=== PATIENT | female | born 1935 | race Caucasian/White ===

== ENCOUNTER 2023-05-17 14:49 | Emergency (ER) | payer MEDICARE, MEDICAID, SELFPAY ==
[2023-05-17] VITALS (28 sets, daily range): BP systolic 142–201; BP diastolic 68–109; PULSE 47–89; RESP 13–33; TEMP 36.4; O2SAT 84–99; BMI 21.1
--- NOTE | 2023-05-17 14:58 | CT_ITS ---
The [address] [address] Patient Name: YAMINI TURPIN MRN: [id number] date: 1935 Sex: F Assigned Patient Location: ED.MAIN Current Patient Location: ER Accession/Order Number: [id number] Exam Date: 05/17/2023 15:04 Report Date: 05/17/2023 15:24 At the request of: SUMAN KENDRICK Procedure: CT stroke head/brain wo con EXAMINATION: CT stroke head/brain wo con HISTORY: hematoma, CHI, blood thinner COMPARISON: None. TECHNIQUE: CT scan of the head was performed without IV contrast. CT dose reduction technique was used, including Automated Exposure Control. FINDINGS: There are no extra-axial fluid collections. There is no mass effect or midline shift. Cortical thinning with compensatory dilatation of the sulci and ventricles, representing cerebral atrophy. The brain demonstrates normal attenuation. Basal cisterns are patent. There is extensive bilateral subcortical and deep periventricular white matter chronic microvascular ischemia. Bilateral orbits, paranasal sinuses and mastoid air cells are patent. No skull base fracture. CT/CT stroke head/brain wo con IMPRESSION: No acute intracranial hemorrhage. extensive bilateral subcortical and deep periventricular white matter chronic microvascular ischemia. Superimposed infarction cannot be excluded. Brain CT angiogram or MRI is recommended for better evaluation. Electronically authenticated by: AKASH CAZARES Date: 05/17/2023 15:24
--- NOTE | 2023-05-17 15:08 | ECG_ITS ---
The [facility] Test Date: 2023-05-17 Pat Name: YAMINI TURPIN Department: Room: - Gender: Female Rn Support Services: : 1935 Requested By: Order Number: [id number] Reading MD: SHIELA LOWERY Measurements Intervals [place] Rate: 49 P: -52149 MN: -25536 QRS: 99 QRSD: 112 T: 270 QT: 370 QTc: 341 Interpretive Statements 1430 Undetermined rhythm (Possible supraventricular bradycardia) 2234 Possible 3rd degree AV block 2540 Incomplete left bundle branch block [address] depression, possible subendocardial injury 4664 Twave abnormality, possible inferolateral ischemia 7102 Moderate right axis deviation 8305 Short QTc interval 9150 abnormal ECG No previous ECG available for comparison Electronically Signed On 05-19-2023 18:20:58 EDT by SHIELA LOWERY
--- NOTE | 2023-05-17 15:08 | XR_ITS ---
The [address] [address] Patient Name: YAMINI TURPIN MRN: [id number] date: 1935 Sex: F Assigned Patient Location: ER Current Patient Location: ER Accession/Order Number: [id number] Exam Date: 05/17/2023 16:15 Report Date: 05/17/2023 16:47 At the request of: SUMAN KENDRICK Procedure: XR chest 1V EXAM: XR chest 1V HISTORY: cp COMPARISON: None. TECHNIQUE: Chest X-ray AP, 1 view FINDINGS: Support devices: None. Lungs/pleura: There is bilateral emphysema. Left basilar linear atelectasis. No consolidation, effusion, or pneumothorax. Heart and mediastinum: Cardiomegaly Bones: No acute abnormality identified. Bilateral shoulder osteoarthritis. XR/XR chest 1V Impression: Cardiomegaly. Left basilar linear atelectasis. Electronically authenticated by: AKASH CAZARES Date: 05/17/2023 16:47
--- NOTE | 2023-05-17 15:09 | XR_ITS ---
The [address] [address] Patient Name: YAMINI TURPIN MRN: [id number] date: 1935 Sex: F Assigned Patient Location: ER Current Patient Location: ER Accession/Order Number: [id number] Exam Date: 05/17/2023 16:15 Report Date: 05/17/2023 16:51 At the request of: SUMAN KENDRICK Procedure: XR sacrum coccyx min 2V EXAM: XR sacrum coccyx min 2V HISTORY: pain COMPARISON: None. TECHNIQUE: 3 views of the sacrum FINDINGS: Diffuse osteopenia, limited evaluation of the bone fractures. However, no definite fracture is noted. 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 There is no dislocation. XR/XR sacrum coccyx min 2V IMPRESSION: No acute process. Electronically authenticated by: AKASH CAZARES Date: 05/17/2023 16:51
--- NOTE | 2023-05-17 15:10 | ED.GENADUL1 ---
HPI - General Adult General Chief complaint: Syncope Stated complaint: FALL/HEAD INJURY Time Seen by Provider: 05/17/23 16:01 Mode of arrival: ambulance History of Present Illness HPI narrative: Patient is a 87-year-old female who is presenting to the Emergency Room with chief complaint Of closed head injury on anticoagulant. Patient states that she was bending over to pickle pumper something, she is seeing black stars, and patient ended up falling over and hitting her head. Patient complains of no headache or neck pain. Patient arrived in no cervical collar. Patient is alert and oriented ?3, GCS of 15. Patient has tailbone pain, otherwise no other acute complaints. Patient has no vision or hearing changes. It was reported the patient had a witnessed fall by staff. Patient believes that she passed out, she does remember bending over does not remember hitting her head. No abdominal pain, nausea vomiting. No acute complaints. . All systems are negative except as noted/marked. All systems reviewed and otherwise negative. . Nurses note and vital signs reviewed and patient is not hypoxic. General: The patient appears well and in no apparent distress. Patient is resting comfortably on cart. Patient is not toxic, lethargic, or listless Skin: Warm, dry, no pallor noted. There is no rash noted. No petechiae, purpura. Head: Normocephalic, atraumatic; Minimal scalp hematoma to the top of her head, minimal tenderness to palpation. No ecchymosis, abrasion, laceration or bruising. Patient has no midline or paracervical tenderness to palpation. Full range of motion of cervical spinal no difficulty. Eye: Normal conjunctiva, no drainage, EOMI. PERRL Ears, Nose, Mouth, and Throat: oral mucosa is Dry. Nares patent. Mouth without vesicles. Cardiovascular: Regular Rate and Rhythm, no murmur, gallop, rub Respiratory: Patient is in no distress, no accessory muscle use, lungs are clear to auscultation, no wheezing, rales or rhonchi, Slight decreased breath sounds bilateral, no crackles heard bilateral. Back: non-tender, no CVA tenderness bilaterally to percussion. No CT LS midline pain GI: soft, no tenderness to palpation, no masses appreciated. No rebound, guarding, or rigidity noted. No flank pain bilateral, No distention Musculoskeletal: Patient has full range of motion of all of the extremities, no motor, sensory, or focal neurological deficits Neurological: A&O x3, normal speech Psychiatric: Cooperative Related Data Allergies Allergy/AdvReac Type Severity Reaction Status Date / Time Latex, Natural Rubber AdvReac Intermediate Verified 05/17/23 14:58 tetanus toxoid, adsorbed AdvReac Intermediate Verified 05/17/23 14:58 pcn AdvReac Intermediate Uncoded 05/17/23 14:58 valium AdvReac Intermediate Uncoded 05/17/23 14:58 PFSH PFSH Social History Smoking status: Current every day smoker Exam Constitutional Vital Signs, click to edit/add: Last Vital Signs Temp 97.6 F 05/17/23 14:58 Pulse 56 L 05/17/23 18:17 Resp 33 H 05/17/23 18:17 BP 166/93 H 05/17/23 18:17 Pulse Ox 96 05/17/23 18:17 O2 Del Method Room Air 05/17/23 14:58 Course Vital Signs Vital signs: Vital Signs Pulse Rate 50 L 05/17/23 14:53 Respiratory Rate 21 05/17/23 14:53 Pulse Oximetry 97 05/17/23 14:53 Temperature 97.6 F 05/17/23 14:58 Pulse Rate 56 L 05/17/23 18:17 Respiratory Rate 33 H 05/17/23 18:17 Blood Pressure 166/93 H 05/17/23 18:17 Pulse Oximetry 96 05/17/23 18:17 Oxygen Delivery Method Room Air 05/17/23 14:58 Medical Decision Making [facility] Narrative Medical decision making narrative: Patient's head CT showed no acute abnormality secondary to closed head injury on anticoagulation. Patient is given IV fluids and feels better. Patient was ambulated and feels well at discharge. Patient will be discharged back to the [facility]. Education on closed head injury was discussed at bedside and on discharge paperwork. Patient has no headache or pain at discharge. Patient has been laughing, joking about her Emergency Room stay, very pleasant to take care of. Lab Data Lab results reviewed: Yes I reviewed the patient's lab results Labs: Lab Results 05/17/23 Range/Units 15:20 WBC 7.4 (4.0-11.0) 10^3/uL RBC 3.57 L (4.20-5.40) 10^6/uL Hgb 11.6 L (12.0-16.0) g/dL Hct 36.5 (36.0-48.0) % MCV 102.2 H (81.0-99.0) fL MCH 32.5 (26.7-34.0) pg MCHC 31.8 (29.9-35.2) g/dL RDW 14.3 (11.0-15.0) % Plt Count 171 (150-450) 10^3/uL MPV 11.8 (9.5-13.5) fL Neut % (Auto) 75.0 (43.0-75.0) % Lymph % (Auto) 15.9 L (20.5-60.0) % [place] % (Auto) 7.5 (1.7-12.0) % Eos % (Auto) 0.5 L (0.9-7.0) % Baso % (Auto) 0.8 (0.2-2.0) % Neut # (Auto) 5.5 (1.4-6.5) 10^3/uL Lymph # (Auto) 1.2 (1.2-3.8) 10^3/uL [place] # (Auto) 0.6 (0.3-0.8) 10^3/uL Eos # (Auto) 0.0 (0.0-0.7) 10^3/uL Baso # (Auto) 0.1 (0.0-0.1) 10^3/uL Abs Immat Gran (auto) 0.02 (0.00-0.03) 10^3/uL Imm/Tot Granulo (auto) 0.3 (0.0-0.5) % Sodium 145 (136-145) mmol/L Potassium 3.9 (3.5-5.1) mmol/L Chloride 109 H (98-107) mmol/L Carbon Dioxide 25.6 (21.0-32.0) mmol/L Anion Gap 14.3 BUN 24.0 H (7.0-18.0) mg/dL Creatinine 1.54 H (0.55-1.02) mg/dL Est GFR ( Amer) 39 L (>=60) Est GFR (Non-Af Amer) 32 L (>=60) BUN/Creatinine Ratio 15.6 Glucose 107 H (74-106) mg/dL Calcium 9.3 (8.5-10.1) mg/dL Total Bilirubin 0.7 (0.2-1.0) mg/dL AST 23 (15-37) U/L ALT 26 (14-59) U/L Alkaline Phosphatase 77 (46-116) U/L Troponin I High Sens 31.0 (4.0-51.3) pg/mL NT-Pro-B Natriuret Pep >84112.0 H* (<=1800.0) pg/mL Total Protein 6.6 (6.4-8.2) g/dL Albumin 3.4 (3.4-5.0) g/dL Globulin 3.2 g/dL Albumin/Globulin Ratio 1.1 ECG Data Attestation: I personally reviewed and interpreted this ECG as follows: Interpretation: EKG interpretation. Sinus bradycardia of 49 beats a minute. Normal axis deviation. Diffuse ST depression QTC of 341. Nonspecific ST changes. Were attempted to find an old EKG to compare this to. Discharge Plan Discharge Chief Complaint: Syncope Clinical Impression: Vasovagal syncope, CHI (closed head injury), Syncope and collapse, Hematoma of scalp Patient Disposition: Home, Self-Care Condition: Good Instructions: Syncope (ED), Head Injury (ED), Scalp Contusion in Adults (ED) Additional Instructions: Ice 20 minutes on, 20 minutes off. Tylenol as needed for headache. Education on closed head injury was Done at bedside and on discharge paperwork. Stand Alone Forms: Portal Instructions Referrals: NOHELIA GRACIA DO [Primary Care Provider] - 1 week
--- NOTE | 2023-05-17 15:24 | PC.NURSE ---
pt sent over from the [employer]. pt states that she uses a walker and has a pickup stick and was trying to collect papers of the ground. pt states that all she remembers is bending over and her vision going black and falling foward and hitting her head. pt denies anyone being around when she fell. pt unsure why she passed out. hematoma to top of head. c/o tailbone pain and pain to her right hand. pt states pain is minimal. pt states that she wears 2 liters nasal cannula as needed and this morning when they checked her pulse ox her o2 sat was only 82% on room air and she was placed on oxygen and she isn't sure if that has anything to do with it.
[2023-05-17] MEDS: 0.9 % SODIUM CHLORIDE 1,000 ML 1000 ML IV (15:30)
[2023-05-17 15:40] LABS: Basophils Absolute Auto 0.1 10^3/uL (0.0-0.1); Basophils Percent Auto 0.8 % (0.2-2.0); Eosinophils Percent Auto 0.5 % (0.9-7.0); Hematocrit 36.5 % (36.0-48.0); Hemoglobin 11.6 g/dL (12.0-16.0); Immature Granulocytes Abs Auto 0.02 10^3/uL (0.00-0.03); Immature Granulocytes Pct Auto 0.3 % (0.0-0.5); Lymphocytes Absolute Auto 1.2 10^3/uL (1.2-3.8); Lymphocytes Percent Auto 15.9 % (20.5-60.0); Mean Corpuscular HGB Conc 31.8 g/dL (29.9-35.2); Mean Corpuscular Hemoglobin 32.5 pg (26.7-34.0); Mean Corpuscular Volume 102.2 fL (81.0-99.0); Mean Platelet Volume 11.8 fL (9.5-13.5); Monocytes Absolute Auto 0.6 10^3/uL (0.3-0.8); Monocytes Percent Auto 7.5 % (1.7-12.0); Neutrophils Absolute Auto 5.5 10^3/uL (1.4-6.5); Platelet Count 171 10^3/uL (150-450); Red Blood Count 3.57 10^6/uL (4.20-5.40); Red Cell Distribution Width 14.3 % (11.0-15.0); White Blood Count 7.4 10^3/uL (4.0-11.0)
[2023-05-17 16:04] LABS: Alanine Aminotransferase 26 U/L (14-59); Albumin Globulin Ratio 1.1; Albumin Level 3.4 g/dL (3.4-5.0); Alkaline Phosphatase 77 U/L (46-116); Anion Gap 14.3; Aspartate Amino Transferase 23 U/L (15-37); BUN Creatinine Ratio 15.6; Bilirubin Total 0.7 mg/dL (0.2-1.0); Calcium 9.3 mg/dL (8.5-10.1); Carbon Dioxide 25.6 mmol/L (21.0-32.0); Chloride 109 mmol/L (98-107); Estimated GFR (African America 39 (>=60); Estimated GFR (Non-African Ame 32 (>=60); Globulin 3.2 g/dL; Glucose 107 mg/dL (74-106); Potassium 3.9 mmol/L (3.5-5.1); Sodium 145 mmol/L (136-145); Total Protein 6.6 g/dL (6.4-8.2)
[2023-05-17 16:06] LABS: NT Pro B Type Natriuretic Pept >35000.0 pg/mL (<=1800.0)
== END 2023-05-17 21:07 | disposition home or self-care (01) ==
PROVIDERS: Emergency Provider Emergency Medicine; PCP Family Medicine
DX: S09.8XXA Other specified injuries of head, initial encounter (principal); R55 Syncope and collapse; S00.03XA Contusion of scalp, initial encounter; F17.210 Nicotine dependence, cigarettes, uncomplicated; Z79.01 Long term (current) use of anticoagulants; W18.30XA Fall on same level, unspecified, initial encounter
CPT/HCPCS: 36415; 70450; 71045; 72220; 80053; 83880; 84484; 85025; 93005; 96360; 99285

== ENCOUNTER 2023-05-30 13:30 | Inpatient (IN) | payer MEDICARE, MEDICAID, SELFPAY ==
[2023-05-30] VITALS (18 sets, daily range): BP systolic 146–167; BP diastolic 66–79; PULSE 56–71; RESP 18–28; TEMP 36.7–36.9; O2SAT 86–97; BMI 24.2; BMI 24.9
--- NOTE | 2023-05-30 13:37 | XR_ITS ---
The [address] [address] Patient Name: YAMINI TURPIN MRN: [id number] date: 1935 Sex: F Assigned Patient Location: ER Current Patient Location: ER Accession/Order Number: [id number] Exam Date: 05/30/2023 13:59 Report Date: 05/30/2023 14:45 At the request of: NICOLASA HANEY Procedure: XR chest 1V EXAMINATION: XR chest 1V HISTORY: Dyspnea , chest tightness during inspiration COMPARISON: XR chest 05/17/2023 FINDINGS: LUNGS: Dense opacities within the mid and lower lung regions bilaterally. Loss of diaphragm margins. VASCULATURE: No increased pulmonary vasculature. PLEURA: Right pleural effusion. No pneumothorax. CARDIAC: Grossly stable cardiomegaly. MEDIASTINUM: No visible mass or adenopathy. BONES: No fracture or visible bone lesion. OTHER: Negative. XR/XR chest 1V IMPRESSION: 1. New marked basilar infiltrates, right greater than left suggestive of pneumonia. 2. New [id number] right pleural effusion. Electronically authenticated by: HUMBLE SOTELO Date: 05/30/2023 14:45
--- NOTE | 2023-05-30 13:37 | ECG_ITS ---
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
--- NOTE | 2023-05-30 13:39 | ED.SOB1 ---
HPI - SOB/Dyspnea General Chief Complaint: Shortness of Breath/Dyspnea Time Seen by Provider: 05/30/23 13:37 Source: patient Mode of arrival: ambulance Limitations: no limitations History of Present Illness HPI Narrative: Patient is an 87-year-old female who presents to the emergency department by ambulance from the [facility] where she is a resident for the evaluation of shortness of breath increasing over the last two days. jail reports the patient had a chest x-ray yesterday that showed improving pulmonary edema. She has a history of congestive heart failure. She was not started on any additional medications today but did receive a breathing treatment prior to arrival for increasing shortness of breath and hypoxia. She does not typically wear oxygen but was placed on oxygen by nasal cannula with improvement of oxygen saturations. At this time, patient is alert and oriented, she denies chest pain. She has had no fevers, vomiting. She denies any peripheral edema. She has had sputum production with coughing in the last several days. Related Data Allergies Allergy/AdvReac Type Severity Reaction Status Date / Time Latex, Natural Rubber AdvReac Intermediate Verified 05/17/23 14:58 tetanus toxoid, adsorbed AdvReac Intermediate Verified 05/17/23 14:58 pcn AdvReac Intermediate Uncoded 05/17/23 14:58 valium AdvReac Intermediate Uncoded 05/17/23 14:58 Review of Systems ROS Constitutional Denies: fever or chills Cardiovascular Denies: chest pain Respiratory Reports: shortness of breath and cough Gastrointestinal Denies: nausea or vomiting Musculoskeletal Denies: back pain or neck pain Integumentary/Breast Denies: rash Neurological Denies: headache Hematologic/Lymphatic Denies: easy bruising PFSH PFS Social History Smoking status: Current every day smoker Exam Narrative Exam Narrative: Gen.: Awake, alert, in no distress Head: Normocephalic, atraumatic ENT: Moist mucous membranes Respiratory: No respiratory distress, tachypnea noted, diminished lung sounds globally Cardio: Regular rate and rhythm Gastrointestinal: Abdomen is soft, nondistended and nontender to palpation Extremities: Moves extremities equally, no pedal edema Psych: Normal mood and affect Neuro: No focal neuro deficit Skin: Warm, dry, intact Constitutional Vital Signs, click to edit/add: Last Vital Signs Temp 98.4 F 05/30/23 13:34 Pulse 63 05/30/23 14:30 Resp 24 05/30/23 13:34 BP 158/79 H 05/30/23 15:11 Pulse Ox 93 L 05/30/23 14:30 O2 Del Method Nasal Cannula 05/30/23 13:50 O2 Flow Rate 4 05/30/23 14:30 Course Vital Signs Vital signs: Vital Signs Temperature 98.4 F 05/30/23 13:34 Pulse Rate 66 05/30/23 13:34 Respiratory Rate 24 05/30/23 13:34 Blood Pressure 158/79 H 05/30/23 13:34 Pulse Oximetry 86 L 05/30/23 13:34 Oxygen Delivery Method Nasal Cannula 05/30/23 13:34 Oxygen Delivery Flow Rate 2 05/30/23 13:34 Temperature 98.4 F 05/30/23 13:34 Pulse Rate 63 05/30/23 14:30 Respiratory Rate 24 05/30/23 13:34 Blood Pressure 158/79 H 05/30/23 15:11 Pulse Oximetry 93 L 05/30/23 14:30 Oxygen Delivery Method Nasal Cannula 05/30/23 13:50 Oxygen Delivery Flow Rate 4 05/30/23 14:30 MDM - SOB/Dyspnea MDM Narrative Medical decision making narrative: Patient was noted to be in rate controlled atrial fibrillation, she does have a history of atrial fibrillation per her intermediate records. She has no complaints of chest pain in the Emergency Room. She maintained her oxygen saturations while on oxygen by nasal cannula. She was kept at 4 L by nasal cannula in the Emergency Room. Labs studies show mild anemia but significantly elevated BNP, greater than thirty-five thousand. Patient was treated with 80 mg of IV Lasix, Schulz catheter was placed. She was also given a DuoNeb with Solu-Medrol on arrival. Chest x-ray reviewed by the radiologist is concerning for bilateral pneumonia with pleural effusion and the patient was also treated with Levaquin and vancomycin for antibiotic coverage as she is from a longterm facility, she was given coverage for hospital-acquired pneumonia. She is resting comfortably at time of admission, discussed with Dr. Wray (1500) for admission. Medical Records Attestation: I reviewed the patient's medical records. Lab Data Attestation: I reviewed the patient's lab results. Labs: Lab Results 05/30/23 05/30/23 Range/Units 13:46 14:05 WBC 8.2 (4.0-11.0) 10^3/uL RBC 3.33 L (4.20-5.40) 10^6/uL Hgb 10.9 L (12.0-16.0) g/dL Hct 34.8 L (36.0-48.0) % MCV 104.5 H (81.0-99.0) fL MCH 32.7 (26.7-34.0) pg MCHC 31.3 (29.9-35.2) g/dL RDW 14.0 (11.0-15.0) % Plt Count 183 (150-450) 10^3/uL MPV 12.0 (9.5-13.5) fL Neut % (Auto) 85.1 H (43.0-75.0) % Lymph % (Auto) 10.2 L (20.5-60.0) % [place] % (Auto) 4.0 (1.7-12.0) % Eos % (Auto) 0.1 L (0.9-7.0) % Baso % (Auto) 0.2 (0.2-2.0) % Neut # (Auto) 7.0 H (1.4-6.5) 10^3/uL Lymph # (Auto) 0.8 L (1.2-3.8) 10^3/uL [place] # (Auto) 0.3 (0.3-0.8) 10^3/uL Eos # (Auto) 0.0 (0.0-0.7) 10^3/uL Baso # (Auto) 0.0 (0.0-0.1) 10^3/uL Abs Immat Gran (auto) 0.03 (0.00-0.03) 10^3/uL Imm/Tot Granulo (auto) 0.4 (0.0-0.5) % PT 11.2 (9.0-11.6) sec INR 1.06 APTT 24.9 (22.3-36.2) sec VBG pH 7.390 (7.330-7.430) VBG pCO2 51.5 (40.0-52.0) mmHg Sodium 148 H (136-145) mmol/L Potassium 4.0 (3.5-5.1) mmol/L Chloride 110 H (98-107) mmol/L Carbon Dioxide 32.7 H (21.0-32.0) mmol/L Anion Gap 9.3 BUN 23.0 H (7.0-18.0) mg/dL Creatinine 1.39 H (0.55-1.02) mg/dL Est GFR ( Amer) 44 L (>=60) Est GFR (Non-Af Amer) 36 L (>=60) BUN/Creatinine Ratio 16.5 Glucose 126 H (74-106) mg/dL Calcium 9.6 (8.5-10.1) mg/dL Total Bilirubin 0.7 (0.2-1.0) mg/dL AST 23 (15-37) U/L ALT 31 (14-59) U/L Alkaline Phosphatase 79 (46-116) U/L Troponin I High Sens 40.3 (4.0-51.3) pg/mL NT-Pro-B Natriuret Pep >58385.0 H* (<=1800.0) pg/mL Total Protein 6.4 (6.4-8.2) g/dL Albumin 3.5 (3.4-5.0) g/dL Globulin 2.9 g/dL Albumin/Globulin Ratio 1.2 Imaging Data Chest x-ray: Attestation: I have reviewed the pertinent imaging results. Radiologist's impression: Procedure: XR chest 1V EXAMINATION: XR chest 1V HISTORY: Dyspnea , chest tightness during inspiration COMPARISON: XR chest 05/17/2023 FINDINGS: LUNGS: Dense opacities within the mid and lower lung regions bilaterally. Loss of diaphragm margins. VASCULATURE: No increased pulmonary vasculature. PLEURA: Right pleural effusion. No pneumothorax. CARDIAC: Grossly stable cardiomegaly. MEDIASTINUM: No visible mass or adenopathy. BONES: No fracture or visible bone lesion. OTHER: Negative. IMPRESSION: 1. New marked basilar infiltrates, right greater than left suggestive of pneumonia. 2. New [id number] right pleural effusion. Electronically authenticated by: HUMBLE SOTELO Date: 05/30/2023 14:45 ECG Data Attestation: I personally reviewed and interpreted this ECG as follows: (Atrial fibrillation at a rate of fifty-six, and complete right bundle-branch block with no acute ST elevation. EKG reviewed by attending physician) Discharge Plan Discharge Chief Complaint: Shortness of Breath/Dyspnea Clinical Impression: Shortness of breath, Congestive heart failure, Hospital-acquired pneumonia, Hypoxia Patient Disposition: Admitted As Inpatient Time of Disposition Decision: 15:03 Condition: Good
[2023-05-30 14:00] LABS: Basophils Percent Auto 0.2 % (0.2-2.0); Eosinophils Percent Auto 0.1 % (0.9-7.0); Hematocrit 34.8 % (36.0-48.0); Hemoglobin 10.9 g/dL (12.0-16.0); Immature Granulocytes Abs Auto 0.03 10^3/uL (0.00-0.03); Immature Granulocytes Pct Auto 0.4 % (0.0-0.5); Lymphocytes Absolute Auto 0.8 10^3/uL (1.2-3.8); Lymphocytes Percent Auto 10.2 % (20.5-60.0); Mean Corpuscular HGB Conc 31.3 g/dL (29.9-35.2); Mean Corpuscular Hemoglobin 32.7 pg (26.7-34.0); Mean Corpuscular Volume 104.5 fL (81.0-99.0); Monocytes Absolute Auto 0.3 10^3/uL (0.3-0.8); Neutrophils Percent Auto 85.1 % (43.0-75.0); Platelet Count 183 10^3/uL (150-450); Red Blood Count 3.33 10^6/uL (4.20-5.40); White Blood Count 8.2 10^3/uL (4.0-11.0)
[2023-05-30 14:11] LABS: PCO2 VBG 51.5 mmHg (40.0-52.0)
[2023-05-30 14:11] LABS: INR 1.06; Partial Thromboplastin Time 24.9 sec (22.3-36.2); Prothrombin Time 11.2 sec (9.0-11.6)
[2023-05-30 14:19] LABS: Alanine Aminotransferase 31 U/L (14-59); Albumin Globulin Ratio 1.2; Albumin Level 3.5 g/dL (3.4-5.0); Alkaline Phosphatase 79 U/L (46-116); Anion Gap 9.3; Aspartate Amino Transferase 23 U/L (15-37); BUN Creatinine Ratio 16.5; Bilirubin Total 0.7 mg/dL (0.2-1.0); Calcium 9.6 mg/dL (8.5-10.1); Carbon Dioxide 32.7 mmol/L (21.0-32.0); Chloride 110 mmol/L (98-107); Estimated GFR (African America 44 (>=60); Estimated GFR (Non-African Ame 36 (>=60); Globulin 2.9 g/dL; Glucose 126 mg/dL (74-106); Sodium 148 mmol/L (136-145); Total Protein 6.4 g/dL (6.4-8.2); Troponin I High Sensitivity 40.3 pg/mL (4.0-51.3)
[2023-05-30 14:21] LABS: NT Pro B Type Natriuretic Pept >35000.0 pg/mL (<=1800.0)
[2023-05-30] MEDS: IPRATROPIUM/ALBUTEROL SULFATE 3 ML AMPUL.NEB IH ×2 (14:29→23:30)
[2023-05-30] MEDS: FUROSEMIDE 40 MG/4 ML VIAL 80 MG IVP (15:11)
[2023-05-30] MEDS: METHYLPREDNISOLONE SOD SUCC PF 125 MG/2 ML VIAL IVP (15:11)
[2023-05-30] MEDS: LEVOFLOXACIN IN DEXTROSE 5 % 750 MG/150 ML IV.SOLN 100 MG IV (16:22)
[2023-05-30] MEDS: VANCOMYCIN HCL 1,000 MG in 0.9 % SODIUM CHLORIDE 250 ML 250 MG IV (20:14)
--- NOTE | 2023-05-30 22:51 | P.PN_ITS ---
Progress Note: Subjective Subjective Interval history: The patient is an 87-year-old female, long-term resident at the [facility], who has been having trouble with shortness of breath and dyspnea on exertion over the past 3 days. She also states that she had some trouble swallowing. She desaturated to 71% yesterday with ambulation. She was brought into the hospital today and chest x-ray showed possible pneumonia. BNP was greater than 35,000. In the ED, she was given vancomycin, Levaquin and 80 mg of IV Lasix. She is being admitted for further evaluation. Exam Narrative Exam Narrative: General : Alert and oriented x3 HEENT : Extraocular movements intact, pupils equal round and reactive to light and accommodation Neck: Supple, no JVD Chest: Clear to auscultation bilaterally, no wheezes Heart: Regular rate and rhythm, S1 and S2 heard Abdomen: Soft nontender nondistended. Extremities: No clubbing cyanosis or edema Neurologically: Moving all 4 extremities Skin: No rashes Constitutional Vital Signs, click to edit/add: Last Vital Signs Temp 98.1 F 05/30/23 22:00 Pulse 67 05/30/23 22:17 Resp 18 05/30/23 22:00 BP 146/70 H 05/30/23 22:00 Pulse Ox 93 L 05/30/23 22:00 O2 Del Method Nasal Cannula 05/30/23 22:00 O2 Flow Rate 4 05/30/23 22:00 Progress Note: Objective Labs Labs: Short CBC 05/30/23 Range/Units 13:46 WBC 8.2 (4.0-11.0) 10^3/uL Hgb 10.9 L (12.0-16.0) g/dL Hct 34.8 L (36.0-48.0) % Plt Count 183 (150-450) 10^3/uL BMP 05/30/23 13:46 Sodium 148 H Potassium 4.0 Chloride 110 H Carbon Dioxide 32.7 H BUN 23.0 H Creatinine 1.39 H Glucose 126 H Calcium 9.6 Liver Function 05/30/23 Range/Units 13:46 Total Bilirubin 0.7 (0.2-1.0) mg/dL AST 23 (15-37) U/L ALT 31 (14-59) U/L Alkaline Phosphatase 79 (46-116) U/L Albumin 3.5 (3.4-5.0) g/dL Progress Note: A&P Assessment and Plan (1) Hospital-acquired pneumonia: (2) Congestive heart failure: (3) Hypoxia: Plan The patient is an 87-year-old female with above medical problems, presenting with pneumonia and decompensated heart failure. Decompensated heart failure -Provide supportive care -IV Lasix 40 mg daily -Monitor renal function and respiratory status Healthcare associated pneumonia -Continue vancomycin and Levaquin -Nebulizers as needed Hypernatremia -Likely dilutional -Monitor labs Atrial fibrillation -Continue amiodarone and metoprolol -Continue apixaban for cardioembolic prophylaxis DVT Prophylaxis -Lovenox, SCDs Medication review -Medication reconciliation form completed Goals of care -DNR [employer] -Discussed with the emergency room physician -Discussed with the bedside nurse -Patient updated of plan of care, all questions answered to their satisfaction Disposition -Custodial when medically stable Telemedicine clause -As the provider of this telehealth evaluation, requested by the patient's evaluating physician, I attest that I introduced myself to the patient, provided my credentials and determined that telemedicine via a real-time, two-way interactive audio and video platform is an appropriate and effective means of providing this service. -I reviewed the patient's chart and had a discussion with the member of the patient's treatment team. -The patient and I mutually agreed with continuation of this evaluation via telemedicine. The patient consented for the telemedicine evaluation. -This virtual encounter was taken place from [place], [place]. The encounter was approximately 35 minutes. The nurse was present during the entire time of the encounter and was able to remove the stethoscope and appropriate directions. The patient was evaluated at [facility] Telemedicine Attestation Telemedicine Attestation I conducted this encounter from [] via secure live, [id number] video conference with the patient, located at [facility] with []. Prior to the interview, the risks and benefits of telemedicine were discussed with the patient and verbal consent was obtained.
[2023-05-30] MEDS: BUDESONIDE 0.5 MG/2 ML AMPULE NEB IH (23:35)
[2023-05-30] MEDS: FUROSEMIDE 40 MG/4 ML VIAL IVP (23:44)
[2023-05-30] MEDS: AMIODARONE HCL 200 MG TABLET PO (23:44)
[2023-05-30] MEDS: DOCUSATE SODIUM 100 MG CAPSULE PO ×2 (23:44→23:48)
[2023-05-30] MEDS: GABAPENTIN 100 MG CAPSULE PO (23:50)
[2023-05-31] VITALS (20 sets, daily range): BP systolic 144–162; BP diastolic 68–78; PULSE 53–75; RESP 18–20; TEMP 36.9–37; O2SAT 91–96; BMI 24.9
[2023-05-31 04:57] LABS: Hematocrit 33.5 % (36.0-48.0); Hemoglobin 10.4 g/dL (12.0-16.0); Immature Granulocytes Abs Auto 0.02 10^3/uL (0.00-0.03); Immature Granulocytes Pct Auto 0.4 % (0.0-0.5); Lymphocytes Absolute Auto 0.2 10^3/uL (1.2-3.8); Mean Corpuscular Volume 103.1 fL (81.0-99.0); Mean Platelet Volume 12.5 fL (9.5-13.5); Monocytes Absolute Auto 0.1 10^3/uL (0.3-0.8); Monocytes Percent Auto 1.3 % (1.7-12.0); Neutrophils Absolute Auto 5.2 10^3/uL (1.4-6.5); Neutrophils Percent Auto 95.3 % (43.0-75.0); Platelet Count 172 10^3/uL (150-450); Red Blood Count 3.25 10^6/uL (4.20-5.40); Red Cell Distribution Width 13.9 % (11.0-15.0); White Blood Count 5.4 10^3/uL (4.0-11.0)
[2023-05-31 05:06] LABS: Anion Gap 8.8; Calcium 9.8 mg/dL (8.5-10.1); Carbon Dioxide 32.8 mmol/L (21.0-32.0); Chloride 108 mmol/L (98-107); Estimated GFR (African America 43 (>=60); Estimated GFR (Non-African Ame 35 (>=60); Glucose 148 mg/dL (74-106); Potassium 3.6 mmol/L (3.5-5.1); Sodium 146 mmol/L (136-145)
[2023-05-31] MEDS: LEVOTHYROXINE SODIUM 75 MCG TABLET 150 MCG PO (06:24)
[2023-05-31] MEDS: GABAPENTIN 100 MG CAPSULE PO ×3 (06:24→22:00)
--- NOTE | 2023-05-31 07:43 | CT_ITS ---
[address] [address] Patient Name: YAMINI TURPIN MRN: [id number] date: 1935 Sex: F Assigned Patient Location: MS Current Patient Location: MS Accession/Order Number: [id number] Exam Date: 05/31/2023 08:00 Report Date: 05/31/2023 10:20 At the request of: SHAIKH JOSÉ LUIS Procedure: CT chest wo con EXAMINATION: CT chest wo con HISTORY: SOB/PNA COMPARISON: No relevant comparison available. TECHNIQUE: Multi-planar CT images were created with IV contrast. Axial, Coronal, and Sagittal images. Dose reduction techniques were achieved by using automated exposure control and/or adjustment of mA and/or kV according to patient size and/or use of iterative reconstruction technique. FINDINGS: LUNGS: Partial consolidation of both lower lobes with presence of air bronchograms. PLEURA: 3.9 cm right and 2.9 cm left pleural effusions. No pneumothorax VASCULATURE: No abnormality. JUDE: No mass or adenopathy. MEDIASTINUM: No mass or adenopathy. CARDIAC: Mild cardiomegaly. Moderate coronary atherosclerosis. AORTA: No aneurysm or dissection. CHEST WALL: No mass or axillary adenopathy. BONES: No bone lesion or fracture.90% wedge compression T9 vertebral body LIMITED ABDOMEN: Numerous bilateral renal lesions consistent with polycystic kidney disease. Right renal cortical atrophy. OTHER: Negative. CT/CT chest wo con IMPRESSION: Moderate bilateral pleural effusions with partial bibasilar consolidation atelectasis versus pneumonia Electronically authenticated by: SANTOS CASEY Date: 05/31/2023 10:20
--- NOTE | 2023-05-31 08:57 | DIETREC ---
Nutrition Recommendations: 1. Recommend speech evaluation. If thin liquids are deemed safe for patient, recommend adding Ensure HP once daily.
[2023-05-31] MEDS: LEVOFLOXACIN IN DEXTROSE 5 % 500 MG/100 ML PIGGYBACK 100 MG IV (09:13)
[2023-05-31] MEDS: OMEPRAZOLE 20 MG CAPSULE.DR PO (09:13)
[2023-05-31] MEDS: APIXABAN 5 MG TABLET 2.5 MG PO ×2 (09:13→21:50)
[2023-05-31] MEDS: ATORVASTATIN CALCIUM 40 MG TABLET PO (09:13)
[2023-05-31] MEDS: FERROUS SULFATE 325 MG TABLET PO (09:14)
[2023-05-31] MEDS: MULTIVITAMIN TABLET 1 TAB PO (09:14)
[2023-05-31] MEDS: PAROXETINE HCL 20 MG TABLET 10 MG PO (09:14)
[2023-05-31] MEDS: BUSPIRONE HCL 15 MG TABLET PO ×2 (09:14→21:50)
[2023-05-31] MEDS: MAGNESIUM OXIDE 400 MG TABLET PO (09:14)
--- NOTE | 2023-05-31 09:27 | SWNOTE1 ---
Pt is from [facility].
[2023-05-31] MEDS: BUDESONIDE 0.5 MG/2 ML AMPULE NEB IH (10:59)
--- NOTE | 2023-05-31 11:08 | SWNOTE1 ---
SW met with pt to discuss dc needs. Pt is from [facility], she has been there for 3 years. Pt voiced that she loves it there. They cook bathe, do her laundry, etc. Pt just started wearing 02 earlier this week because her pulse ox dipped. Pt's plan is to return to [facility] at discharge. SW to follow as needed.
[2023-05-31 12:21] LABS: NT Pro B Type Natriuretic Pept >35000.0 pg/mL (<=1800.0)
[2023-05-31] MEDS: SODIUM CHLORIDE 0.45 % 1,000 ML 100 ML IV ×2 (13:06→21:56)
--- NOTE | 2023-05-31 13:19 | P.HP_ITS ---
H&P: HPI History of Present Illness Chief complaint: SOB and hypoxia Narrative: 87 y o female was sent in from nursing for worsening SOB along with cough for 2- 3 days. She was hypoxic with pulse ox in 70s there last night and was brought over for further eval. Patient does not wear O2 at baseline and needed 4 L O via NC for hypoxia. She denies nausea,vomiting, abdominal pain or urinary complaints. She is doing better than last night but appeared SOB while talking. Her w/u was consistent with b/l Pneumonia and pleural effusion. Patient was give IV lasix for volume overload and also treated for pneumonia. She received vancomycin and Levaquin for for health care associated PNA because she is a senior care resident. When inquired - it does not seem like she has had any recent abx use and also have not been in the hospital other than ED visit for a fall recently. Review of Systems ROS Status of ROS 10 or more systems reviewed and unremarkable except as noted in history and below [facility] Medical History (Updated 05/31/23 @ 13:34 by Shaikh Kamala MD) Surgical History (Updated 05/30/23 @ 18:32 by Diamond Chakraborty, HOMER) Family History (Updated 05/30/23 @ 18:35 by Diamond Chakraborty, RN) Father Family history of diabetes mellitus Brother Family history of hypertension Social History (Updated 05/30/23 @ 18:38 by Diamond Chakraborty, HOMER) Within the past year, how often did you have a drink containing alcohol: monthly or less Smoking status: Former smoker Non-prescribed substance use: denies use Highest level of school completed/degree received: high school graduate Meds Home Medications and Allergies Home Medications Medication Instructions Recorded Confirmed Type amiodarone 200 mg tablet 200 mg PO Q24H 05/30/23 05/30/23 History apixaban 5 mg tablet (Eliquis) 2.5 mg PO BID 05/30/23 05/30/23 History atorvastatin 40 mg tablet 40 mg PO DAILY 05/30/23 05/30/23 History budesonide 0.5 mg/2 mL suspension 0.5 mg inhalation Q12H 05/30/23 05/30/23 History for nebulization buspirone 15 mg tablet 15 mg PO BID 05/30/23 05/30/23 History ferrous sulfate 325 mg (65 mg 325 mg PO DAILY 05/30/23 05/30/23 History iron) tablet (FeroSul) gabapentin 100 mg capsule 100 mg PO Q8H 05/30/23 05/30/23 History ipratropium 0.5 mg-albuterol 3 mg 3 ml inhalation BID PRN shortness 05/30/23 05/30/23 History (2.5 mg base)/3 mL nebulization of breath or wheezing soln levothyroxine 150 mcg tablet 150 mcg PO DAILY 05/30/23 05/30/23 History loperamide 2 mg capsule 2 mg PO QID PRN loose stool 05/30/23 05/30/23 History magnesium oxide 400 mg (241.3 mg 400 mg PO DAILY 05/30/23 05/30/23 History magnesium) tablet melatonin 3 mg tablet 3 mg PO DAILY 05/30/23 05/30/23 History tpceguokbmel-kxcvzoih-cxbe 1 tab PO DAILY 05/30/23 05/30/23 History fumarate 7.5 mg-folic acid 400 mcg tablet omeprazole 20 mg capsule,delayed 20 mg PO DAILY 05/30/23 05/30/23 History release paroxetine HCl 10 mg tablet 10 mg PO DAILY 05/30/23 05/30/23 History Allergies Allergy/AdvReac Type Severity Reaction Status Date / Time Latex, Natural Rubber AdvReac Intermediate Verified 05/17/23 14:58 tetanus toxoid, adsorbed AdvReac Intermediate Verified 05/17/23 14:58 pcn AdvReac Intermediate Uncoded 05/17/23 14:58 valium AdvReac Intermediate Uncoded 05/17/23 14:58 Exam Constitutional Vital Signs, click to edit/add: Last Vital Signs Temp 98.6 F 05/31/23 06:00 Pulse 68 05/31/23 11:54 Resp 18 05/31/23 06:00 BP 158/75 H 05/31/23 06:00 Pulse Ox 96 05/31/23 11:16 O2 Del Method Nasal Cannula 05/31/23 11:16 O2 Flow Rate 4 05/31/23 11:16 Documenting provider has reviewed patient's vital signs: yes Common normals: oriented x3 General appearance: cooperative [facility] Common normals: normocephalic and head/scalp atraumatic Head and scalp: normocephalic and atraumatic Eye Common normals: conjunctivae normal and no scleral icterus Conjunctiva: conjunctiva(e) normal Respiratory Effort & inspection: tachypneic and prolonged expiratory phase Auscultation: rhonchi Other: short of breath, speaking in short sentences Cardio Common normals: regular rate, S1 normal heart sound and S2 normal heart sound Rate: regular rate Heart sounds: S1 normal and S2 normal GI Common normals: Normal to inspection, nondistended, normoactive bowel sounds present, soft to palpation, non-tender and no hepatosplenomegaly Palpation: soft and no hepatosplenomegaly Extremity Common normals: no clubbing, cyanosis or edema Neuro Common normals: oriented x3, moves all extremities and no focal motor deficits Psych Common normals: mental status grossly normal, denies hallucinations, denies homicidal ideation and denies suicidal ideation Results Labs Labs: CBC 05/30/23 05/31/23 Range/Units 13:46 04:13 WBC 8.2 5.4 (4.0-11.0) 10^3/uL Hgb 10.9 L 10.4 L (12.0-16.0) g/dL Hct 34.8 L 33.5 L (36.0-48.0) % Plt Count 183 172 (150-450) 10^3/uL BMP 05/30/23 05/31/23 13:46 04:13 Sodium 148 H 146 H Potassium 4.0 3.6 Chloride 110 H 108 H Carbon Dioxide 32.7 H 32.8 H BUN 23.0 H 24.0 H Creatinine 1.39 H 1.41 H Glucose 126 H 148 H Calcium 9.6 9.8 Liver Function 05/30/23 Range/Units 13:46 Total Bilirubin 0.7 (0.2-1.0) mg/dL AST 23 (15-37) U/L ALT 31 (14-59) U/L Alkaline Phosphatase 79 (46-116) U/L Albumin 3.5 (3.4-5.0) g/dL ABG ABG results: 05/30/23 14:05 VBG pH 7.390 VBG pCO2 51.5 Assessment and Plan Assessment and Plan (1) Acute respiratory failure with hypoxia: Assessment and Plan: Acute resp failure with hypoxia sec to PNA. On 4 L O2 Wean off as tolerated. Short of breath at rest, speaking in short sentences. (2) Basal pneumonia of both lungs: Assessment and Plan: b/l PNA. No reason to treat as hospital acquired PNA On IV Levaquin F/u blood and sputum cx. Duonebs as needed (3) Pleural effusion due to bacterial infection: Assessment and Plan: B/l pleural effusion likely sec to PNA. She appears dehydrated on exam and does not appear to be in volume overload. Will start on low dose 1/2 NS. 2D ECHO ordered to assess cardiac structure. (4) A-fib: Assessment and Plan: In Afib. On amiodarone and Eliquis. Rate controlled. c.w same (5) Chronic kidney disease: Assessment and Plan: CKD 3. Stable. Monitor. Qualifiers: Chronic kidney disease stage: stage 3 (moderate) (6) Hyperlipemia: Assessment and Plan: C/w lipitor (7) Hypothyroidism: Assessment and Plan: c/w synthyroid Plan Inpatient as b/l PNA with hypoxia requiring 4 L O2. Anticipate staying in the hospital for 2-3 days due to multifocal PNA, present of pleural effusion and hypoxia
--- NOTE | 2023-05-31 13:29 | CA_ITS ---
Patient: YAMINI TURPIN Exam Date: 05/31/2023 : 1935 Gender:F Ordering : VARNER BillBryan FERNIERJSiria . Admission #: [id number] Family : Order #: [id number] CLICK HERE TO VIEW EXAM ECHOCARDIOGRAM REPORT PROCEDURE: CA ECHO DOPPLER COMPLETE INDICATIONS: Elevated BNP (>16772), atrial fibrillation, sepsis, congestive heart failure, chronic kidney disease COMPARISON: None. DESCRIPTION: COMPLETE ECHOCARDIOGRAM Real-time transthoracic echocardiography with 2D, M-mode, spectral and color flow Doppler performed. QUALITY: Technical quality was good. LEFT VENTRICLE: Normal chamber size. Mild concentric left ventricular hypertrophy. LV EF: Global left ventricular systolic function is mild to moderately reduced; visually estimated ejection fraction is 35 to 40%. Global hypokinesis is seen. Abnormal septal motion may be related to underlying bundle branch block. DIASTOLIC: Grade II diastolic dysfunction. ATRIAL SEPTUM: Visually appears intact. LEFT ATRIUM: Severe dilatation. RIGHT ATRIUM: Moderate dilatation. RIGHT VENTRICLE: Normal chamber size. Normal right ventricular systolic function. TRICUSPID VALVE: Normal mobility and thickness. No stenosis with mild regurgitation. Doppler studies reveal moderately (45-60) elevated right sided pressures. RVSP 52 mmHg MITRAL VALVE: Mildly thickened with normal mobility. No evidence of mitral valve stenosis. There is no mitral annular calcification. Mild to moderate mitral regurgitation. AORTIC VALVE: Normal trileaflet appearance. No visible sclerosis. Normal leaflet mobility. No evidence of aortic valve stenosis. Mild aortic regurgitation. AORTIC ROOT: Normal diameter and appearance. PULMONIC VALVE: Normal thickness and mobility. No stenosis. No regurgitation. PERICARDIUM: No evidence of pericardial effusion. IVC: IVC is normal in size with no collapse. CONCLUSION: 1. Global left ventricular systolic function is mild to moderately reduced; visually estimated ejection fraction 35 to 40%. Abnormal septal motion. 2. Mild left ventricular hypertrophy. 3. Grade 2, moderate diastolic dysfunction. 4. Biatrial enlargement. 5. Right ventricle is normal in size and systolic function. 6. Mild tricuspid regurgitation; moderately elevated right ventricular systolic pressure. 7. Mild to moderate mitral regurgitation. 8. Mild aortic valve regurgitation. Adult Echocardiography Procedure Report Left Ventricle LVEDD (3.7 - 5.6 cm): 5.06 cm LVESD (2.2 - 4.0 cm): 4.16 cm LVIVS thickness (0.6 - 1.2 cm): 1.19 cm LVPW thickness (0.5 - 1.0 cm): 1.20 cm e': 0.05 m/s E - e': 14.91 LVOT Max Gradient: 3.98 mm[Hg] LVOT Area (cm2): 1.00 m/s Peak Velocity (LVOT): 1.00 m/s Mean Velocity (LVOT): 0.64 m/s LVOT Diameter 2.10 cm Left Atrium LA Volume Index (2D A2C): 54.72 ml/m2 Left Atrium Systolic Dimension: 4.56 cm Mitral Valve MV E to A Ratio: 0.76, 0.93 Mitral Valve A-Wave Peak Velocity: 0.81 m/s Mitral Valve E-Wave Peak Velocity: 0.69 m/s Right Ventricle Aorta AO Root Diam: 3.34 cm Aortic Valve AoV Area (Peak Jackson): 2.31 cm2, 2.31 cm2 AoV Area (VTI): 2.42 cm2, 2.42 cm2 Peak Velocity(Antegrade Flow): 1.50 m/s Peak Gradient(Antegrade Flow): 8.94 mm[Hg] Mean Velocity(Antegrade Flow): 1.01 m/s Mean Gradient(Antegrade Flow): 4.69 mm[Hg] Velocity Time Integral: 31.09 cm Tricuspid Valve Peak Velocity (Regurgitant Flow): 3.03 m/s, 3.38 m/s Pulmonic Valve Peak Velocity: 0.85 m/s Peak Gradient: 2.88 mm[Hg], 2.88 mm[Hg] Right Atrium Right Atrium Systolic Pressure: 59.43 ml, 59.43 ml Dictated by: Bart King M.D. on 05/31/2023 at 15:13 Approved by: Bart King M.D. on 05/31/2023 at 15:22
--- NOTE | 2023-05-31 13:50 | SWNOTE1 ---
Updates sent to [facility].
--- NOTE | 2023-05-31 14:44 | CM.NOTE ---
Saw pt on rounds w Dr. Wray. No discharge today. From [facility]. [facility]. Not on O2 @ [facility]. Probable 2 more days inpatient.
--- NOTE | 2023-05-31 16:23 | SWNOTE1 ---
SW did talk to [facility], they are submitting for precert but if pt is discharged over the weekend that is fine as well. SW to let nursing know that we do not have to wait for precert if pt is ready for discharge. SW to have packet ready for weekend.
[2023-05-31] MEDS: AMIODARONE HCL 200 MG TABLET PO (22:00)
[2023-06-01] VITALS (21 sets, daily range): BP systolic 126–148; BP diastolic 68–83; PULSE 57–75; RESP 16–20; TEMP 36.4–36.6; O2SAT 90–97
[2023-06-01 05:03] LABS: Basophils Percent Auto 0.3 % (0.2-2.0); Eosinophils Percent Auto 0.4 % (0.9-7.0); Hematocrit 32.8 % (36.0-48.0); Hemoglobin 10.4 g/dL (12.0-16.0); Immature Granulocytes Abs Auto 0.05 10^3/uL (0.00-0.03); Immature Granulocytes Pct Auto 0.5 % (0.0-0.5); Lymphocytes Absolute Auto 1.1 10^3/uL (1.2-3.8); Lymphocytes Percent Auto 9.6 % (20.5-60.0); Mean Corpuscular HGB Conc 31.7 g/dL (29.9-35.2); Mean Corpuscular Hemoglobin 32.3 pg (26.7-34.0); Mean Corpuscular Volume 101.9 fL (81.0-99.0); Mean Platelet Volume 12.3 fL (9.5-13.5); Monocytes Absolute Auto 0.6 10^3/uL (0.3-0.8); Monocytes Percent Auto 5.7 % (1.7-12.0); Neutrophils Absolute Auto 9.2 10^3/uL (1.4-6.5); Neutrophils Percent Auto 83.5 % (43.0-75.0); Platelet Count 160 10^3/uL (150-450); Red Blood Count 3.22 10^6/uL (4.20-5.40); Red Cell Distribution Width 14.1 % (11.0-15.0)
[2023-06-01 05:18] LABS: Anion Gap 7.4; BUN Creatinine Ratio 20.3; Calcium 9.4 mg/dL (8.5-10.1); Carbon Dioxide 33.1 mmol/L (21.0-32.0); Chloride 105 mmol/L (98-107); Estimated GFR (African America 50 (>=60); Estimated GFR (Non-African Ame 41 (>=60); Glucose 88 mg/dL (74-106); Potassium 3.5 mmol/L (3.5-5.1); Sodium 142 mmol/L (136-145)
[2023-06-01] MEDS: LEVOTHYROXINE SODIUM 75 MCG TABLET 150 MCG PO (05:47)
--- NOTE | 2023-06-01 05:56 | PC.NURSE ---
urine is bloody
[2023-06-01] MEDS: SODIUM CHLORIDE 0.45 % 1,000 ML 100 ML IV (07:45)
[2023-06-01] MEDS: OMEPRAZOLE 20 MG CAPSULE.DR PO (10:32)
[2023-06-01] MEDS: BUSPIRONE HCL 15 MG TABLET PO ×2 (10:32→21:11)
[2023-06-01] MEDS: PAROXETINE HCL 20 MG TABLET 10 MG PO (10:32)
[2023-06-01] MEDS: MAGNESIUM OXIDE 400 MG TABLET PO (10:33)
[2023-06-01] MEDS: FERROUS SULFATE 325 MG TABLET PO (10:33)
[2023-06-01] MEDS: ATORVASTATIN CALCIUM 40 MG TABLET PO (10:33)
[2023-06-01] MEDS: MULTIVITAMIN TABLET 1 TAB PO (10:33)
[2023-06-01] MEDS: GABAPENTIN 100 MG CAPSULE PO ×3 (10:36→23:04)
[2023-06-01] MEDS: LEVOFLOXACIN IN DEXTROSE 5 % 250 MG/50 ML PIGGYBACK 50 MG IV (10:36)
--- NOTE | 2023-06-01 10:37 | PT.DAILY ---
Physical Therapy Daily Note PT Daily Note/Assess Start: 06/01/23 10:29 Freq: Status: Active Protocol: Document 06/01/23 10:29 GEMINI (Rec: 06/01/23 10:37 GEMINI [id number]) Physical Therapy Daily Note/Assessment Time In/Time Out Time In 10:00 Time Out 10:18 Pain In Pain N/A Pain Out Pain N/A Subjective Subjective Pt supine upon arrival. Agrees to PT this morning. Denies pain currently. Therapeutic Exercise Time Therapeutic Exercise Minutes (minutes) 5 Therapeutic Exercise Units 0 Therapeutic Exercise Treatment Therapeutic Exercise Treatment Pt sits EOB unsupported to complete bilat LE strengthening ex 10x ea. Therapeutic Activity Time Therapeutic Activity Minutes (minutes) 8 Therapeutic Activity Units 1 Therapeutic Activity Treatment Bed Mobility Ability Moderate Assist Chair Transfer Ability Moderate Assist Therapeutic Activity Comments Pt requires ModA to perform bed mobs supine>sit to advance upper body. Able to sit EOB 5 min unsupported for seated ex . Sit>stand from bed to RW ModA. Pt amb around bed 20' with RW, CGA with assist for IV pole. Placed in BS chair. Pt is concerned her urine is bright red - nursing is notified. Total Physical Therapy Time Total Therapy Minutes 13 Total Physical Therapy Units 1 Summary Daily Note Summary Requires more assistance for transfers this morning. Denies pain with activity.
[2023-06-01] MEDS: IPRATROPIUM/ALBUTEROL SULFATE 3 ML AMPUL.NEB IH (11:40)
[2023-06-01] MEDS: POTASSIUM CHLORIDE 10 MEQ ER TABLET 40 MEQ PO (12:08)
--- NOTE | 2023-06-01 13:27 | PM.IMPN1 ---
Progress Note: A&P Assessment and Plan (1) Acute respiratory failure with hypoxia: Assessment and Plan: Sec to PNA. Improving. On 3 L O2 via NC. (2) Basal pneumonia of both lungs: Assessment and Plan: on Levaquin. Slowly improving. C/w same (3) Gross hematuria: Assessment and Plan: New, started today. Likely trauamtic with catheter insertion Montior H&H. Stop eliquis (4) Pleural effusion due to bacterial infection: Assessment and Plan: Likely due to PNA. C/w current rx. Monitor. (5) HFrEF (heart failure with reduced ejection fraction): Assessment and Plan: On admission, she was given lasix for acute on chronic systolic HF as she p/w b/l Pleural effusion ,elevated BNP but when I evaluated her, my impression was that she was clinically dry for which she was started on gentle hydration. 2D ECHO shows LVEF 35%, grade 2 diastolic dysfunction, normal IVC. IVF stopped today. Appears euvolemic on exam (6) A-fib: Assessment and Plan: Hold eliquis due to hematuria. (7) Chronic kidney disease: Assessment and Plan: At baseline. Monitor Qualifiers: Chronic kidney disease stage: stage 3 (moderate) (8) Hyperlipemia: Assessment and Plan: C/w statin (9) Hypothyroidism: Assessment and Plan: c/w levothyroxine Internal Medicine - PN: Subj Subjective Interval history: Seen and examined. Gross hematuria noted this morning. No events overnight. Improvement in resp status. Does not appear SOB at rest like before. Exam Constitutional Vital Signs, click to edit/add: Last Vital Signs Temp 98 F 06/01/23 05:53 Pulse 59 L 06/01/23 12:03 Resp 16 06/01/23 08:00 BP 128/83 06/01/23 05:53 Pulse Ox 90 L 06/01/23 11:40 O2 Del Method Nasal Cannula 06/01/23 11:40 O2 Flow Rate 3 06/01/23 11:40 Documenting provider has reviewed patient's vital signs: yes Common normals: oriented x3 General appearance: cooperative HEN[facility] Common normals: normocephalic and head/scalp atraumatic Head and scalp: normocephalic and atraumatic Eye Common normals: conjunctivae normal and no scleral icterus Conjunctiva: conjunctiva(e) normal Respiratory Common normals: normal respiratory effort and no use of accessory muscles Effort & inspection: able to speak in complete sentences Auscultation: diminished lung sounds bilateral Cardio Common normals: regular rate, S1 normal heart sound and S2 normal heart sound Rate: regular rate Heart sounds: S1 normal and S2 normal GI Common normals: Normal to inspection, nondistended, normoactive bowel sounds present, soft to palpation, non-tender and no hepatosplenomegaly Palpation: soft and no hepatosplenomegaly Bladder/kidney exam: catheter in place Catheter type (Female): urethral (hematuria noted.) Extremity Common normals: no clubbing, cyanosis or edema Neuro Common normals: oriented x3, moves all extremities and no focal motor deficits Psych Common normals: mental status grossly normal, denies hallucinations, denies homicidal ideation and denies suicidal ideation Internal Medicine - PN: Obj Da Labs Labs: Laboratory Results - last 24 hr 05/31/23 06/01/23 04:13 04:38 WBC 11.0 RBC 3.22 L Hgb 10.4 L Hct 32.8 L MCV 101.9 H MCH 32.3 MCHC 31.7 RDW 14.1 Plt Count 160 MPV 12.3 Neut % (Auto) 83.5 H Lymph % (Auto) 9.6 L [place] % (Auto) 5.7 Eos % (Auto) 0.4 L Baso % (Auto) 0.3 Neut # (Auto) 9.2 H Lymph # (Auto) 1.1 L [place] # (Auto) 0.6 Eos # (Auto) 0.0 Baso # (Auto) 0.0 Abs Immat Gran (auto) 0.05 H Imm/Tot Granulo (auto) 0.5 Sodium 142 Potassium 3.5 Chloride 105 Carbon Dioxide 33.1 H Anion Gap 7.4 BUN 25.0 H Creatinine 1.23 H Est GFR ( Amer) 50 L Est GFR (Non-Af Amer) 41 L BUN/Creatinine Ratio 20.3 Glucose 88 Calcium 9.4 NT-Pro-B Natriuret Pep >55136.0 H* Urinary Catheter Management Urinary Catheter Management Urethral: Cath placed during this visit: yes Urethral indwelling: Yes Reason for continuing: measure accurate output Insertion date: 05/30/23 Insertion time: 14:30
[2023-06-01] MEDS: AMIODARONE HCL 200 MG TABLET PO (23:04)
[2023-06-02] VITALS (95 sets, daily range): BP systolic 150–187; BP diastolic 72–82; PULSE 49–75; RESP 6–39; TEMP 36.6–37.1; O2SAT 74–99
[2023-06-02 05:09] LABS: Basophils Percent Auto 0.3 % (0.2-2.0); Eosinophils Absolute Auto 0.1 10^3/uL (0.0-0.7); Eosinophils Percent Auto 0.8 % (0.9-7.0); Hematocrit 33.7 % (36.0-48.0); Hemoglobin 10.5 g/dL (12.0-16.0); Immature Granulocytes Abs Auto 0.03 10^3/uL (0.00-0.03); Immature Granulocytes Pct Auto 0.3 % (0.0-0.5); Lymphocytes Absolute Auto 1.2 10^3/uL (1.2-3.8); Lymphocytes Percent Auto 12.4 % (20.5-60.0); Mean Corpuscular HGB Conc 31.2 g/dL (29.9-35.2); Mean Corpuscular Volume 102.7 fL (81.0-99.0); Mean Platelet Volume 12.2 fL (9.5-13.5); Monocytes Absolute Auto 0.6 10^3/uL (0.3-0.8); Monocytes Percent Auto 6.6 % (1.7-12.0); Neutrophils Absolute Auto 7.7 10^3/uL (1.4-6.5); Neutrophils Percent Auto 79.6 % (43.0-75.0); Platelet Count 160 10^3/uL (150-450); Red Blood Count 3.28 10^6/uL (4.20-5.40); Red Cell Distribution Width 14.2 % (11.0-15.0); White Blood Count 9.7 10^3/uL (4.0-11.0)
[2023-06-02 05:31] LABS: Anion Gap 9.8; BUN Creatinine Ratio 17.7; Calcium 9.1 mg/dL (8.5-10.1); Carbon Dioxide 30.3 mmol/L (21.0-32.0); Chloride 107 mmol/L (98-107); Estimated GFR (African America 41 (>=60); Estimated GFR (Non-African Ame 34 (>=60); Glucose 95 mg/dL (74-106); Potassium 4.1 mmol/L (3.5-5.1); Sodium 143 mmol/L (136-145)
[2023-06-02] MEDS: LEVOTHYROXINE SODIUM 75 MCG TABLET 150 MCG PO (05:34)
--- NOTE | 2023-06-02 08:09 | XR_ITS ---
The [address] [address] Patient Name: YAMINI TURPIN MRN: [id number] date: 1935 Sex: F Assigned Patient Location: MS Current Patient Location: Accession/Order Number: [id number] Exam Date: 06/02/2023 08:30 Report Date: 06/02/2023 09:58 At the request of: SHAIKH JOSÉ LUIS Procedure: XR chest 1V HISTORY: Shortness of breath. XR chest 1V: 06/02/2023 8:30 AM EDT COMPARISON: Chest CT 05/31/2023 and portable AP chest 05/30/2023. FINDINGS: The heart remains enlarged. The right humeral head is high riding and there are severe degenerative changes of the right glenohumeral joint. There are also degenerative changes of the left glenohumeral joint. No pneumothorax is seen. There appears to have been slight interval improvement of hazy opacification involving the lung bases bilaterally. There is persistent blunting of the costophrenic angles. No congestive heart failure is seen. XR/XR chest 1V IMPRESSION: 1. There appears to have been slight interval improvement of hazy opacification lung bases bilaterally and this is probably secondary to slight interval decrease of moderate-sized bilateral pleural effusions and adjacent bibasilar atelectasis or pneumonia as better seen on the recent chest CT of 05/31/2023. 2. Persistent cardiomegaly. 3. 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 Electronically authenticated by: JAZMINE OLSEN Date: 06/02/2023 09:58
[2023-06-02] MEDS: FERROUS SULFATE 325 MG TABLET PO (10:22)
[2023-06-02] MEDS: ATORVASTATIN CALCIUM 40 MG TABLET PO (10:22)
[2023-06-02] MEDS: MAGNESIUM OXIDE 400 MG TABLET PO (10:22)
[2023-06-02] MEDS: BUSPIRONE HCL 15 MG TABLET PO ×2 (10:22→22:06)
[2023-06-02] MEDS: MULTIVITAMIN TABLET 1 TAB PO (10:23)
[2023-06-02] MEDS: PAROXETINE HCL 20 MG TABLET 10 MG PO (10:23)
[2023-06-02] MEDS: OMEPRAZOLE 20 MG CAPSULE.DR PO (10:23)
[2023-06-02] MEDS: LEVOFLOXACIN IN DEXTROSE 5 % 250 MG/50 ML PIGGYBACK 50 MG IV (10:26)
[2023-06-02] MEDS: GABAPENTIN 100 MG CAPSULE PO ×3 (10:27→22:04)
--- NOTE | 2023-06-02 10:33 | P.IMPN_ITS ---
Progress Note: A&P Assessment and Plan (1) Acute respiratory failure with hypoxia: Assessment and Plan: Sec to PNA. Improving. On 3 L O2 via NC. Gets extremely SOB on exertion CXR from this morning shows improvement. (2) Basal pneumonia of both lungs: Assessment and Plan: on Levaquin. Slowly improving. C/w same CXR improved from before (3) Gross hematuria: Assessment and Plan: Resolved. Hold resume eliquis on D/c (4) Pleural effusion due to bacterial infection: Assessment and Plan: Likely due to PNA. C/w current rx. Monitor. Improving. (5) HFrEF (heart failure with reduced ejection fraction): Assessment and Plan: On admission, she was given lasix for acute on chronic systolic HF as she p/w b/l Pleural effusion ,elevated BNP but when I evaluated her, my impression was that she was clinically dry for which she was started on gentle hydration. 2D ECHO shows LVEF 35%, grade 2 diastolic dysfunction, normal IVC. Appears euvolemic on exam Will order 20 mg PO lasix (6) A-fib: Assessment and Plan: Hold eliquis due to hematuria. Resume on d/c (7) Chronic kidney disease: Assessment and Plan: At baseline. Monitor Qualifiers: Chronic kidney disease stage: stage 3 (moderate) (8) Hyperlipemia: Assessment and Plan: C/w statin (9) Hypothyroidism: Assessment and Plan: c/w levothyroxine Internal Medicine - PN: Subj Subjective Interval history: Seen and examined. Doing well. No events overnight. Hematuria resolved. On 3 L O2 via NC. Patient reports dyspnea on exertion but she is comfortable at rest. Exam Constitutional Vital Signs, click to edit/add: Last Vital Signs Temp 98 F 06/02/23 05:13 Pulse 54 L 06/02/23 10:07 Resp 16 06/02/23 08:00 BP 158/72 H 06/02/23 05:13 Pulse Ox 93 L 06/02/23 07:03 O2 Del Method Nasal Cannula 06/02/23 07:03 O2 Flow Rate 3 06/02/23 07:03 Documenting provider has reviewed patient's vital signs: yes Common normals: oriented x3 General appearance: cooperative HENSD Common normals: normocephalic and head/scalp atraumatic Head and scalp: normocephalic and atraumatic Eye Common normals: conjunctivae normal and no scleral icterus Conjunctiva: conjunctiva(e) normal Respiratory Common normals: normal respiratory effort and no use of accessory muscles Effort & inspection: able to speak in complete sentences Auscultation: diminished lung sounds bilateral Cardio Common normals: regular rate, S1 normal heart sound and S2 normal heart sound Rate: regular rate Heart sounds: S1 normal and S2 normal GI Common normals: Normal to inspection, nondistended, normoactive bowel sounds present, soft to palpation, non-tender and no hepatosplenomegaly Palpation: soft and no hepatosplenomegaly Bladder/kidney exam: catheter in place Catheter type (Female): urethral (hematuria resolved.) Extremity Common normals: no clubbing, cyanosis or edema Neuro Common normals: oriented x3, moves all extremities and no focal motor deficits Psych Common normals: mental status grossly normal, denies hallucinations, denies homicidal ideation and denies suicidal ideation Internal Medicine - PN: Obj Da Labs Labs: Laboratory Results - last 24 hr 05/31/23 06/02/23 04:13 04:30 WBC 9.7 RBC 3.28 L Hgb 10.5 L Hct 33.7 L MCV 102.7 H MCH 32.0 MCHC 31.2 RDW 14.2 Plt Count 160 MPV 12.2 Neut % (Auto) 79.6 H Lymph % (Auto) 12.4 L [place] % (Auto) 6.6 Eos % (Auto) 0.8 L Baso % (Auto) 0.3 Neut # (Auto) 7.7 H Lymph # (Auto) 1.2 [place] # (Auto) 0.6 Eos # (Auto) 0.1 Baso # (Auto) 0.0 Abs Immat Gran (auto) 0.03 Imm/Tot Granulo (auto) 0.3 Sodium 143 Potassium 4.1 Chloride 107 Carbon Dioxide 30.3 Anion Gap 9.8 BUN 26.0 H Creatinine 1.47 H Est GFR ( Amer) 41 L Est GFR (Non-Af Amer) 34 L BUN/Creatinine Ratio 17.7 Glucose 95 Calcium 9.1 NT-Pro-B Natriuret Pep >68466.0 H* Urinary Catheter Management Urinary Catheter Management Urethral: Cath placed during this visit: yes Urethral indwelling: Yes Reason for continuing: measure accurate output Insertion date: 05/30/23 Insertion time: 14:30
[2023-06-02] MEDS: FUROSEMIDE 20 MG TABLET PO (11:37)
[2023-06-02] MEDS: IPRATROPIUM/ALBUTEROL SULFATE 3 ML AMPUL.NEB IH (18:08)
[2023-06-02] MEDS: FUROSEMIDE 40 MG/4 ML VIAL IVP (18:10)
--- NOTE | 2023-06-02 18:10 | RESP.RT ---
Plaed on 15L HFNC then titrated to 13L
[2023-06-02 18:25] LABS: ABG PCO2 49.7 mmHg (35.0-45.0); HCO3 ABG 31.5 mmol/L (22.0-26.0)
[2023-06-02 18:26] LABS: Allen Test POSITIVE (POSITIVE); Base Excess ABG 6.9 mmol/L (-2.0-2.0); O2 Mode NASAL CANNULA
[2023-06-02 18:27] LABS: Liters per Minute 13; Puncture Site L RADIAL
--- NOTE | 2023-06-02 18:35 | RESP.RT ---
titrated down to 7L
[2023-06-02] MEDS: LORAZEPAM 2 MG/ML 1 ML VIAL 0.5 MG IV (19:18)
--- NOTE | 2023-06-02 20:03 | XR_ITS ---
The [address] [address] Patient Name: YAMINI TURPIN MRN: [id number] date: 1935 Sex: F Assigned Patient Location: ICU Current Patient Location: ICU Accession/Order Number: [id number] Exam Date: 06/02/2023 20:30 Report Date: 06/02/2023 21:38 At the request of: SHAIKH JOSÉ LUIS Procedure: XR chest 1V CHEST X-RAY HISTORY: Shortness of breath. COMPARISON: 06/02/2023 chest x-ray TECHNIQUE: 1 views of the chest submitted for review. FINDINGS: Lines/Tubes: None. Costophrenic angles: Blunting of the BILATERAL costophrenic angle is present. Lungs: The lungs are adequately expanded. Heart: Enlarged. Pulmonary Vascularity: Increased. Bones: Osseous structures are within normal limits for age. XR/XR chest 1V IMPRESSION: Cardiomegaly small bilateral sided pleural effusion. Please correlate for fluid overload. Electronically authenticated by: GINO MATTA Date: 06/02/2023 21:38
[2023-06-02] MEDS: ALPRAZOLAM 0.5 MG TABLET PO (22:04)
[2023-06-02] MEDS: AMIODARONE HCL 200 MG TABLET PO (22:04)
[2023-06-03] VITALS (66 sets, daily range): BP systolic 116–151; BP diastolic 66–76; PULSE 54–77; RESP 14–35; TEMP 36.4–36.8; O2SAT 79–98
[2023-06-03 04:28] LABS: Basophils Percent Auto 0.4 % (0.2-2.0); Eosinophils Absolute Auto 0.1 10^3/uL (0.0-0.7); Eosinophils Percent Auto 0.6 % (0.9-7.0); Hemoglobin 12.3 g/dL (12.0-16.0); Immature Granulocytes Abs Auto 0.04 10^3/uL (0.00-0.03); Immature Granulocytes Pct Auto 0.4 % (0.0-0.5); Lymphocytes Absolute Auto 0.9 10^3/uL (1.2-3.8); Lymphocytes Percent Auto 7.7 % (20.5-60.0); Mean Corpuscular HGB Conc 30.8 g/dL (29.9-35.2); Mean Corpuscular Hemoglobin 32.6 pg (26.7-34.0); Mean Corpuscular Volume 106.1 fL (81.0-99.0); Mean Platelet Volume 12.2 fL (9.5-13.5); Monocytes Absolute Auto 0.3 10^3/uL (0.3-0.8); Neutrophils Absolute Auto 9.9 10^3/uL (1.4-6.5); Neutrophils Percent Auto 87.9 % (43.0-75.0); Platelet Count 152 10^3/uL (150-450); Red Blood Count 3.77 10^6/uL (4.20-5.40); Red Cell Distribution Width 14.1 % (11.0-15.0); White Blood Count 11.2 10^3/uL (4.0-11.0)
--- NOTE | 2023-06-03 04:29 | PC.NURSE ---
attempted to take pt off bipap mask and place on 3L NC. she is audibly gurgling and has a moist non productive cough that she is unable to clear. increased O2 to 6L. only reached sat of 82%. placed on high flow cannula to 6L and only satted to 84%. placed back on bipap and increased to 60% after giving pt fluids to drink.
[2023-06-03 04:42] LABS: Anion Gap 8.5; BUN Creatinine Ratio 17.6; Calcium 9.6 mg/dL (8.5-10.1); Carbon Dioxide 33.5 mmol/L (21.0-32.0); Chloride 104 mmol/L (98-107); Estimated GFR (African America 42 (>=60); Estimated GFR (Non-African Ame 35 (>=60); Glucose 114 mg/dL (74-106); Sodium 142 mmol/L (136-145)
--- NOTE | 2023-06-03 07:45 | P.IMPN_ITS ---
Progress Note: A&P Assessment and Plan (1) Acute respiratory failure with hypoxia: Assessment and Plan: Was improving but last evening, acutely worsened last evening. Likely from acute volume overload, and was given IV lasix. Patient was started on BIPAP, and was transferred to ICU. Now on 6 L O2 via NC. Appears SOB, with secretions. Added duonebs TID, with CPT. Nasotracheal suction as needed by RN (2) Basal pneumonia of both lungs: Assessment and Plan: on Levaquin. Was clinically improving from that pov but became acutely worse likely from volume overload. CXR shows vascular congestion. (3) Acute on chronic systolic (congestive) heart failure: Assessment and Plan: On admission, she was given lasix for acute on chronic systolic HF as she p/w b/ l Pleural effusion ,elevated BNP but when I evaluated her, my impression was that she was clinically dry for which she was started on gentle hydration. 2D ECHO shows LVEF 35%, grade 2 diastolic dysfunction, normal IVC. However, she became acutely hypoxic last evening, and was transferred to ICU, started on BIPAP and was given IV lasix 40 x 1 with improvement in her resp status. CXR from 06/02 in evening shows increased vascular congestion c/w acute on chronic systolic HF and volume overload. 40 IV lasix given this am too. Good UO. Monitor I/Os, daily weight. Now on 6 L O2 via NC (4) Gross hematuria: Assessment and Plan: Resolved. Resume Eliquis. (5) Pleural effusion due to bacterial infection: Assessment and Plan: Likely due to PNA. C/w current rx. Monitor. (6) A-fib: Assessment and Plan: Hold eliquis due to hematuria. Resume on d/c (7) Chronic kidney disease: Assessment and Plan: At baseline. Monitor Qualifiers: Chronic kidney disease stage: stage 3 (moderate) (8) Hyperlipemia: Assessment and Plan: C/w statin (9) Hypothyroidism: Assessment and Plan: c/w levothyroxine Internal Medicine - PN: Subj Subjective Interval history: Seen and examined. Last evening, acutely became hypoxic with increased work of breathing. Pulse Ox down to 74%. Patient was transferred to ICU and started on BIPAP therapy. Acute worsening likely sec to acute on chronic systolic HF and was given IV lasix. Evaluated today - appears drowsy/tired and currently on 6 L O2. Patient also appears SOB, difficulty with clearing up secretions and audible sound can be heard for retained secretions in upper airways Exam Constitutional Vital Signs, click to edit/add: Last Vital Signs Temp 98.6 F 06/02/23 21:10 Pulse 71 06/03/23 07:35 Resp 26 H 06/03/23 04:30 BP 151/69 H 06/03/23 02:49 Pulse Ox 95 06/03/23 07:35 O2 Del Method BIPAP 06/02/23 23:12 O2 Flow Rate 6 06/02/23 19:16 FiO2 60 06/03/23 07:35 Documenting provider has reviewed patient's vital signs: yes Common normals: oriented x3 General appearance: cooperative and lethargic HENMT Common normals: normocephalic and head/scalp atraumatic Head and scalp: normocephalic and atraumatic Eye Common normals: conjunctivae normal and no scleral icterus Conjunctiva: conjunctiva(e) normal Respiratory Effort & inspection: tachypneic Auscultation: rales diffuse Other: audible secretions, unable to clear secretions, no wheezing. Cardio Common normals: regular rate, S1 normal heart sound and S2 normal heart sound Rate: regular rate Heart sounds: S1 normal and S2 normal GI Common normals: Normal to inspection, nondistended, normoactive bowel sounds present, soft to palpation, non-tender and no hepatosplenomegaly Palpation: soft and no hepatosplenomegaly Bladder/kidney exam: catheter in place Catheter type (Female): urethral (hematuria resolved.) Extremity Common normals: no clubbing, cyanosis or edema Neuro Common normals: oriented x3, moves all extremities and no focal motor deficits Sensorium/orientation: lethargic Psych Common normals: mental status grossly normal, denies hallucinations, denies homicidal ideation and denies suicidal ideation Internal Medicine - PN: Obj Da Labs Labs: Laboratory Results - last 24 hr 06/02/23 06/03/23 18:08 04:09 WBC 11.2 H RBC 3.77 L Hgb 12.3 Hct 40.0 MCV 106.1 H MCH 32.6 MCHC 30.8 RDW 14.1 Plt Count 152 MPV 12.2 Neut % (Auto) 87.9 H Lymph % (Auto) 7.7 L [place] % (Auto) 3.0 Eos % (Auto) 0.6 L Baso % (Auto) 0.4 Neut # (Auto) 9.9 H Lymph # (Auto) 0.9 L [place] # (Auto) 0.3 Eos # (Auto) 0.1 Baso # (Auto) 0.0 Abs Immat Gran (auto) 0.04 H Imm/Tot Granulo (auto) 0.4 Puncture Site L radial ABG pH 7.410 ABG pCO2 49.7 H ABG pO2 140.0 H ABG HCO3 31.5 H ABG O2 Saturation 100.0 ABG Base Excess 6.9 H Ruperto Test Positive O2 Liters/Min 13 Sodium 142 Potassium 4.0 Chloride 104 Carbon Dioxide 33.5 H Anion Gap 8.5 BUN 25.0 H Creatinine 1.42 H Est GFR ( Amer) 42 L Est GFR (Non-Af Amer) 35 L BUN/Creatinine Ratio 17.6 Glucose 114 H Calcium 9.6 Urinary Catheter Management Urinary Catheter Management Urethral: Cath placed during this visit: yes Urethral indwelling: Yes Reason for continuing: measure accurate output Insertion date: 05/30/23 Insertion time: 14:30
[2023-06-03] MEDS: LEVOFLOXACIN IN DEXTROSE 5 % 250 MG/50 ML PIGGYBACK 50 MG IV (08:49)
[2023-06-03] MEDS: FUROSEMIDE 40 MG/4 ML VIAL IVP (08:49)
[2023-06-03] MEDS: ATORVASTATIN CALCIUM 40 MG TABLET PO (08:49)
[2023-06-03] MEDS: MAGNESIUM OXIDE 400 MG TABLET PO (08:50)
[2023-06-03] MEDS: MULTIVITAMIN TABLET 1 TAB PO (08:50)
[2023-06-03] MEDS: PAROXETINE HCL 20 MG TABLET 10 MG PO (08:50)
[2023-06-03] MEDS: BUSPIRONE HCL 15 MG TABLET PO ×2 (08:50→22:01)
[2023-06-03] MEDS: OMEPRAZOLE 20 MG CAPSULE.DR PO (08:50)
[2023-06-03] MEDS: FERROUS SULFATE 325 MG TABLET PO (08:50)
--- NOTE | 2023-06-03 09:25 | SWNOTE1 ---
Updates sent to [facility].
--- NOTE | 2023-06-03 09:54 | CM.NOTE ---
Rounds made with Dr. Wray, no discharge today. Changing breathing treatments. Pt will go skilled at discharge to [facility].
--- NOTE | 2023-06-03 11:38 | SWNOTE1 ---
Pt did get approved to go skilled to [facility], thru 06/05/23. Pt is not ready for discharge at this time.
[2023-06-03] MEDS: AMIODARONE HCL 200 MG TABLET PO (14:10)
--- NOTE | 2023-06-03 14:55 | CM.NOTE ---
Important Message From Medicare discussed with pt, pt verbalizes understanding and signs paper. Original given to pt and copy placed on pt's chart.
[2023-06-03] MEDS: IPRATROPIUM/ALBUTEROL SULFATE 3 ML AMPUL.NEB IH ×2 (15:38→20:26)
--- NOTE | 2023-06-03 15:41 | RESP.RT ---
Vest not given after discussing with Dr. Wray. Pt has weak cough and NT suction PRN is more effective in clearing secretions
[2023-06-03] MEDS: GABAPENTIN 100 MG CAPSULE PO ×2 (15:58→22:01)
[2023-06-04] VITALS (27 sets, daily range): BP systolic 122–157; BP diastolic 53–104; PULSE 59–84; RESP 18–26; TEMP 36.8–36.9; O2SAT 91–98
--- NOTE | 2023-06-04 03:57 | RESP.RT ---
decreased 02 down to 3L
[2023-06-04 05:06] LABS: Basophils Percent Auto 0.3 % (0.2-2.0); Eosinophils Percent Auto 0.4 % (0.9-7.0); Hematocrit 35.1 % (36.0-48.0); Hemoglobin 10.9 g/dL (12.0-16.0); Immature Granulocytes Abs Auto 0.04 10^3/uL (0.00-0.03); Immature Granulocytes Pct Auto 0.4 % (0.0-0.5); Lymphocytes Absolute Auto 0.9 10^3/uL (1.2-3.8); Lymphocytes Percent Auto 8.5 % (20.5-60.0); Mean Corpuscular HGB Conc 31.1 g/dL (29.9-35.2); Mean Corpuscular Volume 102.9 fL (81.0-99.0); Mean Platelet Volume 12.6 fL (9.5-13.5); Monocytes Absolute Auto 0.4 10^3/uL (0.3-0.8); Neutrophils Absolute Auto 8.8 10^3/uL (1.4-6.5); Neutrophils Percent Auto 86.4 % (43.0-75.0); Platelet Count 148 10^3/uL (150-450); Red Blood Count 3.41 10^6/uL (4.20-5.40); Red Cell Distribution Width 13.9 % (11.0-15.0); White Blood Count 10.1 10^3/uL (4.0-11.0)
[2023-06-04 05:17] LABS: Anion Gap 5.2; BUN Creatinine Ratio 17.3; Calcium 9.2 mg/dL (8.5-10.1); Chloride 106 mmol/L (98-107); Estimated GFR (African America 35 (>=60); Estimated GFR (Non-African Ame 29 (>=60); Glucose 99 mg/dL (74-106); Potassium 3.2 mmol/L (3.5-5.1); Sodium 145 mmol/L (136-145)
--- NOTE | 2023-06-04 06:29 | PC.NURSE ---
pt did not wear bipap - was on 3-4lts NC overnight and did well. SOP2 >93%
[2023-06-04] MEDS: OMEPRAZOLE 20 MG CAPSULE.DR PO (09:39)
[2023-06-04] MEDS: PAROXETINE HCL 20 MG TABLET 10 MG PO (09:39)
[2023-06-04] MEDS: MAGNESIUM OXIDE 400 MG TABLET PO (09:39)
[2023-06-04] MEDS: GABAPENTIN 100 MG CAPSULE PO ×3 (09:39→22:09)
[2023-06-04] MEDS: AMIODARONE HCL 200 MG TABLET PO (09:39)
[2023-06-04] MEDS: FERROUS SULFATE 325 MG TABLET PO (09:39)
[2023-06-04] MEDS: BUSPIRONE HCL 15 MG TABLET PO ×2 (09:39→22:09)
[2023-06-04] MEDS: ATORVASTATIN CALCIUM 40 MG TABLET PO (09:40)
[2023-06-04] MEDS: MULTIVITAMIN TABLET 1 TAB PO (09:40)
[2023-06-04] MEDS: LEVOFLOXACIN IN DEXTROSE 5 % 250 MG/50 ML PIGGYBACK 50 MG IV (09:40)
[2023-06-04] MEDS: POTASSIUM CHLORIDE 10 MEQ ER TABLET 40 MEQ PO (09:40)
[2023-06-04] MEDS: IPRATROPIUM/ALBUTEROL SULFATE 3 ML AMPUL.NEB IH ×3 (09:42→20:28)
--- NOTE | 2023-06-04 09:58 | XR_ITS ---
The [address] [address] Patient Name: YAMINI TURPIN MRN: [id number] date: 1935 Sex: F Assigned Patient Location: ICU Current Patient Location: ICU Accession/Order Number: [id number] Exam Date: 06/04/2023 09:50 Report Date: 06/04/2023 10:07 At the request of: SHAIKH JOSÉ LUIS Procedure: XR chest 1V EXAMINATION: XR chest 1V HISTORY: SOB COMPARISON: XR chest 06/02/2023 FINDINGS: LUNGS: Mild opacities and stranding within the lung bases, right greater than left. VASCULATURE: No increased pulmonary vasculature. PLEURA: Small right pleural effusion. CARDIAC: Suspect mild cardiomegaly. MEDIASTINUM: No visible mass or adenopathy. BONES: Chronic degenerative changes of the glenohumeral joints. OTHER: Negative. XR/XR chest 1V IMPRESSION: 1. Moderate bibasilar infiltrates, right greater than left, and likely small right pleural effusion; findings have increased since prior study. Electronically authenticated by: HUMBLE SOTELO Date: 06/04/2023 10:07
--- NOTE | 2023-06-04 12:40 | PM.IMPN1 ---
Progress Note: A&P Assessment and Plan (1) Acute respiratory failure with hypoxia: Assessment and Plan: Improved and doing better. C/w suction. C/w IV levaquin for PNA Wean off O2 as tolerated. (2) Basal pneumonia of both lungs: Assessment and Plan: C/w Levaquin. Slowly improving. (3) Acute on chronic systolic (congestive) heart failure: Assessment and Plan: Developed acute systolic HF. Now more or less euvolemic. Will start on PO lasix to maintain volume control. (4) Gross hematuria: Assessment and Plan: Resolved. Resumed Eliquis. (5) Pleural effusion due to bacterial infection: Assessment and Plan: Likely due to PNA. C/w current rx. Monitor. (6) A-fib: Assessment and Plan: Hold eliquis due to hematuria. Resume on d/c (7) Chronic kidney disease: Assessment and Plan: At baseline. Monitor Qualifiers: Chronic kidney disease stage: stage 3 (moderate) (8) Hyperlipemia: Assessment and Plan: C/w statin (9) Hypothyroidism: Assessment and Plan: c/w levothyroxine Internal Medicine - PN: Subj Subjective Interval history: Seen and examined. No events. Improving slowly. Now on 2 L O2 via NC. Has wet sounding cough and CXR appears worse from before. However, pt clinically improving so I will not make any changes. Exam Constitutional Vital Signs, click to edit/add: Last Vital Signs Temp 98.4 F 06/04/23 09:33 Pulse 65 06/04/23 11:58 Resp 18 06/04/23 09:33 BP 149/104 H 06/04/23 09:33 Pulse Ox 97 06/04/23 11:58 O2 Del Method Nasal Cannula 06/04/23 09:45 O2 Flow Rate 2.5 06/04/23 09:45 FiO2 60 06/03/23 07:35 Documenting provider has reviewed patient's vital signs: yes Common normals: oriented x3 General appearance: cooperative HENAK Common normals: normocephalic and head/scalp atraumatic Head and scalp: normocephalic and atraumatic Eye Common normals: conjunctivae normal and no scleral icterus Conjunctiva: conjunctiva(e) normal Respiratory Common normals: normal respiratory effort and no use of accessory muscles Effort & inspection: able to speak in complete sentences Auscultation: rales bilateral Other: Wet sounding cough. Cardio Common normals: regular rate, S1 normal heart sound and S2 normal heart sound Rate: regular rate Heart sounds: S1 normal and S2 normal GI Common normals: Normal to inspection, nondistended, normoactive bowel sounds present, soft to palpation, non-tender and no hepatosplenomegaly Palpation: soft and no hepatosplenomegaly Bladder/kidney exam: catheter in place Catheter type (Female): urethral (hematuria resolved.) Extremity Common normals: no clubbing, cyanosis or edema Neuro Common normals: oriented x3, moves all extremities and no focal motor deficits Sensorium/orientation: lethargic Psych Common normals: mental status grossly normal, denies hallucinations, denies homicidal ideation and denies suicidal ideation Internal Medicine - PN: Obj Da Labs Labs: Laboratory Results - last 24 hr 06/04/23 04:24 WBC 10.1 RBC 3.41 L Hgb 10.9 L Hct 35.1 L MCV 102.9 H MCH 32.0 MCHC 31.1 RDW 13.9 Plt Count 148 L MPV 12.6 Neut % (Auto) 86.4 H Lymph % (Auto) 8.5 L [place] % (Auto) 4.0 Eos % (Auto) 0.4 L Baso % (Auto) 0.3 Neut # (Auto) 8.8 H Lymph # (Auto) 0.9 L [place] # (Auto) 0.4 Eos # (Auto) 0.0 Baso # (Auto) 0.0 Abs Immat Gran (auto) 0.04 H Imm/Tot Granulo (auto) 0.4 Sodium 145 Potassium 3.2 L Chloride 106 Carbon Dioxide 37.0 H Anion Gap 5.2 BUN 29.0 H Creatinine 1.68 H Est GFR ( Amer) 35 L Est GFR (Non-Af Amer) 29 L BUN/Creatinine Ratio 17.3 Glucose 99 Calcium 9.2 Urinary Catheter Management Urinary Catheter Management Urethral: Cath placed during this visit: yes Urethral indwelling: Yes Reason for continuing: measure accurate output Insertion date: 05/30/23 Insertion time: 14:30
--- NOTE | 2023-06-04 13:34 | SWNOTE1 ---
Updates sent to [facility].
--- NOTE | 2023-06-04 13:34 | SWNOTE1 ---
SW did not document yesterday, pt did get approved to go skilled to [facility], approval is good for 06/03-06/05. SW to let pt know and make sure she does want to return skilled.
--- NOTE | 2023-06-04 15:36 | RESP.RT ---
titrated down to 1.5L
[2023-06-04] MEDS: FUROSEMIDE 40 MG TABLET PO (15:50)
[2023-06-05] VITALS (53 sets, daily range): BP systolic 140–156; BP diastolic 53–62; PULSE 58–80; RESP 16–34; TEMP 36.9; O2SAT 90–95
[2023-06-05 04:34] LABS: Basophils Percent Auto 0.3 % (0.2-2.0); Eosinophils Absolute Auto 0.1 10^3/uL (0.0-0.7); Eosinophils Percent Auto 1.5 % (0.9-7.0); Hematocrit 33.1 % (36.0-48.0); Hemoglobin 10.4 g/dL (12.0-16.0); Immature Granulocytes Abs Auto 0.02 10^3/uL (0.00-0.03); Immature Granulocytes Pct Auto 0.3 % (0.0-0.5); Lymphocytes Absolute Auto 0.7 10^3/uL (1.2-3.8); Lymphocytes Percent Auto 8.9 % (20.5-60.0); Mean Corpuscular HGB Conc 31.4 g/dL (29.9-35.2); Mean Corpuscular Hemoglobin 32.3 pg (26.7-34.0); Mean Corpuscular Volume 102.8 fL (81.0-99.0); Mean Platelet Volume 12.3 fL (9.5-13.5); Monocytes Absolute Auto 0.5 10^3/uL (0.3-0.8); Monocytes Percent Auto 6.3 % (1.7-12.0); Neutrophils Absolute Auto 6.6 10^3/uL (1.4-6.5); Neutrophils Percent Auto 82.7 % (43.0-75.0); Platelet Count 141 10^3/uL (150-450); Red Blood Count 3.22 10^6/uL (4.20-5.40); Red Cell Distribution Width 14.1 % (11.0-15.0); White Blood Count 7.9 10^3/uL (4.0-11.0)
[2023-06-05 04:50] LABS: Anion Gap 5.7; BUN Creatinine Ratio 18.9; Calcium 9.1 mg/dL (8.5-10.1); Carbon Dioxide 33.8 mmol/L (21.0-32.0); Chloride 103 mmol/L (98-107); Estimated GFR (African America 32 (>=60); Estimated GFR (Non-African Ame 27 (>=60); Glucose 150 mg/dL (74-106); Potassium 3.5 mmol/L (3.5-5.1); Sodium 139 mmol/L (136-145)
[2023-06-05] MEDS: LEVOTHYROXINE SODIUM 75 MCG TABLET 150 MCG PO (06:25)
[2023-06-05] MEDS: GABAPENTIN 100 MG CAPSULE PO (06:27)
[2023-06-05] MEDS: PAROXETINE HCL 20 MG TABLET 10 MG PO (08:40)
[2023-06-05] MEDS: LEVOFLOXACIN IN DEXTROSE 5 % 250 MG/50 ML PIGGYBACK 50 MG IV (08:40)
[2023-06-05] MEDS: FUROSEMIDE 40 MG TABLET PO (08:41)
[2023-06-05] MEDS: BUSPIRONE HCL 15 MG TABLET PO (08:41)
[2023-06-05] MEDS: MULTIVITAMIN TABLET 1 TAB PO (08:41)
[2023-06-05] MEDS: AMIODARONE HCL 200 MG TABLET PO (08:41)
[2023-06-05] MEDS: MAGNESIUM OXIDE 400 MG TABLET PO (08:41)
[2023-06-05] MEDS: OMEPRAZOLE 20 MG CAPSULE.DR PO (08:41)
[2023-06-05] MEDS: FERROUS SULFATE 325 MG TABLET PO (08:41)
[2023-06-05] MEDS: ATORVASTATIN CALCIUM 40 MG TABLET PO (08:41)
[2023-06-05] MEDS: IPRATROPIUM/ALBUTEROL SULFATE 3 ML AMPUL.NEB IH (08:53)
--- NOTE | 2023-06-05 09:31 | SWNOTE1 ---
Pt is ready for discharge back to [facility]. GEORGINA was able to speak with pt's son and pt in the room. GEORGINA let them know her insurance did approve her to go back skilled and get some therapy/rehab. They are both in agreement with this. SW to set up trnasport once discharge orders are in.
--- NOTE | 2023-06-05 10:18 | PM.DS1 ---
DS: Providers Provider Date of admission: 05/30/23 17:43 Primary care physician: NOHELIA GRACIA DO Consults: 05/30/23 22:42 Physical Therapy Eval and Treat Routine Reason for consultation: weakness 06/03/23 Occupational Therapy Eval and Treat Routine Reason for consultation: weakness DS: Diagnosis Discharge Diagnosis (1) Basal pneumonia of both lungs: (2) Acute on chronic systolic (congestive) heart failure: (3) Acute respiratory failure with hypoxia: (4) Pleural effusion due to bacterial infection: (5) Chronic atrial fibrillation: (6) Stage 3b chronic kidney disease (CKD): DS: Summary Hospital Course Hospital Course: Reason for admission: See ER note and H&P for details. 87 y/o female sent to ER from [facility] with SOB. C/o increased SOB for several days. Chest x-ray showed pulmonary edema. Noted hypoxia with SpO2 in 70s on room air and sent to ER. WBC normal. BNP elevated. Chest x-ray with pleural effusions and infiltrate and admitted. Hospital course: Started levaquin for pneumonia and IV lasix for CHF. Resumed home medication. Echo performed and showed EF 35%. Slowly improved in hospital. Started PT/OT for weakness. Able to wean down oxygen but not able to get to room air. SOB improved and mild cough. Afebrile and normal WBC. Edema improved and changed to PO lasix. PT recommended SNF for strengthening. Transferred to SNF in stable condition. Will continue 2 LPM and wean as tolerated. Take levaquin for 3 additional days. Take home medication as directed with addition of PO lasix. Time Spent with Patient Time attestation: Total time spent providing and/or coordinating discharge services: Exam Constitutional Vital Signs, click to edit/add: Last Vital Signs Temp 98.5 F 06/05/23 08:06 Pulse 58 L 06/05/23 08:00 Resp 20 06/05/23 08:00 BP 156/62 H 06/05/23 07:44 Pulse Ox 95 06/05/23 08:00 O2 Del Method Nasal Cannula 06/04/23 20:39 O2 Flow Rate 1.5 06/04/23 20:39 FiO2 60 06/03/23 07:35 Documenting provider has reviewed patient's vital signs: yes Common normals: no apparent distress, oriented x3 and alert HENMT Common normals: normocephalic Eye Common normals: PERRL and EOMs intact bilaterally Respiratory Common normals: normal respiratory effort and clear to auscultation bilaterally Cardio Common normals: no gallops, no murmurs and no rub Rhythm: abnormal rhythm irregularly irregular GI Common normals: Normal to inspection, nondistended, normoactive bowel sounds present and non-tender Extremity Common normals: no pedal edema DS: Data Data Completed and Pending Labs on day of discharge: Labs from last 24 hours 06/05/23 04:03 WBC 7.9 RBC 3.22 L Hgb 10.4 L Hct 33.1 L MCV 102.8 H MCH 32.3 MCHC 31.4 RDW 14.1 Plt Count 141 L MPV 12.3 Neut % (Auto) 82.7 H Lymph % (Auto) 8.9 L [place] % (Auto) 6.3 Eos % (Auto) 1.5 Baso % (Auto) 0.3 Neut # (Auto) 6.6 H Lymph # (Auto) 0.7 L [place] # (Auto) 0.5 Eos # (Auto) 0.1 Baso # (Auto) 0.0 Abs Immat Gran (auto) 0.02 Imm/Tot Granulo (auto) 0.3 Sodium 139 Potassium 3.5 Chloride 103 Carbon Dioxide 33.8 H Anion Gap 5.7 BUN 34.0 H Creatinine 1.80 H Est GFR ( Amer) 32 L Est GFR (Non-Af Amer) 27 L BUN/Creatinine Ratio 18.9 Glucose 150 H Calcium 9.1 Preliminary micro results at discharge 05/30/23 16:05 - Preliminary Blood NO GROWTH AT 36-48 HOURS. FINAL TO FOLLOW. Discharge Plan Discharge Disposition: Xfer SNF Condition: Good Discharge Medications: New furosemide 40 mg Tablet 40 mg PO QD Qty: 30 0RF levofloxacin 250 mg tablet 250 mg PO Q24H 3 Days Qty: 3 0RF Continued amiodarone 200 mg tablet 200 mg PO DAILY atorvastatin 40 mg tablet 40 mg PO DAILY budesonide 0.5 mg/2 mL suspension for nebulization 0.5 mg inhalation BID buspirone 15 mg tablet 15 mg PO BID Eliquis 5 mg tablet 2.5 mg PO BID ferrous sulfate [FeroSul] 325 mg (65 mg iron) tablet 325 mg PO DAILY gabapentin 100 mg capsule 100 mg PO Q8H loperamide 2 mg capsule 2 mg PO QID PRN (Reason: loose stool) levothyroxine 150 mcg tablet 150 mcg PO DAILY magnesium oxide 400 mg (241.3 mg magnesium) tablet 400 mg PO DAILY melatonin 3 mg tablet 3 mg PO DAILY fcjyyuty-pgd-fnve fum-folic ac 7.5 mg iron-400 mcg tablet 1 tab PO DAILY omeprazole 20 mg capsule,delayed release(DR/EC) 20 mg PO DAILY paroxetine HCl 10 mg tablet 10 mg PO DAILY ipratropium-albuterol 0.5 mg-3 mg(2.5 mg base)/3 mL solution for nebulization 3 ml INHALATION BID PRN (Reason: shortness of breath or wheezing) Forms: Portal Instructions
--- NOTE | 2023-06-05 10:50 | CM.NOTE ---
Rounds made with Dr. Garcia ok to discharge to [place] today.
--- NOTE | 2023-06-05 11:01 | PT.DAILY ---
Physical Therapy Daily Note PT Daily Note/Assess Start: 06/01/23 10:29 Freq: Status: Active Protocol: Document 06/05/23 10:55 GEMINI (Rec: 06/05/23 11:01 GEMINI [id number]) Physical Therapy Daily Note/Assessment Time In/Time Out Time In 09:30 Time Out 09:45 Pain In Pain N/A Pain Out Pain N/A Subjective Subjective Pt supine upon arrival. On 3L O2 NC SpO2 93% prior to session. Agrees to PT. Therapeutic Exercise Time Therapeutic Exercise Minutes (minutes) 5 Therapeutic Exercise Units 0 Therapeutic Exercise Treatment Therapeutic Exercise Treatment Bilat LE strengthening ex complete while sitting unsupported at EOB 10x ea. Therapeutic Activity Time Therapeutic Activity Minutes (minutes) 8 Therapeutic Activity Units 1 Therapeutic Activity Treatment Bed Mobility Ability Moderate Assist Chair Transfer Ability Minimum Assist Therapeutic Activity Comments Performs bed mobs with ModA to advance upper body to sit EOB . Pt sits EOB unsupported to wash her face and [place] new gown - set up needed. While sitting EOB she completes bilat LE strengthening ex. Sit >stand to RW Wagner today. Pt amb 7' to BS chair with RW, CGA. Remains in BS chair with all light in reach and needs met. Spo2 91% with activity. Total Physical Therapy Time Total Therapy Minutes 13 Total Physical Therapy Units 1 Summary Daily Note Summary Improved transfer ability today. O2 remains above 90% with activity.
--- NOTE | 2023-06-05 11:36 | SWNOTE1 ---
Pt is ready for discharge today to [facility]. GEORGINA set up trips for 11:30. SW notified nursing, [facility], and pt's daughter in law. GEORGINA sent over dc med rec and updated packet. Pt is going to [facility] skilled.
== END 2023-06-05 11:47 | DRG 193 ==
LOC: ER 16:51 → MS 17:47 → ICU 06-02 18:16
PROVIDERS: Internal Medicine; Physician Assistant; Admitting Provider Family Medicine; Emergency Provider Emergency Medicine; PCP Family Medicine; Visit Provider Family Medicine
DX: J18.9 Pneumonia, unspecified organism (principal); I50.23 Acute on chronic systolic (congestive) heart failure; J96.01 Acute respiratory failure with hypoxia; E87.0 Hyperosmolality and hypernatremia; J91.8 Pleural effusion in other conditions classified elsewhere; I48.20 Chronic atrial fibrillation, unspecified; T83.83XA Hemorrhage due to genitourinary prosthetic devices, implants and grafts, initial encounter; R31.0 Gross hematuria; Y95 Nosocomial condition; N18.32 Chronic kidney disease, stage 3b; E03.9 Hypothyroidism, unspecified; E78.5 Hyperlipidemia, unspecified; Z66 Do not resuscitate; Z51.5 Encounter for palliative care; Z83.3 Family history of diabetes mellitus; Z82.49 Family history of ischemic heart disease and other diseases of the circulatory system; Z87.891 Personal history of nicotine dependence; Z79.01 Long term (current) use of anticoagulants; Z79.890 Hormone replacement therapy; Z79.899 Other long term (current) drug therapy; Z88.0 Allergy status to penicillin; Z88.7 Allergy status to serum and vaccine; Z88.8 Allergy status to other drugs, medicaments and biological substances; Z91.040 Latex allergy status
CPT/HCPCS: 31720; 36415; 36600; 51702; 71045; 71250; 80048; 80053; 80202; 82800; 82805; 83880; 84484; 85025; 85610; 85730; 87040; 93005; 93306; 94640; 94660; 94667; 94668; 94761; 96365; 96366; 96367; 96375; 96376; 97161; 97165; 97530; 99285; J2930; J3370; Q3014

== ENCOUNTER 2023-09-18 18:08 | Inpatient (IN) | payer MEDICARE, MEDICAID, SELFPAY ==
[2023-09-18] VITALS (44 sets, daily range): BP systolic 108–224; BP diastolic 65–183; PULSE 88–105; RESP 16–47; TEMP 37.3; O2SAT 86–96; BMI 20.5; BMI 22.8
--- NOTE | 2023-09-18 18:08 | XR_ITS ---
The [address] [address] Patient Name: YAMINI TURPIN MRN: [id number] date: 1935 Sex: F Assigned Patient Location: ER Current Patient Location: ED.MAIN Accession/Order Number: [id number] Exam Date: 09/18/2023 16:53 Report Date: 09/18/2023 19:55 At the request of: NICOLASA HANEY Procedure: XR chest 1V EXAM: XR chest 1V HISTORY: Shortness of breath COMPARISON: Chest x-ray dated 06/04/2023. TECHNIQUE: Single AP portable upright view of the chest FINDINGS: Enlarged cardiomediastinal silhouette is again seen. Small left pleural effusion is suspected. Bilateral airspace opacities and patchy hazy opacities are seen, suspicious for infectious process and/or pulmonary edema. No obvious pneumothorax is seen. XR/XR chest 1V IMPRESSION: Small left pleural effusion is suspected. Bilateral airspace opacities and patchy hazy opacities are seen, suspicious for infectious process and/or pulmonary edema. Electronically authenticated by: LEATHA ODOM Date: 09/18/2023 19:55
--- NOTE | 2023-09-18 18:08 | ECG_ITS ---
The [facility] Test Date: 2023-09-18 Pat Name: YAMINI TURPIN Department: Room: - Gender: Female [employer]: : 1935 Requested By: [id number] Order Number: [id number] Reading MD: SHIELA LOWERY Measurements Intervals [place] Rate: 91 P: -[id number] [place]: -[id number] QRS: -16 QRSD: 134 T: 124 QT: 402 QTc: 451 Interpretive Statements 1250 Atrial fibrillation 2330 Nonspecific intraventricular conduction block 5234 Left ventricular hypertrophy with repolarization abnormality 0102 ARTIFACT PRESENT 9150 abnormal ECG t Electronically Signed On 09-19-2023 7:17:17 EST by SHIELA LOWERY
[2023-09-18] MEDS: ALBUTEROL SULFATE 2.5 MG/3 ML VIAL NEB IH (18:22)
[2023-09-18] MEDS: METHYLPREDNISOLONE SOD SUCC PF 125 MG/2 ML VIAL IVP (18:22)
[2023-09-18 18:27] LABS: PCO2 VBG 49.7 mmHg (40.0-52.0); pH VBG 7.461 (7.330-7.430)
--- NOTE | 2023-09-18 18:28 | ED_ITS ---
HPI - SOB/Dyspnea General Chief Complaint: Shortness of Breath/Dyspnea Stated Complaint: sob Time Seen by Provider: 09/18/23 18:08 Source: patient Mode of arrival: ambulance Limitations: no limitations Related Data Home Medications Medication Instructions Recorded Confirmed amiodarone 200 mg tablet 200 mg PO DAILY 05/30/23 06/03/23 apixaban 5 mg tablet (Eliquis) 2.5 mg PO BID 05/30/23 05/30/23 atorvastatin 40 mg tablet 40 mg PO DAILY 05/30/23 05/30/23 budesonide 0.5 mg/2 mL suspension 0.5 mg inhalation BID 05/30/23 06/03/23 for nebulization buspirone 15 mg tablet 15 mg PO BID 05/30/23 05/30/23 ferrous sulfate 325 mg (65 mg 325 mg PO DAILY 05/30/23 05/30/23 iron) tablet (FeroSul) gabapentin 100 mg capsule 100 mg PO Q8H 05/30/23 05/30/23 ipratropium 0.5 mg-albuterol 3 mg 3 ml inhalation BID PRN shortness 05/30/23 05/30/23 (2.5 mg base)/3 mL nebulization of breath or wheezing soln levothyroxine 150 mcg tablet 150 mcg PO DAILY 05/30/23 05/30/23 loperamide 2 mg capsule 2 mg PO QID PRN loose stool 05/30/23 05/30/23 magnesium oxide 400 mg (241.3 mg 400 mg PO DAILY 05/30/23 05/30/23 magnesium) tablet melatonin 3 mg tablet 3 mg PO DAILY 05/30/23 05/30/23 wviuootzetyb-kjeuoihc-ohke 1 tab PO DAILY 05/30/23 05/30/23 fumarate 7.5 mg-folic acid 400 mcg tablet omeprazole 20 mg capsule,delayed 20 mg PO DAILY 05/30/23 05/30/23 release paroxetine HCl 10 mg tablet 10 mg PO DAILY 05/30/23 05/30/23 Previous Rx's Medication Instructions Recorded furosemide 40 mg tablet 40 mg PO QD #30 tabs 06/05/23 levofloxacin 250 mg tablet 250 mg PO Q24H 3 days #3 tabs 06/05/23 Allergies Allergy/AdvReac Type Severity Reaction Status Date / Time Latex, Natural Rubber AdvReac Intermediate Verified 05/17/23 14:58 tetanus toxoid, adsorbed AdvReac Intermediate Verified 05/17/23 14:58 pcn AdvReac Intermediate Uncoded 05/17/23 14:58 valium AdvReac Intermediate Uncoded 05/17/23 14:58 PFSH PFSH Medical History (Updated 09/18/23 @ 21:00 by WOLF Aleman) Stage 3b chronic kidney disease (CKD) ?N18.32 - Chronic kidney disease, stage 3b (ICD-10) Chronic atrial fibrillation ?I48.20 - Chronic atrial fibrillation, unspecified (ICD-10) Acute on chronic systolic (congestive) heart failure ?I50.23 - Acute on chronic systolic (congestive) heart failure (ICD-10) HFrEF (heart failure with reduced ejection fraction) ?I50.20 - Unspecified systolic (congestive) heart failure (ICD-10) Systolic congestive heart failure ?I50.20 - Unspecified systolic (congestive) heart failure (ICD-10) Anemia ?D64.9 - Anemia, unspecified (ICD-10) Anxiety ?F41.9 - Anxiety disorder, unspecified (ICD-10) Hypothyroidism ?E03.9 - Hypothyroidism, unspecified (ICD-10) Hyperlipemia ?E78.5 - Hyperlipidemia, unspecified (ICD-10) Chronic kidney disease ?N18.9 - Chronic kidney disease, unspecified (ICD-10) A-fib ?I48.91 - Unspecified atrial fibrillation (ICD-10) Surgical History (Updated 05/30/23 @ 18:32 by Diamond Chakraborty RN) History of bilateral knee replacement ?Z96.653 - Presence of artificial knee joint, bilateral (ICD-10) H/O: hysterectomy ?Z90.710 - Acquired absence of both cervix and uterus (ICD-10) History of cholecystectomy ?Z90.49 - Acquired absence of other specified parts of digestive tract (ICD- 10) History of arthroplasty of left shoulder ?Z96.612 - Presence of left artificial shoulder joint (ICD-10) Family History (Updated 05/30/23 @ 18:35 by Diamond Chakraborty RN) Father Family history of diabetes mellitus Brother Family history of hypertension Social History (Updated 05/30/23 @ 18:38 by Diamond Chakraborty RN) Within the past year, how often did you have a drink containing alcohol: monthly or less Smoking status: Former smoker Non-prescribed substance use: denies use Highest level of school completed/degree received: high school graduate Exam Constitutional Vital Signs, click to edit/add: Last Vital Signs Pulse 105 H 09/18/23 20:30 Resp 29 H 09/18/23 20:30 BP 132/78 09/18/23 20:39 Pulse Ox 94 L 09/18/23 20:30 O2 Del Method Nonrebreather 09/18/23 18:28 O2 Flow Rate 15 09/18/23 18:03 FiO2 100 09/18/23 19:28 Course Vital Signs Vital signs: Vital Signs Pulse Rate 91 H 09/18/23 18:03 Respiratory Rate 32 H 09/18/23 18:03 Blood Pressure 150/86 H 09/18/23 18:03 Pulse Oximetry 89 L 09/18/23 18:03 Oxygen Delivery Method Nonrebreather 09/18/23 18:03 Oxygen Delivery Flow Rate 15 09/18/23 18:03 Pulse Rate 105 H 09/18/23 20:30 Respiratory Rate 29 H 09/18/23 20:30 Blood Pressure 132/78 09/18/23 20:39 Pulse Oximetry 94 L 09/18/23 20:30 Oxygen Delivery Method Nonrebreather 09/18/23 18:28 Oxygen Delivery Flow Rate 15 09/18/23 18:03 Fraction of Inspired Oxygen 100 09/18/23 19:28 MDM - SOB/Dyspnea MDM Narrative Medical decision making narrative: On arrival to the emergency department, patient was hypoxic on a nonrebreather, she was switched to BiPAP, she did attempt to pull the BiPAP so she was given IV Valium with improvement. Pulse oximetry improved significantly on BiPAP, sepsis labs were ordered including blood cultures and respiratory panel. Patient is found to have leukocytosis with no bandemia, acute kidney injury, elevated lactic acid and elevated troponin. Repeat troponin is stable, BNP is significantly elevated. She was given IV Lasix with Schulz catheter placed. Chest x-ray shows multifocal infiltrates as well as pulmonary edema. Patient was covered for hospital-acquired pneumonia as she lives in a senior living with Levaquin and vancomycin. Her respiratory panel is positive for RSV. Patient will be admitted to ICU for hypoxia, multifocal pneumonia, CHF, sepsis. She is stable, significantly improved at time of admission on BiPAP to ICU. Medical Records Attestation: I reviewed the patient's medical records. Lab Data Attestation: I reviewed the patient's lab results. Labs: Lab Results 09/18/23 09/18/23 Range/Units 18:15 20:18 WBC 14.1 H (4.0-11.0) 10^3/uL RBC 3.99 L (4.20-5.40) 10^6/uL Hgb 12.4 (12.0-16.0) g/dL Hct 39.7 (36.0-48.0) % MCV 99.5 H (81.0-99.0) fL MCH 31.1 (26.7-34.0) pg MCHC 31.2 (29.9-35.2) g/dL RDW 13.9 (11.0-15.0) % Plt Count 167 (150-450) 10^3/uL MPV 11.9 (9.5-13.5) fL Seg Neuts % (Manual) 88.0 Lymphocytes % (Manual) 1.0 L (20.5-60.0) % Atypical Lymphs % (Man) 1.0 % Monocytes % (Manual) 10.0 (1.7-12.0) % Eosinophils % (Manual) 0.0 L (0.9-7.0) % Basophils % (Manual) 0.0 L (0.2-2.0) % Neutrophils # (Manual) 12.40 H (1.4-6.5) 10^3/uL Lymphocytes # (Manual) 0.14 L (1.20-3.80) 10^3/uL Abs Atypical Lymphs Man 0.1 Monocytes # (Manual) 1.41 H (0.30-0.80) 10^3/uL Eosinophils # (Manual) 0.00 (0.00-0.70) 10^3/uL Basophils # (Manual) 0.00 (0.00-0.10) 10^3/uL Toxic Granulation 3+ Toxic Vacuolation 3+ PT 13.9 H (9.0-11.6) sec INR 1.33 APTT 35.2 (22.3-36.2) sec VBG pH 7.461 H (7.330-7.430) VBG pCO2 49.7 (40.0-52.0) mmHg Sodium 145 (136-145) mmol/L Potassium 3.3 L (3.5-5.1) mmol/L Chloride 103 (98-107) mmol/L Carbon Dioxide 35.8 H (21.0-32.0) mmol/L Anion Gap 9.5 BUN 75.0 H (7.0-18.0) mg/dL Creatinine 2.40 H (0.55-1.02) mg/dL Est GFR ( Amer) 23 L (>=60) Est GFR (Non-Af Amer) 19 L (>=60) BUN/Creatinine Ratio 31.3 Glucose 131 H (74-106) mg/dL Lactate 2.4 H* (0.4-2.0) mmol/L Calcium 9.8 (8.5-10.1) mg/dL Total Bilirubin 0.9 (0.2-1.0) mg/dL AST 37 (15-37) U/L ALT 56 (14-59) U/L Alkaline Phosphatase 100 (46-116) U/L Troponin I High Sens 118.2 H* 120.3 H* (4.0-51.3) pg/mL NT-Pro-B Natriuret Pep 14062.0 H* (<=1800.0) pg/mL Total Protein 6.7 (6.4-8.2) g/dL Albumin 2.2 L (3.4-5.0) g/dL Globulin 4.5 g/dL Albumin/Globulin Ratio 0.5 Adenovirus (PCR) Not detected (NOT DETECTE) C. pneumoniae DNA (PCR) Not detected (NOT DETECTE) Coronavirus Type OC43 Not detected (NOT DETECTE) Coronavirus Type HKU1 Not detected (NOT DETECTE) Coronavirus Type 229E Not detected (NOT DETECTE) Coronavirus Type NL63 Not detected (NOT DETECTE) Human Metapneumovir PCR Not detected (NOT DETECTE) M. pneumoniae (PCR) Not detected (NOT DETECTE) Parainfluenza PCR Not detected (NOT DETECTE) Parainfluenza 2 (PCR) Not detected (NOT DETECTE) Parainfluenza 3 (PCR) Not detected (NOT DETECTE) Parainfluenza 4 (PCR) Not detected (NOT DETECTE) RSV (RT-PCR) Detected A* (NOT DETECTE) Entero/Rhino (PCR) Not detected (NOT DETECTE) SARS-CoV-2 (PCR) Not detected (NOT DETECTE) Bordetella pertussis (PCR) Not detected (NOT DETECTE) B parapertussis DNA PCR Not detected (NOT DETECTE) Influenza Type A (PCR) Not detected (NOT DETECTE) Influenza Type B (PCR) Not detected (NOT DETECTE) Imaging Data Chest x-ray: Attestation: I have reviewed the pertinent imaging results. Radiologist's impression: Procedure: XR chest 1V EXAM: XR chest 1V HISTORY: Shortness of breath COMPARISON: Chest x-ray dated 06/04/2023. TECHNIQUE: Single AP portable upright view of the chest FINDINGS: Enlarged cardiomediastinal silhouette is again seen. Small left pleural effusion is suspected. Bilateral airspace opacities and patchy hazy opacities are seen, suspicious for infectious process and/or pulmonary edema. No obvious pneumothorax is seen. IMPRESSION: Small left pleural effusion is suspected. Bilateral airspace opacities and patchy hazy opacities are seen, suspicious for infectious process and/or pulmonary edema. Electronically authenticated by: LEATHA ODOM Date: 09/18/2023 19:55 ECG Data Attestation: I personally reviewed and interpreted this ECG as follows: (Atrial fibrillation at a rate of 91, no acute ST elevation, artifact noted with no ectopy. EKG reviewed by attending physician) ECG interpretation date: 09/18/23 Critical Care Time Critical Care Time Total Critical Care Time: 35 Discharge Plan Discharge Chief Complaint: Shortness of Breath/Dyspnea Patient Disposition: Admitted As Inpatient Time of Disposition Decision: 21:00 Prescriptions / Home Meds: No Action amiodarone 200 mg tablet 200 mg PO DAILY atorvastatin 40 mg tablet 40 mg PO DAILY budesonide 0.5 mg/2 mL suspension for nebulization 0.5 mg inhalation BID buspirone 15 mg tablet 15 mg PO BID Eliquis 5 mg tablet 2.5 mg PO BID ferrous sulfate [FeroSul] 325 mg (65 mg iron) tablet 325 mg PO DAILY gabapentin 100 mg capsule 100 mg PO Q8H loperamide 2 mg capsule 2 mg PO QID PRN (Reason: loose stool) levothyroxine 150 mcg tablet 150 mcg PO DAILY magnesium oxide 400 mg (241.3 mg magnesium) tablet 400 mg PO DAILY melatonin 3 mg tablet 3 mg PO DAILY uheyvrej-yes-qmsw fum-folic ac 7.5 mg iron-400 mcg tablet 1 tab PO DAILY omeprazole 20 mg capsule,delayed release(DR/EC) 20 mg PO DAILY paroxetine HCl 10 mg tablet 10 mg PO DAILY ipratropium-albuterol 0.5 mg-3 mg(2.5 mg base)/3 mL solution for nebulization 3 ml INHALATION BID PRN (Reason: shortness of breath or wheezing) furosemide 40 mg Tablet 40 mg PO QD Qty: 30 0RF levofloxacin 250 mg tablet 250 mg PO Q24H 3 Days Qty: 3 0RF Stand Alone Forms: Portal Instructions Referrals: NOHELIA GRACIA DO [Primary Care Provider] - 1 week
[2023-09-18 18:30] LABS: Hematocrit 39.7 % (36.0-48.0); Hemoglobin 12.4 g/dL (12.0-16.0); Mean Corpuscular HGB Conc 31.2 g/dL (29.9-35.2); Mean Corpuscular Hemoglobin 31.1 pg (26.7-34.0); Mean Corpuscular Volume 99.5 fL (81.0-99.0); Mean Platelet Volume 11.9 fL (9.5-13.5); Platelet Count 167 10^3/uL (150-450); Red Blood Count 3.99 10^6/uL (4.20-5.40); Red Cell Distribution Width 13.9 % (11.0-15.0); White Blood Count 14.1 10^3/uL (4.0-11.0)
[2023-09-18] MEDS: DIAZEPAM 5 MG/ML - 2 ML INJ SYRINGE 2.5 MG IV (18:37)
[2023-09-18 18:43] LABS: INR 1.33; Partial Thromboplastin Time 35.2 sec (22.3-36.2); Prothrombin Time 13.9 sec (9.0-11.6)
[2023-09-18 18:48] LABS: Alanine Aminotransferase 56 U/L (14-59); Albumin Globulin Ratio 0.5; Albumin Level 2.2 g/dL (3.4-5.0); Alkaline Phosphatase 100 U/L (46-116); Anion Gap 9.5; Aspartate Amino Transferase 37 U/L (15-37); BUN Creatinine Ratio 31.3; Bilirubin Total 0.9 mg/dL (0.2-1.0); Calcium 9.8 mg/dL (8.5-10.1); Carbon Dioxide 35.8 mmol/L (21.0-32.0); Chloride 103 mmol/L (98-107); Estimated GFR (African America 23 (>=60); Estimated GFR (Non-African Ame 19 (>=60); Globulin 4.5 g/dL; Glucose 131 mg/dL (74-106); Potassium 3.3 mmol/L (3.5-5.1); Sodium 145 mmol/L (136-145); Total Protein 6.7 g/dL (6.4-8.2)
[2023-09-18 18:54] LABS: Atypical Lymphocytes Abs Man 0.1; Lymphocytes Absolute Manual 0.14 10^3/uL (1.20-3.80); Monocytes Absolute Manual 1.41 10^3/uL (0.30-0.80); Toxic Granulation 3+; Toxic Vacuolation 3+
[2023-09-18 18:56] LABS: Troponin I High Sensitivity 118.2 pg/mL (4.0-51.3)
[2023-09-18 19:12] LABS: Adenovirus NOT DETECTED (NOT DETECTE); Bordetella parapertussis NOT DETECTED (NOT DETECTE); Coronavirus 229E NOT DETECTED (NOT DETECTE); Coronavirus HKU1 NOT DETECTED (NOT DETECTE); Coronavirus NL63 NOT DETECTED (NOT DETECTE); Coronavirus OC43 NOT DETECTED (NOT DETECTE); Human Metapneumovirus NOT DETECTED (NOT DETECTE); Human Rhinovirus/Enterovirus NOT DETECTED (NOT DETECTE); Influenza A NOT DETECTED (NOT DETECTE); Influenza B NOT DETECTED (NOT DETECTE); Mycoplasma pneumoniae NOT DETECTED (NOT DETECTE); Parainfluenza Virus 1 NOT DETECTED (NOT DETECTE); Parainfluenza Virus 2 NOT DETECTED (NOT DETECTE); Parainfluenza Virus 3 NOT DETECTED (NOT DETECTE); Parainfluenza Virus 4 NOT DETECTED (NOT DETECTE); SARS-CoV-2 NOT DETECTED (NOT DETECTE)
[2023-09-18 19:34] LABS: Lactate/Lactic Acid 2.4 mmol/L (0.4-2.0)
[2023-09-18 20:06] LABS: Respiratory Syncytial Virus DETECTED (NOT DETECTE)
[2023-09-18] MEDS: FUROSEMIDE 40 MG/4 ML VIAL IVP (20:39)
[2023-09-18] MEDS: LEVOFLOXACIN IN DEXTROSE 5 % 750 MG/150 ML IV.SOLN 100 MG IV (20:41)
[2023-09-18 20:45] LABS: Troponin I High Sensitivity 120.3 pg/mL (4.0-51.3)
[2023-09-18 21:56] LABS: Lactate/Lactic Acid 1.8 mmol/L (0.4-2.0)
[2023-09-18 22:19] LABS: PROCALCITONIN 2.81 ng/mL (0.00-0.50)
[2023-09-18] MEDS: VANCOMYCIN HCL 1,000 MG in 0.9 % SODIUM CHLORIDE 250 ML 250 MG IV (22:56)
[2023-09-19] VITALS (151 sets, daily range): BP systolic 73–136; BP diastolic 47–101; PULSE 90–137; RESP 16–42; TEMP 36.8–38.2; O2SAT 85–96
--- NOTE | 2023-09-19 | CA_ITS ---
Patient Name: YAMINI TURPIN MR#: [id number] : 1935 Exam Date: 09/19/2023 Ordering Doctor: DR NOHELIA GRACIA D.O. ECHOCARDIOGRAM REPORT PROCEDURE: CA ECHO LIMITED INDICATIONS: CHF COMPARISON: None. DESCRIPTION: Limited ECHOCARDIOGRAM Real-time transthoracic echocardiography with 2D and M-mode performed. QUALITY: Technical quality was adequate. LEFT VENTRICLE: Normal chamber size. Moderate concentric left ventricular hypertrophy. Abnormal septal motion likely due to bundle branch block. There is global hypokinesis. Global left ventricular systolic function is difficult to assess due to rhythm and tachycardia but appears moderately reduced. LV EF: Estimated left ventricular ejection fraction is 30 to 35%. DIASTOLIC: ATRIAL SEPTUM: LEFT ATRIUM: Normal chamber size. RIGHT ATRIUM: Normal chamber size. RIGHT VENTRICLE: Normal chamber size. Normal right ventricular systolic function. TRICUSPID VALVE: Normal mobility and thickness. MITRAL VALVE: Normal mobility and thickness. AORTIC VALVE: Normal trileaflet appearance. Normal leaflet mobility. AORTIC ROOT: Normal diameter and appearance. PULMONIC VALVE: Not well visualized. PERICARDIUM: No evidence of pericardial effusion. IVC: Collapses with inspirations. Normal size. PLEURA: CONCLUSION: 1. Moderate concentric left ventricular hypertrophy with moderately reduced systolic function. Systolic function is difficult to assess due to rhythm. LVEF is estimated at 30 to 35%. 2. Normal right ventricular size and systolic function. 3. No pericardial effusion. 4. The patient appears to be possibly in atrial fibrillation with rapid ventricular response during the exam. 5. Limited study performed with no Doppler interrogation as requested. Adult Echocardiography Procedure Report Left Ventricle LVEDD (3.7 - 5.6 cm): 4.73 cm LVESD (2.2 - 4.0 cm): 3.79 cm LVIVS thickness (0.6 - 1.2 cm): 1.32 cm LVPW thickness (0.5 - 1.0 cm): 1.38 cm LVOT Diameter 2.21 cm Left Ventricular Ejection Fraction: 30-35% Left Atrium LA Volume Index (2D A2C): 30.09 ml/m2 Left Atrium Systolic Dimension: 3.79 cm Mitral Valve Right Ventricle RV Internal Diastolic Dimension: 3.07 cm Aorta AO Root Diam: 3.09 cm Aortic Valve Tricuspid Valve Pulmonic Valve Right Atrium Right Atrium Systolic Pressure: 32.96 ml, 32.96 ml Dictated by: Shane Mendez M.D. on 09/19/2023 at 17:40 Approved by: Shane Mendez M.D. on 09/19/2023 at 17:47
--- NOTE | 2023-09-19 00:12 | W.PM.TELEPN ---
Progress Note: Subjective Subjective Interval history: CC: SOB HPI: 88 yo WF from nursing facility sent over for worsening SOB. Unable to provide reliable hx. Information obtained from the chart. Founf to be very SOB in ED. Hypoxia. Markedly elevated BNP (chronic). Findings of multifocal infiltrates on CXR. Tested + for RSV. Elevated but flat troponin. CAFib. Anticoagulated with Eliquis. Exam Narrative Exam Narrative: Physical Exam: Not in distress, confused, cooperative, Head - atraumatic, eyes - pupils equal, round, reactive to light, extra ocular movement intact, MMM Neck - supple, thyroid not enlarged, LN not palpated Lungs - B/L wheezing CVS - heart sounds S1, S2, no additional murmurs gallop, regular rate and rhythm Gastrointestinal?abdomen is soft, non-tender, non-distended, no organomegaly, positive bowel sounds Extremities no clubbing, cyanosis or edema Neurological?cranial nerve II?XII grossly intact, no meningeal signs, no cerebellar signs, no sensory deficit Musculoskeletal - DJD related changes in multiple joints, no effusions, ROM preserved Dermatological - the skin dry, warm, no rashes Psychiatric?patient is confused Constitutional Vital Signs, click to edit/add: Last Vital Signs Temp 99.2 F 09/18/23 21:35 Pulse 94 H 09/18/23 22:51 Resp 30 H 09/18/23 21:35 BP 130/72 09/18/23 21:35 Pulse Ox 94 L 09/18/23 22:51 O2 Del Method BIPAP 09/18/23 21:35 O2 Flow Rate 15 09/18/23 18:03 FiO2 100 09/18/23 22:10 Progress Note: Objective Labs Labs: Short CBC 09/18/23 Range/Units 18:15 WBC 14.1 H (4.0-11.0) 10^3/uL Hgb 12.4 (12.0-16.0) g/dL Hct 39.7 (36.0-48.0) % Plt Count 167 (150-450) 10^3/uL BMP 09/18/23 18:15 Sodium 145 Potassium 3.3 L Chloride 103 Carbon Dioxide 35.8 H BUN 75.0 H Creatinine 2.40 H Glucose 131 H Calcium 9.8 Liver Function 09/18/23 Range/Units 18:15 Total Bilirubin 0.9 (0.2-1.0) mg/dL AST 37 (15-37) U/L ALT 56 (14-59) U/L Alkaline Phosphatase 100 (46-116) U/L Albumin 2.2 L (3.4-5.0) g/dL Progress Note: A&P Assessment and Plan (1) Multifocal pneumonia: Assessment and Plan: started on empirice ABxs F/U CXs BIPAP as needed O2 supplementation Bronchodilators and inhaled steroids ordered (2) Sepsis: Assessment and Plan: as above F/U Cxs, adjust ABxs as needed (3) CHF exacerbation: Assessment and Plan: strict I&Os, daily weight ECHo ordered IV Lasix (4) Chronic atrial fibrillation: Assessment and Plan: dose of AMiodaron in creased to 200 mg PO BID continue eliquis (5) Hypothyroidism: Assessment and Plan: on synthroid Plan As the provider for the telehealth service, I attest that I introduced myself to the patient, provided my credentials, disclosed by location and determined that based on a review of the patient's chart and discussion with members of the patient's treatment team, telemedicine via real-time, 2 way, and interactive audio and video platform is an appropriate and effective means of providing the service. ?The patient and I mutually agree this visit is appropriate for telemedicine. ?[place] ?The encounter took approximately 35 minutes. ?The nurse was present during the entire time and I was able to move the stethoscope in appropriate directions. ?The patient was evaluated at the Hospital ? Portions of this note may be dictated using [employer] voice recognition software. Variances in spelling and vocabulary are possible and unintentional. Not all errors may be caught and/or corrected. Please notify the author if any discrepancies are noted and/or if the meaning of any statement is unclear.? ? Patient verbally consented for treatment via video visit with patient currently located at the [facility] [place] and provider located in [place]. Telemedicine Attestation Telemedicine Attestation I conducted this encounter from [place]] via secure live, [id number] video conference with the patient, located at [facility] with [sepsis]. Prior to the interview, the risks and benefits of telemedicine were discussed with the patient and verbal consent was obtained.
[2023-09-19] MEDS: FUROSEMIDE 40 MG/4 ML VIAL IVP (01:02)
[2023-09-19] MEDS: QUETIAPINE FUMARATE 25 MG TABLET 12.5 MG PO (01:03)
[2023-09-19] MEDS: GABAPENTIN 100 MG CAPSULE PO ×3 (01:03→16:11)
[2023-09-19] MEDS: IPRATROPIUM/ALBUTEROL SULFATE 3 ML AMPUL.NEB IH ×5 (04:17→23:42)
[2023-09-19 04:27] LABS: Basophils Percent Auto 0.1 % (0.2-2.0); Eosinophils Percent Auto 0.3 % (0.9-7.0); Hematocrit 38.2 % (36.0-48.0); Hemoglobin 11.9 g/dL (12.0-16.0); Immature Granulocytes Abs Auto 0.06 10^3/uL (0.00-0.03); Immature Granulocytes Pct Auto 0.4 % (0.0-0.5); Lymphocytes Absolute Auto 0.2 10^3/uL (1.2-3.8); Lymphocytes Percent Auto 1.3 % (20.5-60.0); Mean Corpuscular HGB Conc 31.2 g/dL (29.9-35.2); Mean Corpuscular Hemoglobin 31.3 pg (26.7-34.0); Mean Corpuscular Volume 100.5 fL (81.0-99.0); Mean Platelet Volume 12.3 fL (9.5-13.5); Monocytes Absolute Auto 0.2 10^3/uL (0.3-0.8); Monocytes Percent Auto 1.4 % (1.7-12.0); Neutrophils Absolute Auto 14.2 10^3/uL (1.4-6.5); Neutrophils Percent Auto 96.5 % (43.0-75.0); Platelet Count 133 10^3/uL (150-450); Red Cell Distribution Width 13.8 % (11.0-15.0); White Blood Count 14.7 10^3/uL (4.0-11.0)
[2023-09-19 04:45] LABS: Anion Gap 15.8; BUN Creatinine Ratio 32.1; Calcium 9.6 mg/dL (8.5-10.1); Carbon Dioxide 30.5 mmol/L (21.0-32.0); Chloride 102 mmol/L (98-107); Estimated GFR (African America 23 (>=60); Estimated GFR (Non-African Ame 19 (>=60); Glucose 107 mg/dL (74-106); Potassium 3.3 mmol/L (3.5-5.1); Sodium 145 mmol/L (136-145)
--- NOTE | 2023-09-19 07:12 | CT_ITS ---
[address] [address] Patient Name: YAMINI TURPIN MRN: [facility]:[id number] date: 1935 Sex: F Assigned Patient Location: ICU Current Patient Location: ICU Accession/Order Number: [id number] Exam Date: 09/19/2023 08:50 Report Date: 09/19/2023 09:50 At the request of: SHAIKH JOSÉ LUIS Procedure: CT chest wo con EXAMINATION: CT chest wo con, CT abdomen pelvis wo con HISTORY: pneumonia COMPARISON: Plain x-ray 09/18/2023, CT chest 05/31/2023 TECHNIQUE: Axial, Coronal, and Sagittal CT images were obtained without IV contrast material. Dose reduction techniques were achieved by using automated exposure control and/or adjustment of mA and/or kV according to patient size and/or use of iterative reconstruction technique. FINDINGS: LUNGS: Moderate patchy and nodular consolidation scattered throughout both lungs with a dependent predominance. Bronchiectasis most significant in the right lower lobe. PLEURA: 1 cm left pleural effusion. Elevated left hemidiaphragm VASCULATURE: No abnormal prominence. JUDE: No mass or adenopathy. MEDIASTINUM: No mass or adenopathy. CARDIAC: No cardiomegaly. No pericardial effusion. Coronary atherosclerosis. CHEST WALL: No mass or axillary adenopathy. LIVER: No enlargement, atrophy, abnormal density, or significant focal lesion. BILIARY: The gallbladder is absent PANCREAS: Diffuse pancreatic atrophy SPLEEN: No enlargement or focal lesion. ADRENALS: No mass or enlargement. KIDNEYS: Bilateral hypodensities likely represent cysts. Moderate right cortical atrophy. No hydronephrosis or obstructing nephrolithiasis BOWEL/MESENTERY: No visible mass, obstruction, or bowel wall thickening. AORTA/VASCULAR: Moderate diffuse atherosclerosis RETROPERITONEUM: No mass or adenopathy. LYMPH NODES: No adenopathy. URINARY BLADDER: Urinary catheter PELVIC ORGANS: Remote hysterectomy ABDOMINAL WALL: No mass or hernia. BONES: No acute fracture. Stable thoracic kyphosis with anterior wedge compression fracture of T7 and near complete compression fracture of T8. Degenerative changes of the spine. Severe bilateral glenohumeral osteoarthritis. OTHER: Negative. CT/CT chest wo con IMPRESSION: Moderate bilateral multifocal infiltrates. Consider a multifocal pneumonia Electronically authenticated by: SANTOS CASEY Date: 09/19/2023 09:50
--- NOTE | 2023-09-19 07:23 | PC.NURSE ---
Was unable to ask all admission questions d/t Patient was becoming SOB and her oxygen sats were dropping.Patient has been A&Ox3 and tolerating the bipap fair.
--- NOTE | 2023-09-19 08:41 | CT_ITS ---
[address] [address] Patient Name: YAMINI TURPIN MRN: [facility]:[id number] date: 1935 Sex: F Assigned Patient Location: ICU Current Patient Location: ICU Accession/Order Number: [id number] Exam Date: 09/19/2023 08:50 Report Date: 09/19/2023 09:50 At the request of: SHAIKH JOSÉ LUIS Procedure: CT abdomen pelvis wo con EXAMINATION: CT chest wo con, CT abdomen pelvis wo con HISTORY: pneumonia COMPARISON: Plain x-ray 09/18/2023, CT chest 05/31/2023 TECHNIQUE: Axial, Coronal, and Sagittal CT images were obtained without IV contrast material. Dose reduction techniques were achieved by using automated exposure control and/or adjustment of mA and/or kV according to patient size and/or use of iterative reconstruction technique. FINDINGS: LUNGS: Moderate patchy and nodular consolidation scattered throughout both lungs with a dependent predominance. Bronchiectasis most significant in the right lower lobe. PLEURA: 1 cm left pleural effusion. Elevated left hemidiaphragm VASCULATURE: No abnormal prominence. JUDE: No mass or adenopathy. MEDIASTINUM: No mass or adenopathy. CARDIAC: No cardiomegaly. No pericardial effusion. Coronary atherosclerosis. CHEST WALL: No mass or axillary adenopathy. LIVER: No enlargement, atrophy, abnormal density, or significant focal lesion. BILIARY: The gallbladder is absent PANCREAS: Diffuse pancreatic atrophy SPLEEN: No enlargement or focal lesion. ADRENALS: No mass or enlargement. KIDNEYS: Bilateral hypodensities likely represent cysts. Moderate right cortical atrophy. No hydronephrosis or obstructing nephrolithiasis BOWEL/MESENTERY: No visible mass, obstruction, or bowel wall thickening. AORTA/VASCULAR: Moderate diffuse atherosclerosis RETROPERITONEUM: No mass or adenopathy. LYMPH NODES: No adenopathy. URINARY BLADDER: Urinary catheter PELVIC ORGANS: Remote hysterectomy ABDOMINAL WALL: No mass or hernia. BONES: No acute fracture. Stable thoracic kyphosis with anterior wedge compression fracture of T7 and near complete compression fracture of T8. Degenerative changes of the spine. Severe bilateral glenohumeral osteoarthritis. OTHER: Negative. CT/CT abdomen pelvis wo con IMPRESSION: Moderate bilateral multifocal infiltrates. Consider a multifocal pneumonia Electronically authenticated by: SANTOS CASEY Date: 09/19/2023 09:50
[2023-09-19] MEDS: PAROXETINE HCL 20 MG TABLET 10 MG PO (09:09)
[2023-09-19] MEDS: BUSPIRONE HCL 15 MG TABLET PO ×2 (09:09→21:21)
[2023-09-19] MEDS: LEVOTHYROXINE SODIUM 75 MCG TABLET 150 MCG PO (09:09)
[2023-09-19] MEDS: MAGNESIUM OXIDE 400 MG TABLET PO (09:09)
[2023-09-19] MEDS: APIXABAN 5 MG TABLET 2.5 MG PO ×2 (09:10→21:21)
[2023-09-19] MEDS: OMEPRAZOLE 20 MG CAPSULE.DR PO (09:10)
[2023-09-19] MEDS: ACETAMINOPHEN 325 MG TABLET 650 MG PO (09:10)
[2023-09-19] MEDS: AZTREONAM 1,000 MG in 0.9 % SODIUM CHLORIDE 50 ML 100 MG IV ×2 (09:13→21:20)
--- NOTE | 2023-09-19 11:02 | P.HP_ITS ---
H&P: HPI History of Present Illness Chief complaint: sob, Multifocal Pneumonia, CHF, Sepsis, Hypoxia Narrative: 88 y o female on chronic 3 L O2, custodial resident brought over to ED last night for worsening SOB, cough, hypoxia. Unable to obtain much information from patient as she is on BIPAP, hard of hearing and appears tired/lethargic. Her w/u in ED was sepsis sec to multifocal PNA and was admitted to ICU for resp failure Patient currently on BIPAP, using accessory muscles of resp, appears tired and lethargic. Her HR is in 130 and she is afib with RVR. She appears dry on clinical exam. Patient opens eyes and responds with a nod when asked questions. She had recent hospital admission for PNA in 06/05 Review of Systems ROS Status of ROS unobtainable due to medical condition [facility] Medical History Stage 3b chronic kidney disease (CKD) ?N18.32 - Chronic kidney disease, stage 3b (ICD-10) Chronic atrial fibrillation ?I48.20 - Chronic atrial fibrillation, unspecified (ICD-10) Acute on chronic systolic (congestive) heart failure ?I50.23 - Acute on chronic systolic (congestive) heart failure (ICD-10) HFrEF (heart failure with reduced ejection fraction) ?I50.20 - Unspecified systolic (congestive) heart failure (ICD-10) Systolic congestive heart failure ?I50.20 - Unspecified systolic (congestive) heart failure (ICD-10) Anemia ?D64.9 - Anemia, unspecified (ICD-10) Anxiety ?F41.9 - Anxiety disorder, unspecified (ICD-10) Hypothyroidism ?E03.9 - Hypothyroidism, unspecified (ICD-10) Hyperlipemia ?E78.5 - Hyperlipidemia, unspecified (ICD-10) Chronic kidney disease ?N18.9 - Chronic kidney disease, unspecified (ICD-10) A-fib ?I48.91 - Unspecified atrial fibrillation (ICD-10) Surgical History History of bilateral knee replacement ?Z96.653 - Presence of artificial knee joint, bilateral (ICD-10) H/O: hysterectomy ?Z90.710 - Acquired absence of both cervix and uterus (ICD-10) History of cholecystectomy ?Z90.49 - Acquired absence of other specified parts of digestive tract (ICD- 10) History of arthroplasty of left shoulder ?Z96.612 - Presence of left artificial shoulder joint (ICD-10) Family History Father Family history of diabetes mellitus Brother Family history of hypertension Social History Within the past year, how often did you have a drink containing alcohol: monthly or less Smoking status: Former smoker Non-prescribed substance use: denies use Highest level of school completed/degree received: high school graduate Meds Home Medications and Allergies Home Medications Medication Instructions Recorded Confirmed Type amiodarone 200 mg tablet 200 mg PO DAILY 05/30/23 09/19/23 History atorvastatin 40 mg tablet 40 mg PO DAILY 05/30/23 09/19/23 History budesonide 0.5 mg/2 mL suspension 0.5 mg inhalation BID 05/30/23 09/19/23 History for nebulization buspirone 15 mg tablet 15 mg PO BID 05/30/23 09/19/23 History ferrous sulfate 325 mg (65 mg 325 mg PO DAILY 05/30/23 09/19/23 History iron) tablet (FeroSul) gabapentin 100 mg capsule 100 mg PO Q8H 05/30/23 09/19/23 History ipratropium 0.5 mg-albuterol 3 mg 3 ml inhalation BID PRN shortness 05/30/23 09/19/23 History (2.5 mg base)/3 mL nebulization of breath or wheezing soln levothyroxine 150 mcg tablet 150 mcg PO DAILY 05/30/23 09/19/23 History magnesium oxide 400 mg (241.3 mg 400 mg PO BID 05/30/23 09/19/23 History magnesium) tablet melatonin 3 mg tablet 3 mg PO DAILY 05/30/23 09/19/23 History czzvexhphelr-hdrkvuvq-thus 1 tab PO DAILY 05/30/23 09/19/23 History fumarate 7.5 mg-folic acid 400 mcg tablet omeprazole 20 mg capsule,delayed 20 mg PO BID 05/30/23 09/19/23 History release paroxetine HCl 10 mg tablet 10 mg PO DAILY 05/30/23 09/19/23 History furosemide 40 mg tablet 40 mg PO QD #30 tabs 06/05/23 09/19/23 Rx apixaban 2.5 mg tablet 2.5 mg PO BID 09/19/23 09/19/23 History potassium chloride 20 mEq 20 meq PO DAILY 09/19/23 09/19/23 History tablet,extended release (K-Tab) Allergies Allergy/AdvReac Type Severity Reaction Status Date / Time Latex, Natural Rubber AdvReac Intermediate Verified 05/17/23 14:58 tetanus toxoid, adsorbed AdvReac Intermediate Verified 05/17/23 14:58 pcn AdvReac Intermediate Uncoded 05/17/23 14:58 valium AdvReac Intermediate Uncoded 05/17/23 14:58 Exam Constitutional Vital Signs, click to edit/add: Last Vital Signs Temp 99.6 F 09/19/23 10:00 Pulse 124 H 09/19/23 10:00 Resp 22 09/19/23 10:00 BP 136/47 L 09/19/23 10:00 Pulse Ox 93 L 09/19/23 09:28 O2 Del Method BIPAP 09/19/23 10:00 O2 Flow Rate 100 09/19/23 03:00 FiO2 100 09/19/23 07:59 Documenting provider has reviewed patient's vital signs: yes General appearance: in distress, lethargic, ill appearing and frail appearing Orientation/consciousness: Yes lethargic Respiratory Effort & inspection: tachypneic, respiratory distress, uses accessory muscles and prolonged expiratory phase Auscultation: rhonchi Other: On BIPAP Cardio Common normals: S1 normal heart sound and S2 normal heart sound Rate: tachycardic Rhythm: abnormal rhythm Heart sounds: S1 normal and S2 normal GI Common normals: Normal to inspection, nondistended, normoactive bowel sounds present, soft to palpation, non-tender and no hepatosplenomegaly Palpation: soft and no hepatosplenomegaly Neuro Common normals: moves all extremities and no focal motor deficits Sensorium/orientation: lethargic Psych Common normals: mental status grossly normal, denies hallucinations, denies homicidal ideation and denies suicidal ideation Results Labs Labs: Short CBC 09/18/23 09/19/23 Range/Units 18:15 04:10 WBC 14.1 H 14.7 H (4.0-11.0) 10^3/uL Hgb 12.4 11.9 L (12.0-16.0) g/dL Hct 39.7 38.2 (36.0-48.0) % Plt Count 167 133 L (150-450) 10^3/uL BMP 09/18/23 09/19/23 18:15 04:10 Sodium 145 145 Potassium 3.3 L 3.3 L Chloride 103 102 Carbon Dioxide 35.8 H 30.5 BUN 75.0 H 78.0 H* Creatinine 2.40 H 2.43 H Glucose 131 H 107 H Calcium 9.8 9.6 Liver Function 09/18/23 Range/Units 18:15 Total Bilirubin 0.9 (0.2-1.0) mg/dL AST 37 (15-37) U/L ALT 56 (14-59) U/L Alkaline Phosphatase 100 (46-116) U/L Albumin 2.2 L (3.4-5.0) g/dL ABG ABG results: 09/18/23 18:15 VBG pH 7.461 H VBG pCO2 49.7 Assessment and Plan Assessment and Plan (1) Multifocal pneumonia: Assessment and Plan: Multifocal PNA, presumably post viral bacterial PNA. Will treat as hospital acquired PNA due to recent hospital admission/abx use On IV vancomycin/aztreonam. F/u blood and sputum cx. Pulm consulted. (2) RSV (respiratory syncytial virus pneumonia): Assessment and Plan: Multifocal PNA, tested positive for RSV. (3) Sepsis: Assessment and Plan: SIRS (rr> 20, wbc> 13k, HR> 90) with acute resp failure - on BIPAP requiring mechanical ventilation but even on BIPAP, has increased work of breathing. Pulm consulted. Qualifiers: Sepsis type: sepsis due to unspecified organism Sepsis acute organ dysfunction status: with acute organ dysfunction Severe sepsis acute organ dysfunction type: acute respiratory failure Acute respiratory failure type: with hypoxia Severe sepsis shock status: without septic shock Qualified Code(s): A41.9 - Sepsis, unspecified organism; R65.20 - Severe sepsis without septic shock; J96.01 - Acute respiratory failure with hypoxia (4) JOSE (acute kidney injury): Assessment and Plan: Baseline Cr is 1.7, presented with Cr of 2.4 Started on IVF. Monitor UO (5) Chronic atrial fibrillation: Assessment and Plan: Afib with RVR, HR in 120s due to sepsis, acute illness. Monitor. On ELIQUIS for AC. (6) Hypothyroidism: Assessment and Plan: C/w synthyroid. Qualifiers: Hypothyroidism type: unspecified Qualified Code(s): E03.9 - Hypothyroidism, unspecified (7) Lactic acid acidosis: Assessment and Plan: Resolved. (8) Systolic congestive heart failure: Assessment and Plan: Initially started on Lasix by ED, Hospitalist. I feel she is dry and needs IVF. Hold lasix. Started on IVF. Qualifiers: Heart failure chronicity: chronic Qualified Code(s): I50.22 - Chronic systolic (congestive) heart failure (9) Hyperlipemia: Assessment and Plan: c/w statin Qualifiers: Hyperlipidemia type: unspecified Qualified Code(s): E78.5 - Hyperlipidemia, unspecified (10) Stage 3b chronic kidney disease (CKD): Assessment and Plan: P/w JOSE Plan Critically sick, at high risk of worsening clinical status and risk of mortality/morbidity. Guarded prognosis.
[2023-09-19] MEDS: BUDESONIDE 0.5 MG/2 ML AMPULE NEB IH ×2 (11:22→23:42)
[2023-09-19 11:28] LABS: ABG PCO2 45.6 mmHg (35.0-45.0); pH ABG 7.448 (7.350-7.450)
[2023-09-19 11:29] LABS: Allen Test POSITIVE (POSITIVE); BIPAP Pressure 14/7; Base Excess ABG 7.5 mmol/L (-2.0-2.0); Fractionated Inspired Oxygen 100 %; HCO3 ABG 31.5 mmol/L (22.0-26.0); O2 Mode BIPAP; Oxygen Saturation ABG 94.3 %; PO2 ABG 75.4 mmHg (80.0-100.0); Puncture Site RR; Rate 14
[2023-09-19 11:40] LABS: Glucometer 92 mg/dL (74-106)
--- NOTE | 2023-09-19 11:40 | P.PLCN_ITS ---
History of Present Illness History of Present Illness Consult date: 09/19/23 Chief complaint: sob, Multifocal Pneumonia, CHF, Sepsis, Hypoxia Narrative: 88yo female from [facility] presents after a 2 week duration of worsening breathing. The patient is currently on a BiPAP and is very difficult to extract information from - data is obtained from past records as well as nursing. The patient was at the [facility] with respiratory issues. Appears her baseline O2 is 3L/min. Given worsening oxygenation there, she was placed on high flow oxygen but she continued to deteriorate and was brought to [facility] ER. She had increased work of breathing with hypoxia beyond baseline - she was placed on a BiPAP, requiring an FiO2 or 100% currently. Chest CT noted bilateral infiltrates and right lower lobe bronchiectasis. Rapid respiratory panel returned positive for RSV. Tmax this AM was 100.7'F rectally. She has veddh-ms-gkecknm renal failure, afib with RVR, and evidence of NSTEMI. She is a DNR-CCA, but power of trademark attorney stated to nursing that the patient can be intubated. The patient was able to let me know that she is having a difficult time breathing and the mask is not comfortable. Review of Systems ROS Status of ROS unobtainable due to medical condition (Difficult for patient to speak on BiPAP) [facility] Medical History Stage 3b chronic kidney disease (CKD) ?N18.32 - Chronic kidney disease, stage 3b (ICD-10) Chronic atrial fibrillation ?I48.20 - Chronic atrial fibrillation, unspecified (ICD-10) Acute on chronic systolic (congestive) heart failure ?I50.23 - Acute on chronic systolic (congestive) heart failure (ICD-10) HFrEF (heart failure with reduced ejection fraction) ?I50.20 - Unspecified systolic (congestive) heart failure (ICD-10) Systolic congestive heart failure ?I50.20 - Unspecified systolic (congestive) heart failure (ICD-10) Anemia ?D64.9 - Anemia, unspecified (ICD-10) Anxiety ?F41.9 - Anxiety disorder, unspecified (ICD-10) Hypothyroidism ?E03.9 - Hypothyroidism, unspecified (ICD-10) Hyperlipemia ?E78.5 - Hyperlipidemia, unspecified (ICD-10) Chronic kidney disease ?N18.9 - Chronic kidney disease, unspecified (ICD-10) A-fib ?I48.91 - Unspecified atrial fibrillation (ICD-10) Surgical History History of bilateral knee replacement ?Z96.653 - Presence of artificial knee joint, bilateral (ICD-10) H/O: hysterectomy ?Z90.710 - Acquired absence of both cervix and uterus (ICD-10) History of cholecystectomy ?Z90.49 - Acquired absence of other specified parts of digestive tract (ICD- 10) History of arthroplasty of left shoulder ?Z96.612 - Presence of left artificial shoulder joint (ICD-10) Family History Father Family history of diabetes mellitus Brother Family history of hypertension Social History Within the past year, how often did you have a drink containing alcohol: monthly or less Smoking status: Former smoker Non-prescribed substance use: denies use Highest level of school completed/degree received: high school graduate Meds Home Medications and Allergies Home Medications Medication Instructions Recorded Confirmed Type amiodarone 200 mg tablet 200 mg PO DAILY 05/30/23 09/19/23 History atorvastatin 40 mg tablet 40 mg PO DAILY 05/30/23 09/19/23 History budesonide 0.5 mg/2 mL suspension 0.5 mg inhalation BID 05/30/23 09/19/23 History for nebulization buspirone 15 mg tablet 15 mg PO BID 05/30/23 09/19/23 History ferrous sulfate 325 mg (65 mg 325 mg PO DAILY 05/30/23 09/19/23 History iron) tablet (FeroSul) gabapentin 100 mg capsule 100 mg PO Q8H 05/30/23 09/19/23 History ipratropium 0.5 mg-albuterol 3 mg 3 ml inhalation BID PRN shortness 05/30/23 09/19/23 History (2.5 mg base)/3 mL nebulization of breath or wheezing soln levothyroxine 150 mcg tablet 150 mcg PO DAILY 05/30/23 09/19/23 History magnesium oxide 400 mg (241.3 mg 400 mg PO BID 05/30/23 09/19/23 History magnesium) tablet melatonin 3 mg tablet 3 mg PO DAILY 05/30/23 09/19/23 History ybvvdobpigvp-bvzufehd-tysk 1 tab PO DAILY 05/30/23 09/19/23 History fumarate 7.5 mg-folic acid 400 mcg tablet omeprazole 20 mg capsule,delayed 20 mg PO BID 05/30/23 09/19/23 History release paroxetine HCl 10 mg tablet 10 mg PO DAILY 05/30/23 09/19/23 History furosemide 40 mg tablet 40 mg PO QD #30 tabs 06/05/23 09/19/23 Rx apixaban 2.5 mg tablet 2.5 mg PO BID 09/19/23 09/19/23 History potassium chloride 20 mEq 20 meq PO DAILY 09/19/23 09/19/23 History tablet,extended release (K-Tab) Allergies Allergy/AdvReac Type Severity Reaction Status Date / Time diazepam [From Valium] AdvReac Intermediate Unknown Verified 09/19/23 11:26 Latex, Natural Rubber AdvReac Intermediate Verified 05/17/23 14:58 Penicillins AdvReac Intermediate Unknown Verified 09/19/23 11:25 tetanus toxoid, adsorbed AdvReac Intermediate Verified 05/17/23 14:58 pcn AdvReac Intermediate Uncoded 05/17/23 14:58 valium AdvReac Intermediate Uncoded 05/17/23 14:58 Exam Constitutional Vital Signs, click to edit/add: Last Vital Signs Temp 100.3 F 09/19/23 10:59 Pulse 120 H 09/19/23 11:31 Resp 28 H 09/19/23 11:31 BP 113/72 09/19/23 11:31 Pulse Ox 96 09/19/23 11:31 O2 Del Method BIPAP 09/19/23 10:59 O2 Flow Rate 100 09/19/23 03:00 FiO2 100 09/19/23 07:59 General appearance: in distress respiratory and ill appearing acutely Orientation/consciousness: Yes lethargic HENMT Other: Wearing BiPAP mask. Chest Common normals: inspection of chest normal Chest: symmetrical chest wall rise Respiratory Other: Tachypneic, labored. Diminished breath sounds, fine crackles. No rhonchi. Cardio Rate: tachycardic Rhythm: abnormal rhythm irregularly irregular GI Inspection: normal to inspection Extremity Other: Wearing SCDs. Diffuse arthritic changes noted on fingers and toes. No significant edema. Neuro Other: Will answer questions, but then drift back asleep. Psych Other: Anxious Results Laboratory Findings ABG, PT/INR, D-dimer: ABG ABG pH 7.448 (7.350-7.450) 09/19/23 11:20 ABG pCO2 45.6 mmHg (35.0-45.0) H 09/19/23 11:20 ABG pO2 75.4 mmHg (80.0-100.0) L 09/19/23 11:20 ABG O2 Saturation 94.3 % 09/19/23 11:20 PT/INR, D-dimer PT 13.9 sec (9.0-11.6) H 09/18/23 18:15 INR 1.33 09/18/23 18:15 Abnormal lab findings: Abnormal Labs 09/18/23 09/18/23 09/18/23 18:15 20:18 21:28 WBC 14.1 H RBC 3.99 L Hgb MCV 99.5 H Plt Count Neut % (Auto) Lymph % (Auto) [place] % (Auto) Eos % (Auto) Baso % (Auto) Neut # (Auto) Lymph # (Auto) [place] # (Auto) Abs Immat Gran (auto) Lymphocytes % (Manual) 1.0 L Eosinophils % (Manual) 0.0 L Basophils % (Manual) 0.0 L Neutrophils # (Manual) 12.40 H Lymphocytes # (Manual) 0.14 L Monocytes # (Manual) 1.41 H PT 13.9 H ABG pCO2 ABG pO2 ABG HCO3 ABG Base Excess VBG pH 7.461 H Potassium 3.3 L Carbon Dioxide 35.8 H BUN 75.0 H Creatinine 2.40 H Est GFR ( Amer) 23 L Est GFR (Non-Af Amer) 19 L Glucose 131 H Lactate 2.4 H* Troponin I High Sens 118.2 H* 120.3 H* NT-Pro-B Natriuret Pep 16444.0 H* Albumin 2.2 L Procalcitonin 2.81 H RSV (RT-PCR) Detected A* 09/19/23 09/19/23 04:10 11:20 WBC 14.7 H RBC 3.80 L Hgb 11.9 L MCV 100.5 H Plt Count 133 L Neut % (Auto) 96.5 H Lymph % (Auto) 1.3 L [place] % (Auto) 1.4 L Eos % (Auto) 0.3 L Baso % (Auto) 0.1 L Neut # (Auto) 14.2 H Lymph # (Auto) 0.2 L [place] # (Auto) 0.2 L Abs Immat Gran (auto) 0.06 H Lymphocytes % (Manual) Eosinophils % (Manual) Basophils % (Manual) Neutrophils # (Manual) Lymphocytes # (Manual) Monocytes # (Manual) PT ABG pCO2 45.6 H ABG pO2 75.4 L ABG HCO3 31.5 H ABG Base Excess 7.5 H VBG pH Potassium 3.3 L Carbon Dioxide BUN 78.0 H* Creatinine 2.43 H Est GFR ( Amer) 23 L Est GFR (Non-Af Amer) 19 L Glucose 107 H Lactate Troponin I High Sens NT-Pro-B Natriuret Pep Albumin Procalcitonin RSV (RT-PCR) Diagnostic Findings Additional studies: Reviewed labs, respiratory panel, imaging reports, and ABGs. Assessment and Plan Assessment and Plan (1) Pneumonia: Assessment and Plan: 1. Pneumonia - combined primary RSV pneumonia with secondary superimposed healthcare-acquired pneumonia. Rapid respiratory screen positive for RSV. However, procalcitonin is elevated, indicating a secondary bacterial infection. Currently on Vancomycin + Aztreonam which is good Gram + and Gram - coverage, but does lack atypical coverage. Careful use of fluoroquinolones with renal failure and potential for QT prolongation. Alternative is Zithromax which can have QT prolongation too but not as renally metabolized. 2. Severe sepsis secondary to the above. Patient was febrile this AM with rectal temp 100.7'F and WBC 14.1. Calcitonin elevated. Presentation suggests concomitant viral and bacterial illnesses. RSV is supportive care. Continue antibiotics, tailor according to C&S. No evidence of septic shock at this time, but given patient's age and multiple medical conditions, she requires close monitoring. 3. Pylet-bc-ywzbcuw hypoxic respiratory failure. Baseline O2 is 3L/min per my understanding, now requiring FiO2 100% on BiPAP. pCO2 is mildly elevated @ 47, and pH mildly elevated @ ~7.44 - this suggests more of a primary metabolic alkalosis with secondary CO2 retention. This is similar to prior ABG in May 2023. Need to monitor patient closely given labile respiratory status. 4. NSTEMI type 2. Secondary to supply/demand mismatch from hypoxia and severe sepsis. Troponin is renally excreted and can be elevated in acute renal failure, the patient has been on fluids and began treatment for sepsis, yet troponin increased slightly. This suggests actual cardiac source, not just retention from poor renal function. The exacerbated afib w/RVR could also be contributing, but as the patient is very ill, It is difficult to tease out exactly the main cause. Will continue to attempt to treat the underlying symptoms. 5. Eyvuh-py-hakfffj renal failure. Acute secondary to severe sepsis/acute illness, chronic is CKD stage 3b (unclear exact underlying cause). Continue with careful fluid administration given history of systolic & diastolic CHF. 6. 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 Echocardiogram 05/31/2023 noted EF 35-40% with diastolic dysfunction grade 2. BNP chronically elevated secondary to CKD. Plan Patient is critically ill requiring intensive care unit monitoring. She is on BiPAP 100% and only holding saturations ~92%. Urgent/emergent intubation is not unexpected given her multiple acute issues (pulmonary, cardiac, renal). 45 minutes critical care time.
[2023-09-19] MEDS: METHYLPREDNISOLONE SOD SUCC PF 40 MG/ML VIAL IVP ×2 (11:45→19:50)
[2023-09-19] MEDS: AMIODARONE HCL 200 MG TABLET PO (11:45)
[2023-09-19] MEDS: LACTATED RINGER'S SOLUTION 1,000 ML 125 ML IV ×2 (11:45→19:49)
--- NOTE | 2023-09-19 11:57 | CM.NOTE ---
Called [facility] for pt's baseline status, pt walks short distance with walker otherwise wheelchair bound. Pt on 3L NC also continuos. Pt prison at [facility].
[2023-09-19 12:22] LABS: A. calcoaceticus-baumannii Cpx NOT DETECTED (NOT DETECTE); Bacteroides fragilis NOT DETECTED (NOT DETECTE); Candida albicans NOT DETECTED (NOT DETECTE); Candida auris NOT DETECTED (NOT DETECTE); Candida glabrata NOT DETECTED (NOT DETECTE); Candida krusei NOT DETECTED (NOT DETECTE); Candida parapsilosis NOT DETECTED (NOT DETECTE); Candida tropicalis NOT DETECTED (NOT DETECTE); Cryptococcus neoformans/gattii NOT DETECTED (NOT DETECTE); Enterobacter cloacae complex NOT DETECTED (NOT DETECTE); Enterobacterales NOT DETECTED (NOT DETECTE); Enterococcus faecalis NOT DETECTED (NOT DETECTE); Enterococcus faecium NOT DETECTED (NOT DETECTE); Haemophilus influenzae NOT DETECTED (NOT DETECTE); Klebsiella aerogenes NOT DETECTED (NOT DETECTE); Klebsiella pneumoniae group NOT DETECTED (NOT DETECTE); Listeria monocytogenes NOT DETECTED (NOT DETECTE); Neisseria meningitidis NOT DETECTED (NOT DETECTE); Proteus spp. NOT DETECTED (NOT DETECTE); Salmonella spp. NOT DETECTED (NOT DETECTE); Serratia marcescens NOT DETECTED (NOT DETECTE); Staphylococcus epidermidis NOT DETECTED (NOT DETECTE); Staphylococcus lugdunensis NOT DETECTED (NOT DETECTE); Staphylococcus spp. NOT DETECTED (NOT DETECTE); Stenotrophomonas maltophilia NOT DETECTED (NOT DETECTE); Streptococcus agalactiae NOT DETECTED (NOT DETECTE); Streptococcus pneumoniae NOT DETECTED (NOT DETECTE); Streptococcus pyogenes NOT DETECTED (NOT DETECTE); Streptococcus spp. NOT DETECTED (NOT DETECTE)
[2023-09-19 13:43] LABS: CTX-M NOT DETECTED (NOT DETECTE); IMP NOT DETECTED (NOT DETECTE); KPC NOT DETECTED (NOT DETECTE); NDM NOT DETECTED (NOT DETECTE); VIM NOT DETECTED (NOT DETECTE)
[2023-09-19 13:45] LABS: Pseudomonas aeruginosa DETECTED (NOT DETECTE)
[2023-09-19 14:03] LABS: Source BLOOD
[2023-09-19 16:24] LABS: Glucometer 89 mg/dL (74-106)
[2023-09-19] MEDS: ATORVASTATIN CALCIUM 40 MG TABLET PO (21:21)
[2023-09-19 21:36] LABS: Glucometer 147 mg/dL (74-106)
[2023-09-20] VITALS (133 sets, daily range): BP systolic 83–135; BP diastolic 58–97; PULSE 81–129; RESP 16–37; TEMP 36.5–36.8; O2SAT 82–98
--- NOTE | 2023-09-20 00:05 | RESP.RT ---
Titrated to 85%
[2023-09-20] MEDS: GABAPENTIN 100 MG CAPSULE PO ×3 (00:16→16:43)
[2023-09-20] MEDS: LACTATED RINGER'S SOLUTION 1,000 ML 125 ML IV ×3 (03:30→20:11)
[2023-09-20] MEDS: METHYLPREDNISOLONE SOD SUCC PF 40 MG/ML VIAL IVP ×3 (03:33→20:11)
[2023-09-20] MEDS: IPRATROPIUM/ALBUTEROL SULFATE 3 ML AMPUL.NEB IH ×5 (03:58→23:32)
--- NOTE | 2023-09-20 05:10 | ECG_ITS ---
[facility] Test Date: 2023-09-20 Pat Name: YAMINI TURPIN Department: Room: [facility] Gender: Female Hall Clerk: : [id number] Requested By: [id number] Order Number: [id number] Reading MD: SHIELA LOWERY Measurements Intervals [place] Rate: 96 P: -14 CT: 196 QRS: -5 QRSD: 124 T: 103 QT: 370 QTc: 424 Interpretive Statements 1100 Sinus rhythm 2540 Incomplete left bundle branch block [address] depression [address] & [place] abnormality 9150 abnormal ECG Electronically Signed On 09-22-2023 17:39:54 EST by SHIELA LOWERY
--- NOTE | 2023-09-20 05:22 | RESP.RT ---
Duoderm added to bridge of nose
[2023-09-20] MEDS: LEVOTHYROXINE SODIUM 75 MCG TABLET 150 MCG PO (05:31)
[2023-09-20 06:02] LABS: Basophils Absolute Auto 0.2 10^3/uL (0.0-0.1); Basophils Percent Auto 0.9 % (0.2-2.0); Hematocrit 34.5 % (36.0-48.0); Hemoglobin 10.9 g/dL (12.0-16.0); Immature Granulocytes Abs Auto 0.09 10^3/uL (0.00-0.03); Immature Granulocytes Pct Auto 0.4 % (0.0-0.5); Lymphocytes Absolute Auto 0.2 10^3/uL (1.2-3.8); Lymphocytes Percent Auto 0.9 % (20.5-60.0); Mean Corpuscular HGB Conc 31.6 g/dL (29.9-35.2); Mean Corpuscular Hemoglobin 31.1 pg (26.7-34.0); Mean Corpuscular Volume 98.3 fL (81.0-99.0); Mean Platelet Volume 12.6 fL (9.5-13.5); Monocytes Absolute Auto 0.2 10^3/uL (0.3-0.8); Monocytes Percent Auto 0.8 % (1.7-12.0); Neutrophils Absolute Auto 21.4 10^3/uL (1.4-6.5); Platelet Count 131 10^3/uL (150-450); Red Blood Count 3.51 10^6/uL (4.20-5.40); Red Cell Distribution Width 13.9 % (11.0-15.0)
[2023-09-20 06:51] LABS: Alanine Aminotransferase 39 U/L (14-59); Albumin Globulin Ratio 0.4; Albumin Level 1.6 g/dL (3.4-5.0); Alkaline Phosphatase 87 U/L (46-116); Aspartate Amino Transferase 30 U/L (15-37); BUN Creatinine Ratio 31.7; Bilirubin Total 0.6 mg/dL (0.2-1.0); Calcium 10.1 mg/dL (8.5-10.1); Carbon Dioxide 31.1 mmol/L (21.0-32.0); Chloride 105 mmol/L (98-107); Estimated GFR (African America 19 (>=60); Estimated GFR (Non-African Ame 15 (>=60); Globulin 4.1 g/dL; Glucose 131 mg/dL (74-106); Potassium 3.1 mmol/L (3.5-5.1); Sodium 145 mmol/L (136-145); Total Protein 5.7 g/dL (6.4-8.2)
[2023-09-20 09:35] LABS: Glucometer 131 mg/dL (74-106)
[2023-09-20] MEDS: OMEPRAZOLE 20 MG CAPSULE.DR PO (10:51)
[2023-09-20] MEDS: MAGNESIUM OXIDE 400 MG TABLET PO (10:51)
[2023-09-20] MEDS: PAROXETINE HCL 20 MG TABLET 10 MG PO (10:51)
[2023-09-20] MEDS: AMIODARONE HCL 200 MG TABLET PO (10:52)
[2023-09-20] MEDS: APIXABAN 5 MG TABLET 2.5 MG PO ×2 (10:52→21:09)
[2023-09-20] MEDS: BUSPIRONE HCL 15 MG TABLET PO ×2 (10:52→21:08)
[2023-09-20] MEDS: AZTREONAM 1,000 MG in 0.9 % SODIUM CHLORIDE 50 ML 100 MG IV ×2 (10:53→20:08)
--- NOTE | 2023-09-20 10:55 | CM.NOTE ---
Rounding with Dr. Wray. Pt. currently on non-rebreather mask. Patient is from [place] [employer] and current plan is to return to this setting when medically stable. No anticipated discharge today.
[2023-09-20 11:05] LABS: Glucometer 122 mg/dL (74-106)
[2023-09-20] MEDS: BUDESONIDE 0.5 MG/2 ML AMPULE NEB IH ×2 (11:11→23:32)
--- NOTE | 2023-09-20 11:33 | PM.IMPN1 ---
Progress Note: A&P Assessment and Plan (1) Multifocal pneumonia: Assessment and Plan: Post viral Pneumonia - sec to Pseudomonas. Will d/c Vancomycin. C/w aztroenam. Avoiding Levaquin due to its recent use, JOSE, old age. Improving. C/w systemic steroids, wean off O2 as tolerated. Closely monitor (2) Sepsis: Assessment and Plan: Resolved. Stable hemodynamics now. On IV Aztreonam Still quite sick and at high risk of worsening and needs close monitoring Qualifiers: Acute respiratory failure type: with hypoxia Sepsis acute organ dysfunction status: with acute organ dysfunction Sepsis type: Pseudomonas Severe sepsis acute organ dysfunction type: acute respiratory failure Severe sepsis shock status: without septic shock Qualified Code(s): A41.52 - Sepsis due to Pseudomonas; R65.20 - Severe sepsis without septic shock; J96.01 - Acute respiratory failure with hypoxia (3) Gram-negative bacteremia: Assessment and Plan: Blood cultures positive for Pseudomonas. On aztroenam D/c vancomycin (4) JOSE (acute kidney injury): Assessment and Plan: UO is improving this am. Fluid challenge - bolus 500 ml NS C/w LR at 125 Needs close monitoring as high risk of volume overload. Monitor closely. (5) RSV (respiratory syncytial virus pneumonia): Assessment and Plan: Likely incited her current illness. Supportive care. (6) Lactic acid acidosis: Assessment and Plan: resolved (7) Stage 3b chronic kidney disease (CKD): Assessment and Plan: Monitor renal function closely. (8) Chronic atrial fibrillation: Assessment and Plan: Reverted to NSR. On Eliquis for AC. cw same (9) HFrEF (heart failure with reduced ejection fraction): Assessment and Plan: Clinically dry and on IVF. Closely monitor volume status (10) Hypothyroidism: Assessment and Plan: C/w levothyroxine Qualifiers: Hypothyroidism type: unspecified Qualified Code(s): E03.9 - Hypothyroidism, unspecified (11) Hyperlipemia: Assessment and Plan: c/w statin Qualifiers: Hyperlipidemia type: unspecified Qualified Code(s): E78.5 - Hyperlipidemia, unspecified Internal Medicine - PN: Subj Subjective Interval history: Seen and examined. On Non rebreather now. Reports feeling better but still quite SOB, weak. No events overnight. Exam Constitutional Vital Signs, click to edit/add: Last Vital Signs Temp 97.7 F 09/20/23 03:49 Pulse 96 H 09/20/23 10:00 Resp 37 H 09/20/23 09:32 BP 128/76 09/20/23 09:32 Pulse Ox 92 L 09/20/23 11:20 O2 Del Method Nonrebreather 09/20/23 11:20 O2 Flow Rate 100 09/19/23 21:00 FiO2 85 09/20/23 04:40 Documenting provider has reviewed patient's vital signs: yes General appearance: lethargic, ill appearing and frail appearing Orientation/consciousness: Yes lethargic Respiratory Effort & inspection: tachypneic, uses accessory muscles and prolonged expiratory phase Auscultation: rhonchi Cardio Common normals: S1 normal heart sound and S2 normal heart sound Rhythm: abnormal rhythm Heart sounds: S1 normal and S2 normal Neuro Common normals: oriented x3, moves all extremities and no focal motor deficits Psych Common normals: mental status grossly normal, denies hallucinations, denies homicidal ideation and denies suicidal ideation Internal Medicine - PN: Obj Da Labs Labs: Laboratory Results - last 24 hr 09/18/23 09/19/23 09/19/23 18:15 11:39 16:13 WBC RBC Hgb Hct MCV MCH MCHC RDW Plt Count MPV Neut % (Auto) Lymph % (Auto) Ellis % (Auto) Eos % (Auto) Baso % (Auto) Neut # (Auto) Lymph # (Auto) Ellis # (Auto) Eos # (Auto) Baso # (Auto) Abs Immat Gran (auto) Imm/Tot Granulo (auto) Sodium Potassium Chloride Carbon Dioxide Anion Gap BUN Creatinine Est GFR ( Amer) Est GFR (Non-Af Amer) BUN/Creatinine Ratio Glucose Calcium Total Bilirubin AST ALT Alkaline Phosphatase Total Protein Albumin Globulin Albumin/Globulin Ratio Erick H. influenza (PCR) Not detected Vancomycin Trough A.calcoaceticus-baumannii cmplx PCR Not detected Bacteroides fragilis Not detected Lona albicans (PCR) Not detected Lona auris (PCR) Not detected C. glabrata (PCR) Not detected C. krusei (PCR) Not detected C. parapsilosis (PCR) Not detected C. tropicalis (PCR) Not detected C. neoform/gattii (PCR) Not detected Enterobacterales (PCR) Not detected E. cloacae complex PCR Not detected Enterococc faecalis PCR Not detected Enterococc faecium PCR Not detected E. coli (PCR) Not detected Klebsiella aerogenes (PCR) Not detected Klebsiella oxytoca PCR Not detected K. pneumoniae group (PCR) Not detected List. monocytogenes PCR Not detected N. meningitidis (PCR) Not detected Proteus spp. (copies/mL) Not detected Salmonella spp. (PCR) Not detected Serratia marcescens PCR Not detected Staphylococcus sp PCR Not detected Staph aureus (PCR) Not detected mecA/C & MREJ Resist Gene Not applicable mecA/C-Methicil Resis Gene Not applicable mcr-1 Colistin Res Gene PCR Not applicable Staph epidermidis (PCR) Not detected Staph lugdunensis (TEM-PCR) Not detected S. maltophilia (PCR) Not detected Streptococcus sp PCR Not detected Strep agalactiae (PCR) Not detected Strep pneumoniae (PCR) Not detected S. pyogenes (PCR) Not detected P. aeruginosa (PCR) Detected A* Jasmin/B-Vanco Res Genes Not applicable blaIMP Car res Gene PCR Not detected KPC (blaKPC) Detect PCR Not detected NDM (blaNDM) Detect PCR Not detected OXA-48 Carbapenem Resis Gene (PCR) Not applicable blaVIM Car Res Gene PCR Not detected CTX-M ESBL (PCR) Not detected POC Glucose 92 89 09/19/23 09/20/23 09/20/23 21:25 05:35 09:31 WBC 22.0 H RBC 3.51 L Hgb 10.9 L Hct 34.5 L MCV 98.3 MCH 31.1 MCHC 31.6 RDW 13.9 Plt Count 131 L MPV 12.6 Neut % (Auto) 97.0 H Lymph % (Auto) 0.9 L Ellis % (Auto) 0.8 L Eos % (Auto) 0.0 L Baso % (Auto) 0.9 Neut # (Auto) 21.4 H Lymph # (Auto) 0.2 L Ellis # (Auto) 0.2 L Eos # (Auto) 0.0 Baso # (Auto) 0.2 H Abs Immat Gran (auto) 0.09 H Imm/Tot Granulo (auto) 0.4 Sodium 145 Potassium 3.1 L Chloride 105 Carbon Dioxide 31.1 Anion Gap 12.0 BUN 92.0 H* Creatinine 2.90 H Est GFR ( Amer) 19 L Est GFR (Non-Af Amer) 15 L BUN/Creatinine Ratio 31.7 Glucose 131 H Calcium 10.1 Total Bilirubin 0.6 AST 30 ALT 39 Alkaline Phosphatase 87 Total Protein 5.7 L Albumin 1.6 L Globulin 4.1 Albumin/Globulin Ratio 0.4 Erick H. influenza (PCR) Vancomycin Trough 9.0 A.calcoaceticus-baumannii cmplx PCR Bacteroides fragilis Lona albicans (PCR) Lona auris (PCR) C. glabrata (PCR) C. krusei (PCR) C. parapsilosis (PCR) C. tropicalis (PCR) C. neoform/gattii (PCR) Enterobacterales (PCR) E. cloacae complex PCR Enterococc faecalis PCR Enterococc faecium PCR E. coli (PCR) Klebsiella aerogenes (PCR) Klebsiella oxytoca PCR K. pneumoniae group (PCR) List. monocytogenes PCR N. meningitidis (PCR) Proteus spp. (copies/mL) Salmonella spp. (PCR) Serratia marcescens PCR Staphylococcus sp PCR Staph aureus (PCR) mecA/C & MREJ Resist Gene mecA/C-Methicil Resis Gene mcr-1 Colistin Res Gene PCR Staph epidermidis (PCR) Staph lugdunensis (TEM-PCR) S. maltophilia (PCR) Streptococcus sp PCR Strep agalactiae (PCR) Strep pneumoniae (PCR) S. pyogenes (PCR) P. aeruginosa (PCR) Jamsin/B-Vanco Res Genes blaIMP Car res Gene PCR KPC (blaKPC) Detect PCR NDM (blaNDM) Detect PCR OXA-48 Carbapenem Resis Gene (PCR) blaVIM Car Res Gene PCR CTX-M ESBL (PCR) POC Glucose 147 H 131 H 09/20/23 11:01 WBC RBC Hgb Hct MCV MCH MCHC RDW Plt Count MPV Neut % (Auto) Lymph % (Auto) Ellis % (Auto) Eos % (Auto) Baso % (Auto) Neut # (Auto) Lymph # (Auto) Ellis # (Auto) Eos # (Auto) Baso # (Auto) Abs Immat Gran (auto) Imm/Tot Granulo (auto) Sodium Potassium Chloride Carbon Dioxide Anion Gap BUN Creatinine Est GFR ( Amer) Est GFR (Non-Af Amer) BUN/Creatinine Ratio Glucose Calcium Total Bilirubin AST ALT Alkaline Phosphatase Total Protein Albumin Globulin Albumin/Globulin Ratio Erick H. influenza (PCR) Vancomycin Trough A.calcoaceticus-baumannii cmplx PCR Bacteroides fragilis Lona albicans (PCR) Lona auris (PCR) C. glabrata (PCR) C. krusei (PCR) C. parapsilosis (PCR) C. tropicalis (PCR) C. neoform/gattii (PCR) Enterobacterales (PCR) E. cloacae complex PCR Enterococc faecalis PCR Enterococc faecium PCR E. coli (PCR) Klebsiella aerogenes (PCR) Klebsiella oxytoca PCR K. pneumoniae group (PCR) List. monocytogenes PCR N. meningitidis (PCR) Proteus spp. (copies/mL) Salmonella spp. (PCR) Serratia marcescens PCR Staphylococcus sp PCR Staph aureus (PCR) mecA/C & MREJ Resist Gene mecA/C-Methicil Resis Gene mcr-1 Colistin Res Gene PCR Staph epidermidis (PCR) Staph lugdunensis (TEM-PCR) S. maltophilia (PCR) Streptococcus sp PCR Strep agalactiae (PCR) Strep pneumoniae (PCR) S. pyogenes (PCR) P. aeruginosa (PCR) Jasmin/B-Vanco Res Genes blaIMP Car res Gene PCR KPC (blaKPC) Detect PCR NDM (blaNDM) Detect PCR OXA-48 Carbapenem Resis Gene (PCR) blaVIM Car Res Gene PCR CTX-M ESBL (PCR) POC Glucose 122 H Urinary Catheter Management Urinary Catheter Management Urethral: Cath placed during this visit: yes Urethral indwelling: Yes Reason for continuing: measure accurate output Insertion date: 09/18/23 Insertion time: 20:29
[2023-09-20] MEDS: 0.9 % SODIUM CHLORIDE 500 ML IV (11:44)
--- NOTE | 2023-09-20 12:17 | P.PLPN_ITS ---
Progress Note: A&P Assessment and Plan (1) Multifocal pneumonia: Assessment and Plan: 1. Pneumonia.? Combined RSV and Pseudomonas (cultures returned). Tailor antibiotics accordingly.? Monitor for improvement. 2. Severe sepsis secondary to the above. Slight signs of clinical improvement.? Afebrile x 24 hours.? 3. Vgdoa-al-gqhrfgg hypoxic respiratory failure. Goal SpO2 90% or greater. Developing facial edema, especially with scleral edema.? Transition to BiPAP @ HS & PRN dyspnea, use NRB or NC as tolerated. 4. NSTEMI type 2. Secondary to supply/demand mismatch from hypoxia and severe sepsis. ?Continue treating underlying disorders. 5. Kvmun-it-shsmmad renal failure. Acute secondary to severe sepsis/acute illness, chronic is CKD stage 3b (unclear exact underlying cause). Worsening renal function currently.? Appears to be on the ?Dry side? ? no evidence of overt fluid overload.? Would give fluid trials and see how she responds. 6. 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 No evidence of acute exacerbation. Subjective Subjective Interval history: Discussed with RN & RT. Patient remained on BiPAP overnight - face is edematous and she was transitioned to NRB. Oxygenation tenuous but holding her own currently. She is more awake today, able to answer questions. She asked Am I dying? She said she did not want anything done like CPR or intubation - I expl ained that her family said to intubate her if she worsens, so she needs to have a discussion with them so they know exactly what she wants. Exam Constitutional Vital Signs, click to edit/add: Last Vital Signs Temp 97.7 F 09/20/23 03:49 Pulse 99 H 09/20/23 12:00 Resp 35 H 09/20/23 12:00 BP 117/64 09/20/23 11:03 Pulse Ox 93 L 09/20/23 12:00 O2 Del Method Nonrebreather 09/20/23 11:20 O2 Flow Rate 100 09/19/23 21:00 FiO2 85 09/20/23 04:40 Documenting provider has reviewed patient's vital signs: yes General appearance: ill appearing HENMT Other: Wearing NRB Eye Sclera: sclera abnormal Laterality of scleral abnormality: bilateral other (edema) Chest Common normals: inspection of chest normal Chest: symmetrical chest wall rise Respiratory Effort & inspection: tachypneic Auscultation: crackles Laterality: bilateral throughout Cardio Rate: regular rate Rhythm: regular rhythm GI Inspection: normal to inspection Extremity Common normals: no clubbing, cyanosis or edema Other: wearing SCDs Neuro Sensorium/orientation: awake and alert Speech: speech normal Psych Attention/concentration: attention grossly intact Memory/cognition: memory grossly intact
--- NOTE | 2023-09-20 15:45 | CM.NOTE ---
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
[2023-09-20 16:52] LABS: Glucometer 119 mg/dL (74-106)
[2023-09-20 20:09] LABS: Glucometer 125 mg/dL (74-106)
[2023-09-20] MEDS: ATORVASTATIN CALCIUM 40 MG TABLET PO (21:08)
[2023-09-21] VITALS (93 sets, daily range): BP systolic 119–140; BP diastolic 58–78; PULSE 75–91; RESP 16–32; TEMP 36.4–36.7; O2SAT 89–96
[2023-09-21] MEDS: METHYLPREDNISOLONE SOD SUCC PF 40 MG/ML VIAL IVP ×3 (03:21→19:19)
[2023-09-21] MEDS: LACTATED RINGER'S SOLUTION 1,000 ML 125 ML IV (03:21)
[2023-09-21] MEDS: IPRATROPIUM/ALBUTEROL SULFATE 3 ML AMPUL.NEB IH ×6 (03:34→23:58)
[2023-09-21 05:16] LABS: Basophils Absolute Auto 0.1 10^3/uL (0.0-0.1); Basophils Percent Auto 0.4 % (0.2-2.0); Hematocrit 31.5 % (36.0-48.0); Hemoglobin 9.8 g/dL (12.0-16.0); Immature Granulocytes Abs Auto 0.14 10^3/uL (0.00-0.03); Immature Granulocytes Pct Auto 0.5 % (0.0-0.5); Lymphocytes Absolute Auto 0.3 10^3/uL (1.2-3.8); Lymphocytes Percent Auto 1.2 % (20.5-60.0); Mean Corpuscular HGB Conc 31.1 g/dL (29.9-35.2); Mean Corpuscular Hemoglobin 30.6 pg (26.7-34.0); Mean Corpuscular Volume 98.4 fL (81.0-99.0); Mean Platelet Volume 13.1 fL (9.5-13.5); Monocytes Absolute Auto 0.1 10^3/uL (0.3-0.8); Monocytes Percent Auto 0.5 % (1.7-12.0); Neutrophils Percent Auto 97.4 % (43.0-75.0); Platelet Count 123 10^3/uL (150-450); Red Cell Distribution Width 14.1 % (11.0-15.0); White Blood Count 25.7 10^3/uL (4.0-11.0)
[2023-09-21 05:31] LABS: Alanine Aminotransferase 37 U/L (14-59); Albumin Globulin Ratio 0.4; Albumin Level 1.5 g/dL (3.4-5.0); Alkaline Phosphatase 94 U/L (46-116); Anion Gap 9.7; Aspartate Amino Transferase 32 U/L (15-37); BUN Creatinine Ratio 36.6; Bilirubin Total 0.5 mg/dL (0.2-1.0); Calcium 9.6 mg/dL (8.5-10.1); Carbon Dioxide 32.3 mmol/L (21.0-32.0); Chloride 107 mmol/L (98-107); Estimated GFR (African America 22 (>=60); Estimated GFR (Non-African Ame 18 (>=60); Globulin 3.8 g/dL; Glucose 137 mg/dL (74-106); Sodium 146 mmol/L (136-145); Total Protein 5.3 g/dL (6.4-8.2)
[2023-09-21 07:33] LABS: Glucometer 130 mg/dL (74-106)
--- NOTE | 2023-09-21 07:42 | PM.PN ---
Progress Note: Subjective Subjective Interval history: Patient remained on BiPAP overnight but this morning transitioned to NC, sitting up in bed. She is able to answer questions. Says her breathing has improved. Still short of breath but better. No fevers or chills, no chest pain. Exam Narrative Exam Narrative: General: Patient is alert, and oriented to person, place and time, but ill appearing Skin: no visible rashes, or ulcers Head: atraumatic, acephalic Eyes: PERRLA, no nystagmus present, conjunctiva clear, no scleral icterus Heart: Normal rate and rhythm, no murmurs/rubs/gallops Lungs: crackles bilaterally and diminished breath sounds all lung bradshaw Abdomen: Normal audible bowel sounds, no distension, No palpable masses, no organomegaly, no rebound/guarding/ or rigidity Musculoskeletal: muscle atrophy noted, ROM is limited due to being in hospital bed, no swelling bilateral lower extremities Neuro: CN II-X grossly intact Constitutional Vital Signs, click to edit/add: Last Vital Signs Temp 97.9 F 09/21/23 04:00 Pulse 81 09/21/23 06:00 Resp 24 09/21/23 04:00 BP 119/69 09/21/23 04:00 Pulse Ox 94 L 09/21/23 06:00 O2 Del Method BIPAP 09/21/23 04:00 O2 Flow Rate 100 09/19/23 21:00 FiO2 50 09/21/23 04:00 Progress Note: Objective Labs Labs: Short CBC 09/21/23 Range/Units 04:08 WBC 25.7 H (4.0-11.0) 10^3/uL Hgb 9.8 L (12.0-16.0) g/dL Hct 31.5 L (36.0-48.0) % Plt Count 123 L (150-450) 10^3/uL BMP 09/21/23 04:08 Sodium 146 H Potassium 3.0 L Chloride 107 Carbon Dioxide 32.3 H BUN 93.0 H* Creatinine 2.54 H Glucose 137 H Calcium 9.6 Liver Function 09/21/23 Range/Units 04:08 Total Bilirubin 0.5 (0.2-1.0) mg/dL AST 32 (15-37) U/L ALT 37 (14-59) U/L Alkaline Phosphatase 94 (46-116) U/L Albumin 1.5 L (3.4-5.0) g/dL Progress Note: A&P Assessment and Plan (1) Pseudomonal pneumonia: Assessment and Plan: continue atreonam, WBC's improving, clinically improving. continue solumedrol, bipap and NC/nonrebreather, breathing treatments Qualifiers: Laterality: bilateral Lung location: lower lobe of lung Qualified Code(s): J15.1 - Pneumonia due to Pseudomonas (2) RSV (respiratory syncytial virus pneumonia): Assessment and Plan: also contributing, symptom treatment (3) Multifocal pneumonia: Assessment and Plan: due to #1 &2 (4) Sepsis: Assessment and Plan: Slight signs of clinical improvement.? Afebrile x 24 hours. Qualifiers: Acute respiratory failure type: with hypoxia Sepsis acute organ dysfunction status: with acute organ dysfunction Sepsis type: Pseudomonas Severe sepsis acute organ dysfunction type: acute respiratory failure Severe sepsis shock status: without septic shock Qualified Code(s): A41.52 - Sepsis due to Pseudomonas; R65.20 - Severe sepsis without septic shock; J96.01 - Acute respiratory failure with hypoxia (5) JOSE (acute kidney injury): Assessment and Plan: improving in IVF, stopped today Baseline Cr is 1.7 (6) NSTEMI (non-ST elevated myocardial infarction): Assessment and Plan: type 2, due to mismatch due to sepsis and acute respiratory failure (7) Chronic atrial fibrillation: Assessment and Plan: Afib with RVR, HR controlled, acute illness. Monitor. On ELIQUIS . (8) Acute on chronic systolic (congestive) heart failure: Assessment and Plan: improved proBNP today, continue home meds (9) Chronic kidney disease: Assessment and Plan: cr 2.54 today, monitor Qualifiers: Chronic kidney disease stage: stage 3 (moderate) Chronic kidney disease stage 3 subtype: unspecified whether 3a or 3b Qualified Code(s): N18.30 - Chronic kidney disease, stage 3 unspecified Plan patient is a DNRCCA eliquis for DVT prophylaxis inpatient status and still critical
[2023-09-21] MEDS: MAGNESIUM OXIDE 400 MG TABLET PO (08:38)
[2023-09-21] MEDS: PAROXETINE HCL 20 MG TABLET 10 MG PO (08:38)
[2023-09-21] MEDS: APIXABAN 5 MG TABLET 2.5 MG PO ×2 (08:38→21:28)
[2023-09-21] MEDS: AMIODARONE HCL 200 MG TABLET PO (08:39)
[2023-09-21] MEDS: OMEPRAZOLE 20 MG CAPSULE.DR PO (08:39)
[2023-09-21] MEDS: BUSPIRONE HCL 15 MG TABLET PO ×2 (08:39→21:28)
[2023-09-21] MEDS: AZTREONAM 1,000 MG in 0.9 % SODIUM CHLORIDE 50 ML 100 MG IV ×2 (08:40→21:27)
[2023-09-21] MEDS: LEVOTHYROXINE SODIUM 75 MCG TABLET 150 MCG PO (08:41)
[2023-09-21] MEDS: GABAPENTIN 100 MG CAPSULE PO ×3 (08:41→23:55)
[2023-09-21 08:54] LABS: Troponin I High Sensitivity 154.7 pg/mL (4.0-51.3)
--- NOTE | 2023-09-21 10:44 | PT.DAILY ---
Physical Therapy Daily Note PT Daily Note/Assess Start: 09/20/23 13:42 Freq: Status: Active Protocol: Document 09/21/23 09:19 ANDREW (Rec: 09/21/23 10:44 ANDREW [id number]) Physical Therapy Daily Note/Assessment Time In/Time Out Time In 09:19 Time Out 09:40 Subjective Subjective Patient is more talkative this morning, agrees to attempt to get to chair. Only complaint is with standing attempt is R hip pain. Nursing would like to get patient in chair. Therapeutic Activity Time Therapeutic Activity Minutes (minutes) 21 Therapeutic Activity Units 1 Therapeutic Activity Treatment Bed Mobility Ability Minimum Assist,Maximum Assist Chair Transfer Ability Maximum Assist Therapeutic Activity Comments Patient now on NC vs Bipap. SPO2 92 percent at rest. Sit to supine min assist. Patient able to hold unsupported bedside sitting greater than 5 min with SBA. SPO2 will range from 85 to 89 percent. When lowers patient will zone out but with verbal cuing will begin talking again and SPO2 will rise. Attempted sit to stand at RW x2 with max assist x2 but unable to maintain more than 5 seconds. Was going to attempt major steady to get to chair, but at that point SPO2 84 percent and patient verbalizes wanting to lye back down. Max assist x2 to get patient back to bed. One positioned back in bed SPO2 increased to 89 percent. Patient demonstrates moderate to severe fatigue with activity. Total Physical Therapy Time Total Therapy Minutes 21 Total Physical Therapy Units 1 Summary Daily Note Summary Demonstrates improved tolerance to bed mobility, unsupported sitting today. Significant weakness and SOB that limited transfer to chair this morning. Nursing reports that she was just switched to NC, and will monitor throughout the day.
[2023-09-21 11:20] LABS: Glucometer 143 mg/dL (74-106)
[2023-09-21] MEDS: BUDESONIDE 0.5 MG/2 ML AMPULE NEB IH ×2 (11:55→23:58)
[2023-09-21 15:11] LABS: Glucometer 200 mg/dL (74-106)
[2023-09-21] MEDS: POTASSIUM CHLORIDE 10 MEQ ER TABLET 20 MEQ PO (17:19)
[2023-09-21] MEDS: ATORVASTATIN CALCIUM 40 MG TABLET PO (21:28)
[2023-09-21] MEDS: INSULIN ASPART 300 UNIT/3 ML PEN SUBQ (22:11)
[2023-09-21 22:18] LABS: Glucometer 151 mg/dL (74-106)
[2023-09-22] VITALS (161 sets, daily range): BP systolic 131–157; BP diastolic 50–78; PULSE 63–127; RESP 16–32; TEMP 36.5–37; O2SAT 83–99
[2023-09-22] MEDS: IPRATROPIUM/ALBUTEROL SULFATE 3 ML AMPUL.NEB IH ×6 (03:44→23:46)
[2023-09-22] MEDS: METHYLPREDNISOLONE SOD SUCC PF 40 MG/ML VIAL IVP ×3 (04:21→20:04)
[2023-09-22 04:50] LABS: Basophils Percent Auto 0.2 % (0.2-2.0); Hematocrit 32.4 % (36.0-48.0); Hemoglobin 10.2 g/dL (12.0-16.0); Immature Granulocytes Abs Auto 0.24 10^3/uL (0.00-0.03); Immature Granulocytes Pct Auto 1.1 % (0.0-0.5); Lymphocytes Absolute Auto 0.4 10^3/uL (1.2-3.8); Lymphocytes Percent Auto 1.6 % (20.5-60.0); Mean Corpuscular HGB Conc 31.5 g/dL (29.9-35.2); Mean Corpuscular Hemoglobin 30.7 pg (26.7-34.0); Mean Corpuscular Volume 97.6 fL (81.0-99.0); Mean Platelet Volume 12.7 fL (9.5-13.5); Monocytes Absolute Auto 0.1 10^3/uL (0.3-0.8); Monocytes Percent Auto 0.6 % (1.7-12.0); Neutrophils Absolute Auto 21.3 10^3/uL (1.4-6.5); Neutrophils Percent Auto 96.5 % (43.0-75.0); Platelet Count 119 10^3/uL (150-450); Red Blood Count 3.32 10^6/uL (4.20-5.40); Red Cell Distribution Width 13.9 % (11.0-15.0); White Blood Count 22.1 10^3/uL (4.0-11.0)
[2023-09-22 05:36] LABS: Alanine Aminotransferase 39 U/L (14-59); Albumin Globulin Ratio 0.4; Albumin Level 1.7 g/dL (3.4-5.0); Alkaline Phosphatase 102 U/L (46-116); Anion Gap 9.4; Aspartate Amino Transferase 31 U/L (15-37); BUN Creatinine Ratio 41.6; Bilirubin Total 0.4 mg/dL (0.2-1.0); Calcium 10.1 mg/dL (8.5-10.1); Carbon Dioxide 32.7 mmol/L (21.0-32.0); Chloride 106 mmol/L (98-107); Estimated GFR (African America 24 (>=60); Estimated GFR (Non-African Ame 20 (>=60); Globulin 4.1 g/dL; Glucose 138 mg/dL (74-106); Potassium 3.1 mmol/L (3.5-5.1); Sodium 145 mmol/L (136-145); Total Protein 5.8 g/dL (6.4-8.2)
[2023-09-22] MEDS: LEVOTHYROXINE SODIUM 75 MCG TABLET 150 MCG PO (06:16)
--- NOTE | 2023-09-22 07:39 | PM.PN ---
Progress Note: Subjective Subjective Interval history: yesterday transitioned to CA, sitting up in bed this morning alert and smiling. She is able to answer questions. Says her breathing has improved. Still short of breath but better. No fevers or chills, no chest pain. Exam Narrative Exam Narrative: General: Patient is alert, and oriented to person, place and time still tachypneic Skin: Bruising to the left upper extremities from venipuncture Head: atraumatic, acephalic Eyes: PERRLA, no nystagmus present, conjunctiva clear, no scleral icterus Heart: Normal rate and rhythm, no murmurs/rubs/gallops Lungs: crackles bilaterally and diminished breath sounds all lung bradshaw Abdomen: Normal audible bowel sounds, no distension, No palpable masses, no organomegaly, no rebound/guarding/ or rigidity Musculoskeletal: muscle atrophy noted, ROM is limited due to being in hospital bed, no swelling bilateral lower extremities Neuro: CN II-X grossly intact Constitutional Vital Signs, click to edit/add: Last Vital Signs Temp 97.6 F 09/21/23 23:55 Pulse 127 H 09/22/23 06:13 Resp 20 09/22/23 04:10 BP 124/58 09/21/23 23:55 Pulse Ox 93 L 09/22/23 07:05 O2 Del Method Nasal Cannula 09/22/23 07:05 O2 Flow Rate 5 09/22/23 07:05 FiO2 50 09/21/23 07:59 Progress Note: Objective Labs Labs: Short CBC 09/22/23 Range/Units 04:07 WBC 22.1 H (4.0-11.0) 10^3/uL Hgb 10.2 L (12.0-16.0) g/dL Hct 32.4 L (36.0-48.0) % Plt Count 119 L (150-450) 10^3/uL BMP 09/22/23 04:07 Sodium 145 Potassium 3.1 L Chloride 106 Carbon Dioxide 32.7 H BUN 97.0 H* Creatinine 2.33 H Glucose 138 H Calcium 10.1 Liver Function 09/22/23 Range/Units 04:07 Total Bilirubin 0.4 (0.2-1.0) mg/dL AST 31 (15-37) U/L ALT 39 (14-59) U/L Alkaline Phosphatase 102 (46-116) U/L Albumin 1.7 L (3.4-5.0) g/dL Progress Note: A&P Assessment and Plan (1) Pseudomonal pneumonia: Assessment and Plan: cultures and sensitivities to Levaquin, stop aztreonam today and start Levaquin. WBC's improving, clinically improving. continue solumedrol, bipap and NC/nonrebreather, breathing treatments Qualifiers: Laterality: bilateral Lung location: lower lobe of lung Qualified Code(s): J15.1 - Pneumonia due to Pseudomonas (2) RSV (respiratory syncytial virus pneumonia): Assessment and Plan: also contributing, symptom treatment (3) Multifocal pneumonia: Assessment and Plan: due to #1 &2 (4) Sepsis: Assessment and Plan: clinical improvement.? Qualifiers: Acute respiratory failure type: with hypoxia Sepsis acute organ dysfunction status: with acute organ dysfunction Sepsis type: Pseudomonas Severe sepsis acute organ dysfunction type: acute respiratory failure Severe sepsis shock status: without septic shock Qualified Code(s): A41.52 - Sepsis due to Pseudomonas; R65.20 - Severe sepsis without septic shock; J96.01 - Acute respiratory failure with hypoxia (5) JOSE (acute kidney injury): Assessment and Plan: improving, continue to monitor (6) NSTEMI (non-ST elevated myocardial infarction): Assessment and Plan: type 2, due to mismatch due to sepsis and acute respiratory failure (7) Chronic atrial fibrillation: Assessment and Plan: Afib with RVR, HR controlled, acute illness. Monitor. On ELIQUIS (8) Acute on chronic systolic (congestive) heart failure: Assessment and Plan: improved proBNP today, continue home meds, off fluids (9) Chronic kidney disease: Assessment and Plan: cr 2.33 today, monitor Qualifiers: Chronic kidney disease stage: stage 3 (moderate) Chronic kidney disease stage 3 subtype: unspecified whether 3a or 3b Qualified Code(s): N18.30 - Chronic kidney disease, stage 3 unspecified Plan patient is a DNRCCA eliquis for DVT prophylaxis inpatient status
[2023-09-22] MEDS: LEVOFLOXACIN IN DEXTROSE 5 % 500 MG/100 ML PIGGYBACK 100 MG IV (07:54)
[2023-09-22] MEDS: BUSPIRONE HCL 15 MG TABLET PO ×2 (08:00→20:05)
[2023-09-22] MEDS: AMIODARONE HCL 200 MG TABLET PO (08:00)
[2023-09-22] MEDS: APIXABAN 5 MG TABLET 2.5 MG PO ×2 (08:00→20:05)
[2023-09-22] MEDS: MAGNESIUM OXIDE 400 MG TABLET PO (08:00)
[2023-09-22] MEDS: OMEPRAZOLE 20 MG CAPSULE.DR PO (08:00)
[2023-09-22] MEDS: PAROXETINE HCL 20 MG TABLET 10 MG PO (08:00)
[2023-09-22] MEDS: GABAPENTIN 100 MG CAPSULE PO ×2 (08:02→16:43)
[2023-09-22] MEDS: POTASSIUM CHLORIDE 10 MEQ ER TABLET 40 MEQ PO ×2 (08:12→16:43)
[2023-09-22 08:19] LABS: Glucometer 150 mg/dL (74-106)
[2023-09-22 11:22] LABS: Glucometer 148 mg/dL (74-106)
[2023-09-22] MEDS: BUDESONIDE 0.5 MG/2 ML AMPULE NEB IH ×2 (11:35→23:46)
[2023-09-22 16:49] LABS: Glucometer 133 mg/dL (74-106)
[2023-09-22 21:48] LABS: Glucometer 142 mg/dL (74-106)
[2023-09-22] MEDS: ATORVASTATIN CALCIUM 40 MG TABLET PO (21:54)
[2023-09-22] MEDS: INSULIN ASPART 300 UNIT/3 ML PEN SUBQ (21:55)
--- NOTE | 2023-09-22 22:53 | PC.NURSE ---
decreased oxygen to 4lts from 6lts
[2023-09-23] VITALS (144 sets, daily range): BP systolic 112–150; BP diastolic 65–85; PULSE 57–109; RESP 14–33; TEMP 36.6–36.8; O2SAT 81–98
--- NOTE | 2023-09-23 01:36 | PC.NURSE ---
increased oxygen to 5lts
--- NOTE | 2023-09-23 01:47 | PC.NURSE ---
increased oxygen to 6 lts and had patient cough several times
--- NOTE | 2023-09-23 02:06 | PC.NURSE ---
6 lts NC - Spo2 92%
[2023-09-23] MEDS: METHYLPREDNISOLONE SOD SUCC PF 40 MG/ML VIAL IVP ×3 (03:48→19:20)
[2023-09-23 04:57] LABS: Basophils Percent Auto 0.2 % (0.2-2.0); Hematocrit 33.2 % (36.0-48.0); Hemoglobin 10.4 g/dL (12.0-16.0); Immature Granulocytes Abs Auto 0.31 10^3/uL (0.00-0.03); Immature Granulocytes Pct Auto 1.8 % (0.0-0.5); Lymphocytes Absolute Auto 0.3 10^3/uL (1.2-3.8); Lymphocytes Percent Auto 1.6 % (20.5-60.0); Mean Corpuscular HGB Conc 31.3 g/dL (29.9-35.2); Mean Corpuscular Hemoglobin 30.6 pg (26.7-34.0); Mean Corpuscular Volume 97.6 fL (81.0-99.0); Mean Platelet Volume 12.8 fL (9.5-13.5); Monocytes Absolute Auto 0.2 10^3/uL (0.3-0.8); Monocytes Percent Auto 0.9 % (1.7-12.0); Neutrophils Absolute Auto 16.7 10^3/uL (1.4-6.5); Neutrophils Percent Auto 95.5 % (43.0-75.0); Platelet Count 108 10^3/uL (150-450); Red Cell Distribution Width 14.2 % (11.0-15.0); White Blood Count 17.5 10^3/uL (4.0-11.0)
[2023-09-23 05:32] LABS: Alanine Aminotransferase 42 U/L (14-59); Albumin Globulin Ratio 0.5; Albumin Level 1.8 g/dL (3.4-5.0); Alkaline Phosphatase 110 U/L (46-116); Anion Gap 8.8; Aspartate Amino Transferase 38 U/L (15-37); BUN Creatinine Ratio 44.1; Bilirubin Total 0.5 mg/dL (0.2-1.0); Carbon Dioxide 32.8 mmol/L (21.0-32.0); Chloride 107 mmol/L (98-107); Estimated GFR (African America 26 (>=60); Estimated GFR (Non-African Ame 21 (>=60); Globulin 3.7 g/dL; Glucose 137 mg/dL (74-106); Potassium 4.6 mmol/L (3.5-5.1); Sodium 144 mmol/L (136-145); Total Protein 5.5 g/dL (6.4-8.2)
[2023-09-23] MEDS: LEVOTHYROXINE SODIUM 75 MCG TABLET 150 MCG PO (05:39)
[2023-09-23] MEDS: IPRATROPIUM/ALBUTEROL SULFATE 3 ML AMPUL.NEB IH ×5 (06:55→22:58)
[2023-09-23] MEDS: MAGNESIUM OXIDE 400 MG TABLET PO (08:06)
[2023-09-23] MEDS: PAROXETINE HCL 20 MG TABLET 10 MG PO (08:06)
[2023-09-23] MEDS: POTASSIUM CHLORIDE 10 MEQ ER TABLET 40 MEQ PO ×2 (08:06→17:00)
[2023-09-23] MEDS: APIXABAN 5 MG TABLET 2.5 MG PO ×2 (08:06→20:46)
[2023-09-23] MEDS: AMIODARONE HCL 200 MG TABLET PO (08:07)
[2023-09-23] MEDS: LEVOFLOXACIN IN DEXTROSE 5 % 250 MG/50 ML PIGGYBACK 50 MG IV (08:07)
[2023-09-23] MEDS: BUSPIRONE HCL 15 MG TABLET PO ×2 (08:07→20:46)
[2023-09-23] MEDS: GABAPENTIN 100 MG CAPSULE PO ×3 (08:07→23:04)
[2023-09-23] MEDS: OMEPRAZOLE 20 MG CAPSULE.DR PO (08:07)
[2023-09-23 08:22] LABS: Glucometer 146 mg/dL (74-106)
--- NOTE | 2023-09-23 08:37 | P.PN_ITS ---
Progress Note: Subjective Subjective Interval history: patient doing well today. She says she has no complaints. She has improved appetite to chocolate milk and says she would drink Ensure. No fevers, chills, n/v/d. Did convert to Afib last night, has been rate controlled. Exam Narrative Exam Narrative: General: Patient is alert, and oriented to person, place and time still tachypneic Skin: Bruising to the left upper extremity from venipuncture, no swelling Head: atraumatic, acephalic Eyes: PERRLA, no nystagmus present, conjunctiva clear, no scleral icterus Heart: Normal rate and irregular rhythm, no murmurs/rubs/gallops Lungs: crackles bilaterally and diminished breath sounds all lung bradshaw Abdomen: Normal audible bowel sounds, no distension, No palpable masses, no organomegaly, no rebound/guarding/ or rigidity Musculoskeletal: muscle atrophy noted, ROM is limited due to being in hospital bed, no swelling bilateral lower extremities Neuro: CN II-X grossly intact Constitutional Vital Signs, click to edit/add: Last Vital Signs Temp 97.9 F 09/23/23 07:00 Pulse 95 H 09/23/23 08:07 Resp 18 09/23/23 05:56 BP 141/65 09/23/23 08:07 Pulse Ox 90 L 09/23/23 07:59 O2 Del Method Nasal Cannula 09/23/23 07:00 O2 Flow Rate 4 09/23/23 07:00 FiO2 50 09/21/23 07:59 Progress Note: Objective Labs Labs: Short CBC 09/23/23 Range/Units 04:41 WBC 17.5 H (4.0-11.0) 10^3/uL Hgb 10.4 L (12.0-16.0) g/dL Hct 33.2 L (36.0-48.0) % Plt Count 108 L (150-450) 10^3/uL BMP 09/23/23 04:41 Sodium 144 Potassium 4.6 Chloride 107 Carbon Dioxide 32.8 H BUN 97.0 H* Creatinine 2.20 H Glucose 137 H Calcium 10.0 Liver Function 09/23/23 Range/Units 04:41 Total Bilirubin 0.5 (0.2-1.0) mg/dL AST 38 H (15-37) U/L ALT 42 (14-59) U/L Alkaline Phosphatase 110 (46-116) U/L Albumin 1.8 L (3.4-5.0) g/dL Progress Note: A&P Assessment and Plan (1) Pseudomonal pneumonia: Assessment and Plan: contiue Levaquin. WBC's improving, clinically improving. continue solumedrol, NC/nonrebreather, breathing treatments Qualifiers: Laterality: bilateral Lung location: lower lobe of lung Qualified Code(s): J15.1 - Pneumonia due to Pseudomonas (2) RSV (respiratory syncytial virus pneumonia): Assessment and Plan: also contributing to pneumonia, symptom treatment (3) Multifocal pneumonia: Assessment and Plan: due to #1 &2 (4) Sepsis: Assessment and Plan: clinical improvement/resolution Qualifiers: Acute respiratory failure type: with hypoxia Sepsis acute organ dys function status: with acute organ dysfunction Sepsis type: Pseudomonas Severe sepsis acute organ dysfunction type: acute respiratory failure Severe sepsis shock status: without septic shock Qualified Code(s): A41.52 - Sepsis due to Pseudomonas; R65.20 - Severe sepsis without septic shock; J96.01 - Acute respiratory failure with hypoxia (5) JOSE (acute kidney injury): Assessment and Plan: improving, continue to monitor (6) NSTEMI (non-ST elevated myocardial infarction): Assessment and Plan: type 2, due to mismatch due to sepsis and acute respiratory failure (7) Chronic atrial fibrillation: Assessment and Plan: Afib with RVR, HR controlled, acute illness. Monitor. On ELIQUIS (8) Acute on chronic systolic (congestive) heart failure: Assessment and Plan: improved proBNP today, off fluids (9) Chronic kidney disease: Assessment and Plan: cr 2.33 today, monitor Qualifiers: Chronic kidney disease stage: stage 3 (moderate) Chronic kidney disease stage 3 subtype: unspecified whether 3a or 3b Qualified Code(s): N18.30 - Chronic kidney disease, stage 3 unspecified Plan patient is a DNRCCA eliquis for DVT prophylaxis inpatient status, hopeful discharge back to [facility] tomorrow
--- NOTE | 2023-09-23 09:30 | CM.NOTE ---
Rounding with Dr. Acosta. No anticipated discharge today. Plan is to return to the [facility] upon discharge and pt. voices agreement with this plan.
--- NOTE | 2023-09-23 09:43 | CM.NOTE ---
Important Message From Medicare discussed with pt, pt verbalizes understanding and signs paper. Original given to pt and copy placed on pt's chart. Update called to Faiza watkins [place].
[2023-09-23] MEDS: BUDESONIDE 0.5 MG/2 ML AMPULE NEB IH ×2 (10:47→22:58)
[2023-09-23] MEDS: INSULIN ASPART 300 UNIT/3 ML PEN SUBQ (11:37)
[2023-09-23 11:44] LABS: Glucometer 195 mg/dL (74-106)
--- NOTE | 2023-09-23 11:45 | PT.DAILY ---
Physical Therapy Daily Note PT Daily Note/Assess Start: 09/20/23 13:42 Freq: Status: Active Protocol: Document 09/23/23 11:42 GEMINI (Rec: 09/23/23 11:45 [email or web address] [id number]) Physical Therapy Daily Note/Assessment Time In/Time Out Time In 11:10 Time Out 11:25 Pain In Pain N/A Pain Out Pain N/A Subjective Subjective Pt supine upon arrival. Agrees to PT. Therapeutic Activity Time Therapeutic Activity Minutes (minutes) 8 Therapeutic Activity Units 1 Therapeutic Activity Treatment Bed Mobility Ability Moderate Assist Chair Transfer Ability Maximum Assist,2 Person Assist Therapeutic Activity Comments Pt performs supine>sit ModA to advance upper body to sit EOB . Able to sit EOB without LOB and occ need for Wagner support. Attempted sit>stand 2x at RW with MaxA+2 but unable to stand fully erect. Pt is then transferred by OT MaxA stand pivot to BS chair. Remains in BS chair with call light in reach and needs met. Fatigued from limited activity. Gets coughing spell. Total Physical Therapy Time Total Therapy Minutes 8 Total Physical Therapy Units 1 Summary Daily Note Summary poor transfer ability would recommend snf at [facility]
--- NOTE | 2023-09-23 13:31 | CM.NOTE ---
Updates sent to [place], no discharge today.
[2023-09-23 13:38] LABS: Glucometer 174 mg/dL (74-106)
[2023-09-23 16:49] LABS: Glucometer 140 mg/dL (74-106)
[2023-09-23] MEDS: OXYCODONE HCL 5 MG TABLET PO (20:47)
[2023-09-23 20:53] LABS: Glucometer 136 mg/dL (74-106)
[2023-09-23] MEDS: ATORVASTATIN CALCIUM 40 MG TABLET PO (22:30)
[2023-09-24] VITALS (17 sets, daily range): BP systolic 128–150; BP diastolic 60–71; PULSE 66–72; RESP 14–20; TEMP 36.4–36.6; O2SAT 89–96
[2023-09-24] MEDS: METHYLPREDNISOLONE SOD SUCC PF 40 MG/ML VIAL IVP ×2 (03:18→11:21)
[2023-09-24] MEDS: IPRATROPIUM/ALBUTEROL SULFATE 3 ML AMPUL.NEB IH ×4 (03:47→15:48)
[2023-09-24 05:23] LABS: Basophils Percent Auto 0.2 % (0.2-2.0); Hematocrit 35.8 % (36.0-48.0); Hemoglobin 11.1 g/dL (12.0-16.0); Immature Granulocytes Abs Auto 0.24 10^3/uL (0.00-0.03); Immature Granulocytes Pct Auto 1.4 % (0.0-0.5); Lymphocytes Absolute Auto 0.3 10^3/uL (1.2-3.8); Lymphocytes Percent Auto 1.7 % (20.5-60.0); Mean Corpuscular Hemoglobin 30.5 pg (26.7-34.0); Mean Corpuscular Volume 98.4 fL (81.0-99.0); Mean Platelet Volume 12.9 fL (9.5-13.5); Monocytes Absolute Auto 0.1 10^3/uL (0.3-0.8); Monocytes Percent Auto 0.8 % (1.7-12.0); Neutrophils Absolute Auto 16.8 10^3/uL (1.4-6.5); Neutrophils Percent Auto 95.9 % (43.0-75.0); Platelet Count 126 10^3/uL (150-450); Red Blood Count 3.64 10^6/uL (4.20-5.40); Red Cell Distribution Width 14.3 % (11.0-15.0); White Blood Count 17.5 10^3/uL (4.0-11.0)
[2023-09-24 05:44] LABS: Alanine Aminotransferase 57 U/L (14-59); Albumin Globulin Ratio 0.5; Alkaline Phosphatase 137 U/L (46-116); Anion Gap 12.3; Aspartate Amino Transferase 62 U/L (15-37); BUN Creatinine Ratio 42.9; Bilirubin Total 0.5 mg/dL (0.2-1.0); Calcium 10.6 mg/dL (8.5-10.1); Chloride 108 mmol/L (98-107); Estimated GFR (African America 26 (>=60); Estimated GFR (Non-African Ame 21 (>=60); Glucose 125 mg/dL (74-106); Sodium 142 mmol/L (136-145)
[2023-09-24 05:52] LABS: Potassium 6.3 mmol/L (3.5-5.1)
[2023-09-24] MEDS: LEVOTHYROXINE SODIUM 75 MCG TABLET 150 MCG PO (06:00)
[2023-09-24] MEDS: SODIUM POLYSTYRENE SULFON 15 GM/60 ML ORAL.SUSP KAYEXALATE PO (06:50)
--- NOTE | 2023-09-24 07:05 | RESP.RT ---
titrated down to 2L
[2023-09-24] MEDS: APIXABAN 5 MG TABLET 2.5 MG PO (08:49)
[2023-09-24] MEDS: AMIODARONE HCL 200 MG TABLET PO (08:49)
[2023-09-24] MEDS: 0.9 % SODIUM CHLORIDE 250 ML 10 ML IV (08:49)
[2023-09-24] MEDS: GABAPENTIN 100 MG CAPSULE PO (08:49)
[2023-09-24] MEDS: LEVOFLOXACIN IN DEXTROSE 5 % 250 MG/50 ML PIGGYBACK 50 MG IV (08:49)
[2023-09-24] MEDS: OMEPRAZOLE 20 MG CAPSULE.DR PO (08:49)
[2023-09-24] MEDS: ENSURE HP 237 ML LIQUID PO (08:49)
[2023-09-24] MEDS: MAGNESIUM OXIDE 400 MG TABLET PO (08:50)
[2023-09-24] MEDS: BUSPIRONE HCL 15 MG TABLET PO (08:50)
[2023-09-24] MEDS: PAROXETINE HCL 20 MG TABLET 10 MG PO (08:50)
--- NOTE | 2023-09-24 09:05 | P.DS_ITS ---
DS: Providers Provider Date of admission: 09/18/23 21:29 Primary care physician: NOHELIA GRACIA DO Admitting clinician: Shaikh Kamala Consults: 09/19/23 10:19 Consult to Pulmonology Routine Consulting Provider: Miguel Moscoso Reason for consultation: resp failure multifocal pneumonia 09/19/23 10:59 Occupational Therapy Eval and Treat Routine Reason for consultation: Ambulatory dysfunction/weakness Physical Therapy Eval and Treat Routine Reason for consultation: Ambulatory dysfunction/weakness Discharging clinician: Shima Acosta DS: Diagnosis Discharge Diagnosis (1) Pseudomonal pneumonia: Qualifiers: Laterality: bilateral Lung location: lower lobe of lung Qualified Code(s): J15.1 - Pneumonia due to Pseudomonas (2) RSV (respiratory syncytial virus pneumonia): (3) Multifocal pneumonia: (4) Sepsis: Qualifiers: Acute respiratory failure type: with hypoxia Sepsis acute organ dysfunction status: with acute organ dysfunction Sepsis type: Pseudomonas Severe sepsis acute organ dysfunction type: acute respiratory failure Severe sepsis shock status: without septic shock Qualified Code(s): A41.52 - Sepsis due to Pseudomonas; R65.20 - Severe sepsis without septic shock; J96.01 - Acute respiratory failure with hypoxia (5) JOSE (acute kidney injury): (6) NSTEMI (non-ST elevated myocardial infarction): (7) Chronic atrial fibrillation: (8) Acute on chronic systolic (congestive) heart failure: (9) Chronic kidney disease: Qualifiers: Chronic kidney disease stage: stage 3 (moderate) Chronic kidney disease stage 3 subtype: unspecified whether 3a or 3b Qualified Code(s): N18.30 - Chronic kidney disease, stage 3 unspecified DS: Summary Hospital Course Hospital Course: 88 y o female on chronic 3 L O2, longterm resident brought over for worsening SOB, cough, hypoxia. Was on BIPAP. Found to have sepsis sec to multifocal PNA and was admitted to ICU for resp failure. Later found to have pseudomonas and RSV pneumonia. She was on Vancomycin, then Aztreonam, once cultures resulted off Vanc and Aztreonam then Levaquin. She has completed 4 days of levaquin. She will be discharged home on 3 more days for a total of 7. She was also on IV solumedrol, will be given 20mg Prednisone x 7 days. She continued to wean off oxygen and at the time of discharge was on her home 3L NC. She is in good spirits this morning. She wants to go home (jail). She is still in Afib, rate controlled and continuing eliquis. Will hold her Lasix due to renal function, which has been improving but appears euvolemic at discharge. This can be further evaluated by facility physician. She was hyperkalemic today, 6.4, she was still getting potassium supplement because she had been low. This was stopped, given Kayaxolate and had BM, recheck was 5.4 this afternoon. Recheck bmp in 1-2 is recommended. All other medication is the same. continue with nebulizer treatments. Return with worsening signs or symptoms. Status at Discharge Functional status at discharge: wheelchair bound Overall status at discharge: patient is progressing back to baseline Time Spent with Patient Time attestation: Total time spent providing and/or coordinating discharge services: Time spent: greater than 30 minutes Exam Narrative Exam Narrative: General: Patient is alert, and oriented to person, place and time still tachypneic Skin: Bruising to the left upper extremity from venipuncture, no swelling Head: atraumatic, acephalic Eyes: PERRLA, no nystagmus present, conjunctiva clear, no scleral icterus Heart: Normal rate and irregular rhythm, no murmurs/rubs/gallops Lungs: crackles bilaterally and diminished breath sounds all lung bradshaw Abdomen: Normal audible bowel sounds, no distension, No palpable masses, no organomegaly, no rebound/guarding/ or rigidity Musculoskeletal: muscle atrophy noted, ROM is limited due to being in hospital bed, no swelling bilateral lower extremities Neuro: CN II-X grossly intact Constitutional Vital Signs, click to edit/add: Last Vital Signs Temp 97.8 F 09/23/23 19:21 Pulse 72 09/24/23 05:14 Resp 18 09/24/23 04:02 BP 129/60 09/24/23 00:00 Pulse Ox 93 L 09/24/23 08:00 O2 Del Method Nasal Cannula 09/24/23 07:00 O2 Flow Rate 3 09/24/23 07:00 FiO2 50 09/21/23 07:59 DS: Data Data Completed and Pending Labs on day of discharge: Labs from last 24 hours 09/24/23 09/23/23 09/23/23 05:05 20:51 16:45 WBC 17.5 H RBC 3.64 L Hgb 11.1 L Hct 35.8 L MCV 98.4 MCH 30.5 MCHC 31.0 RDW 14.3 Plt Count 126 L MPV 12.9 Neut % (Auto) 95.9 H Lymph % (Auto) 1.7 L [place] % (Auto) 0.8 L Eos % (Auto) 0.0 L Baso % (Auto) 0.2 Neut # (Auto) 16.8 H Lymph # (Auto) 0.3 L [place] # (Auto) 0.1 L Eos # (Auto) 0.0 Baso # (Auto) 0.0 Abs Immat Gran (auto) 0.24 H Imm/Tot Granulo (auto) 1.4 H Sodium 142 Potassium 6.3 H* Chloride 108 H Carbon Dioxide 28.0 Anion Gap 12.3 BUN 93.0 H* Creatinine 2.17 H Est GFR ( Amer) 26 L Est GFR (Non-Af Amer) 21 L BUN/Creatinine Ratio 42.9 Glucose 125 H Calcium 10.6 H Total Bilirubin 0.5 AST 62 H ALT 57 Alkaline Phosphatase 137 H Total Protein 6.0 L Albumin 2.0 L Globulin 4.0 Albumin/Globulin Ratio 0.5 POC Glucose 136 H 140 H 09/23/23 09/23/23 13:35 11:32 WBC RBC Hgb Hct MCV MCH MCHC RDW Plt Count MPV Neut % (Auto) Lymph % (Auto) [place] % (Auto) Eos % (Auto) Baso % (Auto) Neut # (Auto) Lymph # (Auto) [place] # (Auto) Eos # (Auto) Baso # (Auto) Abs Immat Gran (auto) Imm/Tot Granulo (auto) Sodium Potassium Chloride Carbon Dioxide Anion Gap BUN Creatinine Est GFR ( Amer) Est GFR (Non-Af Amer) BUN/Creatinine Ratio Glucose Calcium Total Bilirubin AST ALT Alkaline Phosphatase Total Protein Albumin Globulin Albumin/Globulin Ratio POC Glucose 174 H 195 H Preliminary micro results at discharge 09/18/23 19:27 - Preliminary Blood Pseudomonas aeruginosa 09/18/23 18:15 Blood Culture Result 1 - Preliminary Blood Pseudomonas aeruginosa Discharge Plan Discharge Disposition: Xfer LTC Condition: Fair Discharge Medications: New levofloxacin 250 mg tablet 250 mg PO DAILY 3 Days Qty: 3 0RF prednisone 20 mg tablet 20 mg PO DAILY 7 Days Qty: 7 0RF Continued amiodarone 200 mg tablet 200 mg PO DAILY atorvastatin 40 mg tablet 40 mg PO DAILY budesonide 0.5 mg/2 mL suspension for nebulization 0.5 mg inhalation BID buspirone 15 mg tablet 15 mg PO BID ferrous sulfate [FeroSul] 325 mg (65 mg iron) tablet 325 mg PO DAILY gabapentin 100 mg capsule 100 mg PO Q8H levothyroxine 150 mcg tablet 150 mcg PO DAILY magnesium oxide 400 mg (241.3 mg magnesium) tablet 400 mg PO BID melatonin 3 mg tablet 3 mg PO DAILY [id number]-[id number] fum-folic ac 7.5 mg iron-400 mcg tablet 1 tab PO DAILY omeprazole 20 mg capsule,delayed release(DR/EC) 20 mg PO BID paroxetine HCl 10 mg tablet 10 mg PO DAILY ipratropium-albuterol 0.5 mg-3 mg(2.5 mg base)/3 mL solution for nebulization 3 ml INHALATION BID PRN (Reason: shortness of breath or wheezing) apixaban 2.5 mg tablet 2.5 mg PO BID Held furosemide 40 mg Tablet 40 mg PO QD Qty: 30 0RF Hold Instructions: Resume on 09/27/23. please hold until evaluated in 1 week by detention physician for fluid status, and BMP Discontinued potassium chloride [K-Tab] 20 mEq tablet extended release 20 meq PO DAILY Forms: Portal Instructions Follow Up Appointments: Patient to have recheck bmp within 1-2 days for potassium status per facility. Discharge location: [facility]
[2023-09-24] MEDS: BUDESONIDE 0.5 MG/2 ML AMPULE NEB IH (10:47)
--- NOTE | 2023-09-24 10:50 | PT.DAILY ---
Physical Therapy Daily Note PT Daily Note/Assess Start: 09/20/23 13:42 Freq: Status: Active Protocol: Document 09/24/23 10:44 GMEINI (Rec: 09/24/23 10:49 GEMINI [id number]) Physical Therapy Daily Note/Assessment Time In/Time Out Time In 10:15 Time Out 10:30 Pain In Pain N/A Pain Out Pain N/A Subjective Subjective Pt supine upon arrival. Reports she has gone to the bathroom in her bed and needs cleaned up. Agrees to allow PANEL LAY UP WORKER to assist with this. Therapeutic Activity Time Therapeutic Activity Minutes (minutes) 8 Therapeutic Activity Units 1 Therapeutic Activity Treatment Bed Mobility Ability Moderate Assist Therapeutic Activity Comments pt rolls side to side multiple times as PANEL LAY UP WORKER assists her to get cleaned and change down/ bedding. Pt requires up to a ModA to maintain sidelying at times and assist with rolling - but this is occasional support. MaxA to scoot pt up towards head of bed. Pt is fatigued for this and declines further ex or to get into chair. Pt has a hard time keeping eyes open once back into supine. Pt denies pain just reports fatigue. Total Physical Therapy Time Total Therapy Minutes 8 Total Physical Therapy Units 1 Summary Daily Note Summary Occ ModA to roll side-side in bed. Easily fatigued with this activity.
[2023-09-24 11:27] LABS: Glucometer 141 mg/dL (74-106)
--- NOTE | 2023-09-24 11:43 | CM.NOTE ---
Rounds made with Dr. Acosta, possible discharge this afternoon if repeat K+ level within normal limits.
--- NOTE | 2023-09-24 12:46 | CM.NOTE ---
Called [facility] for update on pt and possible discharge back this afternoon.
[2023-09-24 13:34] LABS: Potassium 5.6 mmol/L (3.5-5.1)
--- NOTE | 2023-09-24 14:48 | CM.NOTE ---
Faxed dsicharge summary and med list to [facility] for pt's discharge. Set up [facility] for transportation 16:30 and notified Faiza at [facility] discharge time. RN and pt also updated.
--- OUTSIDE RECORDS SUMMARY | 2023-10-02 02:18 | XMS_ITS | CCD ---
Author Name Unknown Address [address] [place] [address] Organization [facility] Care Team Providers Care Hop Worker Name Role Phone Unavailable Unavailable Ever Matos Unavailable Giovany Rico Consulting Unavailable MD Prasanth Miner Attending Unavailable Ami PETTY Admitting Unavailable Rico, Giovany T Consulting Unavailable Rico, Giovany T Consulting Unavailable Rico, Giovany T Consulting Unavailable Rico, Giovany T Consulting Unavailable Rico, Giovany T Consulting Unavailable Irco, Giovany T Consulting Unavailable Rico, Giovany T Consulting Unavailable Rico, Giovany T Consulting Unavailable Rioc, Giovany T Consulting Unavailable Rico, Giovany T Consulting Unavailable Rico, Giovany T Consulting Unavailable Duncan Cook Attending Unavailable DO Artur Melgoza Primary Care Provider [phone] MD Ever Matos Attending Provider Ever Matos Attending Unavailable Ever Matos Admitting Unavailable Artur Melgoza Primary Care Unavailable ARTUR MELGOZA Attending Unavailable ARTUR MELGOZA Referring Unavailable BONNIE HARRELL Referring Unavailable Allergies Allergy Classification Reported Allergen(s) Allergy Type Date of Onset Reaction(s) Facility (2 sources) diazePAM; Translations: [Valium] Drug Allergy [facility] Repository (3 sources) natural latex rubber; Translations: [Latex] Allergy to substance (finding) 12-11-19 Rash [facility] Repository (1 source) Volumex SOSY; Translations: [Volumex SOSY] Allergy to drug (finding) Hives [facility] DO Work Phone: (4 sources) Latex Propensity to adverse reactions [facility] [employer] Other (4 sources) Penicillins (Antibiotic) Propensity to adverse reactions [employer] [facility] [employer] Other (4 sources) Sulfonamides (Antibiotic) Propensity to adverse reactions [facility] [employer] Other (4 sources) tetanus toxoid vaccine, inactivated Drug Allergy dizziness [facility] [employer] Other (3 sources) Penicillins; Translations: [penicillins] Propensity to adverse reactions (disorder) 12-11-19 face swelling, rash [facility] Repository (1 source) Tetanus-Diphther ia Toxoids, Adult (Td); Translations: [Tetanus-Diphthe gopi Toxoids, Adult (Td)] Propensity to adverse reactions (disorder) [facility] Repository (2 sources) diazePAM; Translations: [diazepam] Drug Allergy 12-11-19 face swelling, rash [facility] (2 sources) bee venom protein (honey bee); Translations: [bee venom protein (honey bee)] Allergy to substance 12-11-19 Anaphylaxis [facility] (2 sources) tetanus and diphtheria toxoids; Translations: [tetanus and diphtheria toxoids] Allergy to substance 12-11-19 Unknown Reaction [facility] (1 source) Latex Drug allergy (disorder) 12-11-19 [facility] Repository Medications Current Medications Medication Drug Class(es) Dates Sig (Normalized) Sig (Original) acetaminophen 325 mg oral tablet (5 sources) Start: 09-21-2021 take 650 mg by mouth every six hours Acetaminophen Active 650 MG PO Q6H September 21, 2021 12:00am Acetaminophen Ac tive albuterol 0.83 mg/ml inhalation solution (5 sources) beta2-Adrenergic Agonist Start: 09-21-2021 take 2.5 mg by inhalation every two hours Albuterol Sulfate Active 2.5 MG INHALATION Q2H September 21, 2021 12:00am Albuterol Sulfat e Active albuterol 0.833 mg/ml / ipratropium bromide 0.167 mg/ml inhalation solution (5 sources) Anticholinergic, beta2-Adrenergic Agonist Start: 09-21-2021 take 1 mL by inhalation four times daily Ipratropium-Albuterol Active 3 ML INHALATION Four times daily September 21, 2021 12:00am Ipratropium-Albu terol Active amiodarone hydrochloride 200 mg oral tablet (6 sources) Antiarrhythmic Start: 12-14-2019 take 200 mg by mouth once daily Amiodarone Active 200 MG PO Daily December 14, 2019 12:00am Amiodarone Activ e atorvastatin 40 mg oral tablet (7 sources) HMG-CoA Reductase Inhibitor Start: 12-11-2022 take 40 mg by mouth once daily Atorvastatin Active 40 MG PO Daily December 11, 2022 12:00am Start: 09-25-2021 End: 12-11-2022 take 40 mg by mouth once daily Atorvastatin Discontinu ed 40 MG PO Daily September 25, 2021 2:43pm December 11, 2022 11:50am Start: 09-21-2021 End: 09-25-2021 take 10 mg by mouth once daily Atorvastatin Discontinu ed 10 MG PO Daily September 21, 2021 12:00am September 25, 2021 2:43pm Lipitor Active budesonide 0.25 mg/ml inhalation suspension (5 sources) Corticosteroid Start: 09-21-2021 take 0.5 mg by inhalation twice daily Budesonide Active 0.5 MG INHALATION Twice daily September 21, 2021 12:00am Budesonide Activ e busPIRone hydrochloride 15 mg oral tablet (1 source) Start: 12-14-2019 take 15 mg by mouth twice daily Buspirone Active 15 MG PO Twice daily December 14, 2019 12:00am ferrous sulfate 325 mg oral tablet (5 sources) Start: 12-11-2022 take 325 mg by mouth once daily Ferrous Sulfate Active 325 MG PO Daily December 11, 2022 12:00am Ferrous Sulfate Active gabapentin 100 mg oral capsule (5 sources) Anti-epileptic Agent Start: 12-14-2019 take 100 mg by mouth three times daily Gabapentin Active 100 MG PO Three times daily December 14, 2019 12:00am Gabapentin Activ e levothyroxine sodium 0.15 mg oral tablet (5 sources) l-Thyroxine Start: 12-14-2019 take 150 ug by mouth once daily Levothyroxine Active 150 MCG PO Daily December 14, 2019 12:00am take 1 tablet by once daily in the morning Levothyroxine Sodium 150 MCG 1 tablet in the morning on an empty stomach Orally Once a day Active Levothyroxine So dium Active loperamide hydrochloride 2 mg oral capsule (1 source) Opioid Agonist Start: 12-11-2022 take 2 mg by mouth four times daily Loperamide Active 2 MG PO Four times daily December 11, 2022 12:00am Magnesium (4 sources) Magnesium Active magnesium oxide 400 mg oral tablet (1 source) Start: 12-14-2019 take 400 mg by mouth once daily Magnesium Oxide Active 400 MG PO Daily December 14, 2019 12:00am melatonin 3 mg oral tablet (5 sources) Start: 09-21-2021 take 3 mg by mouth at bedtime Melatonin Active 3 MG PO Bedtime September 21, 2021 12:00am Melatonin Active Mehumiuu-Fmx-Idub-Fa-Lutein (Centrum Silver Women) 8 mg iron-400 mcg-300 mcg Tablet (1 source) Start: 09-21-2021 take 1 tablet by mouth once daily Ahyfgjzo-Fqz-Vxpb-Fa-Lutein (Centrum Silver Women) 8 mg iron-400 mcg-300 mcg Tablet Active 1 TAB PO Daily September 21, 2021 12:00am Multivitamin preparation (4 sources) Multivitamin Act reba omeprazole 20 mg delayed release oral capsule (6 sources) Proton Pump Inhibitor Start: 12-11-2022 take 20 mg by mouth once daily Omeprazole Active 20 MG PO Daily December 11, 2022 12:00am Start: 12-14-2019 End: 12-11-2022 take 40 mg by mouth once daily Omeprazole Discontinued 40 MG PO Daily December 14, 2019 12:00am December 11, 2022 11:57am probiotic (3 sources) probiotic Active Valsartan-hydroCHLOROthiazid e (4 sources) Valsartan-hydroC HLOROthiazide Active Completed/Discontinued Medications Medication Drug Class(es) Dates Sig (Normalized) Sig (Original) acetaminophen 325 mg / oxyCODONE hydrochloride 5 mg oral tablet (1 source) Opioid Agonist Start: 09-21-2021 End: 09-25-2021 take 1 tablet by mouth every six hours Oxycodone-Acetamin ophen Discontinued 1 TAB PO Q6H September 21, 2021 12:00am September 25, 2021 4:22pm allopurinol 100 mg oral tablet (1 source) Xanthine Oxidase Inhibitor Start: 12-14-2019 End: 12-11-2022 take 100 mg by mouth once daily Allopurinol Discontinued 100 MG PO Daily December 14, 2019 12:00am December 11, 2022 11:57am apixaban 5 mg oral tablet (5 sources) Factor Xa Inhibitor Start: 09-25-2021 End: 12-11-2022 take 1 tablet by mouth twice daily Apixaban (Eliquis) 5 mg tablet Discontinued 5 MG PO Twice daily September 25, 2021 12:00am December 11, 2022 11:57am Eliquis Active benzonatate 100 mg oral capsule (1 source) Non-narcotic Antitussive Start: 09-21-2021 End: 12-11-2022 take 100 mg by mouth three times daily Benzonatate Discontinued 100 MG PO Three times daily September 21, 2021 12:00am December 11, 2022 11:57am carvedilol 12.5 mg oral tablet (1 source) alpha-Adrenergic Grace, beta-Adrenergic Grace Start: 12-14-2019 End: 09-21-2021 take 12.5 mg by mouth twice daily Carvedilol Discontinued 12.5 MG PO Twice daily December 14, 2019 12:00am September 21, 2021 2:06pm fenofibrate 134 mg oral capsule (1 source) Peroxisome Proliferator Receptor alpha Agonist Start: 12-14-2019 End: 09-25-2021 take 150 mg by mouth once daily Fenofibrate Micronized Discontinued 150 MG PO Daily December 14, 2019 12:00am September 25, 2021 2:41pm hydroCHLOROthiazide 25 mg / valsartan 320 mg oral tablet (1 source) Thiazide Diuretic, Angiotensin 2 Receptor Grace Start: 09-25-2021 End: 12-11-2022 take 1 tablet by mouth once daily Valsartan-Hydroc hlorothiazide Discontinued 1 TAB PO Daily September 25, 2021 12:00am December 11, 2022 11:58am lisinopril 5 mg oral tablet (1 source) Angiotensin Converting Enzyme Inhibitor Start: 12-14-2019 End: 09-25-2021 take 5 mg by mouth once daily Lisinopril Discontinued 5 MG PO Daily December 14, 2019 12:00am September 25, 2021 2:39pm 24 hr nicotine 0.875 mg/hr transdermal system (5 sources) Cholinergic Nicotinic Agonist Start: 09-21-2021 End: 12-11-2022 apply 1 dose transdermal route once daily, then apply 1 dose transdermal route every twenty-four hours Nicotine (Nicoderm Cq) 21 mg/24 hr Patch 24 Hour Discontinued 1 PATCH TRANSDERML Daily September 21, 2021 12:00am December 11, 2022 11:57am Nicotine Active ondansetron 4 mg oral tablet (8 sources) Serotonin-3 Receptor Antagonist Start: 09-21-2021 End: 12-11-2022 take 1 tablet by mouth every six hours Ondansetron Hcl (Zofran) 4 mg Tablet Discontinued 4 MG PO Q6H September 21, 2021 12:00am December 11, 2022 11:56am take 1 tablet by john th every twenty-four hours Ondansetron HCl 4 MG 1 tablet Orally Onc e a day Active Zofran Active 24 hr oxybutynin chloride 10 mg extended release oral tablet (1 source) Cholinergic Muscarinic Antagonist Start: 12-14-2019 End: 09-21-2021 take 10 mg by mouth once daily Oxybutynin Chloride Discontinued 10 MG PO Daily December 14, 2019 12:00am September 21, 2021 2:06pm PARoxetine hydrochloride 20 mg oral tablet (5 sources) Serotonin Reuptake Inhibitor Start: 12-14-2019 End: 12-11-2022 take 20 mg by mouth twice daily Paroxetine Hcl Discontinued 20 MG PO Twice daily December 14, 2019 12:00am December 11, 2022 11:57am take 1 tablet by john th every twenty-four hours PARoxetine HCl 20 MG 1 tablet in the morning Orally Once a day Active PARoxetine HCl A ctive simvastatin 40 mg oral tablet (1 source) HMG-CoA Reductase Inhibitor Start: 12-14-2019 End: 09-21-2021 take 40 mg by mouth once daily at bedtime Simvastatin Discontinued 40 MG PO Daily at bedtime December 14, 2019 12:00am September 21, 2021 2:06pm spironolactone 25 mg oral tablet (5 sources) Aldosterone Antagonist Start: 09-25-2021 End: 12-11-2022 take 25 mg by mouth once daily Spironolactone Discontinued 25 MG PO Daily September 25, 2021 12:00am December 11, 2022 11:58am Spironolactone A ctive traMADol hydrochloride 50 mg oral tablet (1 source) Opioid Agonist Start: 12-14-2019 End: 09-21-2021 take 50 mg by mouth three times daily Tramadol Discontinued 50 MG PO Three times daily December 14, 2019 12:00am September 21, 2021 2:06pm warfarin sodium 3 mg oral tablet (2 sources) Vitamin K Antagonist Start: 09-21-2021 End: 09-25-2021 Warfarin Discontinued 1.5 MG PO As Directed September 21, 2021 12:00am September 25, 2021 2:42pm saturday Start: 12-14-2019 End: 09-25-2021 Warfarin Discontinued 1 TAB PO As Directed December 14, 2019 12:00am September 25, 2021 2:42pm saturday Problems Active Problems Problem Classification Problem Date Documented Da te Episodic/Chronic Cardiac dysrhythmias (2 sources) Paroxysmal atrial fibrillation; Translations: [Atrial fibrillation] 09-21-2021 Chronic Disorders of lipid metabolism (1 source) Hyperlipidemia; Translations: [Other and unspecified hyperlipidemia] Chronic Esophageal disorders (5 sources) Esophageal mass; Translations: [Mass of esophagus] 09-21-2021 Episodic Essential hypertension (2 sources) Essential hypertension; Translations: [Unspecified essential hypertension] 09-21-2021 Chronic Other aftercare (1 source) Drug therapy finding; Translations: [Long-term (current) use of other medications] Episodic Other gastrointestinal disorders (5 sources) Dysphagia; Translations: [Dysphagia, unspecified] 09-21-2021 Episodic Other nutritional; endocrine; and metabolic disorders (1 source) Overweight; Translations: [Overweight] Episodic Other nutritional; endocrine; and metabolic disorders (1 source) Body mass index 25-29 - overweight; Translations: [Body Mass Index 27.0-27.9, adult] Episodic Other screening for suspected conditions (not mental disorders or infectious disease) (1 source) Cardiovascular stress test abnormal; Translations: [Other nonspecific abnormal results of function study of cardiovascular system] Episodic Anali-; endo-; and myocarditis; cardiomyopathy (except that caused by tuberculosis or sexually transmitted disease) (1 source) Cardiomyopathy; Translations: [Other primary cardiomyopathies] Chronic Unclassified (1 source) Achalasia of cardia; Translations: [Achalasia of cardia] Onset: 12-11-2022 Past or Other Problems Problem Classification Problem Date Documented Da te Episodic/Chronic Other gastrointestinal disorders (1 source) Dysphagia, unspecified Onset: 01-16-2022 Resolved: 01-16-2022 Episodic Pathological fracture (1 source) Pathological fracture, pelvis, initial encounter for fracture; Translations: [M84.454A] Onset: 09-12-2021 Episodic Results Test Name Value Interpretation Reference Range Facil ity XR CHEST 2 VIEWSon 3 XR CHEST 2 VIEWS CLINICAL HISTORY: co ugh, shortness of breath, chest congestion, pleural effusion COMPARISON: FINDINGS: The cardiomediastinal silhouette is unremarkable. There are diffusely increased reticular markings of both lungs with areas of alveolar opacity and increased interstitial markings which may be acute or chronic. There are no pleural effusions. There is thoracolumbar scoliosis. IMPRESSION: There are severe chronic appearing interstitial pulmonary markings worrisome for early pulmonary fibrosis. Patchy groundglass opacities may be acute or chronic and may present superimposed pneumonia. ELECTRONICALLY SIGNED BY: Shan Rincon MD Normal Not Available Comment on above: Order Comment: STAT CXR with read called to Dr. Melgoza EMS Documentationon 10-28-19 EMS Documentation [id number]:127 Normal [facility] Coding Summary.on 09-19-2021 Coding Summary. [id number] [file] b2xs (more content not included)... Normal [facility] Discharge Instructionson Discharge Instructions [id number]:127 Normal [facility] Hct & Hgbon 09-15-2021 Hematocrit (Bld) [Volume fraction] 27.9 % Low 3 4.0-46.0 [facility] Comment on above: Performed By: #### [id number] ####[facility] [address] [place] [address] Hemoglobin (Bld) [Mass/Vol] 9.3 g/dL Low 12.0-16. 0 [facility] Comment on above: Performed By: #### [id number] ####[facility] [address] [place] [address] Inpatient Clinical Summaryon 09-15-2021 Inpatient Clinical Summary [address] [address] Clinical Summary Person Information: Name: LISA ASTORGA Age: 86 Years : 1935 Sex: Female PCP: ARTUR MELGOZA DO Marital Status: Phone: [phone] Race: White Ethnicity: Non- or Language: Nicaraguan Visit Id: Visit Reason: Hip pain-swelling; Weakness or fatigue; ARM CONTUSION, COALOPATHY, SACRAL FX PUBIC, MULTI FRA Speciality: Acuity: Enc Type: Inpatient Med Service: Medical Arrival: 09/11/2021 16:39:29 Discharge: Dispo Type: Admitted as IP to this Hosp Address: [address] [place] [id number] Provider Notes: Diagnosis: 1:Fracture of multiple pubic rami; 2:Sacral fracture; 3:Arm contusion; 4:Coagulopathy; 5:UTI (urinary tract infection); 6:Reactive airway disease; 7:Smoker; 8:Anemia; 9:Atrial fibrillation; 10:Hypertension; 11:Hypercholesterolemia; 12:CKD (chronic kidney disease), stage III; 13:Hypothyroid; 14:Gout; 15:Depression; 16:DVT prophylaxis Problems Active CKD (chronic kidney disease), stage III Atrial fibrillation Gout Hypertension Acid reflux CKD (chronic kidney disease) Depression Anxiety Hypercholesterolemia Hypothyroid Smoker Smoking Status: Current Every Day Smoker Functional Status: Sensory Deficits: Hearing deficit, left ear, Hearing deficit, right ear History of Falls: Within last three months Mobility Assistance Prior to Admission: Partial assistance ADLs: Moderate assistance Current Level of Assistance for Self-Care/Mobility: Cognitive Status: Oriented x 3 Allergies penicillins (Hives) Valium Tetanus-Diphtheria Toxoids, Adult (Td) Latex Measurements: Height: 162.56 cm Weight: 78.4 kg Blood Pressure: 112 mmHg / 64 mmHg BMI: 26.83 kg/m2 Procedures No Procedures Documented Immunizations No Immunizations Documented This Visit Final Med List: acetaminophen (acetaminophen 325 mg Tab) 2 Tablets By Mouth every 6 hours as needed Pain. not to exceed 4000 mg/day. acetaminophen-oxycodone (Percocet 325 mg-5 mg Tab) 1 Tablets By Mouth every 6 hours as needed Pain for 3 Days. Refills: 0. albuterol (albuterol 0.083% Inh Elizabeth 3 mL UD) 3 Milliliter Nebulized inhalation (aerosol) every 2 hours as needed Shortness of breath or wheezing. albuterol-ipratropium (DuoNeb 2.5 mg-0.5 mg/3 mL Soln-Inh) 3 Milliliter Inhalation 4 times a day. allopurinol (allopurinol 100 mg Tab) 1 Tablets By Mouth every day. amiodarone (amiodarone 200 mg Tab) 1 Tablets By Mouth every day. ascorbic acid (Vitamin C) 500 Milligram By Mouth every day. aspirin (aspirin 81 mg Chew Tab) 1 Tablets Chewed every day. May resume this med once ecchymosis has improved and if hgb remains stable. atorvastatin 10 Milligram By Mouth every day. benzonatate (Tessalon 100 mg Cap) 1 Capsules By Mouth 3 times a day as needed Cough. budesonide (budesonide 0.5 mg/2 mL Inh Susp) 2 Milliliter Nebulized inhalation (aerosol) 2 times a day. busPIRone (busPIRone 15 mg Tab) 1 Tablets By Mouth 2 times a day. fenofibrate (fenofibrate 134 mg oral capsule) 1 Capsules By Mouth once a day (in the evening). gabapentin (gabapentin 100 mg Cap) 1 Capsules By Mouth 3 times a day. levothyroxine (levothyroxine 150 mcg (0.15 mg) Tab) 1 Tablets By Mouth every day. lisinopril 5 Milligram By Mouth every day. magnesium oxide (magnesium oxide 400 mg Tab) 1 Tablets By Mouth every day. melatonin (melatonin 3 mg Tab) 3 Tablets By Mouth at bedtime as needed Insomnia. Misc Prescription (Walker) 0. Instructions on use, dispense one unit. Refills: 0. multivitamin with minerals (Centrum Silver Women's) 1 Tablets By Mouth every day. omeprazole (omeprazole 40 mg Cap-EC) 1 Capsules By Mouth every day. paroxetine (paroxetine 20 mg Tab) 1 Tablets By Mouth 2 times a day. warfarin (Coumadin 3 mg Tab) 0.5 Tablets By Mouth Saturday & . Refills: 1. warfarin (warfarin 3 mg Tab) 1 Tablets By Mouth Saturday,Saturday,Saturday & Saturday. Refills: 0. Care Team Members: Attending Physician: Ami PETTY DO Consulting Physician: Giovany Rico DO Referring Physician: Follow up: With: Address: When: Recommend outpatient DEXA scan With: Address: When: Recommend outpatient PFTs once stable from this event. With: Address: When: Giovany Rico [address] [place] [address] Business (1) Within 2 weeks With: Address: When: ARTUR MELGOZA [address] [phone] Comments: Call for followup appointment when d/c from SNF Type Location Start Finish State Anticoagulation Follow Up 15 (FT) Secured Location 09/19/2021 3:00 PM 09/19/2021 3:15 PM Confirmed Secured Appointment Type Secured Location 10/05/2021 9:00 AM 10/05/2021 10:00 AM Confirmed Secured Appointment Type Secured Location 10/05/2021 10:00 AM 10/05/2021 10:15 AM Confirm (more content not included)... Normal [facility] Inpatient Patient Summaryon 09-15-2021 Inpatient Patient Summary [facility] [address] [place], [place] [address] Patient Discharge Instructions PERSON INFORMATION Name: LISA ASTORGA Date of : 1935 Current Date: 09/15/2021 13:05:25 PHYSICIANS Admitting Physician: Ami PETTY DO Primary Care Physician: ARTUR MELGOZA DO PCP Phone Number: Comment: Discharge Diagnosis: 1:Fracture of multiple pubic rami; 2:Sacral fracture; 3:Arm contusion; 4:Coagulopathy; 5:UTI (urinary tract infection); 6:Reactive airway disease; 7:Smoker; 8:Anemia; 9:Atrial fibrillation; 10:Hypertension; 11:Hypercholesterolemia; 12:CKD (chronic kidney disease), stage III; 13:Hypothyroid; 14:Gout; 15:Depression; 16:DVT prophylaxis Condition at Discharge: Stable LISA ASTORAG has been given the following list of follow-up instructions, prescriptions, and patient education materials: PATIENT FOLLOW-UP INFORMATION Diet: Regular, Fat Modified- Low cholesterol, Low Sodium- 2000 mg Discharge Activity: Ambulate as tolerated, Expect mild pain, Activity as tolerated Discharge Restrictions: No driving Wound Care Instructions: Remove Your Dressing In Days Call Your Doctor For: IF UNABLE TO CONTACT YOUR PHYSICIAN AND YOU FEEL IT IS AN EMERGENCY, GO TO THE NEAREST EMERGENCY ROOM OR CALL 911 Home Treatment: Devices/Equipment: Cane, Commode, Walker Special Services: Additional Instructions: Recommend repeat PT/INR in 3 days and call [facility] coumadin clinic for further orders as they manage coumadin for the patient Follow up with orthopedic in 2 wks or sooner if pt. is not progressing well Fall precautions Keep RUE elevated, ice prn Primary Care Physician to provide the following pending test results: Blood culture Follow up: With: Address: When: Recommend outpatient DEXA scan With: Address: When: Recommend outpatient PFTs once stable from this event. With: Address: When: Giovany iRco [address] [place], [place] [id number] [facility] () Within 2 weeks With: Address: When: ARTUR MELGOZA [address] [phone] Comments: Call for followup appointment when d/c from SNF In the event that this physician does not participate in your insurance network, please consult with your insurance company to find a nearby participating provider. Type Location Start Finish State Anticoagulation Follow Up 15 (FT) Secured Location 09/19/2021 3:00 PM 09/19/2021 3:15 PM Confirmed Secured Appointment Type Secured Location 10/05/2021 9:00 AM 10/05/2021 10:00 AM Confirmed Secured Appointment Type Secured Location 10/05/2021 10:00 AM 10/05/2021 10:15 AM Confirmed Comment: DYANA Perez SONDRA S, have received the attached patient education materials/instructions and have verbalized understanding: Patient Signature Date Clinican/Nurse Signature Date HERE ARE THE MEDICATION CHANGES THAT OCCURRED DURING YOUR HOSPITAL STAY New Medications Printed Prescriptions acetaminophen-oxycodone (Percocet 325 mg-5 mg Tab) 1 Tablets By Mouth every 6 hours as needed Pain for 3 Days. Refills: 0. Last Dose: Next Dose: Other Medications albuterol (albuterol 0.083% Inh Elizabeth 3 mL UD) 3 Milliliter Nebulized inhalation (aerosol) every 2 hours as needed Shortness of breath or wheezing. Last Dose: Next Dose: albuterol-ipratropium (DuoNeb 2.5 mg-0.5 mg/3 mL Soln-Inh) 3 Milliliter Inhalation 4 times a day. Last Dose: Next Dose: benzonatate (Tessalon 100 mg Cap) 1 Capsules By Mouth 3 times a day as needed Cough. Last Dose: Next Dose: budesonide (budesonide 0.5 mg/2 mL Inh Susp) 2 Milliliter Nebulized inhalation (aerosol) 2 times a day. Last Dose: Next Dose: melatonin (melatonin 3 mg Tab) 3 Tablets By Mouth at bedtime as needed Insomnia. Last Dose: Next Dose: Medications to Continue Taking That Have Changed Other Medications START: acetaminophen (acetaminophen 325 mg Tab) 2 Tablets By Mouth every 6 hours as needed Pain. not to exceed 4000 mg/day. Last Dose: Next Dose: STOP: acetaminophen (Tylenol 8 HR Arthritis Pain) 650 Milligram By Mouth every 8 hours. STOP: acetaminophen (Tylenol) 650 Milligram By Mouth at bedtime. START: aspirin (aspirin 81 mg Chew Tab) 1 Tablets Chewed every day. May resume this med once ecchymosis has improved and if hgb remains stable. Last Dose: Next Dose: STOP: aspirin (aspirin 81 mg Chew Tab) 1 Tablets Chewed every day. START: magnesium oxide (magnesium oxide 400 mg Tab) 1 Tablets By Mouth every day. Last Dose: Ne (more content not included)... [facility] Interdisciplinary Note - Stevan e Manageron 09-15-2021 Interdisciplinary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 (Access High Sensitivity Troponin I Instructions For Use, Marii Cecilio, May 2018) Performed By: #### 1 [id number] ####[facility] [address] [address] Coding Summary.on 08-08-2021 Coding Summary. [id number] [file] b2xs (more content not included)... Normal [facility] Auto Diffon 07-25-2021 Basophils/100 WBC (Bld) 0.9 % Normal 0.0-2.0 [facility] Comment on above: Order Comment: Order Added by Discern Expert. Performed By: #### 2 800201, 3388060, 9566750, 7554729, 73143823 ####[address] [place] [address] Basophils/Leukocytes Auto (B ld) [Pure # fraction] 0.1 E9/L Normal 0.0-0.2 [facility] Comment on above: Order Comment: Order Added by Discern Expert. Performed By: #### 2 337058, 0415261, 8460676, 6642306, 61728084 ####[address] [address] Eosinophils/100 WBC (Bld) 1.4 % Normal 0.0-8.0 [facility] Comment on above: Order Comment: Order Added by Discern Expert. Performed By: #### 2 910641, 8930811, 6875822, 9334117, 07393190 ####[address] [place] [address] Eosinophils/Leukocytes Auto (Bld) [Pure # fraction] 0.1 E9/L Normal 0.0-0.5 [facility] Comment on above: Order Comment: Order Added by Discern Expert. Performed By: #### 2 110897, 0468969, 5673727, 6481268, 63311786 ####[facility] [address] [place] [address] Lymphocytes/100 WBC (Bld) 19.2 % Normal 14.0-50.0 [facility] Comment on above: Order Comment: Order Added by Discern Expert. Performed By: #### 2 030699, 4375162, 0279950, 7215483, 01669401 ####[facility] [address] [place] [address] Lymphocytes/Leukocytes Auto (Bld) [Pure # fraction] 1.6 E9/L Normal 1.0-4.0 [facility] Comment on above: Order Comment: Order Added by Discern Expert. Performed By: #### 2 497142, 4531634, 4942693, 2532434, 07492470 ####[address] [address] Monocytes/100 WBC (Bld) 5.3 % Normal 4.0-14.0 [facility] Comment on above: Order Comment: Order Added by Discern Expert. Performed By: #### 2 304087, 8415740, 6278737, 9176937, 59492081 ####[address] [place] [address] Monocytes/Leukocytes Auto (B ld) [Pure # fraction] 0.5 E9/L Normal 0.2-1.0 [facility] Comment on above: Order Comment: Order Added by Discern Expert. Performed By: #### 2 246113, 9289266, 1696517, 9284241, 56783231 ####[address] [place] [address] Neutrophils/100 WBC (Bld) 73.2 % Normal 36.0-75.0 [facility] Comment on above: Order Comment: Order Added by Discern Expert. Performed By: #### 2 564998, 5492510, 0082408, 0726628, 55436735 ####[address] [place] [address] Neutrophils/Leukocytes Auto (Bld) [Pure # fraction] 6.3 E9/L Normal 2.0-7.5 [facility] Comment on above: Order Comment: Order Added by Discern Expert. Performed By: #### 2 014537, 8104218, 1879965, 6550311, 52661942 ####[facility] [address] [place] [address] BMPon 07-25-2021 Creatinine [Mass/Vol] 2.1 mg/dL High 0.5-1.3 [facility] Comment on above: Performed By: #### 2 884108, 8147348, 5769267, 6698605, 65209530 ####[facility] [address] [place] [address] Urea nitrogen [Mass/Vol] 19 mg/dL Normal 5-21 [facility] Comment on above: Performed By: #### 2 273972, 0578493, 6749656, 6101613, 87088474 ####[facility] [address] [place] [address] Urea nitrogen/Creatinine [Mass ratio] 9 No Units Low 10-20 [facility] Comment on above: Performed By: #### 2 735628, 9115432, 0206175, 9198781, 27623490 ####[facility] [address] [place] [address] Anion gap [Moles/Vol] 11 mmol/L Normal 6-16 [facility] Comment on above: Performed By: #### 2 727009, 1800463, 1539567, 2951368, 35295412 ####[facility] [address] [place] [address] Calcium [Mass/Vol] 9.6 mg/dL Normal 8.9-11.1 [facility] Comment on above: Performed By: #### 2 754124, 4241598, 5262261, 4826155, 60963584 ####[facility] [address] [place] [address] Chloride [Moles/Vol] 109 mmol/L Normal 101-111 [facility] Comment on above: Performed By: #### 2 565439, 0994999, 6905701, 2615608, 54840654 ####[facility] [address] [place] [address] CO2 [Moles/Vol] 23 mmol/L Normal 21-31 [facility] Comment on above: Performed By: #### 2 142262, 8548094, 6812621, 0424417, 68185306 ####[facility] [address] [place] [address] Glucose [Mass/Vol] 90 mg/dL Normal 55-199 [facility] Comment on above: Result Comment: If t his glucose result represents a fasting glucose, interpretation should refer to the following reference range: 55-99 mg/dL Performed By: #### 2 595162, 2646171, 7575990, 3053068, 56790042 ####[facility] [address] [place] [address] Potassium [Moles/Vol] 3.8 mmol/L Normal 3.5-5.3 [facility] Comment on above: Performed By: #### 2 730054, 4953531, 3667290, 8574338, 86056553 ####[facility] [address] [place] [address] Sodium [Moles/Vol] 139 mmol/L Normal 135-145 [facility] Comment on above: Performed By: #### 2 484697, 5948732, 3694863, 7530804, 41673384 ####[facility] [address] [place] [address] CBC w/ Auto Diffon 1 Erythrocyte distribution wid th (RBC) [Ratio] 15.2 % High 10.9-14.2 [facility] Comment on above: Performed By: #### 2 794712, 3496388, 7334372, 0636314, 80060399 ####[address] [address] Hematocrit (Bld) [Volume fraction] 35.8 % Normal 34.0-46.0 [facility] Comment on above: Performed By: #### 2 388063, 1819119, 8188229, 2648607, 31581300 ####[address] [address] Hemoglobin (Bld) [Mass/Vol] 11.7 g/dL Low 12.0-16. 0 [facility] Comment on above: Performed By: #### 2 327034, 8818373, 5759846, 9263700, 17437038 ####[address] [address] MCH (RBC) [Entitic mass] 33.1 pg Normal 27.0-34.0 [facility] Comment on above: Performed By: #### 2 431076, 9222448, 2585884, 1229961, 08055274 ####[address] [address] MCHC (RBC) [Mass/Vol] 32.6 g/dL Normal 31.4-36.0 [facility] Comment on above: Performed By: #### 2 851277, 4205331, 9238356, 3679029, 96697137 ####[address] [address] MCV (RBC) [Entitic vol] 101.6 fL High 80.0-100.0 [facility] Comment on above: Performed By: #### 2 738334, 3273807, 8671571, 3989098, 51535432 ####[address] [address] Platelet mean volume (Bld) [Entitic vol] 8.9 fL Normal 6.4-10.8 [facility] Comment on above: Performed By: #### 2 931326, 5434756, 1586120, 2430353, 16482251 ####[address] [place] [address] Platelets (Bld) [#/Vol] 278.0 E9/L Normal 150.0-500.0 [facility] Comment on above: Performed By: #### 2 774091, 5183826, 5607242, 9359816, 06399699 ####[facility] [address] [place] [address] RBC (Bld) [#/Vol] 3.5 E12/L Low 4.3-5.9 [facility] Comment on above: Performed By: #### 2 592075, 3810608, 7706570, 5037726, 32480095 ####[address] [place] [address] WBC corrected for nucl RBC A uto (Bld) [#/Vol] 8.6 E9/L Normal 4.0-11.0 [facility] Comment on above: Performed By: #### 2 239398, 5411119, 0800617, 2428511, 08344747 ####[address] [place] [address] CT Head or Brain w/o Contras ton 07-25-2021 CT Head or Brain w/o Contrast Exam Date/Time: 07/25/2021 05:21 EDT Reason for Exam: Head trauma, mod-severe;Other (please specify) Report IMPRESSION: CHRONIC FINDINGS. NO EVIDENCE OF ACUTE INTRACRANIAL HEMORRHAGE. CLINICAL HISTORY: Head trauma, mod-severe. COMPARISON: 04/26/2012. COMMENT: Unenhanced images were obtained. The third and fourth ventricles and basal cisterns appear within normal limits. The lateral ventricles, sylvian fissures, and cortical sulci bilaterally are dilated. There is no mass effect nor midline shift. There are multiple ill-defined areas of mildly decreased attenuation involving cerebral white matter bilaterally and basal ganglia bilaterally, that are nonspecific, but with small vessel ischemic changes suspected. There is no evidence of recent intracranial hemorrhage nor extra-axial hematoma. No mass lesion is evident. No skull fracture is noted. All CT scans at this facility use dose modulation, iterative reconstruction, and/or weight based dosing when appropriate to reduce radiation dose to as low as reasonably achievable. FINAL REPORT Dictated: 07/25/2021 8:05 am Jameson Hernandez M.D. Signed (Electronic Signature): 07/25/2021 8:05 am Signed by: Jameson Hernandez M.D. Transcribed by: KAYLEE Technologist: SHADIA Technical Comments Contrast: None Normal [facility] CT Spine Cervical w/o Contra ston 07-25-2021 CT Spine Cervical w/o Contrast Exam Date/Time: 07/25/2021 05:21 EDT Reason for Exam: Neck trauma;Other (please specify) Report IMPRESSION: MULTILEVEL DEGENERATIVE CHANGES. NO EVIDENCE OF ACUTE/RECENT CERVICAL SPINE FRACTURE. CLINICAL HISTORY: Neck trauma. COMPARISON: 04/26/2012. COMMENT: Unenhanced images were obtained. The bones are osteopenic. There are hypertrophic degenerative arthritic changes at the atlantoodontoid articulation. There is interspace narrowing at C6-C7. There are hypertrophic spurs of cervical and upper thoracic vertebral bodies, with hypertrophic spurring most prominent at the C6-C7 level. There are hypertrophic arthritic changes of cervical facet joints, more prominent at C2-C3 on the left, C3-C4 bilaterally, C4-C5 on the left, C5-C6 on the left, and C7-T1 on the left. There are Schmorl's nodes of endplates on either side of the C6-C7 interspace. The cervical vertebral bodies are maintained in height. No acute/recent fracture is noted. There is mild chronic grade 1 anterolisthesis at C3-C4 and C4-C5. There is no prevertebral retropharyngeal soft tissue swelling. Evaluation of cervical intervertebral discs is limited, but there is an anterior extradural defect at C6-C7, in large part due to posterior hypertrophic spurring of the vertebral bodies. Of incidental note, there are some small areas of hyperlucency in the visualized portions of the upper lobes consistent with emphysematous changes. All CT scans at this facility use dose modulation, iterative reconstruction, and/or weight based dosing when appropriate to reduce radiation dose to as low as reasonably achievable. FINAL REPORT Dictated: 07/25/2021 8:16 am Jameson Hernandez M.D. Signed (Electronic Signature): 07/25/2021 8:16 am Signed by: Jameson Hernandez M.D. Transcribed by: KAYLEE Technologist: SHADIA Normal [facility] Discharge Instructionson Discharge Instructions [id number]:127 Normal [facility] Discharge Instructions [id number]:127 Normal [facility] ED Clinical Summaryon 2020 ED Clinical Summary (Inserted Image. Florecita ble to display) [place] [id number] ED Clinical Summary Person Information Name: LISA ASTORGA Arelis/[facility] Age: 85 Years : 1935 Sex: Female Language: Nicaraguan PCP: ARTUR MELGOZA DO Marital Status: Phone: [phone] MRN: [id number] Visit Id: Visit Reason: Fall; FALL Speciality: Acuity: 3 Enc Type: Emergency Med Service: Emergency Arrival: 07/25/2021 03:18:21 Discharge: 07/25/2021 12:34:09 LOS: 000 09:16 Checkin: 07/25/2021 03:18:21 Checkout: 07/25/2021 12:34:09 Dispo Type: Home (Routine DC) EVENTS: Event Name Event Status Request Date/Time Start Date/Time Complete Date/Time Arrive Complete 07/25/2021 03:18:21 07/25/2021 03:18:21 07/25/2021 03:18:21 Document Home Meds Request 07/25/2021 03:18:21 Triage Complete 07/25/2021 03:18:21 07/25/2021 03:33:37 07/25/2021 03:33:37 Bed Assign Complete 07/25/2021 03:26:26 07/25/2021 03:26:26 07/25/2021 03:26:26 Dr Exam Complete 07/25/2021 03:26:27 07/25/2021 04:25:01 07/25/2021 04:25:01 RN Exam Complete 07/25/2021 03:26:27 07/25/2021 03:36:47 07/25/2021 03:36:47 Registration Complete 07/25/2021 03:34:27 07/25/2021 03:34:27 07/25/2021 03:34:27 Reg Complete Request 07/25/2021 03:34:27 Reg Bed Request Complete 07/25/2021 03:34:27 07/25/2021 03:34:27 07/25/2021 03:34:27 EKG Request 07/25/2021 03:35:01 Trauma II Request 07/25/2021 03:58:25 Registration Complete 07/25/2021 04:25:01 07/25/2021 04:32:12 07/25/2021 04:32:12 Pending Labs Complete 07/25/2021 04:35:32 07/25/2021 05:22:40 Lab Complete 07/25/2021 04:35:32 07/25/2021 05:22:40 CT Complete 07/25/2021 04:35:32 07/25/2021 04:52:52 07/25/2021 05:21:52 X-Ray Complete 07/25/2021 04:35:32 07/25/2021 04:52:53 07/25/2021 05:21:36 Pending Labs Complete 07/25/2021 05:01:27 07/25/2021 05:01:27 07/25/2021 05:22:42 Lab Complete 07/25/2021 05:01:27 07/25/2021 05:01:27 07/25/2021 05:22:42 Pending Labs Complete 07/25/2021 05:06:40 07/25/2021 05:06:40 07/25/2021 05:06:46 Lab Complete 07/25/2021 05:06:40 07/25/2021 05:06:40 07/25/2021 05:06:46 Wet Read Request 07/25/2021 05:21:36 Discharge Complete 07/25/2021 08:23:39 07/25/2021 12:34:13 07/25/2021 12:34:13 Transfer Complete 07/25/2021 12:34:13 07/25/2021 12:34:13 07/25/2021 12:34:13 ADDRESS: [address] [place] [phone] PHYS DOC NOTES: Addendum by Edgar Espana DO on July 25, 2021 08:28:51 EDT MEDICAL INFORMATION: Prescriptions Given: Medications to Continue with No Changes Other Medications acetaminophen (Tylenol) 650 Milligram By Mouth at bedtime. acetaminophen-hydrocodone (Garfield 325 mg-5 mg oral tablet) 1 Tablets By Mouth every 6 hours as needed for pain. Refills: 0. allopurinol (allopurinol 100 mg Tab) 1 Tablets By Mouth every day. aspirin (aspirin 81 mg Chew Tab) 1 Tablets Chewed every day. busPIRone (busPIRone 15 mg Tab) 1 Tablets By Mouth 2 times a day. fenofibrate (fenofibrate 134 mg oral capsule) 1 Capsules By Mouth once a day (in the evening). gabapentin (gabapentin 100 mg Cap) 1 Capsules By Mouth 3 times a day. levothyroxine (levothyroxine 150 mcg (0.15 mg) Tab) 1 Tablets By Mouth every day. metoprolol (metoprolol 25 mg ER Tab) 1.5 tab(s) 37.5mg Oral Daily. Refills: 0. Misc Prescription (INR in 3 days) 0. Fax results to Dr Melgoza.. Refills: 0. Misc Prescription (Walker) 0. Instructions on use, dispense one unit. Refills: 0. multivitamin with minerals (Centrum Silver Women's) 1 Tablets By Mouth every day. omeprazole (omeprazole 40 mg Cap-EC) 1 Capsules By Mouth every day. oxybutynin (oxybutynin 10 mg ER Tab) 1 tab(s) Oral Daily; as needed Urinary discomfort. paroxetine (paroxetine 20 mg Tab) 1 Tablets By Mouth 2 times a day. potassium chloride (potassium chloride 10 mEq ER Tab) 1 Tablets By Mouth every day. simvastatin (simvastatin 40 mg Tab) 1 Tablets By Mouth once a day (at bedtime). tramadol (tramadol 50 mg oral tablet) 1 Tablets By Mouth 3 times a day as needed as needed for pain. triamcinolone topical (triamcinolone Top 0.1% Crm 80 gram) 1 Application Topical every day as needed Other (see comment). warfarin (Coumadin 3 mg Tab) 1 Tablets By Mouth every day. Refills: 1. warfarin (warfarin 3 mg Tab) 1 Tablets By Mouth every day. Refills: 0. PATIENT EDUCATION INFORMATION: Instructions: Metacarpal Fracture Follow up: With: Address: When: Raad Morales [address], [address] [phone] Business (1) In 3 days 07/28/2021 DIAGNOSIS: 1:Contusion of right hand; 2:Facial contusion; 3:Right hand fracture Normal [facility] ED Note-Physicianon 07-25-20 ED Note-Physician Basic Information Time Seen: Duncan Cook MD 07/25/2021 04:25 Chief Complaint Pt. presents via [facility] , Pt. was sitting on her bed when she felt something hit her head which caused her to slip out of bed and fall. Pt. complaining of bilateral knee pain that she rates a 7/10. History of Present Illness patient believes something fell onto her hand at home while she was getting in bed. States she believes it struck here right islam also. No LOC. No headache. States she came to the hospital because she is on Coumadin. She otherwise feels well Review of Systems Constitutional: no fever, no chills, no sweats, no weakness Respiratory: no shortness of breath, no cough, no orthopnea, no wheezing Cardiovascular: no chest pain, no palpitations, no edema Additional ROS info: Except as noted in the above Review of Systems and in the History of Present Illness all other systems have been reviewed and are negative or noncontributory. Physical Exam Vitals & Measurements T: 36.8 ?C (Oral) HR: 58(Peripheral) RR: 18 BP: 172/92 SpO2: 95% HT: 163 cm HT: 163 cm HT: 163.0 cm WT: 79.6 kg WT: 79.6 kg WT: 79.6 kg BMI: 29.96 BMI: 29.96 General: alert, no acute distress Skin: warm, dry Head: no trauma, normocephalic Neck: Trachea midline, no adenopathy, no tenderness Eye: normal conjunctiva, sclera clear ENMT: , oral mucosa moist, no pharyngeal erythema or exudate Cardiovascular: regular rate and rhythm, normal peripheral perfusion Respiratory: Lungs CTA, respirations non labored Chest wall: no deformity. Gastrointestinal: soft, non distended, no tenderness, no guarding. Back: No tenderness, Normal ROM, Normal alignment. Extremities: no deformity, mild ecchymosis dorsum right hand. Nontender Neurological: oriented x 4, LOC appropriate for age, CN intact, motor strength equal & normal bilaterally, sensation equal & normal bilaterally, speech normal Psychiatric: cooperative, affect appropriate for age, normal judgement, normal psychiatric thoughts. Procedure fiber glass splinting material used to fashion volar splint for right hand. Tolerated well and N/V intact Medical Decision Making states she believes a fan or similar fell striking her hand and right forehead. xray with fracture of her 4th MC. CT brain and C-spine ordered. results of CTs pending. right hand splinted and will plan discharge once CTs return without acute findings Assessment/Plan 1. Contusion of right hand (S60.221A: Contusion of right hand, initial encounter) 2. Facial contusion (S00.83XA: Contusion of other part of head, initial encounter) 3. Right hand fracture (S62.91XA: Unspecified fracture of right wrist and hand, initial encounter for closed fracture) Orders: Automated Diff Basic Metabolic Panel CBC w/ Auto Diff CT Head or Brain w/o Contrast CT Spine Cervical w/o Contrast ECG 12 Lead Adult eGFR PT XR Hand 3+ Views Right Disposition Plan Discharge Prescription List Prescriptions No active prescription medications Follow-up No qualifying data available Problem List/Past Medical History Ongoing Acid reflux Anxiety CKD (chronic kidney disease) Depression Hypercholesterolemia Hypothyroid Smoker Historical cyst on foot Procedure/Surgical History left ankle Achilles rupture repair (07/04/2015), Cholecystectomy, Hysterectomy, kidney stones, Knee surgery, shoulder surgery, Tonsillectomy. Medications Inpatient No active inpatient medications Home allopurinol 100 mg Tab, 100 mg= 1 tab(s), Oral, Daily aspirin 81 mg Chew Tab, 81 mg= 1 tab(s), Chewed, Daily busPIRone 15 mg Tab, 15 mg= 1 tab(s), Oral, BID Centrum Silver Women's, 1 tab(s), Oral, Daily Coumadin 3 mg Tab, 3 mg= 1 tab(s), Oral, Daily, 1 refills fenofibrate 134 mg oral capsule, 134 mg= 1 cap(s), Oral, qPM gabapentin 100 mg Cap, 100 mg= 1 cap(s), Oral, TID INR in 3 days, 0 levothyroxine 150 mcg (0.15 mg) Tab, 150 mcg= 1 tab(s), Oral, Daily metoprolol 25 mg ER Tab, See Instructions Garfield 325 mg-5 mg oral tablet, 1 tab(s), Oral, q6hr, PRN omeprazole 40 mg Cap-EC, 40 mg= 1 cap(s), Oral, Daily oxybutynin 10 mg ER Tab, See Instructions, PRN paroxetine 20 mg Tab, 20 mg= 1 tab(s), Oral, BID potassium chloride 10 mEq ER Tab, 10 mEq= 1 tab(s), Oral, Daily simvastatin 40 mg Tab, 40 mg= 1 tab(s), Oral, Once a day (at bedtime) tramadol 50 mg oral tablet, 50 mg= 1 tab(s), Oral, TID, PRN triamcinolone Top 0.1% Crm 80 gram, 1 khushbu, Topical, Daily, PRN, Self Directed Tylenol, 650 mg, Oral, Bedtime Walker, 0 warfarin 3 mg Tab, 3 mg= 1 tab(s), Oral, Daily Allergies Latex Tetanus-Diphtheria Toxoids, Adult (Td) Valium penicillins Social History Alcohol - Low Risk, 06/29/2015 margaita a year one, 06/29/2015 Exercise - Does not exercise, 11/03/2019 Other Caffeine-none, 11/03/2019 Substance Abuse - Denies Substance Abuse, 06/29/2015 Tobacco - High Risk, 06/29/2015 10 or more cigarettes (1/2 pack or more)/day in last 30 days Tobac (more content not included)... [facility] Comment on above: Result Comment: Elec tronically Signed By: Edagr Espana DO.gil\Date and Time Signed: 07/25/21 08:31 EDT ED Patient Education Noteon 07-25-2021 ED Patient Education Note Emergency Medicine Metacarpal Fracture A metacarpal fracture is a break in one of the five bones in your hand. The bones extend from your wrist to your knuckles. The metacarpal bones connect your thumb and fingers to your wrist. A metacarpal fracture may be treated with with a splint, cast, or surgery. What are the causes? This injury may be caused by: ? A fall. ? A hard, direct hit to the hand. ? An injury that squeezes a knuckle, stretches a finger out of place, or crushes the hand. What increases the risk? This injury is more likely to happen in people who: ? Play contact sports. ? Have a condition called osteoporosis. This causes the bones to become thin and brittle. What are the signs or symptoms? Symptoms may include: ? Pain that gets worse when moving the fingers or the hand. ? Swelling. ? Stiffness. ? Bruising. ? Inability to move a finger. ? A finger that looks misshapen. ? An abnormal bend or bump in the hand or finger (deformity). How is this diagnosed? This condition may be diagnosed based on: ? Your symptoms and medical history. ? A physical exam. ? An X-ray. How is this treated? Treatment for this injury depends on the severity of the fracture, and how the pieces of the broken bone line up with each other (alignment). ? If your broken bone is in good alignment, you may need to: ? Wear a splint or cast for several weeks. ? Have the injured finger taped to an uninjured finger next to it (rachael taping). ? If the pieces of the broken bone are out of alignment, your health care provider may: ? Perform a minimally-invasive surgery to align the fracture (closed reduction and internal fixation, CRIF). In this surgery, metal screws, pins, or wires are used to put the bones back in their place. ? Align the fracture and fix the bones into place with metal screws, plates, or wires (open reduction and internal fixation, ORIF). ? Move the bones back into position without surgery (closed reduction). ? After alignment, you will need to wear a splint or cast for several weeks. Treatment may also include: ? Follow-up visits and X-rays to make sure you are healing well. ? Physical therapy after your cast or splint is removed. Follow these instructions at home: If you have a splint: ? Wear it as told by your health care provider. Remove it only as told by your health care provider. ? Loosen the splint if your fingers tingle, become numb, or turn cold and blue. ? Keep the splint clean. ? If you have a splint that is not waterproof: ? Do not let it get wet. ? Cover it with a watertight covering when you take a bath or a shower. If you have a cast: ? Do not stick anything inside the cast to scratch your skin. Doing that increases your risk for infection. ? Check the skin around the cast every day. Tell your health care provider about any concerns. ? You may put lotion on dry skin around the edges of the cast. Do not put lotion on the skin underneath the cast. ? Keep the cast clean. ? If the cast is not waterproof: ? Do not let it get wet. ? Cover it with a watertight covering when you take a bath or a shower. Activity ? Do not lift or hold anything with your injured hand. ? Return to your normal activities as told by your health care provider. Ask your health care provider what activities are safe for you. ? Do physical therapy exercises as directed. Driving ? Do not drive or use heavy machinery while taking pain medicine. ? Do not drive while wearing a cast or splint on a hand that you use for driving. Managing pain, stiffness, and swelling ? If directed, put ice on painful areas: ? If you have a removable splint, remove it as told by your health care provider. ? Put ice in a plastic bag. ? Place a towel between your skin and the bag, or between your cast and the bag. ? Leave the ice on for 20 minutes, 2?3 times a day. ? Move your fingers often to avoid stiffness and to lessen swelling. ? Raise (elevate) your hand above the level of your heart while you are sitting or lying down. General instructions ? Do not put pressure on any part of the cast or splint until it is fully hardened. This may take several hours. ? Take ihye-kil-lpmtzin and prescription medicines only as told by your health care provider. ? Do not use any products that contain nicotine or tobacco, such as cigarettes and e-cigarettes. These can delay bone healing. If you need help quitting, ask your health care provider. ? Do not take baths, swim, or use a hot tub until your health care provider approves. Ask your health care provider if you may take showers. You may only be allowed to take sponge baths. ? Keep all follow-up visits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
== END 2023-09-24 16:35 | DRG 871 ==
LOC: ER 21:01 → ICU 21:34 → MS 09-24 07:40
PROVIDERS: Internal Medicine; Physician Assistant; Admitting Provider Internal Medicine; Emergency Provider Emergency Medicine; PCP Family Medicine; Visit Provider Family Medicine
DX: A41.52 Sepsis due to Pseudomonas (principal); I21.A1 Myocardial infarction type 2; J12.1 Respiratory syncytial virus pneumonia; J96.21 Acute and chronic respiratory failure with hypoxia; I48.20 Chronic atrial fibrillation, unspecified; N17.9 Acute kidney failure, unspecified; E87.20 Acidosis, unspecified; I50.42 Chronic combined systolic (congestive) and diastolic (congestive) heart failure; E03.9 Hypothyroidism, unspecified; E78.5 Hyperlipidemia, unspecified; F41.9 Anxiety disorder, unspecified; Z79.890 Hormone replacement therapy; Z79.899 Other long term (current) drug therapy; Z96.653 Presence of artificial knee joint, bilateral; Z79.01 Long term (current) use of anticoagulants; Z90.710 Acquired absence of both cervix and uterus; Z90.49 Acquired absence of other specified parts of digestive tract; Z96.612 Presence of left artificial shoulder joint; Z87.891 Personal history of nicotine dependence; Z20.822 Contact with and (suspected) exposure to COVID-19; Y95 Nosocomial condition; R65.20 Severe sepsis without septic shock; N18.32 Chronic kidney disease, stage 3b; Z99.81 Dependence on supplemental oxygen; Z66 Do not resuscitate; Z87.01 Personal history of pneumonia (recurrent); M62.50 Muscle wasting and atrophy, not elsewhere classified, unspecified site; E87.6 Hypokalemia; E87.5 Hyperkalemia
CPT/HCPCS: 0202U; 36415; 36600; 51702; 71045; 71250; 74176; 80048; 80053; 80202; 82800; 82805; 82948; 83605; 83880; 84132; 84145; 84484; 85025; 85027; 85610; 85730; 87040; 87150; 87186; 93005; 93308; 94640; 94660; 94761; 96365; 96366; 96367; 96375; 96376; 97110; 97161; 97165; 97530; 97535; 99285; J2920; J2930; J3370; Q3014

== ENCOUNTER 2023-09-26 17:13 | Inpatient (IN) | payer MEDICARE, MEDICAID, SELFPAY ==
[2023-09-26] VITALS (50 sets, daily range): BP systolic 114–153; BP diastolic 58–87; PULSE 76–93; RESP 10–26; TEMP 36.7; O2SAT 81–97; BMI 20.8
--- NOTE | 2023-09-26 17:15 | CT_ITS ---
[address] [address] Patient Name: YAMINI TURPIN MRN: [id number] date: 1935 Sex: F Assigned Patient Location: ER Current Patient Location: ED.MAIN Accession/Order Number: [id number] Exam Date: 09/26/2023 18:30 Report Date: 09/26/2023 19:48 At the request of: NICOLASA HANEY Procedure: CT angio chest EXAM: CT angio chest HISTORY: Hypoxemia. COMPARISON: Unenhanced chest CT 09/19/2023 and 05/31/2023. TECHNIQUE: Enhanced helical acquisition obtained through the pulmonary arteries with 3-D, MIP, and MPR reconstructions. FINDINGS: No evidence of pulmonary arterial embolism. Cardiomegaly. Enlargement of the central pulmonary arterial vasculature. No enlarged lymph nodes within the chest. Volume loss and consolidation within the bilateral lower lobes. Mild pulmonary opacification within the posterior segment of the right upper lobe and dependently within the right middle lobe. Mild patchy peribronchial airspace opacities noted throughout the bilateral upper lobes. Small-moderate sized bilateral pleural effusions. Partially visualized bilateral renal cysts. Chronic severe compression fracture deformity of T9 vertebral body with associated chronic 6 mm retropulsion. Diffuse demineralization. CT/CT angio chest IMPRESSION: 1. No evidence of pulmonary arterial embolism. 2. Volume loss and consolidation bilateral lower lobes, mild consolidation within the posterior segment of the right upper lobe and dependently within the right middle lobe. Additionally, bilateral upper lobe peribronchial airspace opacities are present. Findings are most likely secondary to multilobar pneumonia. 3. Small-moderate sized bilateral layering pleural effusions. 4. Cardiomegaly. 5. Enlargement of central pulmonary arterial vasculature, likely secondary to pulmonary arterial hypertension. 6. Diffuse demineralization. Severe chronic compression fracture of T9 with chronic 6 mm retropulsion, unchanged. Electronically authenticated by: TASHA CRAIG Date: 09/26/2023 19:48
--- NOTE | 2023-09-26 17:15 | ECG_ITS ---
[facility] Test Date: 2023-09-26 Pat Name: YAMINI TURPIN Department: Room: - Gender: Female Family Service Counselor: : 1935 Requested By: NOHELIA GRACIA Order Number: [id number] Reading MD: SHIELA LOWERY Measurements Intervals Rowdy Rate: 84 P: -68 PA: 168 QRS: -42 QRSD: 128 T: 106 QT: 396 QTc: 437 Interpretive Statements Sinus rhythm 3414 Cannot rule out septal myocardial infarction, age undetermined 5234 Left ventricular hypertrophy with repolarization abnormality 7200 Abnormal left axis deviation 9150 abnormal ECG Electronically Signed On 09-27-2023 7:15:17 EST by SHIELA LOWERY
--- NOTE | 2023-09-26 17:24 | ED_ITS ---
Documented by User: WOLF Aleman 09/26/23 20:09 HPI - SOB/Dyspnea General Chief Complaint: Shortness of Breath/Dyspnea Stated Complaint: LOW SPO2 Time Seen by Provider: 09/26/23 17:14 Mode of arrival: ambulance History of Present Illness HPI Narrative: Patient is an 88-year-old female DNR Com[employer] Care arrest who presents to the emergency department by ambulance from the [place] where she is a resident for low pulse oximetry. Patient was seen by myself and admitted to this facility last week for hypoxia and respiratory distress on BiPAP, she was found to have multifocal pneumonia and RSV. On today's evaluation, she appears significantly clinically improved from her previous presentation to this emergency department, retirement staff states that the patient's pulse oximetry was in the low 80s and they placed her on 9 L by nasal cannula and sent her to the ER. She does not complain of chest pain. She states overall she is feeling much better since last week. No other medications given prior to arrival. Related Data Home Medications Medication Instructions Recorded Confirmed amiodarone 200 mg tablet 200 mg PO DAILY 05/30/23 09/26/23 atorvastatin 40 mg tablet 40 mg PO DAILY 05/30/23 09/26/23 budesonide 0.5 mg/2 mL suspension 0.5 mg inhalation BID 05/30/23 09/26/23 for nebulization buspirone 15 mg tablet 15 mg PO BID 05/30/23 09/26/23 ferrous sulfate 325 mg (65 mg 325 mg PO DAILY 05/30/23 09/26/23 iron) tablet (FeroSul) gabapentin 100 mg capsule 100 mg PO Q8H 05/30/23 09/26/23 ipratropium 0.5 mg-albuterol 3 mg 3 ml inhalation BID PRN shortness 05/30/23 09/26/23 (2.5 mg base)/3 mL nebulization of breath or wheezing soln levothyroxine 150 mcg tablet 150 mcg PO DAILY 05/30/23 09/26/23 magnesium oxide 400 mg (241.3 mg 400 mg PO BID 05/30/23 09/26/23 magnesium) tablet melatonin 3 mg tablet 3 mg PO DAILY 05/30/23 09/26/23 owmgkhzkpwrl-[id number]-[id number] 1 tab PO DAILY 05/30/23 09/26/23 fumarate 7.5 mg-folic acid 400 mcg tablet omeprazole 20 mg capsule,delayed 20 mg PO BID 05/30/23 09/26/23 release paroxetine HCl 10 mg tablet 10 mg PO DAILY 05/30/23 09/26/23 apixaban 2.5 mg tablet 2.5 mg PO BID 09/19/23 09/26/23 acetaminophen 325 mg tablet 650 mg PO Q6H PRN pain 09/26/23 09/26/23 loperamide 2 mg capsule (Imodium 2 mg PO QID PRN gi upset 09/26/23 09/26/23 A-D) lorazepam 0.5 mg tablet (Ativan) 0.5 mg PO QID PRN agitation 09/26/23 09/26/23 Previous Rx's Medication Instructions Recorded furosemide 40 mg tablet 40 mg PO QD #30 tabs 06/05/23 levofloxacin 250 mg tablet 250 mg PO DAILY 3 days #3 tabs 09/24/23 prednisone 20 mg tablet 20 mg PO DAILY 7 days #7 tabs 09/24/23 Allergies Allergy/AdvReac Type Severity Reaction Status Date / Time diazepam [From Valium] AdvReac Intermediate Unknown Verified 09/26/23 17:17 Latex, Natural Rubber AdvReac Intermediate Verified 09/26/23 17:17 Penicillins AdvReac Intermediate Unknown Verified 09/26/23 17:17 tetanus toxoid, adsorbed AdvReac Intermediate Verified 09/26/23 17:17 pcn AdvReac Intermediate Uncoded 09/26/23 17:17 valium AdvReac Intermediate Uncoded 09/26/23 17:17 Review of Systems ROS Constitutional Denies: fever or chills Ears, nose, mouth, and throat Denies: throat pain Cardiovascular Denies: chest pain Respiratory Reports: shortness of breath and cough Gastrointestinal Denies: nausea or vomiting Musculoskeletal Denies: back pain Integumentary/Breast Denies: rash Neurological Denies: headache PFSH PFSH Medical History Stage 3b chronic kidney disease (CKD) ?N18.32 - Chronic kidney disease, stage 3b (ICD-10) Chronic atrial fibrillation ?I48.20 - Chronic atrial fibrillation, unspecified (ICD-10) Acute on chronic systolic (congestive) heart failure ?I50.23 - Acute on chronic systolic (congestive) heart failure (ICD-10) HFrEF (heart failure with reduced ejection fraction) ?I50.20 - Unspecified systolic (congestive) heart failure (ICD-10) Systolic congestive heart failure ?I50.20 - Unspecified systolic (congestive) heart failure (ICD-10) Anemia ?D64.9 - Anemia, unspecified (ICD-10) Anxiety ?F41.9 - Anxiety disorder, unspecified (ICD-10) Hypothyroidism ?E03.9 - Hypothyroidism, unspecified (ICD-10) Hyperlipemia ?E78.5 - Hyperlipidemia, unspecified (ICD-10) Chronic kidney disease ?N18.9 - Chronic kidney disease, unspecified (ICD-10) A-fib ?I48.91 - Unspecified atrial fibrillation (ICD-10) Surgical History History of bilateral knee replacement ?Z96.653 - Presence of artificial knee joint, bilateral (ICD-10) H/O: hysterectomy ?Z90.710 - Acquired absence of both cervix and uterus (ICD-10) History of cholecystectomy ?Z90.49 - Acquired absence of other specified parts of digestive tract (ICD- 10) History of arthroplasty of left shoulder ?Z96.612 - Presence of left artificial shoulder joint (ICD-10) Family History Father Family history of diabetes mellitus Brother Family history of hypertension Social History Within the past year, how often did you have a drink containing alcohol: monthly or less Smoking status: Former smoker Non-prescribed substance use: denies use Highest level of school completed/degree received: high school graduate Exam Narrative Exam Narrative: Gen.: Awake, alert, in no distress Head: Normocephalic, atraumatic ENT: Moist mucous membranes Respiratory: No respiratory distress, diminished lung sounds globally Cardio: Regular rate and rhythm Gastrointestinal: Abdomen is soft, nondistended and nontender to palpation Extremities: Moves extremities equally, no pedal edema Psych: Normal mood and affect Neuro: No focal neuro deficit Skin: Warm, dry, intact Constitutional Vital Signs, click to edit/add: Last Vital Signs Temp 98.1 F 09/26/23 17:15 Pulse 81 09/27/23 00:20 Resp 10 L 09/26/23 22:00 BP 127/86 09/27/23 00:00 Pulse Ox 98 09/27/23 00:46 O2 Del Method Vapotherm 09/27/23 00:46 O2 Flow Rate 40 09/27/23 00:46 FiO2 50 09/27/23 00:46 Course Vital Signs Vital signs: Vital Signs Blood Pressure 142/85 H 09/26/23 17:14 Temperature 98.1 F 09/26/23 17:15 Pulse Rate 81 09/27/23 00:20 Respiratory Rate 10 L 09/26/23 22:00 Blood Pressure 127/86 09/27/23 00:00 Pulse Oximetry 98 09/27/23 00:46 Oxygen Delivery Method Vapotherm 09/27/23 00:46 Oxygen Delivery Flow Rate 40 09/27/23 00:46 Fraction of Inspired Oxygen 50 09/27/23 00:46 MDM - SOB/Dyspnea MDM Narrative Medical decision making narrative: 2008: Patient placed on oxygen at 4-1/2 L by nasal cannula and continued to have borderline hypoxia in the ER. She did occasionally dip down into the high 80s for pulse oximetry. Lab studies show stable leukocytosis, improved kidney function but increased BNP. Troponin has improved from hospital stay. Patient with no complaints of chest pain. No acute EKG changes. CT angio of the chest shows continued multi lobar pneumonia and bilateral pleural effusions. There is no evidence of PE. Patient was placed on Vapotherm for comfort due to continued occasional desaturation, her nasal cannula could not be turned up any further. I discussed the case with Dr. Vidales for hospitalist service. Patient was given 80 mg IV Lasix in the ER. He recommended observing the patient after the Lasix for several hours and if her oxygen saturation does not improve she can be admitted to the hospital otherwise she has the appropriate treatment at the retirement already. Patient will be reevaluated in 3 to 4 hours by attending physician to determine if she needs to be admitted. Medical Records Attestation: I reviewed the patient's medical records. Lab Data Attestation: I reviewed the patient's lab results. Labs: Lab Results 09/26/23 09/26/23 Range/Units 17:20 17:25 WBC 15.9 H (4.0-11.0) 10^3/uL RBC 3.47 L (4.20-5.40) 10^6/uL Hgb 10.6 L (12.0-16.0) g/dL Hct 33.8 L (36.0-48.0) % MCV 97.4 (81.0-99.0) fL MCH 30.5 (26.7-34.0) pg MCHC 31.4 (29.9-35.2) g/dL RDW 14.3 (11.0-15.0) % Plt Count 121 L (150-450) 10^3/uL MPV 12.2 (9.5-13.5) fL Neut % (Auto) 97.0 H (43.0-75.0) % Lymph % (Auto) 1.5 L (20.5-60.0) % [place] % (Auto) 0.6 L (1.7-12.0) % Eos % (Auto) 0.0 L (0.9-7.0) % Baso % (Auto) 0.1 L (0.2-2.0) % Neut # (Auto) 15.4 H (1.4-6.5) 10^3/uL Lymph # (Auto) 0.2 L (1.2-3.8) 10^3/uL [place] # (Auto) 0.1 L (0.3-0.8) 10^3/uL Eos # (Auto) 0.0 (0.0-0.7) 10^3/uL Baso # (Auto) 0.0 (0.0-0.1) 10^3/uL Abs Immat Gran (auto) 0.12 H (0.00-0.03) 10^3/uL Imm/Tot Granulo (auto) 0.8 H (0.0-0.5) % PT 13.0 H (9.0-11.6) sec INR 1.24 Sodium 144 (136-145) mmol/L Potassium 3.9 (3.5-5.1) mmol/L Chloride 108 H (98-107) mmol/L Carbon Dioxide 31.7 (21.0-32.0) mmol/L Anion Gap 8.2 BUN 66.0 H (7.0-18.0) mg/dL Creatinine 1.81 H (0.55-1.02) mg/dL Est GFR ( Amer) 32 L (>=60) Est GFR (Non-Af Amer) 26 L (>=60) BUN/Creatinine Ratio 36.5 Glucose 129 H (74-106) mg/dL Lactate 0.9 (0.4-2.0) mmol/L Calcium 9.4 (8.5-10.1) mg/dL Total Bilirubin 0.5 (0.2-1.0) mg/dL AST 83 H (15-37) U/L ALT 76 H (14-59) U/L Alkaline Phosphatase 159 H (46-116) U/L Troponin I High Sens 118.4 H* (4.0-51.3) pg/mL NT-Pro-B Natriuret Pep 86059.0 H* (<=1800.0) pg/mL Total Protein 5.5 L (6.4-8.2) g/dL Albumin 2.0 L (3.4-5.0) g/dL Globulin 3.5 g/dL Albumin/Globulin Ratio 0.6 Adenovirus (PCR) Not detected (NOT DETECTE) C. pneumoniae DNA (PCR) Not detected (NOT DETECTE) Coronavirus Type OC43 Not detected (NOT DETECTE) Coronavirus Type HKU1 Not detected (NOT DETECTE) Coronavirus Type 229E Not detected (NOT DETECTE) Coronavirus Type NL63 Not detected (NOT DETECTE) Human Metapneumovir PCR Not detected (NOT DETECTE) M. pneumoniae (PCR) Not detected (NOT DETECTE) Parainfluenza PCR Not detected (NOT DETECTE) Parainfluenza 2 (PCR) Not detected (NOT DETECTE) Parainfluenza 3 (PCR) Not detected (NOT DETECTE) Parainfluenza 4 (PCR) Not detected (NOT DETECTE) RSV (RT-PCR) Detected A* (NOT DETECTE) Entero/Rhino (PCR) Not detected (NOT DETECTE) SARS-CoV-2 (PCR) Not detected (NOT DETECTE) Bordetella pertussis (PCR) Not detected (NOT DETECTE) B parapertussis DNA PCR Not detected (NOT DETECTE) Influenza Type A (PCR) Not detected (NOT DETECTE) Influenza Type B (PCR) Not detected (NOT DETECTE) Imaging Data CT scan - chest: Attestation: I have reviewed the pertinent imaging results. Radiologist's impression: Procedure: CT angio chest EXAM: CT angio chest HISTORY: Hypoxemia. COMPARISON: Unenhanced chest CT 09/19/2023 and 05/31/2023. TECHNIQUE: Enhanced helical acquisition obtained through the pulmonary arteries with 3-D, MIP, and MPR reconstructions. FINDINGS: No evidence of pulmonary arterial embolism. Cardiomegaly. Enlargement of the central pulmonary arterial vasculature. No enlarged lymph nodes within the chest. Volume loss and consolidation within the bilateral lower lobes. Mild pulmonary opacification within the posterior segment of the right upper lobe and dependently within the right middle lobe. Mild patchy peribronchial airspace opacities noted throughout the bilateral upper lobes. Small-moderate sized bilateral pleural effusions. Partially visualized bilateral renal cysts. Chronic severe compression fracture deformity of T9 vertebral body with associated chronic 6 mm retropulsion. Diffuse demineralization. IMPRESSION: 1. No evidence of pulmonary arterial embolism. 2. Volume loss and consolidation bilateral lower lobes, mild consolidation within the posterior segment of the right upper lobe and dependently within the right middle lobe. Additionally, bilateral upper lobe peribronchial airspace opacities are present. Findings are most likely secondary to multilobar pneumonia. 3. Small-moderate sized bilateral layering pleural effusions. 4. Cardiomegaly. 5. Enlargement of central pulmonary arterial vasculature, likely secondary to pulmonary arterial hypertension. 6. Diffuse demineralization. Severe chronic compression fracture of T9 with chronic 6 mm retropulsion, unchanged. Electronically authenticated by: TASHA CRAIG Date: 09/26/2023 19:48 ECG Data Attestation: I personally reviewed and interpreted this ECG as follows: (Rapid atrial rhythm at a rate of 84, no acute ST elevation or ectopy. EKG reviewed by attending physician) Discharge Plan Discharge Chief Complaint: Shortness of Breath/Dyspnea Clinical Impression: CHF exacerbation, RSV (respiratory syncytial virus pneumonia), Multifocal pneumonia Patient Disposition: Admitted as Observation Time of Disposition Decision: 01:55 Condition: Fair Documented by User: Marilynn Keller MD 09/27/23 01:56 HPI - SOB/Dyspnea General Chief Complaint: Shortness of Breath/Dyspnea Stated Complaint: LOW SPO2 Time Seen by Provider: 09/26/23 17:14 Related Data Home Medications Medication Instructions Recorded Confirmed amiodarone 200 mg tablet 200 mg PO DAILY 05/30/23 09/26/23 atorvastatin 40 mg tablet 40 mg PO DAILY 05/30/23 09/26/23 budesonide 0.5 mg/2 mL suspension 0.5 mg inhalation BID 05/30/23 09/26/23 for nebulization buspirone 15 mg tablet 15 mg PO BID 05/30/23 09/26/23 ferrous sulfate 325 mg (65 mg 325 mg PO DAILY 05/30/23 09/26/23 iron) tablet (FeroSul) gabapentin 100 mg capsule 100 mg PO Q8H 05/30/23 09/26/23 ipratropium 0.5 mg-albuterol 3 mg 3 ml inhalation BID PRN shortness 05/30/23 09/26/23 (2.5 mg base)/3 mL nebulization of breath or wheezing soln levothyroxine 150 mcg tablet 150 mcg PO DAILY 05/30/23 09/26/23 magnesium oxide 400 mg (241.3 mg 400 mg PO BID 05/30/23 09/26/23 magnesium) tablet melatonin 3 mg tablet 3 mg PO DAILY 05/30/23 09/26/23 dyohygkhwwgj-buiavadd-yksc 1 tab PO DAILY 05/30/23 09/26/23 fumarate 7.5 mg-folic acid 400 mcg tablet omeprazole 20 mg capsule,delayed 20 mg PO BID 05/30/23 09/26/23 release paroxetine HCl 10 mg tablet 10 mg PO DAILY 05/30/23 09/26/23 apixaban 2.5 mg tablet 2.5 mg PO BID 09/19/23 09/26/23 acetaminophen 325 mg tablet 650 mg PO Q6H PRN pain 09/26/23 09/26/23 loperamide 2 mg capsule (Imodium 2 mg PO QID PRN gi upset 09/26/23 09/26/23 A-D) lorazepam 0.5 mg tablet (Ativan) 0.5 mg PO QID PRN agitation 09/26/23 09/26/23 Previous Rx's Medication Instructions Recorded furosemide 40 mg tablet 40 mg PO QD #30 tabs 06/05/23 levofloxacin 250 mg tablet 250 mg PO DAILY 3 days #3 tabs 09/24/23 prednisone 20 mg tablet 20 mg PO DAILY 7 days #7 tabs 09/24/23 Allergies Allergy/AdvReac Type Severity Reaction Status Date / Time diazepam [From Valium] AdvReac Intermediate Unknown Verified 09/26/23 17:17 Latex, Natural Rubber AdvReac Intermediate Verified 09/26/23 17:17 Penicillins AdvReac Intermediate Unknown Verified 09/26/23 17:17 tetanus toxoid, adsorbed AdvReac Intermediate Verified 09/26/23 17:17 pcn AdvReac Intermediate Uncoded 09/26/23 17:17 valium AdvReac Intermediate Uncoded 09/26/23 17:17 PFSH [facility] Medical History Stage 3b chronic kidney disease (CKD) ?N18.32 - Chronic kidney disease, stage 3b (ICD-10) Chronic atrial fibrillation ?I48.20 - Chronic atrial fibrillation, unspecified (ICD-10) Acute on chronic systolic (congestive) heart failure ?I50.23 - Acute on chronic systolic (congestive) heart failure (ICD-10) HFrEF (heart failure with reduced ejection fraction) ?I50.20 - Unspecified systolic (congestive) heart failure (ICD-10) Systolic congestive heart failure ?I50.20 - Unspecified systolic (congestive) heart failure (ICD-10) Anemia ?D64.9 - Anemia, unspecified (ICD-10) Anxiety ?F41.9 - Anxiety disorder, unspecified (ICD-10) Hypothyroidism ?E03.9 - Hypothyroidism, unspecified (ICD-10) Hyperlipemia ?E78.5 - Hyperlipidemia, unspecified (ICD-10) Chronic kidney disease ?N18.9 - Chronic kidney disease, unspecified (ICD-10) A-fib ?I48.91 - Unspecified atrial fibrillation (ICD-10) Surgical History History of bilateral knee replacement ?Z96.653 - Presence of artificial knee joint, bilateral (ICD-10) H/O: hysterectomy ?Z90.710 - Acquired absence of both cervix and uterus (ICD-10) History of cholecystectomy ?Z90.49 - Acquired absence of other specified parts of digestive tract (ICD- 10) History of arthroplasty of left shoulder ?Z96.612 - Presence of left artificial shoulder joint (ICD-10) Family History Father Family history of diabetes mellitus Brother Family history of hypertension Social History Within the past year, how often did you have a drink containing alcohol: monthly or less Smoking status: Former smoker Non-prescribed substance use: denies use Highest level of school completed/degree received: high school graduate Exam Constitutional Vital Signs, click to edit/add: Last Vital Signs Temp 98.1 F 09/26/23 17:15 Pulse 81 09/27/23 00:20 Resp 10 L 09/26/23 22:00 BP 127/86 09/27/23 00:00 Pulse Ox 98 09/27/23 00:46 O2 Del Method Vapotherm 09/27/23 00:46 O2 Flow Rate 40 09/27/23 00:46 FiO2 50 09/27/23 00:46 Course Vital Signs Vital signs: Vital Signs Blood Pressure 142/85 H 09/26/23 17:14 Temperature 98.1 F 09/26/23 17:15 Pulse Rate 81 09/27/23 00:20 Respiratory Rate 10 L 09/26/23 22:00 Blood Pressure 127/86 09/27/23 00:00 Pulse Oximetry 98 09/27/23 00:46 Oxygen Delivery Method Vapotherm 09/27/23 00:46 Oxygen Delivery Flow Rate 40 09/27/23 00:46 Fraction of Inspired Oxygen 50 09/27/23 00:46 MDM - SOB/Dyspnea MDM Narrative Medical decision making narrative: 2007: Patient placed on oxygen at 4-1/2 L by nasal cannula and continued to have borderline hypoxia in the ER. She did occasionally dip down into the high 80s for pulse oximetry. Lab studies show stable leukocytosis, improved kidney function but increased BNP. Troponin has improved from hospital stay. Patient with no complaints of chest pain. No acute EKG changes. CT angio of the chest shows continued multi lobar pneumonia and bilateral pleural effusions. There is no evidence of PE. Patient was placed on Vapotherm for comfort due to continued occasional desaturation, her nasal cannula could not be turned up any further. I discussed the case with Dr. Vidales for hospitalist service. Patient was given 80 mg IV Lasix in the ER. He recommended observing the patient after the Lasix for several hours and if her oxygen saturation does not improve she can be admitted to the hospital otherwise she has the appropriate treatment at the [facility] already. Patient will be reevaluated in 3 to 4 hours by attending physician to determine if she needs to be admitted. Patient was continuously monitored the emergency department after being placed on Vapotherm and desaturation as well as being given 80 mg of IV Lasix. She has remained stable but at times when her nasal cannula becomes dislodged she desaturates into the 80s. She has been able to maintain her pulse ox in the 90s for several minutes until she starts to desaturate. She is otherwise alert, stable. The case was rediscussed with the hospitalist and she is accepted for admission to [facility]. She is currently receiving Levaquin for the pneumonia that she had previously and appears to continue to have based on her CT scan. Lab Data Labs: Lab Results 09/26/23 09/26/23 Range/Units 17:20 17:25 WBC 15.9 H (4.0-11.0) 10^3/uL RBC 3.47 L (4.20-5.40) 10^6/uL Hgb 10.6 L (12.0-16.0) g/dL Hct 33.8 L (36.0-48.0) % MCV 97.4 (81.0-99.0) fL MCH 30.5 (26.7-34.0) pg MCHC 31.4 (29.9-35.2) g/dL RDW 14.3 (11.0-15.0) % Plt Count 121 L (150-450) 10^3/uL MPV 12.2 (9.5-13.5) fL Neut % (Auto) 97.0 H (43.0-75.0) % Lymph % (Auto) 1.5 L (20.5-60.0) % [place] % (Auto) 0.6 L (1.7-12.0) % Eos % (Auto) 0.0 L (0.9-7.0) % Baso % (Auto) 0.1 L (0.2-2.0) % Neut # (Auto) 15.4 H (1.4-6.5) 10^3/uL Lymph # (Auto) 0.2 L (1.2-3.8) 10^3/uL [place] # (Auto) 0.1 L (0.3-0.8) 10^3/uL Eos # (Auto) 0.0 (0.0-0.7) 10^3/uL Baso # (Auto) 0.0 (0.0-0.1) 10^3/uL Abs Immat Gran (auto) 0.12 H (0.00-0.03) 10^3/uL Imm/Tot Granulo (auto) 0.8 H (0.0-0.5) % PT 13.0 H (9.0-11.6) sec INR 1.24 Sodium 144 (136-145) mmol/L Potassium 3.9 (3.5-5.1) mmol/L Chloride 108 H (98-107) mmol/L Carbon Dioxide 31.7 (21.0-32.0) mmol/L Anion Gap 8.2 BUN 66.0 H (7.0-18.0) mg/dL Creatinine 1.81 H (0.55-1.02) mg/dL Est GFR ( Amer) 32 L (>=60) Est GFR (Non-Af Amer) 26 L (>=60) BUN/Creatinine Ratio 36.5 Glucose 129 H (74-106) mg/dL Lactate 0.9 (0.4-2.0) mmol/L Calcium 9.4 (8.5-10.1) mg/dL Total Bilirubin 0.5 (0.2-1.0) mg/dL AST 83 H (15-37) U/L ALT 76 H (14-59) U/L Alkaline Phosphatase 159 H (46-116) U/L Troponin I High Sens 118.4 H* (4.0-51.3) pg/mL NT-Pro-B Natriuret Pep 03658.0 H* (<=1800.0) pg/mL Total Protein 5.5 L (6.4-8.2) g/dL Albumin 2.0 L (3.4-5.0) g/dL Globulin 3.5 g/dL Albumin/Globulin Ratio 0.6 Adenovirus (PCR) Not detected (NOT DETECTE) C. pneumoniae DNA (PCR) Not detected (NOT DETECTE) Coronavirus Type OC43 Not detected (NOT DETECTE) Coronavirus Type HKU1 Not detected (NOT DETECTE) Coronavirus Type 229E Not detected (NOT DETECTE) Coronavirus Type NL63 Not detected (NOT DETECTE) Human Metapneumovir PCR Not detected (NOT DETECTE) M. pneumoniae (PCR) Not detected (NOT DETECTE) Parainfluenza PCR Not detected (NOT DETECTE) Parainfluenza 2 (PCR) Not detected (NOT DETECTE) Parainfluenza 3 (PCR) Not detected (NOT DETECTE) Parainfluenza 4 (PCR) Not detected (NOT DETECTE) RSV (RT-PCR) Detected A* (NOT DETECTE) Entero/Rhino (PCR) Not detected (NOT DETECTE) SARS-CoV-2 (PCR) Not detected (NOT DETECTE) Bordetella pertussis (PCR) Not detected (NOT DETECTE) B parapertussis DNA PCR Not detected (NOT DETECTE) Influenza Type A (PCR) Not detected (NOT DETECTE) Influenza Type B (PCR) Not detected (NOT DETECTE) Critical Care Time Critical Care Time Critical Care Time: Yes Total Critical Care Time: 40 Attestation: This patient was seen and evaluated by myself in conjunction with the physician restaurant assistant manager Discharge Plan Discharge Chief Complaint: Shortness of Breath/Dyspnea Clinical Impression: CHF exacerbation, RSV (respiratory syncytial virus pneumonia), Multifocal pneumonia Patient Disposition: Admitted as Observation Time of Disposition Decision: 01:55 Condition: Fair
[2023-09-26 17:36] LABS: Adenovirus NOT DETECTED (NOT DETECTE); Bordetella parapertussis NOT DETECTED (NOT DETECTE); Coronavirus 229E NOT DETECTED (NOT DETECTE); Coronavirus HKU1 NOT DETECTED (NOT DETECTE); Coronavirus NL63 NOT DETECTED (NOT DETECTE); Coronavirus OC43 NOT DETECTED (NOT DETECTE); Human Metapneumovirus NOT DETECTED (NOT DETECTE); Human Rhinovirus/Enterovirus NOT DETECTED (NOT DETECTE); Influenza A NOT DETECTED (NOT DETECTE); Influenza B NOT DETECTED (NOT DETECTE); Mycoplasma pneumoniae NOT DETECTED (NOT DETECTE); Parainfluenza Virus 1 NOT DETECTED (NOT DETECTE); Parainfluenza Virus 2 NOT DETECTED (NOT DETECTE); Parainfluenza Virus 3 NOT DETECTED (NOT DETECTE); Parainfluenza Virus 4 NOT DETECTED (NOT DETECTE); SARS-CoV-2 NOT DETECTED (NOT DETECTE)
[2023-09-26 17:52] LABS: Basophils Percent Auto 0.1 % (0.2-2.0); Hematocrit 33.8 % (36.0-48.0); Hemoglobin 10.6 g/dL (12.0-16.0); Immature Granulocytes Abs Auto 0.12 10^3/uL (0.00-0.03); Immature Granulocytes Pct Auto 0.8 % (0.0-0.5); Lymphocytes Absolute Auto 0.2 10^3/uL (1.2-3.8); Lymphocytes Percent Auto 1.5 % (20.5-60.0); Mean Corpuscular HGB Conc 31.4 g/dL (29.9-35.2); Mean Corpuscular Hemoglobin 30.5 pg (26.7-34.0); Mean Corpuscular Volume 97.4 fL (81.0-99.0); Mean Platelet Volume 12.2 fL (9.5-13.5); Monocytes Absolute Auto 0.1 10^3/uL (0.3-0.8); Monocytes Percent Auto 0.6 % (1.7-12.0); Neutrophils Absolute Auto 15.4 10^3/uL (1.4-6.5); Platelet Count 121 10^3/uL (150-450); Red Blood Count 3.47 10^6/uL (4.20-5.40); Red Cell Distribution Width 14.3 % (11.0-15.0); White Blood Count 15.9 10^3/uL (4.0-11.0)
[2023-09-26] MEDS: ALBUTEROL SULFATE 2.5 MG/3 ML VIAL NEB IH (17:53)
[2023-09-26 17:57] LABS: INR 1.24
[2023-09-26 18:00] LABS: Lactate/Lactic Acid 0.9 mmol/L (0.4-2.0)
[2023-09-26 18:08] LABS: Alanine Aminotransferase 76 U/L (14-59); Albumin Globulin Ratio 0.6; Alkaline Phosphatase 159 U/L (46-116); Anion Gap 8.2; Aspartate Amino Transferase 83 U/L (15-37); BUN Creatinine Ratio 36.5; Bilirubin Total 0.5 mg/dL (0.2-1.0); Calcium 9.4 mg/dL (8.5-10.1); Carbon Dioxide 31.7 mmol/L (21.0-32.0); Chloride 108 mmol/L (98-107); Estimated GFR (African America 32 (>=60); Estimated GFR (Non-African Ame 26 (>=60); Globulin 3.5 g/dL; Glucose 129 mg/dL (74-106); Potassium 3.9 mmol/L (3.5-5.1); Sodium 144 mmol/L (136-145); Total Protein 5.5 g/dL (6.4-8.2)
[2023-09-26 18:09] LABS: Troponin I High Sensitivity 118.4 pg/mL (4.0-51.3)
--- NOTE | 2023-09-26 18:18 | PC.NURSE ---
PT SPO2 ON 3L NC DROPPED DOWN TO 86% WITH A GOOD WAVEFORM. INCREASED O2 TO 4L NC -- SPO2 NOW 90%
[2023-09-26 18:33] LABS: Respiratory Syncytial Virus DETECTED (NOT DETECTE)
--- NOTE | 2023-09-26 19:47 | PC.NURSE ---
patient oxygen saturation dropped to 87. vapotherm ordered. physician recreation assistant aware.patient saturation turned up to 5 liters. patient improved to 89-91%
--- NOTE | 2023-09-26 19:52 | RESP.RT ---
Starting on Vapotherm 40L/50%
[2023-09-26] MEDS: FUROSEMIDE 40 MG/4 ML VIAL 80 MG IVP (20:30)
--- NOTE | 2023-09-26 21:31 | PC.NURSE ---
respiratory at bedside. incresed patients vapotherm from 50% to 60%. patient tolerating well
[2023-09-27] VITALS (24 sets, daily range): BP systolic 114–135; BP diastolic 67–86; PULSE 74–84; RESP 18–20; TEMP 36.4–37; O2SAT 92–98; BMI 23.1
--- NOTE | 2023-09-27 00:47 | PC.NURSE ---
patient fio2 reduced to 50% tolerating well
--- NOTE | 2023-09-27 04:22 | P.PN_ITS ---
Progress Note: Subjective Subjective Interval history: CC: Shortness of breath HPI: This is 88 years old female sent over from rehabilitation facility due to worsening shortness of breath and hypoxia. Patient recently been discharged from this hospital after treatment for pneumonia and COPD exacerbation. Patient still taking oral antibiotics and steroids. No report of fevers or chills. On presentation to emergency room patient found to be hypoxic. Imaging studies including CT angiogram of the chest were negative for pulmonary embolism. It did show signs of vascular congestion. Patient received extra dose of IV Lasix, but your oxygen demand remains the same. She has elevated WBCs which probably r elated to use of steroids as well as a recent infection. Exam Constitutional Vital Signs, click to edit/add: Last Vital Signs Temp 98.0 F 09/27/23 02:31 Pulse 76 09/27/23 02:31 Resp 20 09/27/23 02:31 BP 135/74 09/27/23 02:31 Pulse Ox 93 L 09/27/23 02:31 O2 Del Method Vapotherm 09/27/23 02:31 O2 Flow Rate 60 09/27/23 02:31 FiO2 40 09/27/23 02:31 Progress Note: Objective Labs Labs: Short CBC 09/26/23 Range/Units 17:25 WBC 15.9 H (4.0-11.0) 10^3/uL Hgb 10.6 L (12.0-16.0) g/dL Hct 33.8 L (36.0-48.0) % Plt Count 121 L (150-450) 10^3/uL BMP 09/26/23 17:25 Sodium 144 Potassium 3.9 Chloride 108 H Carbon Dioxide 31.7 BUN 66.0 H Creatinine 1.81 H Glucose 129 H Calcium 9.4 Liver Function 09/26/23 Range/Units 17:25 Total Bilirubin 0.5 (0.2-1.0) mg/dL AST 83 H (15-37) U/L ALT 76 H (14-59) U/L Alkaline Phosphatase 159 H (46-116) U/L Albumin 2.0 L (3.4-5.0) g/dL Progress Note: A&P Assessment and Plan (1) Hypoxia: Assessment and Plan: Monitor patient on telemetry floor Started on IV Lasix twice daily Daily weight Strict I's and O's Resume home regiment Supplemental oxygen (2) CHF exacerbation: Assessment and Plan: As above (3) Pneumonia: Assessment and Plan: Continue oxygen supplementation Continue oral antibiotics Continue bronchodilators Continue steroid taper (4) Hypertension: Assessment and Plan: Verify and resume home medications Plan As the provider for the telehealth service, I attest that I introduced myself to the patient, provided my credentials, disclosed by location and determined that based on a review of the patient's chart and discussion with members of the [facility] treatment team, telemedicine via real-time, 2 way, and interactive audio and video platform is an appropriate and effective means of providing the service. ?The patient and I mutually agree this visit is appropriate for telemedicine. ?The virtual encounter was taken place from? [place], [place]. ?The encounter took approximately 35 minutes. ?The nurse was present during the entire time and I was able to move the stethoscope in appropriate directions. ?The patient was evaluated at the Hospital ? Portions of this note may be dictated using [employer] voice recognition software. Variances in spelling and vocabulary are possible and unintentional. Not all errors may be caught and/or corrected. Please notify the author if any discrepancies are noted and/or if the meaning of any statement is unclear.? ? Patient verbally consented for treatment via video visit with patient currently located at the [facility] and provider located in [place]. Telemedicine Attestation Telemedicine Attestation I conducted this encounter from [[place]] via secure live, [id number] video conference with the patient, located at [facility] with [hypoxia]. Prior to the interview, the risks and benefits of telemedicine were discussed with the patient and verbal consent was obtained.
[2023-09-27 05:08] LABS: PCO2 VBG 48.7 mmHg (40.0-52.0)
[2023-09-27 05:13] LABS: Basophils Percent Auto 0.1 % (0.2-2.0); Hematocrit 33.8 % (36.0-48.0); Hemoglobin 10.6 g/dL (12.0-16.0); Immature Granulocytes Abs Auto 0.14 10^3/uL (0.00-0.03); Immature Granulocytes Pct Auto 0.9 % (0.0-0.5); Lymphocytes Absolute Auto 0.5 10^3/uL (1.2-3.8); Mean Corpuscular HGB Conc 31.4 g/dL (29.9-35.2); Mean Corpuscular Hemoglobin 30.7 pg (26.7-34.0); Mean Platelet Volume 12.1 fL (9.5-13.5); Monocytes Absolute Auto 0.2 10^3/uL (0.3-0.8); Monocytes Percent Auto 1.5 % (1.7-12.0); Neutrophils Absolute Auto 15.3 10^3/uL (1.4-6.5); Neutrophils Percent Auto 94.5 % (43.0-75.0); Platelet Count 117 10^3/uL (150-450); Red Blood Count 3.45 10^6/uL (4.20-5.40); Red Cell Distribution Width 14.4 % (11.0-15.0); White Blood Count 16.1 10^3/uL (4.0-11.0)
[2023-09-27] MEDS: FUROSEMIDE 40 MG/4 ML VIAL IVP ×2 (05:51→18:34)
[2023-09-27] MEDS: LEVOTHYROXINE SODIUM 75 MCG TABLET 150 MCG PO (05:53)
[2023-09-27] MEDS: GABAPENTIN 100 MG CAPSULE PO ×3 (05:53→21:50)
--- NOTE | 2023-09-27 08:47 | P.HP_ITS ---
H&P: HPI History of Present Illness Chief complaint: LOW SPO2 SOB PLEURAL EFFUSION Narrative: Patient is a 88 y o female on chronic 3 L O2, custodial resident brought over to ED last night for worsening SOB, cough, hypoxia. recent discharge on 09/24/23 for pseudomonal pneumonia. Patient was completing her Levaquin and oral steroids, prednisone, and last night developed worsening shortness of breath, so was sent to the Emergency Room via ambulance for further evaluation.patient denies any fevers or chills, imaging studies including CTA of the chest were negative for pulmonary embolism, but did show some consolidation bilateral lower lobes findings consistent secondary to multi lobar pneumonia. Small moderate sized bilateral pleural effusions and cardiomegaly. Patient was admitted for acute congestive heart failure exacerbation [place] [address], and some mild bilateral lower extremity edema. Patient was given Lasix 40 mg IV twice a day. She had an echocardiogram last admission which showed [id number] reduced ejection fraction 35-40 percent, grade 2 diastolic dysfunction, biatrial enlargement. This morning patient is currently on Vapotherm at thirty percent FiO2 and she is smiling and answering questions appropriately. She denies any current issues or complaints. Review of Systems ROS Narrative ROS: a complete review of systems were reviewed with patient and are positive as below or listed in History of Chief Complaint. General: no fever, chills, night sweats Head: no headache, trauma, visual changes, nausea or vomiting Skin: no reported rashes, itching or sores Eyes: no blurriness of vision Ears: no reported hearing loss, vertigo, earache, or tinnitus Throat: no sore throat, hoarseness, swelling of neck, or tongue pain Heart: no chest pain Lungs: shortness of breath and cough GI: no diarrhea or vomiting/nausea Urinary: no urinary urgency, frequency or pain Neuro: no numbness or tingling HEM: no bleeding issues or bruising ENDO: no thyroid problems Psych: no anxiety or depression [facility] Medical History (Updated 09/27/23 @ 13:57 by Shima Acosta DO) COVID-19 ?U07.1 - COVID-19 (ICD-10) Falls ?W19.XXXA - Unspecified fall, initial encounter (ICD-10) Hematuria ?R31.9 - Hematuria, unspecified (ICD-10) Tobacco use ?Z72.0 - Tobacco use (ICD-10) Nausea ?R11.0 - Nausea (ICD-10) Cough ?R05.9 - Cough, unspecified (ICD-10) Coagulation defect, unspecified ?D68.9 - Coagulation defect, unspecified (ICD-10) Dysphagia ?R13.10 - Dysphagia, unspecified (ICD-10) Diverticulosis large intestine w/o perforation or abscess w/bleeding ?K57.31 - Diverticulosis of large intestine without perforation or abscess with bleeding (ICD-10) Duodenal ulcer ?K26.9 - Duodenal ulcer, unspecified as acute or chronic, without hemorrhage or perforation (ICD-10) Insomnia ?G47.00 - Insomnia, unspecified (ICD-10) Chronic GERD ?K21.9 - Gastro-esophageal reflux disease without esophagitis (ICD-10) Asthma ?J45.909 - Unspecified asthma, uncomplicated (ICD-10) Vitamin deficiency ?E56.9 - Vitamin deficiency, unspecified (ICD-10) Depression ?F32.A - Depression, unspecified (ICD-10) Gout ?M10.9 - Gout, unspecified (ICD-10) Esophageal obstruction ?K22.2 - Esophageal obstruction (ICD-10) 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 (ICD-10) Hypertension ?I10 - Essential (primary) hypertension (ICD-10) Pulmonary edema ?J81.1 - Chronic pulmonary edema (ICD-10) Stage 3b chronic kidney disease (CKD) ?N18.32 - Chronic kidney disease, stage 3b (ICD-10) Chronic atrial fibrillation ?I48.20 - Chronic atrial fibrillation, unspecified (ICD-10) Acute on chronic systolic (congestive) heart failure ?I50.23 - Acute on chronic systolic (congestive) heart failure (ICD-10) HFrEF (heart failure with reduced ejection fraction) ?I50.20 - Unspecified systolic (congestive) heart failure (ICD-10) Systolic congestive heart failure ?I50.20 - Unspecified systolic (congestive) heart failure (ICD-10) Anemia ?D64.9 - Anemia, unspecified (ICD-10) Anxiety ?F41.9 - Anxiety disorder, unspecified (ICD-10) Hypothyroidism ?E03.9 - Hypothyroidism, unspecified (ICD-10) Hyperlipemia ?E78.5 - Hyperlipidemia, unspecified (ICD-10) Chronic kidney disease ?N18.9 - Chronic kidney disease, unspecified (ICD-10) A-fib ?I48.91 - Unspecified atrial fibrillation (ICD-10) Surgical History History of bilateral knee replacement ?Z96.653 - Presence of artificial knee joint, bilateral (ICD-10) H/O: hysterectomy ?Z90.710 - Acquired absence of both cervix and uterus (ICD-10) History of cholecystectomy ?Z90.49 - Acquired absence of other specified parts of digestive tract (ICD- 10) History of arthroplasty of left shoulder ?Z96.612 - Presence of left artificial shoulder joint (ICD-10) Family History Father Family history of diabetes mellitus Brother Family history of hypertension Social History Within the past year, how often did you have a drink containing alcohol: monthly or less Smoking status: Former smoker Non-prescribed substance use: denies use Highest level of school completed/degree received: some college, no degree Meds Home Medications and Allergies Home Medications Medication Instructions Recorded Confirmed Type amiodarone 200 mg tablet 200 mg PO DAILY 05/30/23 09/26/23 History atorvastatin 40 mg tablet 40 mg PO DAILY 05/30/23 09/26/23 History budesonide 0.5 mg/2 mL suspension 0.5 mg inhalation BID 05/30/23 09/26/23 History for nebulization buspirone 15 mg tablet 15 mg PO BID 05/30/23 09/26/23 History ferrous sulfate 325 mg (65 mg 325 mg PO DAILY 05/30/23 09/26/23 History iron) tablet (FeroSul) gabapentin 100 mg capsule 100 mg PO Q8H 05/30/23 09/26/23 History ipratropium 0.5 mg-albuterol 3 mg 3 ml inhalation BID PRN shortness 05/30/23 09/26/23 History (2.5 mg base)/3 mL nebulization of breath or wheezing soln levothyroxine 150 mcg tablet 150 mcg PO DAILY 05/30/23 09/26/23 History magnesium oxide 400 mg (241.3 mg 400 mg PO BID 05/30/23 09/26/23 History magnesium) tablet melatonin 3 mg tablet 3 mg PO DAILY 05/30/23 09/26/23 History zhvrxivbqoeo-ygnddkog-qalp 1 tab PO DAILY 05/30/23 09/26/23 History fumarate 7.5 mg-folic acid 400 mcg tablet omeprazole 20 mg capsule,delayed 20 mg PO BID 05/30/23 09/26/23 History release paroxetine HCl 10 mg tablet 10 mg PO DAILY 05/30/23 09/26/23 History furosemide 40 mg tablet 40 mg PO QD #30 tabs 06/05/23 09/26/23 Rx apixaban 2.5 mg tablet 2.5 mg PO BID 09/19/23 09/26/23 History levofloxacin 250 mg tablet 250 mg PO DAILY 3 days #3 tabs 09/24/23 09/26/23 Rx prednisone 20 mg tablet 20 mg PO DAILY 7 days #7 tabs 09/24/23 09/26/23 Rx acetaminophen 325 mg tablet 650 mg PO Q6H PRN pain 09/26/23 09/26/23 History loperamide 2 mg capsule (Imodium 2 mg PO QID PRN gi upset 09/26/23 09/26/23 History A-D) lorazepam 0.5 mg tablet (Ativan) 0.5 mg PO QID PRN agitation 09/26/23 09/26/23 History Allergies Allergy/AdvReac Type Severity Reaction Status Date / Time diazepam [From Valium] AdvReac Intermediate Unknown Verified 09/26/23 17:17 Latex, Natural Rubber AdvReac Intermediate Verified 09/26/23 17:17 Penicillins AdvReac Intermediate Unknown Verified 09/26/23 17:17 tetanus toxoid, adsorbed AdvReac Intermediate Verified 09/26/23 17:17 Exam Narrative Exam Narrative: General: Patient is alert, and oriented to person, place and time still tachypneic Skin: Bruising to the left upper extremity from venipuncture, no swelling Head: atraumatic, acephalic Eyes: PERRLA, no nystagmus present, conjunctiva clear, no scleral icterus Heart: Normal rate and irregular rhythm, no murmurs/rubs/gallops Lungs: crackles bilaterally and diminished breath sounds all lung bradshaw Abdomen: Normal audible bowel sounds, no distension, No palpable masses, no organomegaly, no rebound/guarding/ or rigidity Musculoskeletal: muscle atrophy noted, ROM is limited due to being in hospital bed, +1 swelling bilateral lower extremities Neuro: CN II-X grossly intact Constitutional Vital Signs, click to edit/add: Last Vital Signs Temp 97.6 F 09/27/23 06:00 Pulse 76 09/27/23 06:00 Resp 18 09/27/23 06:00 BP 132/67 09/27/23 06:00 Pulse Ox 92 L 09/27/23 06:00 O2 Del Method Vapotherm 09/27/23 06:00 O2 Flow Rate 60 09/27/23 06:00 FiO2 40 09/27/23 06:00 Results Labs Labs: Short CBC 09/26/23 09/27/23 Range/Units 17:25 04:55 WBC 15.9 H 16.1 H (4.0-11.0) 10^3/uL Hgb 10.6 L 10.6 L (12.0-16.0) g/dL Hct 33.8 L 33.8 L (36.0-48.0) % Plt Count 121 L 117 L (150-450) 10^3/uL BMP 09/26/23 17:25 Sodium 144 Potassium 3.9 Chloride 108 H Carbon Dioxide 31.7 BUN 66.0 H Creatinine 1.81 H Glucose 129 H Calcium 9.4 Liver Function 09/26/23 Range/Units 17:25 Total Bilirubin 0.5 (0.2-1.0) mg/dL AST 83 H (15-37) U/L ALT 76 H (14-59) U/L Alkaline Phosphatase 159 H (46-116) U/L Albumin 2.0 L (3.4-5.0) g/dL ABG ABG results: 09/27/23 04:55 VBG pH 7.450 H VBG pCO2 48.7 Assessment and Plan Assessment and Plan (1) Acute on chronic systolic CHF, NYHA class 2 and ACC/AHA stage C: Assessment and Plan: monitor I&O's, continus lasix 40mg IV BID, she is one 40mg PO daily. monitor potassium carefully, pleural effusions seen on CT, elevated proBNP, and signs of fluid overload, hypoxia (2) Pseudomonal pneumonia: Assessment and Plan: contiue Levaquin. WBC's improving, clinically improving, continue prednisone. Duonebs and vapotherm as needed. Qualifiers: Laterality: bilateral Lung location: lower lobe of lung Qualified C ode(s): J15.1 - Pneumonia due to Pseudomonas (3) RSV (respiratory syncytial virus pneumonia): Assessment and Plan: RSV positive last admission, continue symptom treatment only (4) Hypoxia: Assessment and Plan: decreased from baseline with higher oxygen requirements. CHF vs Pneumonia (5) Elevated troponin level not due myocardial infarction: Assessment and Plan: Type 2 NSTEMI from VQ mismatch, please see ECHO read in HPI. Cards consult today for further input. continue home meds. (6) Hypertension: Assessment and Plan: continue home meds Qualifiers: Hypertension type: primary hypertension Qualified Code(s): I10 - Essential (primary) hypertension (7) Atrial fibrillation with RVR: Assessment and Plan: Afib with RVR, HR controlled, acute illness. Monitor. On ELIQUIS (8) JOSE (acute kidney injury): Assessment and Plan: improving. Plan patient is a DNRCCA eliquis for DVT prophylaxis inpatient status, hopeful discharge back to [facility] tomorrow
[2023-09-27] MEDS: LEVOFLOXACIN 500 MG TABLET 250 MG PO (08:50)
[2023-09-27] MEDS: MULTIVITAMIN TABLET 1 TAB PO (08:50)
[2023-09-27] MEDS: ATORVASTATIN CALCIUM 40 MG TABLET PO (08:50)
[2023-09-27] MEDS: AMIODARONE HCL 200 MG TABLET PO (08:50)
[2023-09-27] MEDS: BUSPIRONE HCL 15 MG TABLET PO ×2 (08:50→21:51)
[2023-09-27] MEDS: PAROXETINE HCL 20 MG TABLET 10 MG PO (08:50)
[2023-09-27] MEDS: FERROUS SULFATE 325 MG TABLET PO (08:50)
[2023-09-27] MEDS: PREDNISONE 20 MG TABLET PO (08:50)
[2023-09-27] MEDS: MAGNESIUM OXIDE 400 MG TABLET PO ×2 (08:50→21:50)
[2023-09-27] MEDS: APIXABAN 5 MG TABLET 2.5 MG PO ×2 (08:50→21:51)
[2023-09-27] MEDS: OMEPRAZOLE 20 MG CAPSULE.DR PO ×2 (08:50→21:51)
[2023-09-27] MEDS: BUDESONIDE 0.5 MG/2 ML AMPULE NEB IH ×2 (09:31→20:00)
[2023-09-27] MEDS: IPRATROPIUM/ALBUTEROL SULFATE 3 ML AMPUL.NEB IH ×2 (09:31→20:00)
[2023-09-27 09:36] LABS: Troponin I High Sensitivity 106.5 pg/mL (4.0-51.3)
--- NOTE | 2023-09-27 09:52 | CM.NOTE ---
Rounding with Dr. Acosta. Discussed conflict with code status documented in ED note verses current order. Dr. Acosta states she will look into this further. Pt. is from [facility], plan is to return when medically stable. discussed ordering patient health shakes to drink for nutrition.
--- NOTE | 2023-09-27 12:35 | P.CN_ITS ---
<Statement entered by MEHRDAD LEONG - 10/02/23 16:08> This documentation has been reviewed and approved. Discussed with ANIMAL TRAPPER Marilynn De Los Santos, I agree with the above. Consult Note: HPI Data of Consult Patient: new to practice Consult date: 09/27/23 Requesting Physician: Shima Acosta DO Primary Care Provider: NOHELIA GRACIA, Consult Narrative Reason for consult: Acute HFrEF- new onset, A fib with RVR 2/2 acute viral illness/RSV Narrative: Pleasant 88 year old female presented to [facility] ED from rehabilitation facility due to worsening shortness of breath and hypoxia. Patient recently been discharged from this hospital after treatment for pneumonia and COPD exacerbation. Patient still taking oral antibiotics and steroids. Noted to have elevated BNP, fluid overload and congestion on CT CHest, JOSE, + for RSV, and mildly elevated HS troponin. Pt denied h/o CHF or low EF, admits h/o A fib and currently managed by Cardiology at [facility]- with low dose eliquis anticoagulation, amiodarone. Currently per recent EKG she has converted back into Sinus rhythm, heart rate well controlled. Admits SOB is much better today after diuresis and high level oxygen- high flow NC currently. Denied fever, chills, recent weight gain or leg swelling. Denied chest pain, and admits SOB with exertion and + Orthopnea. cc:: CC: Shima Acosta DO Review of Systems ROS Status of ROS 10 or more systems reviewed and unremark able except as noted in history and below Constitutional Denies: fever, chills or change in weight Cardiovascular Reports: shortness of breath with exertion and shortness of breath when lying down; Denies: chest pain, palpitations or edema Respiratory Reports: cough [facility] Medical History (Updated 09/27/23 @ 16:48 by MARILYNN DE LOS SANTOS) COVID-19 ?U07.1 - COVID-19 (ICD-10) Falls ?W19.XXXA - Unspecified fall, initial encounter (ICD-10) Hematuria ?R31.9 - Hematuria, unspecified (ICD-10) Tobacco use ?Z72.0 - Tobacco use (ICD-10) Nausea ?R11.0 - Nausea (ICD-10) Cough ?R05.9 - Cough, unspecified (ICD-10) Coagulation defect, unspecified ?D68.9 - Coagulation defect, unspecified (ICD-10) Dysphagia ?R13.10 - Dysphagia, unspecified (ICD-10) Diverticulosis large intestine w/o perforation or abscess w/bleeding ?K57.31 - Diverticulosis of large intestine without perforation or abscess with bleeding (ICD-10) Duodenal ulcer ?K26.9 - Duodenal ulcer, unspecified as acute or chronic, without hemorrhage or perforation (ICD-10) Insomnia ?G47.00 - Insomnia, unspecified (ICD-10) Chronic GERD ?K21.9 - Gastro-esophageal reflux disease without esophagitis (ICD-10) Asthma ?J45.909 - Unspecified asthma, uncomplicated (ICD-10) Vitamin deficiency ?E56.9 - Vitamin deficiency, unspecified (ICD-10) Depression ?F32.A - Depression, unspecified (ICD-10) Gout ?M10.9 - Gout, unspecified (ICD-10) Esophageal obstruction ?K22.2 - Esophageal obstruction (ICD-10) 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 (ICD-10) Hypertension ?I10 - Essential (primary) hypertension (ICD-10) Pulmonary edema ?J81.1 - Chronic pulmonary edema (ICD-10) Stage 3b chronic kidney disease (CKD) ?N18.32 - Chronic kidney disease, stage 3b (ICD-10) Chronic atrial fibrillation ?I48.20 - Chronic atrial fibrillation, unspecified (ICD-10) Acute on chronic systolic (congestive) heart failure ?I50.23 - Acute on chronic systolic (congestive) heart failure (ICD-10) HFrEF (heart failure with reduced ejection fraction) ?I50.20 - Unspecified systolic (congestive) heart failure (ICD-10) Systolic congestive heart failure ?I50.20 - Unspecified systolic (congestive) heart failure (ICD-10) Anemia ?D64.9 - Anemia, unspecified (ICD-10) Anxiety ?F41.9 - Anxiety disorder, unspecified (ICD-10) Hypothyroidism ?E03.9 - Hypothyroidism, unspecified (ICD-10) Hyperlipemia ?E78.5 - Hyperlipidemia, unspecified (ICD-10) Chronic kidney disease ?N18.9 - Chronic kidney disease, unspecified (ICD-10) A-fib ?I48.91 - Unspecified atrial fibrillation (ICD-10) Surgical History History of bilateral knee replacement ?Z96.653 - Presence of artificial knee joint, bilateral (ICD-10) H/O: hysterectomy ?Z90.710 - Acquired absence of both cervix and uterus (ICD-10) History of cholecystectomy ?Z90.49 - Acquired absence of other specified parts of digestive tract (ICD- 10) History of arthroplasty of left shoulder ?Z96.612 - Presence of left artificial shoulder joint (ICD-10) Family History Father Family history of diabetes mellitus Brother Family history of hypertension Social History Within the past year, how often did you have a drink containing alcohol: monthly or less Smoking status: Former smoker Non-prescribed substance use: denies use Highest level of school completed/degree received: some college, no degree Meds Home Medications and Allergies Home Medications Medication Instructions Recorded Confirmed Type amiodarone 200 mg tablet 200 mg PO DAILY 05/30/23 09/26/23 History atorvastatin 40 mg tablet 40 mg PO DAILY 05/30/23 09/26/23 History budesonide 0.5 mg/2 mL suspension 0.5 mg inhalation BID 05/30/23 09/26/23 History for nebulization buspirone 15 mg tablet 15 mg PO BID 05/30/23 09/26/23 History ferrous sulfate 325 mg (65 mg 325 mg PO DAILY 05/30/23 09/26/23 History iron) tablet (FeroSul) gabapentin 100 mg capsule 100 mg PO Q8H 05/30/23 09/26/23 History ipratropium 0.5 mg-albuterol 3 mg 3 ml inhalation BID PRN shortness 05/30/23 09/26/23 History (2.5 mg base)/3 mL nebulization of breath or wheezing soln levothyroxine 150 mcg tablet 150 mcg PO DAILY 05/30/23 09/26/23 History magnesium oxide 400 mg (241.3 mg 400 mg PO BID 05/30/23 09/26/23 History magnesium) tablet melatonin 3 mg tablet 3 mg PO DAILY 05/30/23 09/26/23 History limlawjrgyzl-lljxyive-dpdq 1 tab PO DAILY 05/30/23 09/26/23 History fumarate 7.5 mg-folic acid 400 mcg tablet omeprazole 20 mg capsule,delayed 20 mg PO BID 05/30/23 09/26/23 History release paroxetine HCl 10 mg tablet 10 mg PO DAILY 05/30/23 09/26/23 History furosemide 40 mg tablet 40 mg PO QD #30 tabs 06/05/23 09/26/23 Rx apixaban 2.5 mg tablet 2.5 mg PO BID 09/19/23 09/26/23 History levofloxacin 250 mg tablet 250 mg PO DAILY 3 days #3 tabs 09/24/23 09/26/23 Rx prednisone 20 mg tablet 20 mg PO DAILY 7 days #7 tabs 09/24/23 09/26/23 Rx acetaminophen 325 mg tablet 650 mg PO Q6H PRN pain 09/26/23 09/26/23 History loperamide 2 mg capsule (Imodium 2 mg PO QID PRN gi upset 09/26/23 09/26/23 History A-D) lorazepam 0.5 mg tablet (Ativan) 0.5 mg PO QID PRN agitation 09/26/23 09/26/23 History Allergies Allergy/AdvReac Type Severity Reaction Status Date / Time diazepam [From Valium] AdvReac Intermediate Unknown Verified 09/26/23 17:17 Latex, Natural Rubber AdvReac Intermediate Verified 09/26/23 17:17 Penicillins AdvReac Intermediate Unknown Verified 09/26/23 17:17 tetanus toxoid, adsorbed AdvReac Intermediate Verified 09/26/23 17:17 Exam Constitutional Vital Signs, click to edit/add: Last Vital Signs Temp 97.6 F 09/27/23 06:00 Pulse 76 09/27/23 08:49 Resp 18 09/27/23 08:49 BP 127/75 09/27/23 08:49 Pulse Ox 94 L 09/27/23 09:36 O2 Del Method Vapotherm 09/27/23 09:36 O2 Flow Rate 40 09/27/23 09:36 FiO2 60 09/27/23 09:36 Common normals: oriented x3 General appearance: cooperative and comfortable Nutritional appearance: obese Orientation/consciousness: Yes awake, Yes oriented to person and Yes oriented to place Respiratory Common normals: no use of accessory muscles (remains on high flow oxygen) Effort & inspection: able to speak in complete sentences Auscultation: diminished lung sounds (diminished b/l bases) on the right, on the left and bilateral Cardio Common normals: no JVD, regular rate, regular rhythm, S1 normal heart sound and S2 normal heart sound Rate: regular rate Rhythm: regular rhythm Peripheral pulses: posterior tibial pulses present and dorsalis pedis pulses present Extremity Common normals: normal to inspection, normal capillary refill and no clubbing, cyanosis or edema Neuro Common normals: oriented x3 and CN's II-XII intact bilaterally Psych Common normals: cooperative and affect normal Results Labs Labs: Short CBC 09/26/23 09/27/23 Range/Units 17:25 04:55 WBC 15.9 H 16.1 H (4.0-11.0) 10^3/uL Hgb 10.6 L 10.6 L (12.0-16.0) g/dL Hct 33.8 L 33.8 L (36.0-48.0) % Plt Count 121 L 117 L (150-450) 10^3/uL BMP 09/26/23 17:25 Sodium 144 Potassium 3.9 Chloride 108 H Carbon Dioxide 31.7 BUN 66.0 H Creatinine 1.81 H Glucose 129 H Calcium 9.4 Liver Function 09/26/23 Range/Units 17:25 Total Bilirubin 0.5 (0.2-1.0) mg/dL AST 83 H (15-37) U/L ALT 76 H (14-59) U/L Alkaline Phosphatase 159 H (46-116) U/L Albumin 2.0 L (3.4-5.0) g/dL ABG ABG results: 09/27/23 04:55 VBG pH 7.450 H VBG pCO2 48.7 Attestation: I have reviewed the pertinent ABG results. Pulse Oximetry Attestation: I have reviewed the pertinent pulse oximetry results. ECG Attestation: ?I have reviewed the pertinent ECG results. Interpretation: 09/26/23 Interpretive Statements Sinus rhythm 3414 Cannot rule out septal myocardial infarction, age undetermined 5234 Left ventricular hypertrophy with repolarization abnormality 7200 Abnormal left axis deviation 9150 abnormal ECG Electronically Signed On 09-27-2023 7:15:17 EST by SHIELA LOWERY Imaging Echocardiogram: Attestation: I have reviewed the pertinent imaging results. Radiologist's impression: Echocardiogram 09/19/23 LEFT VENTRICLE: Normal chamber size. Moderate concentric left ventricular hypertrophy. Abnormal septal motion likely due to bundle branch block. There is global hypokinesis. Global left ventricular systolic function is difficult to assess due to rhythm and tachycardia but appears moderately reduced. LV EF: Estimated left ventricular ejection fraction is 30 to 35%. DIASTOLIC: ATRIAL SEPTUM: LEFT ATRIUM: Normal chamber size. RIGHT ATRIUM: Normal chamber size. RIGHT VENTRICLE: Normal chamber size. Normal right ventricular systolic function. TRICUSPID VALVE: Normal mobility and thickness. MITRAL VALVE: Normal mobility and thickness. AORTIC VALVE: Normal trileaflet appearance. Normal leaflet mobility. AORTIC ROOT: Normal diameter and appearance. PULMONIC VALVE: Not well visualized. PERICARDIUM: No evidence of pericardial effusion. IVC: Collapses with inspirations. Normal size. PLEURA: CONCLUSION: 1. Moderate concentric left ventricular hypertrophy with moderately reduced systolic function. Systolic function is difficult to assess due to rhythm. LVEF is estimated at 30 to 35%. 2. Normal right ventricular size and systolic function. 3. No pericardial effusion. 4. The patient appears to be possibly in atrial fibrillation with rapid ventricular response during the exam. 5. Limited study performed with no Doppler interrogation as requested. CT scan - chest: Attestation: I have reviewed the pertinent imaging results. Radiologist's impression: 09/26/23 IMPRESSION: 1. No evidence of pulmonary arterial embolism. 2. Volume loss and consolidation bilateral lower lobes, mild consolidation within the posterior segment of the right upper lobe and dependently within the right middle lobe. Additionally, bilateral upper lobe peribronchial airspace opacities are present. Findings are most likely secondary to multilobar pneumonia. 3. Small-moderate sized bilateral layering pleural effusions. 4. Cardiomegaly. 5. Enlargement of central pulmonary arterial vasculature, likely secondary to pulmonary arterial hypertension. 6. Diffuse demineralization. Severe chronic compression fracture of T9 with chronic 6 mm retropulsion, unchanged. Electronically authenticated by: TASHA CRAIG Date: 09/26/2023 19:48 Chest x-ray: Attestation: I have reviewed the pertinent imaging results. Radiologist's impression: 09/18/23 IMPRESSION: Small left pleural effusion is suspected. Bilateral airspace opacities and patchy hazy opacities are seen, suspicious for infectious process and/or pulmonary edema. Electronically authenticated by: LEATHA ODOM Date: 09/18/2023 19:55 Assessment and Plan Assessment and Plan (1) Hypoxia: Assessment and Plan: managed by pulmonary and primary service (2) Pneumonia: Assessment and Plan: managed by pulmonary and primary service (3) Hypertension: Assessment and Plan: stable and well controlled in light of acute viral illness (4) Elevated troponin level not due myocardial infarction: Assessment and Plan: noted mild elevation of HS troponin 2/2 demend ischemia, levels remain < 200- in setting of acute viral illness, new onset Acute Systolic heart failure and A fib with RVR, no c/o chest pain or concerning symptoms today. EKG without acute ST or T wave changes Collected HS Troponin levels- are trending down Result ? Units Range Specimen 09/27/23 04:55 106.5?H* 09/26/23 17:25 118.4?H* 09/21/23 04:08 154.7?H* 09/18/23 20:18 120.3?H* 09/18/23 18:15 118.2?H* (5) JOSE (acute kidney injury): Assessment and Plan: managed by primary service JOSE on CKD 3b (6) RSV (respiratory syncytial virus pneumonia): Assessment and Plan: managed by primary service (7) Atrial fibrillation with RVR: Assessment and Plan: [id number]= 5- Age, female, CHF and HTN Currently converted back into sinus rhythm, continue amiodarone and eliquis anticoagulation (8) Acute on chronic systolic CHF, NYHA class 2 and ACC/AHA stage C: Assessment and Plan: [facility] III-IV Continue GDMT- limited r/t JOSE on CKD- no AD I, ARB, ARNI or aldactone at this time. Recommend to add beta elvis- Toprol 12.5 mg when pulmonary status improves and is stable Currently pt is net negative 1.4 L, no edema or rales. I would recommend tr ansition to oral diuretic tomorrow in light of viral illness- to prevent dehydration. Monitor renal function and optimize GDMT and renal function and B/P allow- if can initiate low dose lisinopril 2.5 mg daily, aldactone 12.5-25 mg daily, toprol 12.5 mg, and lasix 20-40 mg oral- otherwise further optimization can occur as outpt with primary filling carrier after acute illness resolves. Continue diuresis with lasix 40 mg IV bid, monitor daily weights, strict I&O, Fluid restriction 1.5 - 2L/day and renal function and electrolytes- maintain K+ >4 and Mag > 2. She will need f/u with her typical filling carrier within 1 week of discharge. Repeat BMP within 1 week of DC. She will need repeat echocardiogram to reassess EF in 1-3 months. 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 Plan as above Marilynn De Los Santos [facility] Cardiology
--- NOTE | 2023-09-27 13:43 | CM.NOTE ---
Important Message From Medicare discussed with pt, pt verbalizes understanding and signs paper. Original given to pt and copy placed in pt's chart.
[2023-09-27] MEDS: LACTOSE -REDUCED (ENSURE ORIGINAL 237 ML LIQUID) PO ×2 (13:59→21:51)
--- NOTE | 2023-09-27 15:54 | CM.NOTE ---
Updates sent to [facility].
[2023-09-28] VITALS (11 sets, daily range): BP systolic 112–123; BP diastolic 55–73; PULSE 71–80; RESP 16–18; TEMP 36.6–36.9; O2SAT 91–96
[2023-09-28] MEDS: GABAPENTIN 100 MG CAPSULE PO ×2 (05:30→20:59)
[2023-09-28] MEDS: LEVOTHYROXINE SODIUM 75 MCG TABLET 150 MCG PO (05:30)
[2023-09-28 05:44] LABS: Basophils Percent Auto 0.1 % (0.2-2.0); Eosinophils Percent Auto 0.1 % (0.9-7.0); Hematocrit 33.4 % (36.0-48.0); Hemoglobin 10.5 g/dL (12.0-16.0); Immature Granulocytes Abs Auto 0.12 10^3/uL (0.00-0.03); Immature Granulocytes Pct Auto 0.6 % (0.0-0.5); Lymphocytes Absolute Auto 0.8 10^3/uL (1.2-3.8); Lymphocytes Percent Auto 4.2 % (20.5-60.0); Mean Corpuscular HGB Conc 31.4 g/dL (29.9-35.2); Mean Corpuscular Hemoglobin 30.7 pg (26.7-34.0); Mean Corpuscular Volume 97.7 fL (81.0-99.0); Mean Platelet Volume 12.6 fL (9.5-13.5); Monocytes Absolute Auto 0.3 10^3/uL (0.3-0.8); Monocytes Percent Auto 1.7 % (1.7-12.0); Neutrophils Absolute Auto 17.5 10^3/uL (1.4-6.5); Neutrophils Percent Auto 93.3 % (43.0-75.0); Platelet Count 113 10^3/uL (150-450); Red Blood Count 3.42 10^6/uL (4.20-5.40); Red Cell Distribution Width 14.3 % (11.0-15.0); White Blood Count 18.7 10^3/uL (4.0-11.0)
[2023-09-28] MEDS: FUROSEMIDE 40 MG/4 ML VIAL IVP ×2 (06:04→23:12)
[2023-09-28 06:17] LABS: Alanine Aminotransferase 64 U/L (14-59); Albumin Globulin Ratio 0.5; Albumin Level 1.8 g/dL (3.4-5.0); Alkaline Phosphatase 147 U/L (46-116); Anion Gap 8.1; Aspartate Amino Transferase 53 U/L (15-37); BUN Creatinine Ratio 31.3; Bilirubin Total 0.5 mg/dL (0.2-1.0); Calcium 9.1 mg/dL (8.5-10.1); Chloride 107 mmol/L (98-107); Estimated GFR (African America 32 (>=60); Estimated GFR (Non-African Ame 27 (>=60); Globulin 3.6 g/dL; Glucose 86 mg/dL (74-106); Potassium 3.1 mmol/L (3.5-5.1); Sodium 145 mmol/L (136-145); Total Protein 5.4 g/dL (6.4-8.2)
[2023-09-28] MEDS: IPRATROPIUM/ALBUTEROL SULFATE 3 ML AMPUL.NEB IH ×3 (08:12→22:55)
[2023-09-28] MEDS: BUDESONIDE 0.5 MG/2 ML AMPULE NEB IH ×2 (08:12→22:55)
[2023-09-28] MEDS: APIXABAN 5 MG TABLET 2.5 MG PO ×2 (09:08→20:59)
[2023-09-28] MEDS: MULTIVITAMIN TABLET 1 TAB PO (09:08)
[2023-09-28] MEDS: FERROUS SULFATE 325 MG TABLET PO (09:08)
[2023-09-28] MEDS: MAGNESIUM OXIDE 400 MG TABLET PO ×2 (09:08→20:59)
[2023-09-28] MEDS: POTASSIUM CHLORIDE 10 MEQ ER TABLET 20 MEQ PO ×2 (09:08→20:59)
[2023-09-28] MEDS: AMIODARONE HCL 200 MG TABLET PO (09:08)
[2023-09-28] MEDS: PREDNISONE 20 MG TABLET PO (09:09)
[2023-09-28] MEDS: PAROXETINE HCL 20 MG TABLET 10 MG PO (09:09)
[2023-09-28] MEDS: BUSPIRONE HCL 15 MG TABLET PO ×2 (09:09→20:59)
[2023-09-28] MEDS: OMEPRAZOLE 20 MG CAPSULE.DR PO ×2 (09:09→20:59)
[2023-09-28] MEDS: LACTOSE -REDUCED (ENSURE ORIGINAL 237 ML LIQUID) PO ×2 (09:09→20:59)
[2023-09-28] MEDS: ATORVASTATIN CALCIUM 40 MG TABLET PO (09:09)
[2023-09-28 09:32] LABS: Magnesium 1.2 mg/dL (1.8-2.4)
[2023-09-28] MEDS: 0.9 % SODIUM CHLORIDE 250 ML 10 ML IV (11:11)
[2023-09-28] MEDS: LEVOFLOXACIN IN DEXTROSE 5 % 750 MG/150 ML IV.SOLN 100 MG IV (11:11)
[2023-09-28] MEDS: CEFTAZIDIME 2,000 MG in 0.9 % SODIUM CHLORIDE 100 ML 200 MG IV (11:11)
--- NOTE | 2023-09-28 11:13 | RESP.RT ---
trialed patient on 6 LPM NC; SpO2 dropped from 91% to 77% in five minutes, Placed back on vapotherm at 40l 60%
--- NOTE | 2023-09-28 11:34 | P.PN_ITS ---
Progress Note: Subjective Subjective Interval history: Patient states her breathing is definitely better. Exam Constitutional Vital Signs, click to edit/add: Last Vital Signs Temp 98.4 F 09/28/23 05:40 Pulse 73 09/28/23 05:40 Resp 18 09/28/23 05:40 BP 123/73 09/28/23 06:04 Pulse Ox 91 L 09/28/23 11:16 O2 Del Method Vapotherm 09/28/23 11:16 O2 Flow Rate 30 09/28/23 11:16 FiO2 60 09/28/23 11:16 Documenting provider has reviewed patient's vital signs: yes Common normals: no apparent distress Respiratory Auscultation: rales Cardio Common normals: regular rate and regular rhythm Progress Note: Objective Labs Labs: Short CBC 09/28/23 Range/Units 04:31 WBC 18.7 H (4.0-11.0) 10^3/uL Hgb 10.5 L (12.0-16.0) g/dL Hct 33.4 L (36.0-48.0) % Plt Count 113 L (150-450) 10^3/uL BMP 09/28/23 04:31 Sodium 145 Potassium 3.1 L Chloride 107 Carbon Dioxide 33.0 H BUN 56.0 H Creatinine 1.79 H Glucose 86 Calcium 9.1 Liver Function 09/28/23 Range/Units 04:31 Total Bilirubin 0.5 (0.2-1.0) mg/dL AST 53 H (15-37) U/L ALT 64 H (14-59) U/L Alkaline Phosphatase 147 H (46-116) U/L Albumin 1.8 L (3.4-5.0) g/dL Progress Note: A&P Assessment and Plan (1) Hypoxia: (2) Pneumonia: (3) Hypertension: Qualifiers: Hypertension type: primary hypertension Qualified Code(s): I10 - Essential (primary) hypertension (4) Elevated troponin level not due myocardial infarction: (5) JOSE (acute kidney injury): (6) RSV (respiratory syncytial virus pneumonia): (7) Atrial fibrillation with RVR: (8) Acute on chronic systolic CHF, NYHA class 2 and ACC/AHA stage C: (9) 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 (3) RSV (respiratory syncytial virus pneumonia): Still with significant hypoxia- try to wean supplemental oxygen today. (4) Hypoxia: Patient is on 3 L at long term, still on Vapotherm here, try to want to wean that today. (5) Elevated troponin level not due myocardial infarction: Will repeat troponin in a.m. (6) Hypertension: Blood pressure overall improved (7) Atrial fibrillation with RVR: On Eliquis, continue to monitor, rate controlled (8) JOSE (acute kidney injury) on top of chronic kidney disease stage III: Improving (9) hypokalemia-supplement (10) severe protein calorie malnutrition based on NIH criteria related to albumin-diet supplement (11) thrombocytopenia-deteriorated, continue to monitor likely secondary to the stress from the above. (12) elevated liver function test likely due secondary to low flow from heart failure-monitor daily, improving (13) Hypomagnesemia-supplement Urinary Catheter Management Urinary Catheter Management 2-way Urethral: Cath placed during this visit: no
[2023-09-28] MEDS: SODIUM CHLORIDE 0.9% INHALATION 3 ML NEB 6 ML IH ×2 (16:16→22:55)
--- NOTE | 2023-09-28 16:34 | RESP.RT ---
decreased to 50%
[2023-09-29] VITALS (8 sets, daily range): BP systolic 105–118; BP diastolic 58–69; PULSE 72–80; RESP 16–18; TEMP 36.7–37.1; O2SAT 75–95
[2023-09-29] MEDS: IPRATROPIUM/ALBUTEROL SULFATE 3 ML AMPUL.NEB IH ×4 (04:01→23:13)
[2023-09-29 04:58] LABS: Basophils Percent Auto 0.1 % (0.2-2.0); Hematocrit 33.6 % (36.0-48.0); Hemoglobin 10.3 g/dL (12.0-16.0); Immature Granulocytes Abs Auto 0.14 10^3/uL (0.00-0.03); Immature Granulocytes Pct Auto 0.6 % (0.0-0.5); Lymphocytes Absolute Auto 0.6 10^3/uL (1.2-3.8); Lymphocytes Percent Auto 2.6 % (20.5-60.0); Mean Corpuscular HGB Conc 30.7 g/dL (29.9-35.2); Mean Corpuscular Hemoglobin 30.1 pg (26.7-34.0); Mean Corpuscular Volume 98.2 fL (81.0-99.0); Mean Platelet Volume 12.9 fL (9.5-13.5); Monocytes Absolute Auto 0.4 10^3/uL (0.3-0.8); Monocytes Percent Auto 1.7 % (1.7-12.0); Neutrophils Absolute Auto 21.9 10^3/uL (1.4-6.5); Platelet Count 124 10^3/uL (150-450); Red Blood Count 3.42 10^6/uL (4.20-5.40); Red Cell Distribution Width 14.4 % (11.0-15.0)
[2023-09-29] MEDS: GABAPENTIN 100 MG CAPSULE PO ×2 (05:27→21:06)
[2023-09-29 05:28] LABS: Alanine Aminotransferase 55 U/L (14-59); Albumin Globulin Ratio 0.5; Albumin Level 1.9 g/dL (3.4-5.0); Alkaline Phosphatase 138 U/L (46-116); Anion Gap 6.1; Aspartate Amino Transferase 41 U/L (15-37); BUN Creatinine Ratio 28.9; Bilirubin Total 0.4 mg/dL (0.2-1.0); Calcium 9.1 mg/dL (8.5-10.1); Carbon Dioxide 35.7 mmol/L (21.0-32.0); Chloride 104 mmol/L (98-107); Estimated GFR (African America 32 (>=60); Estimated GFR (Non-African Ame 27 (>=60); Globulin 3.5 g/dL; Glucose 102 mg/dL (74-106); Potassium 3.8 mmol/L (3.5-5.1); Sodium 142 mmol/L (136-145); Total Protein 5.4 g/dL (6.4-8.2)
[2023-09-29] MEDS: LEVOTHYROXINE SODIUM 75 MCG TABLET 150 MCG PO (05:35)
--- NOTE | 2023-09-29 06:00 | XR_ITS ---
The [address] [address] Patient Name: YAMINI TURPIN MRN: [id number] date: 1935 Sex: F Assigned Patient Location: Current Patient Location: Accession/Order Number: [id number] Exam Date: 09/29/2023 06:18 Report Date: 09/29/2023 07:07 At the request of: JAZMINE KONG Procedure: XR chest 1V PROCEDURE: XR chest 1V DATE: 09/29/2023 5:18 AM [employer] COMPARISONS: 09/18/2023 CLINICAL INDICATION: 88 years Female pneumonia FINDINGS: The heart is prominent and stable. Prominent heterogeneous airspace disease is noted of the perihilar regions extending to the lower lung bradshaw bilaterally. This is stable in appearance on the left and has progressed on the right. This may represent progressing atelectasis and/or some progressing inflammatory infiltrate. There is evidence of bilateral pleural effusions. There is no evidence of pneumothorax. XR/XR chest 1V IMPRESSION: Many of the findings on today's exam are stable from previous exam. It appears there is more atelectasis and/or infiltrate developing at the right base since previous exam. There is likely increasing right pleural effusion. Electronically authenticated by: ALTAGRACIA RAMIREZ Date: 09/29/2023 07:07
[2023-09-29 06:25] LABS: Troponin I High Sensitivity 72.4 pg/mL (4.0-51.3)
--- NOTE | 2023-09-29 09:28 | P.PN_ITS ---
Progress Note: Subjective Subjective Interval history: Patient states her cough becoming more productive, she states the IPV treatments she feels helps her breathing Exam Constitutional Vital Signs, click to edit/add: Last Vital Signs Temp 98.7 F 09/29/23 06:00 Pulse 73 09/29/23 06:00 Resp 16 09/29/23 06:00 BP 105/58 09/29/23 06:00 Pulse Ox 90 L 09/29/23 06:00 O2 Del Method Vapotherm 09/29/23 06:00 O2 Flow Rate 4 09/29/23 06:00 FiO2 60 09/29/23 06:00 Documenting provider has reviewed patient's vital signs: yes Common normals: no apparent distress Respiratory Auscultation: rales Cardio Common normals: regular rate and regular rhythm GI Common normals: Normal to inspection, nondistended, normoactive bowel sounds present Extremity Common normals: normal to inspection and no clubbing, cyanosis or edema Neuro Common normals: oriented x3 Progress Note: Objective Labs Labs: Short CBC 09/29/23 Range/Units 04:15 WBC 23.0 H (4.0-11.0) 10^3/uL Hgb 10.3 L (12.0-16.0) g/dL Hct 33.6 L (36.0-48.0) % Plt Count 124 L (150-450) 10^3/uL BMP 09/29/23 04:15 Sodium 142 Potassium 3.8 Chloride 104 Carbon Dioxide 35.7 H BUN 52.0 H Creatinine 1.80 H Glucose 102 Calcium 9.1 Liver Function 09/29/23 Range/Units 04:15 Total Bilirubin 0.4 (0.2-1.0) mg/dL AST 41 H (15-37) U/L ALT 55 (14-59) U/L Alkaline Phosphatase 138 H (46-116) U/L Albumin 1.9 L (3.4-5.0) g/dL Progress Note: A&P Assessment and Plan (1) Hypoxia: (2) Pneumonia: (3) Hypertension: Qualifiers: Hypertension type: primary hypertension Qualified Code(s): I10 - Essential (primary) hypertension (4) Elevated troponin level not due myocardial infarction: (5) JOSE (acute kidney injury): (6) RSV (respiratory syncytial virus pneumonia): (7) Atrial fibrillation with RVR: (8) Acute on chronic systolic CHF, NYHA class 2 and ACC/AHA stage C: (9) 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 Try to obtain sputum culture, adjust antibiotics, still requiring significant supplementation with oxygen with Vapotherm (3) RSV (respiratory syncytial virus pneumonia): Still with significant hypoxia- try to wean supplemental oxygen today. (4) Hypoxia: Patient is on 3 L at fpc, still on Vapotherm here, try to want to wean that today. (5) Elevated troponin level not due myocardial infarction: Still normal (6) Hypertension: Blood pressure overall improved (7) Atrial fibrillation with RVR: On Eliquis, continue to monitor, rate controlled (8) JOSE (acute kidney injury) on top of chronic kidney disease stage III: Elevated somewhat today likely secondary to diuresis, continue to monitor (9) hypokalemia-improving (10) severe protein calorie malnutrition based on NIH criteria related to al bumin-diet supplement (11) thrombocytopenia-improved somewhat today (12) elevated liver function test likely due secondary to passive hepatic congestion secondary to the heart failure-improving (13) Hypomagnesemia-supplement Urinary Catheter Management Urinary Catheter Management 2-way Urethral: Cath placed during this visit: no
[2023-09-29] MEDS: MAGNESIUM OXIDE 400 MG TABLET PO ×2 (09:35→21:06)
[2023-09-29] MEDS: ATORVASTATIN CALCIUM 40 MG TABLET PO (09:35)
[2023-09-29] MEDS: PREDNISONE 20 MG TABLET PO (09:35)
[2023-09-29] MEDS: PAROXETINE HCL 20 MG TABLET 10 MG PO (09:35)
[2023-09-29] MEDS: JUVEN PACKET 1 PACKET PO ×2 (09:35→21:06)
[2023-09-29] MEDS: PROSTAT 15 GM PROTEIN/100 CAL 30 ML LIQUID PACKET PO ×2 (09:35→21:06)
[2023-09-29] MEDS: POTASSIUM CHLORIDE 10 MEQ ER TABLET 20 MEQ PO ×2 (09:35→21:06)
[2023-09-29] MEDS: FERROUS SULFATE 325 MG TABLET PO (09:36)
[2023-09-29] MEDS: BUSPIRONE HCL 15 MG TABLET PO ×2 (09:36→21:07)
[2023-09-29] MEDS: LACTOSE -REDUCED (ENSURE ORIGINAL 237 ML LIQUID) PO ×2 (09:36→21:06)
[2023-09-29] MEDS: CLINDAMYCIN PHOSPHATE/D5W 600 MG/50 ML PIGGYBACK 100 MG IV ×2 (09:36→16:41)
[2023-09-29] MEDS: AMIODARONE HCL 200 MG TABLET PO (09:36)
[2023-09-29] MEDS: MULTIVITAMIN TABLET 1 TAB PO (09:36)
[2023-09-29] MEDS: FUROSEMIDE 40 MG/4 ML VIAL IVP ×2 (09:36→21:06)
[2023-09-29] MEDS: OMEPRAZOLE 20 MG CAPSULE.DR PO ×2 (09:36→21:06)
[2023-09-29] MEDS: APIXABAN 5 MG TABLET 2.5 MG PO (09:36)
[2023-09-29] MEDS: BUDESONIDE 0.5 MG/2 ML AMPULE NEB IH ×2 (11:44→23:13)
--- NOTE | 2023-09-29 11:55 | RESP.RT ---
Pt cannot perform IPV
[2023-09-29 14:51] LABS: Bilirubin Urine NEGATIVE (NEGATIVE); Blood Urine MODERATE (NEGATIVE); Color Urine LT. YELLOW (YELLOW); Glucose Urine UA NEGATIVE (NEGATIVE); Ketones Urine NEGATIVE (NEGATIVE); Leukocyte Esterase Urine TRACE (NEGATIVE); Nitrite Urine NEGATIVE (NEGATIVE); Protein Urine NEGATIVE (NEG/TRACE); Urobilinogen Urine 0.2 EU/dL (0.2-1.0); pH Urine 6.5 (5.0-9.0)
[2023-09-29 14:53] LABS: Clarity Urine SLIGHTLY CLOUDY (CLEAR)
[2023-09-29 14:57] LABS: Bacteria Urine SMALL #/HPF (NONE SEEN); Crystals Seen? None Seen #/HPF (None Seen); Mucus Urine TRACE (NONE SEEN); Squamous Epithelial Cell Urine FEW #/LPF (NONE/RARE)
[2023-09-29 14:58] LABS: Cast Seen? NONE SEEN #/LPF (NONE SEEN)
[2023-09-30] VITALS (10 sets, daily range): BP systolic 96–119; BP diastolic 53–66; PULSE 62–134; RESP 16–26; TEMP 36.6–36.9; O2SAT 89–99; BMI 23.1
[2023-09-30] MEDS: CLINDAMYCIN PHOSPHATE/D5W 600 MG/50 ML PIGGYBACK 100 MG IV ×2 (03:01→08:14)
[2023-09-30] MEDS: 0.9 % SODIUM CHLORIDE 250 ML 100 ML IV (03:01)
[2023-09-30] MEDS: IPRATROPIUM/ALBUTEROL SULFATE 3 ML AMPUL.NEB IH ×4 (04:16→22:40)
[2023-09-30 04:41] LABS: Basophils Percent Auto 0.1 % (0.2-2.0); Hematocrit 33.5 % (36.0-48.0); Hemoglobin 10.3 g/dL (12.0-16.0); Immature Granulocytes Abs Auto 0.11 10^3/uL (0.00-0.03); Immature Granulocytes Pct Auto 0.6 % (0.0-0.5); Lymphocytes Absolute Auto 0.4 10^3/uL (1.2-3.8); Lymphocytes Percent Auto 2.3 % (20.5-60.0); Mean Corpuscular HGB Conc 30.7 g/dL (29.9-35.2); Mean Corpuscular Hemoglobin 30.2 pg (26.7-34.0); Mean Corpuscular Volume 98.2 fL (81.0-99.0); Mean Platelet Volume 12.8 fL (9.5-13.5); Monocytes Absolute Auto 0.4 10^3/uL (0.3-0.8); Monocytes Percent Auto 2.1 % (1.7-12.0); Neutrophils Percent Auto 94.9 % (43.0-75.0); Platelet Count 122 10^3/uL (150-450); Red Blood Count 3.41 10^6/uL (4.20-5.40); Red Cell Distribution Width 14.4 % (11.0-15.0); White Blood Count 17.9 10^3/uL (4.0-11.0)
[2023-09-30 05:05] LABS: Alanine Aminotransferase 42 U/L (14-59); Albumin Globulin Ratio 0.5; Albumin Level 1.8 g/dL (3.4-5.0); Alkaline Phosphatase 125 U/L (46-116); Anion Gap 7.8; Aspartate Amino Transferase 36 U/L (15-37); BUN Creatinine Ratio 31.3; Bilirubin Total 0.4 mg/dL (0.2-1.0); Calcium 9.4 mg/dL (8.5-10.1); Carbon Dioxide 33.1 mmol/L (21.0-32.0); Chloride 105 mmol/L (98-107); Estimated GFR (African America 32 (>=60); Estimated GFR (Non-African Ame 27 (>=60); Globulin 3.9 g/dL; Glucose 96 mg/dL (74-106); Potassium 3.9 mmol/L (3.5-5.1); Sodium 142 mmol/L (136-145); Total Protein 5.7 g/dL (6.4-8.2)
[2023-09-30 06:06] LABS: Troponin I High Sensitivity 68.1 pg/mL (4.0-51.3)
[2023-09-30] MEDS: GABAPENTIN 100 MG CAPSULE PO ×2 (06:34→21:50)
[2023-09-30] MEDS: LEVOTHYROXINE SODIUM 75 MCG TABLET 150 MCG PO (06:34)
--- NOTE | 2023-09-30 06:46 | CT_ITS ---
[address] [address] Patient Name: YAMINI TURPIN MRN: [id number] date: 1935 Sex: F Assigned Patient Location: [place] Current Patient Location: Accession/Order Number: [id number] Exam Date: 09/30/2023 12:40 Report Date: 09/30/2023 14:18 At the request of: JAZMINE KONG Procedure: CT chest wo con EXAMINATION: CT chest wo con HISTORY: dyspnea COMPARISON: No relevant comparison available. TECHNIQUE: Multi-planar CT images were created with IV contrast. Axial, Coronal, and Sagittal images. Dose reduction techniques were achieved by using automated exposure control and/or adjustment of mA and/or kV according to patient size and/or use of iterative reconstruction technique. FINDINGS: LUNGS: Partial consolidation of both lower lobes with presence of air bronchograms. Partial consolidation of the lateral segment of the right middle lobe. Soft tissue attenuation in the right main bronchus likely retained mucus. Scattered patchy groundglass and solid nodules throughout the lungs the most suspicious appearing in the right upper lobe axial image #26 measuring 9 x 7.5 mm PLEURA: 2.3 cm right and 1.5 cm left pleural effusions VASCULATURE: No abnormality. JUDE: No mass or adenopathy. MEDIASTINUM: No mass or adenopathy. CARDIAC: Moderate global cardiomegaly. Mild coronary atherosclerosis. No pericardial effusion AORTA: Mild to moderate aortic atherosclerosis. Ectasia of a single aorta measuring 3.6 cm in diameter CHEST WALL: No mass or axillary adenopathy. BONES: No bone lesion or fracture. LIMITED ABDOMEN: Bilateral renal cortical atrophy. Bilateral cortical cysts OTHER: Negative. CT/CT chest wo con IMPRESSION: Multifocal infiltrates and pleural effusions. Consider pneumonia Electronically authenticated by: SANTOS CASEY Date: 09/30/2023 14:18
[2023-09-30] MEDS: PAROXETINE HCL 20 MG TABLET 10 MG PO (08:14)
[2023-09-30] MEDS: 0.9 % SODIUM CHLORIDE 250 ML 10 ML IV (08:14)
[2023-09-30] MEDS: JUVEN PACKET 1 PACKET PO ×2 (08:14→22:18)
[2023-09-30] MEDS: MAGNESIUM OXIDE 400 MG TABLET PO ×2 (08:14→20:26)
[2023-09-30] MEDS: PROSTAT 15 GM PROTEIN/100 CAL 30 ML LIQUID PACKET PO ×2 (08:14→20:25)
[2023-09-30] MEDS: MULTIVITAMIN TABLET 1 TAB PO (08:15)
[2023-09-30] MEDS: BUSPIRONE HCL 15 MG TABLET PO ×2 (08:15→20:26)
[2023-09-30] MEDS: ATORVASTATIN CALCIUM 40 MG TABLET PO (08:15)
[2023-09-30] MEDS: POTASSIUM CHLORIDE 10 MEQ ER TABLET 20 MEQ PO ×2 (08:15→20:26)
[2023-09-30] MEDS: AMIODARONE HCL 200 MG TABLET PO (08:15)
[2023-09-30] MEDS: PREDNISONE 20 MG TABLET PO (08:15)
[2023-09-30] MEDS: LACTOSE -REDUCED (ENSURE ORIGINAL 237 ML LIQUID) PO ×2 (08:15→20:25)
[2023-09-30] MEDS: FERROUS SULFATE 325 MG TABLET PO (08:15)
[2023-09-30] MEDS: OMEPRAZOLE 20 MG CAPSULE.DR PO ×2 (08:17→20:26)
--- NOTE | 2023-09-30 08:49 | P.PN_ITS ---
Progress Note: Subjective Subjective Interval history: Patient was sleeping but awakens easily, very alert and oriented this morning. She states her breathing does feel better than previous day. Exam Constitutional Vital Signs, click to edit/add: Last Vital Signs Temp 97.9 F 09/30/23 05:22 Pulse 85 09/30/23 05:22 Resp 18 09/30/23 04:16 BP 96/60 09/30/23 05:22 Pulse Ox 93 L 09/30/23 05:22 O2 Del Method Vapotherm 09/30/23 05:22 O2 Flow Rate 30 09/30/23 05:22 FiO2 60 09/30/23 04:16 Documenting provider has reviewed patient's vital signs: yes Common normals: no apparent distress Respiratory Auscultation: rales Cardio Common normals: regular rate and regular rhythm GI Common normals: Normal to inspection, nondistended, normoactive bowel sounds present Extremity Common normals: normal to inspection and no clubbing, cyanosis or edema Neuro Common normals: oriented x3 Progress Note: Objective Labs Labs: Short CBC 09/30/23 Range/Units 03:58 WBC 17.9 H (4.0-11.0) 10^3/uL Hgb 10.3 L (12.0-16.0) g/dL Hct 33.5 L (36.0-48.0) % Plt Count 122 L (150-450) 10^3/uL BMP 09/30/23 03:58 Sodium 142 Potassium 3.9 Chloride 105 Carbon Dioxide 33.1 H BUN 56.0 H Creatinine 1.79 H Glucose 96 Calcium 9.4 Liver Function 09/30/23 Range/Units 03:58 Total Bilirubin 0.4 (0.2-1.0) mg/dL AST 36 (15-37) U/L ALT 42 (14-59) U/L Alkaline Phosphatase 125 H (46-116) U/L Albumin 1.8 L (3.4-5.0) g/dL Urine 09/29/23 Range/Units 14:40 Urine Color Lt. yellow (YELLOW) Urine Clarity Slightly cloudy A (CLEAR) Urine pH 6.5 (5.0-9.0) Ur Specific [place] 1.010 (1.005-1.025) Urine Protein Negative (NEG/TRACE) mg/dL Urine Glucose (UA) Negative (NEGATIVE) mg/dL Progress Note: A&P Assessment and Plan (1) Hypoxia: (2) Pneumonia: (3) Hypertension: Qualifiers: Hypertension type: primary hypertension Qualified Code(s): I10 - Essential (primary) hypertension (4) Elevated troponin level not due myocardial infarction: (5) JOSE (acute kidney injury): (6) RSV (respiratory syncytial virus pneumonia): (7) Atrial fibrillation with RVR: (8) Acute on chronic systolic CHF, NYHA class 2 and ACC/AHA stage C: (9) 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 Review sputum culture results - sputum culture returning Enterococcus, sensitivities pending (3) RSV (respiratory syncytial virus pneumonia): Still with significant hypoxia- try to wean supplemental oxygen today. (4) Hypoxia: Patient is on 3 L at half-way, still on Vapotherm here, check on culture results (5) Elevated troponin level not due myocardial infarction: Still normal (6) Hypertension: Blood pressure overall improved (7) Atrial fibrillation with RVR: On Eliquis, continue to monitor, rate controlled (8) JOSE (acute kidney injury) on top of chronic kidney disease stage III with acute UTI secondary to E. coli: Continue to monitor labs daily check on sensitivities later today (9) hypokalemia-improving (10) severe protein calorie malnutrition based on NIH criteria related to albumin-diet supplement (11) thrombocytopenia-improved somewhat today (12) elevated liver function test likely due secondary to passive hepatic congestion secondary to the heart failure-improving (13) Hypomagnesemia-supplement Urinary Catheter Management Urinary Catheter Management 2-way Urethral: Cath placed during this visit: no
--- NOTE | 2023-09-30 09:10 | CM.NOTE ---
Rounds made with Dr. Jerry. Plan to order CT Chest, Echocardiogram and adjust medications. Lisa verbalizes understanding. No plan for discharge today.
[2023-09-30] MEDS: BUMETANIDE 10 MG in 0.9 % SODIUM CHLORIDE 160 ML 20 MG IV (09:50)
--- NOTE | 2023-09-30 10:35 | CM.NOTE ---
2nd Important Message From Medicare discussed with pt, denies any questions or concerns.
[2023-09-30] MEDS: BUDESONIDE 0.5 MG/2 ML AMPULE NEB IH ×2 (11:12→22:40)
[2023-09-30] MEDS: VANCOMYCIN HCL 1,000 MG in 0.9 % SODIUM CHLORIDE 250 ML 250 MG IV (15:01)
[2023-10-01] VITALS (11 sets, daily range): BP systolic 111–117; BP diastolic 59–66; PULSE 56–86; RESP 16–22; TEMP 36.4–36.9; O2SAT 78–96
[2023-10-01] MEDS: IPRATROPIUM/ALBUTEROL SULFATE 3 ML AMPUL.NEB IH ×4 (04:04→23:30)
[2023-10-01] MEDS: GABAPENTIN 100 MG CAPSULE PO ×3 (05:11→20:55)
[2023-10-01 05:29] LABS: Basophils Percent Auto 0.1 % (0.2-2.0); Eosinophils Percent Auto 0.1 % (0.9-7.0); Hematocrit 33.5 % (36.0-48.0); Hemoglobin 10.2 g/dL (12.0-16.0); Immature Granulocytes Abs Auto 0.12 10^3/uL (0.00-0.03); Immature Granulocytes Pct Auto 0.7 % (0.0-0.5); Lymphocytes Absolute Auto 0.6 10^3/uL (1.2-3.8); Lymphocytes Percent Auto 3.1 % (20.5-60.0); Mean Corpuscular HGB Conc 30.4 g/dL (29.9-35.2); Mean Corpuscular Hemoglobin 30.2 pg (26.7-34.0); Mean Corpuscular Volume 99.1 fL (81.0-99.0); Mean Platelet Volume 12.8 fL (9.5-13.5); Monocytes Absolute Auto 0.5 10^3/uL (0.3-0.8); Monocytes Percent Auto 2.7 % (1.7-12.0); Neutrophils Absolute Auto 16.9 10^3/uL (1.4-6.5); Neutrophils Percent Auto 93.3 % (43.0-75.0); Platelet Count 131 10^3/uL (150-450); Red Blood Count 3.38 10^6/uL (4.20-5.40); Red Cell Distribution Width 14.5 % (11.0-15.0); White Blood Count 18.1 10^3/uL (4.0-11.0)
[2023-10-01] MEDS: LEVOTHYROXINE SODIUM 75 MCG TABLET 150 MCG PO (05:50)
[2023-10-01 05:54] LABS: Alanine Aminotransferase 49 U/L (14-59); Albumin Globulin Ratio 0.6; Alkaline Phosphatase 132 U/L (46-116); Anion Gap 9.6; Aspartate Amino Transferase 35 U/L (15-37); BUN Creatinine Ratio 29.8; Bilirubin Total 0.5 mg/dL (0.2-1.0); Calcium 9.3 mg/dL (8.5-10.1); Carbon Dioxide 33.7 mmol/L (21.0-32.0); Chloride 108 mmol/L (98-107); Estimated GFR (African America 31 (>=60); Estimated GFR (Non-African Ame 25 (>=60); Globulin 3.6 g/dL; Glucose 71 mg/dL (74-106); Potassium 4.3 mmol/L (3.5-5.1); Sodium 147 mmol/L (136-145); Total Protein 5.6 g/dL (6.4-8.2)
--- NOTE | 2023-10-01 07:18 | CM.NOTE ---
Rounding with and HOMER Sanchez. Discussed possible discharge tomorrow back to [facility].
[2023-10-01] MEDS: MULTIVITAMIN TABLET 1 TAB PO (08:54)
[2023-10-01] MEDS: PAROXETINE HCL 20 MG TABLET 10 MG PO (08:54)
[2023-10-01] MEDS: JUVEN PACKET 1 PACKET PO ×2 (08:54→20:48)
[2023-10-01] MEDS: BUSPIRONE HCL 15 MG TABLET PO (08:54)
[2023-10-01] MEDS: PROSTAT 15 GM PROTEIN/100 CAL 30 ML LIQUID PACKET PO ×2 (08:54→20:48)
[2023-10-01] MEDS: ATORVASTATIN CALCIUM 40 MG TABLET PO (08:55)
[2023-10-01] MEDS: PREDNISONE 20 MG TABLET PO (08:55)
[2023-10-01] MEDS: POTASSIUM CHLORIDE 10 MEQ ER TABLET 20 MEQ PO ×2 (08:55→20:49)
[2023-10-01] MEDS: APIXABAN 5 MG TABLET 2.5 MG PO ×2 (08:55→20:49)
[2023-10-01] MEDS: AMIODARONE HCL 200 MG TABLET PO (08:55)
[2023-10-01] MEDS: FERROUS SULFATE 325 MG TABLET PO (08:55)
[2023-10-01] MEDS: LACTOSE -REDUCED (ENSURE ORIGINAL 237 ML LIQUID) PO ×2 (08:55→20:48)
[2023-10-01] MEDS: OMEPRAZOLE 20 MG CAPSULE.DR PO ×2 (08:55→20:49)
[2023-10-01] MEDS: MAGNESIUM OXIDE 400 MG TABLET PO ×2 (08:55→20:49)
[2023-10-01] MEDS: FUROSEMIDE 40 MG/4 ML VIAL IVP ×2 (08:59→20:55)
[2023-10-01] MEDS: BUDESONIDE 0.5 MG/2 ML AMPULE NEB IH ×2 (10:12→23:30)
--- NOTE | 2023-10-01 10:18 | CM.NOTE ---
Updates sent to [facility].
--- NOTE | 2023-10-01 10:20 | P.PN_ITS ---
Progress Note: Subjective Subjective Interval history: Patient without new complaint, cough persisting somewhat productive but not as productive as the previous 2 days. Exam Constitutional Vital Signs, click to edit/add: Last Vital Signs Temp 97.5 F L 10/01/23 05:13 Pulse 79 10/01/23 05:13 Resp 16 10/01/23 05:13 BP 114/64 10/01/23 08:59 Pulse Ox 96 10/01/23 10:14 O2 Del Method Nasal Cannula 10/01/23 10:14 O2 Flow Rate 3 10/01/23 10:14 FiO2 40 09/30/23 11:30 Documenting provider has reviewed patient's vital signs: yes Common normals: no apparent distress Respiratory Auscultation: rales Cardio Common normals: regular rate and regular rhythm GI Common normals: Normal to inspection, nondistended, normoactive bowel sounds present Extremity Common normals: normal to inspection and no clubbing, cyanosis or edema Neuro Common normals: oriented x3 Progress Note: Objective Labs Labs: Short CBC 10/01/23 Range/Units 05:14 WBC 18.1 H (4.0-11.0) 10^3/uL Hgb 10.2 L (12.0-16.0) g/dL Hct 33.5 L (36.0-48.0) % Plt Count 131 L (150-450) 10^3/uL BMP 10/01/23 05:14 Sodium 147 H Potassium 4.3 Chloride 108 H Carbon Dioxide 33.7 H BUN 56.0 H Creatinine 1.88 H Glucose 71 L Calcium 9.3 Liver Function 10/01/23 Range/Units 05:14 Total Bilirubin 0.5 (0.2-1.0) mg/dL AST 35 (15-37) U/L ALT 49 (14-59) U/L Alkaline Phosphatase 132 H (46-116) U/L Albumin 2.0 L (3.4-5.0) g/dL Progress Note: A&P Assessment and Plan (1) Hypoxia: (2) Pneumonia: (3) Hypertension: Qualifiers: Hypertension type: primary hypertension Qualified Code(s): I10 - Essential (primary) hypertension (4) Elevated troponin level not due myocardial infarction: (5) JOSE (acute kidney injury): (6) RSV (respiratory syncytial virus pneumonia): (7) Atrial fibrillation with RVR: (8) Acute on chronic systolic CHF, NYHA class 2 and ACC/AHA stage C: (9) 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 Review sputum culture results - sputum culture returning Enterococcus, will be posted, antibiotics adjusted, finally starting to make some progress with this, hopeful for discharge back to her facility tomorrow, she is on 4 L currently, part of that will depend on facility's ability to use IV antibiotics for the pneumonia and a UTI (3) RSV (respiratory syncytial virus pneumonia): Still with significant hypoxia- try to wean supplemental oxygen today. (4) Hypoxia: [facility], still on Vapotherm here, check on culture results (5) Elevated troponin level not due myocardial infarction: Still normal (6) Hypertension: Blood pressure overall improved (7) Atrial fibrillation with RVR: On Eliquis, continue to monitor, rate controlled (8) JOSE (acute kidney injury) on top of chronic kidney disease stage III with acute UTI secondary to E. coli: Continue to monitor labs daily check on sensitivities later today (9) hypokalemia-improving (10) severe protein calorie malnutrition based on NIH criteria related to albumin-diet supplement (11) thrombocytopenia-improved somewhat today (12) elevated liver function test likely due secondary to passive hepatic congestion secondary to the heart failure-improving (13) Hypomagnesemia-supplement Urinary Catheter Management Urinary Catheter Management 2-way Urethral: Cath placed during this visit: no
[2023-10-01 10:49] LABS: Tobramycin Trough 3.8 ug/mL (<=2.0)
[2023-10-01] MEDS: LINEZOLID 600 MG TABLET PO ×2 (13:30→20:49)
[2023-10-02 04:15] VITALS: PULSE 60; RESP 20; O2SAT 97
[2023-10-02] MEDS: IPRATROPIUM/ALBUTEROL SULFATE 3 ML AMPUL.NEB IH ×2 (04:15→11:45)
[2023-10-02 04:27] VITALS: PULSE 64; RESP 22; O2SAT 95
[2023-10-02 04:37] LABS: Basophils Percent Auto 0.1 % (0.2-2.0); Hematocrit 31.4 % (36.0-48.0); Hemoglobin 9.7 g/dL (12.0-16.0); Immature Granulocytes Abs Auto 0.09 10^3/uL (0.00-0.03); Immature Granulocytes Pct Auto 0.5 % (0.0-0.5); Lymphocytes Absolute Auto 0.5 10^3/uL (1.2-3.8); Lymphocytes Percent Auto 2.6 % (20.5-60.0); Mean Corpuscular HGB Conc 30.9 g/dL (29.9-35.2); Mean Corpuscular Hemoglobin 30.4 pg (26.7-34.0); Mean Corpuscular Volume 98.4 fL (81.0-99.0); Mean Platelet Volume 12.9 fL (9.5-13.5); Monocytes Absolute Auto 0.4 10^3/uL (0.3-0.8); Monocytes Percent Auto 2.4 % (1.7-12.0); Neutrophils Percent Auto 94.4 % (43.0-75.0); Platelet Count 127 10^3/uL (150-450); Red Blood Count 3.19 10^6/uL (4.20-5.40); Red Cell Distribution Width 14.4 % (11.0-15.0)
[2023-10-02 05:09] LABS: Alanine Aminotransferase 48 U/L (14-59); Albumin Globulin Ratio 0.5; Albumin Level 1.9 g/dL (3.4-5.0); Alkaline Phosphatase 125 U/L (46-116); Anion Gap 9.1; Aspartate Amino Transferase 33 U/L (15-37); BUN Creatinine Ratio 40.6; Bilirubin Total 0.4 mg/dL (0.2-1.0); Calcium 10.6 mg/dL (8.5-10.1); Carbon Dioxide 32.7 mmol/L (21.0-32.0); Chloride 110 mmol/L (98-107); Estimated GFR (African America 30 (>=60); Estimated GFR (Non-African Ame 25 (>=60); Globulin 3.7 g/dL; Glucose 116 mg/dL (74-106); Potassium 4.8 mmol/L (3.5-5.1); Sodium 147 mmol/L (136-145); Total Protein 5.6 g/dL (6.4-8.2)
[2023-10-02] MEDS: LEVOTHYROXINE SODIUM 75 MCG TABLET 150 MCG PO (05:30)
[2023-10-02] MEDS: GABAPENTIN 100 MG CAPSULE PO (05:30)
[2023-10-02 06:00] VITALS: BP 121/53; PULSE 58; RESP 18; TEMP 36.1; O2SAT 95
--- NOTE | 2023-10-02 06:25 | PC.NURSE ---
incontinent of extra large BM.
--- NOTE | 2023-10-02 08:01 | P.DS_ITS ---
DS: Providers Provider Date of admission: 09/27/23 14:50 Primary care physician: NOHELIA GRACIA DO Consults: 09/27/23 08:55 Consult to Cardiology Routine Reason for consultation: Acute CHF, pulmonary hypertension, elevated troponin Has provider been notified: No DS: Diagnosis Discharge Diagnosis (1) Hypoxia: (2) Pneumonia: (3) Hypertension: Qualifiers: Hypertension type: primary hypertension Qualified Code(s): I10 - Essential (primary) hypertension (4) Elevated troponin level not due myocardial infarction: (5) JOSE (acute kidney injury): (6) RSV (respiratory syncytial virus pneumonia): (7) Atrial fibrillation with RVR: (8) Acute on chronic systolic CHF, NYHA class 2 and ACC/AHA stage C: (9) 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 coli: (9) hypokalemia (10) severe protein calorie malnutrition based on NIH criteria related to albumin (11) thrombocytopenia (12) elevated liver function test likely due secondary to passive hepatic congestion secondary to the heart failure (13) Hypomagnesemia DS: Summary Hospital Course Hospital Course: Patient is admitted with pneumonia and increasing shortness of breath with acute hypoxic respiratory failure secondary to the pneumonia and pleural effusion. Placed on IV diuretics. Oral antibiotics. Those were adjusted to IV antibiotics and Bumex drip. She responded well over the last several days. Creatinine has crept up. She did end up growing E. coli from her urine which is a fairly resistant organism as well as Enterococcus from her sputum which again was fairly resistant. Antibiotics were adjusted in the last day or so. She is back to her baseline of 3 L. White blood cell count is still somewhat elevated. The UTI should be responsive to Macrobid so we will continue with that. The Enterococcus from her sputum fairly resistant, but is sensitive to linezolid. Will place patient on oral linezolid, oral Macrobid and transfer patient back to her rehab facility. Echocardiogram with good ejection fraction of 35% which sounds to get better for her. I can be followed up with cardiology as an outpatient. Medications see list. Follow-up with PCP as an outpatient. Time Spent with Patient Time attestation: Total time spent providing and/or coordinating discharge services: Exam Constitutional Vital Signs, click to edit/add: Last Vital Signs Temp 97 F L 10/02/23 06:00 Pulse 58 L 10/02/23 06:00 Resp 18 10/02/23 06:00 BP 121/53 10/02/23 06:00 Pulse Ox 95 10/02/23 06:00 O2 Del Method Nasal Cannula 10/02/23 06:00 O2 Flow Rate 3 10/02/23 06:00 FiO2 40 09/30/23 11:30 Documenting provider has reviewed patient's vital signs: yes Common normals: no apparent distress Respiratory Auscultation: rales Cardio Common normals: regular rate and regular rhythm GI Common normals: Normal to inspection, nondistended, normoactive bowel sounds present Extremity Common normals: normal to inspection and no clubbing, cyanosis or edema Neuro Common normals: oriented x3 DS: Data Data Completed and Pending Labs on day of discharge: Labs from last 24 hours 10/02/23 10/01/23 04:24 10:03 WBC 18.0 H RBC 3.19 L Hgb 9.7 L Hct 31.4 L MCV 98.4 MCH 30.4 MCHC 30.9 RDW 14.4 Plt Count 127 L MPV 12.9 Neut % (Auto) 94.4 H Lymph % (Auto) 2.6 L [place] % (Auto) 2.4 Eos % (Auto) 0.0 L Baso % (Auto) 0.1 L Neut # (Auto) 17.0 H Lymph # (Auto) 0.5 L [place] # (Auto) 0.4 Eos # (Auto) 0.0 Baso # (Auto) 0.0 Abs Immat Gran (auto) 0.09 H Imm/Tot Granulo (auto) 0.5 Sodium 147 H Potassium 4.8 Chloride 110 H Carbon Dioxide 32.7 H Anion Gap 9.1 BUN 78.0 H* Creatinine 1.92 H Est GFR ( Amer) 30 L Est GFR (Non-Af Amer) 25 L BUN/Creatinine Ratio 40.6 Glucose 116 H Calcium 10.6 H Total Bilirubin 0.4 AST 33 ALT 48 Alkaline Phosphatase 125 H NT-Pro-B Natriuret Pep 9034.0 H* Total Protein 5.6 L Albumin 1.9 L Globulin 3.7 Albumin/Globulin Ratio 0.5 Tobramycin Trough 3.8 H* Preliminary micro results at discharge 09/28/23 09:08 - Preliminary Blood NO GROWTH AT 36-48 HOURS. FINAL TO FOLLOW. 09/28/23 09:01 Blood Culture Result 1 - Preliminary Blood NO GROWTH AT 36-48 HOURS. FINAL TO FOLLOW. Discharge Plan Discharge Disposition: Xfer SNF Condition: Fair Discharge Medications: New linezolid 600 mg Tablet 600 mg PO BID Qty: 20 0RF nitrofurantoin monohyd/m-cryst 100 mg Capsule 100 mg PO BID Qty: 14 0RF Continued amiodarone 200 mg tablet 200 mg PO DAILY atorvastatin 40 mg tablet 40 mg PO DAILY budesonide 0.5 mg/2 mL suspension for nebulization 0.5 mg inhalation BID ferrous sulfate [FeroSul] 325 mg (65 mg iron) tablet 325 mg PO DAILY gabapentin 100 mg capsule 100 mg PO Q8H levothyroxine 150 mcg tablet 150 mcg PO DAILY magnesium oxide 400 mg (241.3 mg magnesium) tablet 400 mg PO BID melatonin 3 mg tablet 3 mg PO DAILY mbraoesu-mqc-eftw fum-folic ac 7.5 mg iron-400 mcg tablet 1 tab PO DAILY omeprazole 20 mg capsule,delayed release(DR/EC) 20 mg PO BID paroxetine HCl 10 mg tablet 10 mg PO DAILY ipratropium-albuterol 0.5 mg-3 mg(2.5 mg base)/3 mL solution for nebulization 3 ml INHALATION BID PRN (Reason: shortness of breath or wheezing) furosemide 40 mg Tablet 40 mg PO QD Qty: 30 0RF Hold Instructions: Resume on 09/27/23. please hold until evaluated in 1 week by [facility] physician for fluid status, and BMP acetaminophen 325 mg tablet 650 mg PO Q6H PRN (Reason: pain) Rx Instructions: mild pain 1-3 loperamide [Imodium A-D] 2 mg capsule 2 mg PO QID PRN (Reason: gi upset) apixaban 2.5 mg tablet 2.5 mg PO BID prednisone 20 mg tablet 20 mg PO DAILY 7 Days Qty: 7 0RF Discontinued buspirone 15 mg tablet 15 mg PO BID lorazepam [Ativan] 0.5 mg tablet 0.5 mg PO QID PRN (Reason: agitation) levofloxacin 250 mg tablet 250 mg PO DAILY 3 Days Qty: 3 0RF Forms: Portal Instructions
--- NOTE | 2023-10-02 08:07 | CM.NOTE ---
Rounds made with Dr. Jerry, pt will discharge back to [place] today snf.
[2023-10-02] MEDS: JUVEN PACKET 1 PACKET PO (08:59)
[2023-10-02] MEDS: ATORVASTATIN CALCIUM 40 MG TABLET PO (09:00)
[2023-10-02] MEDS: AMIODARONE HCL 200 MG TABLET PO (09:00)
[2023-10-02] MEDS: MULTIVITAMIN TABLET 1 TAB PO (09:00)
[2023-10-02] MEDS: LINEZOLID 600 MG TABLET PO (09:00)
[2023-10-02] MEDS: POTASSIUM CHLORIDE 10 MEQ ER TABLET 20 MEQ PO (09:00)
[2023-10-02] MEDS: OMEPRAZOLE 20 MG CAPSULE.DR PO (09:00)
[2023-10-02] MEDS: FUROSEMIDE 40 MG TABLET PO (09:00)
[2023-10-02] MEDS: MAGNESIUM OXIDE 400 MG TABLET PO (09:00)
[2023-10-02] MEDS: APIXABAN 5 MG TABLET 2.5 MG PO (09:00)
[2023-10-02] MEDS: FERROUS SULFATE 325 MG TABLET PO (09:01)
[2023-10-02] MEDS: PREDNISONE 20 MG TABLET PO (09:01)
[2023-10-02] MEDS: NITROFURANTOIN MONOHYD/MAC-CRST 100 MG CAPSULE PO (09:03)
--- NOTE | 2023-10-02 10:35 | CM.NOTE ---
Faxed Discharge summary and Med list to [facility]. Pt will return to senior living care at [facility]. [facility] will pick pt up at 11:30. Notified Faiza at [facility] and [facility].
--- NOTE | 2023-10-02 10:45 | PC.NURSE ---
Report given to Kimberley watkins [facility]
[2023-10-02] MEDS: BUDESONIDE 0.5 MG/2 ML AMPULE NEB IH (11:45)
[2023-10-02 11:50] VITALS: PULSE 56; O2SAT 92
== END 2023-10-02 12:13 | DRG 177 ==
LOC: ER 09-27 01:56 → MS 09-27 02:10
PROVIDERS: Family Medicine; Internal Medicine; Physician Assistant; Admitting Provider Family Medicine; Emergency Provider Emergency Medicine; PCP Family Medicine; Visit Provider Family Medicine
DX: J15.8 Pneumonia due to other specified bacteria (principal); E43 Unspecified severe protein-calorie malnutrition; J96.01 Acute respiratory failure with hypoxia; I50.23 Acute on chronic systolic (congestive) heart failure; I13.0 Hypertensive heart and chronic kidney disease with heart failure and stage 1 through stage 4 chronic kidney disease, or unspecified chronic kidney disease; J91.8 Pleural effusion in other conditions classified elsewhere; N39.0 Urinary tract infection, site not specified; N17.9 Acute kidney failure, unspecified; Z16.29 Resistance to other single specified antibiotic; Z16.11 Resistance to penicillins; Z16.19 Resistance to other specified beta lactam antibiotics; Z16.23 Resistance to quinolones and fluoroquinolones; J12.1 Respiratory syncytial virus pneumonia; Z66 Do not resuscitate; B96.20 Unspecified Escherichia coli [E. coli] as the cause of diseases classified elsewhere; N18.32 Chronic kidney disease, stage 3b; R79.89 Other specified abnormal findings of blood chemistry; I48.91 Unspecified atrial fibrillation; E78.5 Hyperlipidemia, unspecified; E03.9 Hypothyroidism, unspecified; E87.6 Hypokalemia; D69.6 Thrombocytopenia, unspecified; E83.42 Hypomagnesemia; Z68.21 Body mass index [BMI] 21.0-21.9, adult; Z79.890 Hormone replacement therapy; Z79.01 Long term (current) use of anticoagulants; Z79.899 Other long term (current) drug therapy; Z88.0 Allergy status to penicillin; Z88.7 Allergy status to serum and vaccine; Z88.8 Allergy status to other drugs, medicaments and biological substances; Z91.040 Latex allergy status; Z96.653 Presence of artificial knee joint, bilateral; Z96.619 Presence of unspecified artificial shoulder joint; Z90.49 Acquired absence of other specified parts of digestive tract; Z90.710 Acquired absence of both cervix and uterus; Z87.891 Personal history of nicotine dependence; Z83.3 Family history of diabetes mellitus; Z82.49 Family history of ischemic heart disease and other diseases of the circulatory system
CPT/HCPCS: 0202U; 36415; 51702; 71045; 71250; 71275; 80053; 80200; 81001; 82800; 83605; 83735; 83880; 84484; 85025; 85610; 87040; 87070; 87086; 87150; 87186; 93005; 94640; 94667; 94668; 94761; 94799; 96365; 96366; 96367; 96368; 96375; 96376; 99285; J3370; Q3014; Q9966